=== PATIENT | male | born 1945 | race Caucasian/White ===

== ENCOUNTER 2017-01-10 16:06 | Emergency (ER) | payer MEDICARE, BC, OTHER ==
[2017-01-10 16:15] VITALS: BP 115/69
--- NOTE | 2017-01-10 17:33 | UC ---
Lower Extremity/Ankle HPI - HPI Summary HPI Summary: The patient comes in today for: 1. Swelling of the left foot and ankle: Onset: 4 days ago. Palliative/provocative: He does not know if elevation helps. In the past, except for today, the swelling was better in the morning. Quality: No pain. Region: Lower left leg. Severity: 0/10 pain to the leg. Associated symptoms: He is diabetic. Event: He fell 6 days ago. He fell to the left. No obvious injury. He had no pain at that time. He had pain the next day. But the swelling only started 4 days ago. It got better over the next 3 days. He denies any pain in the calf that is new. He states that he was told to come in to be seen to make sure that he does not have a blood clot in his leg. * - History of Current Complaint Chief Complaint: UCLowerExtremity Stated Complaint: SWOLLEN FOOT Time Seen by Provider: 01/10/17 17:26 Hx Obtained From: Patient - Allergies/Home Medications Allergies/Adverse Reactions: Allergies Allergy/AdvReac Type Severity Reaction Status Date / Time No Known Drug Allergy Allergy See Comment Verified 03/28/16 11:02 ENVIRONMENTAL/SEASONAL Allergy ITCHY, Uncoded 03/28/16 11:02 HAYFEVER WATERY EYES, SNEEZING PMH/Surg Hx/FS Hx/Imm Hx Previously Healthy: No - BPH, gingivitis, psoriasis. Endocrine History: Diabetes, Dyslipidemia Respiratory History: Asthma - Surgical History Surgical History: Yes Surgery Procedure, Year, and Place: GAMMA KNIFE 06/10 [facility] T[facility] 03/08/16. BRAIN TUMOR RESECTION 04/10 KIDNEY STONES REMOVED X3. RT ANKLE ORIF 1999. IMPACTED FECES X3. BLADDER STONE REMOVAL X2 [facility]. SIGMOID RESECTION [facility]. CYSTO STENT X3 [facility]-THEN REMOVED - Family History Known Family History: Negative: Hypertension, Diabetes - Social History Occupation: Employed Part-time Alcohol Use: Rare Substance Use Type: None Smoking Status (MU): Never Smoked Tobacco Have You Smoked in the Last Year: No - Immunization History Most Recent Influenza Vaccination: 2012 Most Recent Tetanus Shot: UNKNOWN Most Recent Pneumonia Vaccination: March 2013 Review of Systems Constitutional: Negative Skin: Negative Eyes: Negative ENT: Negative Respiratory: Negative Cardiovascular: Negative Gastrointestinal: Negative Genitourinary: Negative All Other Systems Reviewed And Are Negative: Yes Physical Exam Triage Information Reviewed: Yes Appearance: Well-Appearing, No Pain Distress Vital Signs: Initial Vital Signs Temp 96.5 F 01/10/17 16:09 Pulse 100 01/10/17 16:09 Resp 18 01/10/17 16:09 BP 115/69 01/10/17 16:09 Pulse Ox 99 01/10/17 16:09 Vital Signs Reviewed: Yes Eyes: Positive: Conjunctiva Clear. Negative: Discharge ENT: Positive: Hearing grossly normal. Negative: Pharyngeal erythema, Nasal congestion, Nasal drainage, TM bulging, TM dull, TM red, Tonsillar swelling, Tonsillar exudate Dental: Negative: Percussion Tenderness @, Gross Decay/Caries @ Neck: Positive: Supple, Nontender, No Lymphadenopathy. Negative: Nuchal Rigidity Respiratory: Positive: Lungs clear, No respiratory distress, No accessory muscle use. Negative: Crackles, Rhonchi Cardiovascular: Positive: RRR, No Murmur Abdomen Description: Positive: Nontender, No Organomegaly, Soft. Negative: Distended, Guarding Musculoskeletal: Positive: Strength Intact, ROM Intact, Other: - Calf circumference at 25 cm above the medial malleolus: Right calf: 39 Left calf: 40.5 There is no tenderness of the calf, but there are dilated varicose veins. There is no pain behind the left knee, or of the upper inner thigh, but there is tenderness to the lower inner thigh--though the patient states that this is not new. Neurological: Positive: Alert, Muscle Tone Normal Psychological: Positive: Age Appropriate Behavior, Consolable Skin: Positive: rashes - There is slight redness to the lower left leg, but no marked tenderness. Lower Extremity Course/Dx - Course Course Of Treatment: Patient was told that I considered a DVT as part of the differential diagnosis for his unilateral (left) lower leg swelling. Based on this, my recommendation was to go to the ER for an US of the lower left let to rule this out. He agreed to go via private car. - Differential Dx/Diagnosis Differential Diagnosis/HQI/PQRI: DVT, Sprain Provider Diagnoses: Left lower leg swelling. Discharge - Discharge Plan Condition: Stable Disposition: AGAINST MEDICAL ADVICE Additional Instructions: Patient states that he is going to the ER via private car.
== END 2017-01-10 18:00 | disposition left against medical advice (07) ==
LOC: UCEAST 16:06
DX: M79.89 Other specified soft tissue disorders (principal); E13.9 Other specified diabetes mellitus without complications; E78.5 Hyperlipidemia, unspecified; J45.909 Unspecified asthma, uncomplicated
CPT/HCPCS: 99212; G0463

== ENCOUNTER → 2017-01-10 18:28 | Emergency (ER) | payer MEDICARE, BC, OTHER ==
--- NOTE | 2017-01-10 23:32 | RAD ---
INDICATION: LEFT lower extremity ankle calf edema for 4 days. COMPARISON: No relevant prior exams available on the [facility] PACS for comparison. TECHNIQUE: Torres scale, color Doppler, and spectral analysis of the deep veins of the LEFT lower extremity. Vessel compression, phasicity, and augmentation assessed. REPORT: The LEFT common femoral, great saphenous, profunda femoral, femoral, popliteal, peroneal, and posterior tibial veins are patent. Small LEFT popliteal cyst noted. Patency of the RIGHT common femoral vein documented. IMPRESSION: No evidence for LEFT lower extremity deep venous thrombosis.
--- NOTE | 2017-01-10 23:40 | ED ---
Lower Extremity - HPI Summary HPI Summary: Patient suffered a fall 6 days ago and since then has had intermittent swelling and pain in his left lower leg and mid foot. Two days after the fall the leg was quite swollen and painful but three days later it had improved greatly. Today though the swelling and pain returned so he went to [facility] where he was referred to the ED for evaluation concerning a blood clot and or fracture in the foot. He denies SOB, CP or dizziness. He denies previous injury. - History of Current Complaint Chief Complaint: EDExtremityLower Stated Complaint: SWOLLEN LT FOOT Time Seen by Provider: 01/10/17 21:38 Hx Obtained From: Patient Mechanism Of Injury: Fall From A Standing Position Onset of Pain: Days Severity Initially: Mild Severity Currently: Mild Pain Intensity: 0 Timing: Constant Location: Is Discrete @ - LLE Character Of Pain: Dull, Aching Associated Signs And Symptoms: Positive: Swelling, Redness - mild Aggravating Factor(s): Standing, Ambulation Alleviating Factor(s): Rest Able to Bear Weight: Yes - Allergies/Home Medications Allergies/Adverse Reactions: Allergies Allergy/AdvReac Type Severity Reaction Status Date / Time No Known Drug Allergy Allergy See Comment Verified 03/28/16 11:02 ENVIRONMENTAL/SEASONAL Allergy ITCHY, Uncoded 03/28/16 11:02 HAYFEVER WATERY EYES, SNEEZING PMH/Surg Hx/FS Hx/Imm Hx Endocrine/Hematology History: Reports: Hx Diabetes - TYPE 2 Denies: Hx Sickle Cell Disease Cardiovascular History: Reports: Other Cardiovascular Problems/Disorders - HX OF ATRIAL TACHYCARDIA Denies: Hx Congestive Heart Failure, Hx Hypertension, Hx Pacemaker/ICD Respiratory History: Reports: Hx Asthma, Hx Sleep Apnea - NOT DIAGNOSISED GI History: Reports: Hx Gastroesophageal Reflux Disease, Other GI Disorders - VOLVULUS COLON - 4 BLOCKAGES LAST ONE 01/24/2013 / SIGMOID COLECTOMY History: Reports: Hx Kidney Stones, Other Problems/Disorders Denies: Hx Dialysis, Hx Renal Disease Musculoskeletal History: Reports: Hx Arthritis - BILATERAL HIPS Sensory History: Reports: Hx Contacts or Glasses - GLASSES Denies: Hx Hearing Aid Opthamlomology History: Reports: Hx Contacts or Glasses - GLASSES Neurological History: Reports: Hx Migraine - OCC, Other Neuro Impairments/ Disorders - BENIGN BRAIN TUMOR 2012 Psychiatric History: Denies: Hx Panic Disorder - Cancer History Cancer Type, Location and Year: BRAIN begnin - removed 2011 Hx Radiation Therapy: Yes - GAMMA KNIFE 06/18/12 - Surgical History Surgery Procedure, Year, and Place: GAMMA KNIFE 06/10 [facility] 03/08/16. BRAIN TUMOR RESECTION 04/10 KIDNEY STONES REMOVED X3. RT ANKLE ORIF 1999. IMPACTED FECES X3. BLADDER STONE REMOVAL X2 [facility]. SIGMOID RESECTION [facility]. CYSTO STENT X3 [facility] REMOVED Hx Anesthesia Reactions: No Infectious Disease History: Denies: Hx Clostridium Difficile, Hx Hepatitis, Hx Human Immunodeficiency Virus (HIV), Hx of Known/Suspected MRSA, Hx Shingles, Hx Tuberculosis, Hx Known/ Suspected VRE, Hx Known/Suspected VRSA, History Other Infectious Disease, Traveled Outside the [place] in Last 30 Days - Family History Known Family History: Positive: None Negative: Hypertension, Diabetes - Social History Occupation: Retired Lives: With Family Alcohol Use: Rare Substance Use Type: Reports: None Smoking Status (MU): Never Smoked Tobacco Have You Smoked in the Last Year: No Review of Systems Negative: Fever, Chills Positive: Myalgia, Edema Negative: Paresthesia, Numbness All Other Systems Reviewed And Are Negative: Yes Physical Exam Triage Information Reviewed: Yes Vital Signs On Initial Exam: Initial Vitals Temp Pulse Resp BP Pulse Ox 97.7 F 84 18 116/79 95 01/10/17 19:10 01/10/17 19:10 01/10/17 19:10 01/10/17 19:10 01/10/17 19:10 Vital Signs Reviewed: Yes Appearance: Positive: Well-Appearing, No Pain Distress, Well-Nourished Skin: Positive: Warm, Skin Color Reflects Adequate Perfusion, Dry, Soft Head/Face: Positive: Normal Head/Face Inspection Eyes: Positive: EOMI, BECK, Conjunctiva Clear ENT: Positive: Hearing grossly normal Respiratory/Lung Sounds: Positive: Breath Sounds Present Cardiovascular: Positive: RRR Musculoskeletal: Positive: Strength/ROM Intact, Edema Left - edema from mid- garcia distal to digits of the foot. Neurological: Positive: Sensory/Motor Intact, Alert, Oriented to Person Place, Time, NV Bundle Intact Distally, Abnormal Gait Psychiatric: Positive: Affect/Mood Appropriate AVPU Assessment: Alert Diagnostics - Vital Signs Vital Signs Temp Pulse Resp BP Pulse Ox 01/10/17 20:00 97.6 F 79 20 113/73 99 01/10/17 19:10 97.7 F 84 18 116/79 95 - Laboratory Lab Statement: Any lab studies that have been ordered have been reviewed, and results considered in the medical decision making process. - Radiology No standard instances Xray Interpretation: No Acute Changes Radiology Interpretation Completed By: Radiologist - Ultrasound No standard instances Ultrasound Interpretation: No Acute Changes Ultrasound Interpretation Completed By: Radiologist Lower Extremity Course/Dx - Diagnoses Differential Diagnosis/HQI/PQRI: Positive: Arthritis, Bursitis, Cellulitis, Contusion, Fracture (Closed), Gout, Sprain, Strain Provider Diagnoses: Pain and swelling of left lower leg Discharge - Discharge Plan Condition: Stable Disposition: HOME Patient Education Materials: Leg Edema (ED) Referrals: Brianne Anderson MD [Primary Care Provider] - Additional Instructions: Please follow-up with your primary care provider if your symptoms persist for another 3-5 days. Return to the emergency if your symptoms worsen.
[2017-01-10 23:41] VITALS: BP 108/69
--- NOTE | 2017-01-11 11:20 | RAD ---
Indication: Swollen LEFT foot after fall last week. Discomfort on examination of the second and third metatarsal phalangeal joints. Comparison: No relevant prior exams available on the [facility] for comparison. Technique: AP, lateral, and oblique views LEFT foot. Report: Normal articular alignment. Bone density appears decreased throughout. No cortical disruption or suspicious trabecular irregularity to suggest fracture. Mild joint space narrowing and osteophytosis at the first metatarsal phalangeal joint. Diffuse vascular calcifications. Soft tissue swelling most prominent over the dorsum of the forefoot. IMPRESSION: Soft tissue swelling. Negative for fracture.
== END | disposition home or self-care (01) ==
LOC: ED 18:28
DX: M79.89 Other specified soft tissue disorders (principal); R60.9 Edema, unspecified
CPT/HCPCS: 99281

== ENCOUNTER 2018-07-16 10:29 | Inpatient (IN) | payer MEDICARE, BC ==
--- NOTE | 2018-07-10 17:06 | HP ---
HISTORY AND PHYSICAL: DATE OF ADMISSION/SURGERY: 07/16/18 DATE OF OFFICE VISIT: 07/10/18 SURGEON: Sandra Tavera MD * (DICTATED BY DANIEL YOUNG) PROCEDURE: Right total hip arthroplasty. CHIEF COMPLAINT: Right hip pain. HISTORY OF PRESENT ILLNESS: Mr. 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 He has failed conservative treatment and elected to proceed with a right total hip arthroplasty. PAST MEDICAL HISTORY: Diabetes, high cholesterol, lymphedema, history of a brain tumor, cerebral ataxia, and asthma. PAST SURGICAL HISTORY: Oral surgery, removal of a brain tumor, sigmoidectomy, TURP, tonsillectomy, adenoidectomy, vein surgery, lithotripsy, laminectomy, and ORIF of the right ankle. CURRENT MEDICATIONS: 1. Gabapentin 300 mg 3 times a day. 2. Dovonex 0.005% as needed. 3. Doxycycline 20 mg twice a day. 4. Advair Diskus. 5. Glipizide 2.5 mg daily. 6. Janumet 50/500 mg twice a day. 7. Lisinopril 2.5 mg daily. 8. Hydrocodone. 9. Clotrimazole cream. 10. Fish oil. 11. Vitamin D. 12. Glucosamine/chondroitin. 13. Fiber Complete. 14. Atorvastatin calcium 20 mg q.h.s. 15. Potassium citrate 10 mEq two 3 times a day. 16. Clobetasol cream. ALLERGIES: No known drug allergies. FAMILY HISTORY: Stroke and cancer. SOCIAL HISTORY: He is a 72-year-old gentleman, lives with his . He does not smoke or use drugs. REVIEW OF SYSTEMS: A complete 14-point review of systems was reviewed with the patient. It was positive for diabetes and asthma. He denies history of DVT, PE , hepatitis, HIV, or anesthesia problems. PHYSICAL EXAMINATION GENERAL: He is well developed, well nourished, in no acute distress. VITAL SIGNS: He stands 5 feet 10 inches tall, weighs 260 pounds. His blood pressure is 112/72 and heart rate is 96. HEENT: Normocephalic, atraumatic. NECK: Supple. No palpable lymph nodes. PULMONARY: The lungs are clear to auscultation bilaterally. CARDIO: Regular rate and rhythm. Strong S1, S2. ABDOMEN: Soft, nontender, nondistended. NEUROLOGICAL: He is alert and oriented x3. MUSCULOSKELETAL: Right lower extremity: The skin is intact. There are no open wounds or abrasions. He walks with an antalgic-type gait favoring the right hip. He has decreased internal and external rotation of the right hip. He has a 2+ dorsalis pedis pulse, intact sensation and his lower extremity muscle group strengths are intact at 5/5. ASSESSMENT AND PLAN: Mr. Arvizu is a 72-year-old gentleman with end-stage osteoarthritis of the right hip. He has failed conservative treatment and elected to proceed with a right total hip arthroplasty. The surgery is scheduled for 07/16/[address] Tavera discussed the risks and benefits of the surgery at today's visit and all of his questions were answered. He will follow up with Dr. Tavera 2 weeks after the surgery. DANIEL YOUNG [id number]/[facility] #: [id number] MONA
[~2018-07-16 10:29] MED LIST: Buffered Lidocaine 0.9% SYRIN* 5 ML/SYR SYRINGE INTRADERM ONE; Lactated Ringers 1000 ML Bag* 1,000 ML IV SCH
--- OUTSIDE RECORDS SUMMARY | 2018-07-16 10:36 | XMS REPORT ---
:1945 External Reference #:[id number] Author Organization [facility] Address [address] [place] [address] Phone [phone] Care Team Providers Name Role Phone Brianne Anderson Care Team Information Meter Record Clerk Unavailable Brianne Anderson Primary Care Physician Unavailable Payers Type Date Identification Numbers Payment Provider Subscriber Medicare Primary Policy Number: [id number] Medicare [place] Michelle Arvizu PayID: [id number] [address] [place] [address] Medigap Part B Effective: 2007 Policy Number: [employer] Plan Vanessa Hayward [id number] PayID: [id number] [address] [place] [address] Problems Date Description Provider Status Onset: 07/13/2008 Type 2 diabetes mellitus Dg Carrasco M.D. Active Onset: 07/13/2008 Asthma without status asthmaticus Dg Carrasco M.D. Active Onset: 07/13/2008 Benign prostatic hypertrophy without Dg Carrasco M.D. Active outflow obstruction Onset: 05/16/2011 Psoriasis Brianne Anderson M.D. Active Onset: 05/26/2011 Constipation Kristi Card M.D. Active Onset: 06/25/2018 Obesity Brianne Anderson M.D. Active Onset: 06/25/2018 Paroxysmal supraventricular Brianne Anderson M.D. Active tachycardia Onset: 06/25/2018 Right bundle branch block Brianne Anderson M.D. Active Onset: 03/06/2018 Peripheral vascular disease Brianne Anderson M.D. Active Onset: 12/28/2017 Lumbosacral stenosis Brianne Anderson M.D. Active Onset: 07/09/2015 Indigestion Brianne Anderson M.D. Active Onset: 08/18/2014 Symptom of skin and integumentary Brianne Anderson M.D. Active tissue Onset: 08/18/2014 Spinal stenosis of lumbar region Brianne Anderson M.D. Active Family History Date Family Member(s) Problem(s) Comments Father 92. TIA's. Colon CA removed. Mother 82 dt Parkinson's. [place]. Social History Type Date Description Comments Marital Status Patient is Occupation sales [employer] Advance Directive The patient has an advance directive Cigarette Use Never Smoked Cigarettes ETOH Use Rare Smoking Patient has never smoked Exercise Type/Frequency Current Contradances twice weekly. Seat Belt/Car Seat Always uses a seat belt Allergies, Adverse Reactions, Alerts Date Description Reaction Status Severity Comments 03/02/2011 NKDA active 12/03/2009 Seasonal active Medications Medication Date Status Form Strength Qnty SIG Indications Ordering Provider Hydrocodone 06/26/ Active Tablets 5-325mg 60tabs 1 by Brianne Mojica Bitartrate/Yan 2017 mouth Monica, taminophen three M.D. times a day Ascensia 01/01/ Active Disk Breeze 3units test Brianne Mojica Breeznelia Test 2017 blood Keerthi Anderson sugar M.D. once daily. dx: e11.9 last office visit 02/16/16 Ascensia 10/18/ Active Disk 100unit Ascencia I73.9 Brianne Mojica Autodisc Test 2016 s 2 test britany Anderson M.DHeidi sugar twice daily. Advair Diskus 05/14/ Active Aerosol 250-50mcg 180unit inhale 1 I73.9 Brianne Mojica 2013 /Dose s dose by mahesh Anderson M.DHeidi twice a day Glipizide XL 10/13/ Active Tablets ER 2.5mg 90tabs take 1 I73.9 Brianne Mojica 2013 24HR tablet by mahesh Anderson M.DHeidi every morning Fish Oil 05/01/ Active Capsules 1000mg 2 po qd Brianne Mojica Burp-Micki 2012 Akshat Anderson Lisinopril 05/01/ Active Tablets 2.5mg 90tabs take one I73.9 Brianne Mojica 2012 tablet by Monica, mouth at M.D. at bedtime Ascensia 01/14/ Active Disk 1Box lancets Brianne Up 2011 for Monica, testing M.D. twice a day dx: 250.00 Dovonex 05/16/ Active Cream 0.005% 120gm apply L40.0 Brianne Mojica 2010 thin Monica, layer M.D. every day to affected area Janumet 05/24/ Active Tablets 50-500mg 180tabs 1 by I73.9 Brianne Mojica 2008 mouth Monica, twice a M.D. day Dex Lancets 07/08/ Active 1Box Use as 2002 Directed Guy, RAFTSMAN Glucosamine/Ch / Active Capsules as Unknown ondroitin 0000 directed Vitamin D-3 / Active Tablets 2000Unit 1 po qd Unknown 0000 Fibercon / Active Tablets 625mg 60tabs 1 po Unknown 0000 with meals Potassium / Active Tablets ER 6 po qd Unknown Citrate ER 0000 Doxycycline / Active Tablets 20mg 1 po bid Unknown Hyclate 0000 Atorvastatin / Active Tablets 20mg 1 by Unknown Calcium 0000 mouth every day Gabapentin / Active Tablets 300mg 1 by Unknown 0000 mouth three times a day Clobetasol / Active Cream 0.05% Unknown Propionate E 0000 Aspirin Ec / Active Tablets DR 325mg 6 by Unknown 0000 mouth every day Clotrimazole / Active Cream 1% apply to Unknown 0000 affected area on trunk and legs twice daily Lasix 02/27/ Hx Tablets 20mg 100tabs 1-2 by I83.11 Margie Holbrook 2017 - mouth Max, 06/25/ daily for [employer]UD[employer] 2018 swelling as needed. Cephalexin 02/08/ Hx Tablets 500mg 30tabs 1 by L03.115 2017 - mouth Guy, 02/27/ three RAFTSMAN 2018 times a day for 10d Physical 02/15/ Hx evaluate R53.1 Brianne Mojica Therapy 2015 - and treat Monica, 12/28/ leg M.DHeidi 2018 weakness fax to the [place] Pt. Aspirin Ec 02/15/ Hx Tablets DR 81mg 100tabs 1 by Brianne Mojica 2016 - mouth Monica, 12/28/ every day M.D. 2018 [facility]ensia 10/18/ Hx 90units test once Brianne Dailyeze Testing 2016 - a day as Monica, Discs 01/01/ directed M.D. 2017 Zofran Odt 07/09/ Hx Tablets 4mg 30tabs 1 by K30 Brianne Mojica 2014 - Dispers mouth Monica, 12/28/ every 4-6 M.D. 2018 hours as needed nausea/st omach pain Physical 07/09/ Hx evaluate R53.1 Brianne Mojica Therapy 2014 - and treat Monica, 10/18/ deniz leg M.D. 2016 weakness Terbinafine 08/18/ Hx Cream 1% 24gm apply 110.9 Brianne Mojica HCL 2014 - twice Monica, 07/09/ daily M.D. 2014 Bactrim DS 05/14/ Hx Tablets 800-160mg 20tabs 1 by 041.10 Brianne Mojica 2013 - mouth Monica, 08/18/ twice a M.D. 2014 day x 10 Ketoconazole 05/14/ Hx Cream 2% 15gm apply 696.1 Brianne Mojica 2013 - thin Monica, 07/09/ layer M.D. 2014 twice a day to affected area. Advair Diskus 10/07/ Hx Aerosol 100-50mcg 1units inhale 493.90 Brianne Mojica 2013 - /Dose one puff Monica, 05/14/ by mouth M.D. 2013 twice a day Azithromycin 05/01/ Hx Tablets 250mg 6tabs 2 po 560.2 Brianne Mojica 2012 - today. 1 Monica, 10/07/ po daily M.D. 2014 x 4 Glucotrol XL 10/18/ Hx Tablets ER 2.5mg 90tabs 1 tab PO 250.00 2012 - 24HR MarshallM. Guy, 10/13/ RAFTSMAN 2013 Return To Work Hx fax to Brianne Mojica 04/24/20122011 - [phone] Monica, 10/18/ 069 M.D. 2012 [wvbr] Attention : to whom it may concern Cephalexin 04/19/ Hx Capsules 250mg 30caps 1 po tid Brianne Mojica 2012 - x 10 d. Monica, 10/18/ with Akshat 2012 yogurt or kefir. Cephalexin 04/19/ Hx Tablets 250mg 30tabs 1 po tid 682.9 Brianne Mojica 2011 - until Monica, 10/18/ finished Akshat 2013 Singulair 02/20/ Hx Tablets 10mg 30tabs 1 po qd 386.31 2011 - Guy, 04/19/ RAFTSMAN 2011 Nasonex 09/04/ Hx Suspension 50mcg/Act sample 2 477.9 2011 - sprays/no Guy, 03/11/ stril/day RAFTSMAN 2011 386.31 Zyrtec Allergy 09/04/2011 - Hx Capsules 10mg OTC 1 po qd - 477.9 Guy, 10/07/2013 bid RAFTSMAN 386.31 Clindamycin HCL 05/16/2011 Hx Capsules 300mg 30caps one tab po 707.15 Brianne Mojica - tid for 10 Monica, 09/05/2011 days with Akshat yogurt or kefir Keflex 04/08/2010 Hx Capsules 500mg 30caps 1 po tid x 250.00 - 10d Guy, 10/21/2010 RAFTSMAN Asprin 08/20/2009 Hx 325mg 100units 1 po qOD Family - Medicine 10/07/2013 [facility] Finasteride 08/20/2009 Hx Tablets 5mg 90tabs 1 po qd 600.00 Family - Medicine 12/28/2017 [facility] Doxycycline 08/20/2009 Hx Capsules 50mg Family Hyclate - Medicine 04/19/2012 [facility] Breeze 2 03/29/2009 Hx 100Tests test blood Testing Disc - sugar Tid Guy, 09/04/2011 RAFTSMAN Actoplus Met 03/16/2009 Hx Tablets 15/500mg samples 1 po bid 250.00 - with meals Guy, 05/24/2009 RAFTSMAN Avodart 07/13/2008 Hx Capsules 0.5mg Family - Medicine 08/20/2009 [facility] Saw Mcintosh 07/13/2008 Hx Capsules 1 po bid 600.00 Family Complex - Medicine 06/25/2018 [facility] Gentamicin 07/13/2008 Hx Solution 0.3% 1Bottle 1-2 gtts qid Dg THeidi Sulfate - affected eye Midura, 12/03/2009 until clear M.D. [facility]ia Breeze 06/26/2007 Hx 1Box as directed 2 Autodiscs - Guy, 09/04/2011 RAFTSMAN Dovonex 05/16/2007 Hx Cream 0.005% 60Grams apply qd - Guy, 04/19/2012 RAFTSMAN Asa 12/11/2006 Hx 81mg PO qd Family - Medicine 08/20/2009 [facility] Fish Oil - 10/10/2005 Hx 1000mg 1-2 GMS A Carroll Jaeger [place] 3 Fa. - [facility] [place] Marcy, 12/11/2006 3'S MBruce (Dha/Epa) Saw 10/10/2005 Hx Prostate Carroll Jaeger Mcintosh/Nettle - Formula Marcy, /Selenium/Zinc 10/29/2007 M.D. [facility]ia Breeze 02/06/2005 Hx 90units test tid as Testing Discs - directed Guy, 06/26/2007 RAFTSMAN Cipro 12/20/2004 Hx Tablets 500mg 20tabs 1 PO bid For Dee R - 10 Days Cooper, 02/06/2005 RAFTSMAN-C Fortamet 07/21/2004 Hx 1000mg 30units 1 qpm 250.00 - Guy, 03/30/2009 RAFTSMAN Glucotrol XL 04/21/2004 Hx Tablets 2.5mg 90tabs 1 tab po am - ER 24HR Guy, 10/07/2013 RAFTSMAN Flomax 04/21/2004 Hx 0.4mg 30units Two every N40.0 Family day Medicine 12/28/2017 [facility] Advair Discus 02/11/2004 Hx 100/50 1units one 493.90 Brianne L. - inhalation Monica, 10/07/2013 twice daily M.D. Glucotrol XL 01/21/2004 Hx 5mg 90units 1 po qd Carroll JHeidi - Marcy, 04/21/2004 M.D. Advair 250/50 11/24/2003 Hx 50/100 1units one Carroll JHeidi - inhalations Marcy, 02/11/2004 bid M.D. Cialis 10/14/2003 Hx 20mg 1/2 to 1 qd Carroll Jaeger - prior to Finver, 11/24/2003 sexual M.D. activity as directed-- never use nitrates along with this medication. Spacer Device 09/30/2003 Hx 1units as directed Carroll Jaeger For Mdi - Finver, 11/24/2003 M.DHeiid Aerobid M 09/30/2003 Hx 1units 2 puffs bid. Carroll Jaeger - rinse mouth Finver, 11/24/2003 after use. M.DHeidi Dex Sensor 07/08/2003 Hx Ascencia 270units 3x a day Carroll Jaeger Cartridges - Marcy, 02/06/2005 MBruce Dovonex 07/07/2003 Hx .005% 60Grams apply to Carroll Jaeger - Oint rash qd Finver, 05/16/2007 Akshat Glucophage XR 07/07/2003 Hx 500mg 90units 1 qpm Carroll Vidal, 07/21/2004 M.DHeidi 1 qam Levaquin 09/25/2000 Hx 500mg 10units 1 qd Dg Kunal Carrasco, 09/30/2000 MHeidiDHeidi Keflex 09/13/2000 Hx 5Oomg 20units 1 PO bid Dg Kunal Carrasco, 07/07/2003 Akshat Tobrex 09/13/2000 Hx Ophth 5cc 2 GGT OU qid Dg Burgos Until Clear Midura, 07/07/2003 MBruce Dovonex 11/22/1998 Hx .005% 0units Apply To Nate M. - Rash qd Blumkin, 07/07/2003 Akshat Medrol Dosepack 11/22/1998 Hx 4mg 1units as Directed Nate Craig, 11/28/1998 Akshat Tessalon Pearls 10/15/1998 Hx 100mg 30units 1 PO tid prn Nate Craig, 11/04/1998 Akshat Ceclor CD 04/21/1997 Hx 250mg Cap 30units One tid Nate Craig, 10/15/1998 Akshat Periostat Hx Tablets 20mg 1 po bid Unknown - 04/19/2012 Doxycycline Hx Capsules 20mg take one Unknown Hyclate - capsule by 08/18/2014 mouth twice a day Dexamethasone Hx Tablets 1mg 1tabs 2 po qd Unknown - 10/07/2013 Tylenol Hx Tablets 325mg 120tabs 2 po q6h prn Unknown - elevated 10/07/2013 temp >101 Doxycycline Hx Tablets 20mg 1 by mouth Unknown Hyclate - twice a day 10/19/2015 for gums Immunizations CPT Code Status Date Vaccine Lot # [id number] Given 04/02/2018 High-Dose, Influenza Virus Vacccine-fluzone 65 and older 04602 Given 04/30/2017 High-Dose, Influenza Virus Vacccine-fluzone 65 and older 82327 Given 05/10/2016 High-Dose, Influenza Virus Vacccine-fluzone 65 and older 93166 Given 02/16/2016 Tetanus And Diptheria Adult Preservative Free [id number] >7Yrs 95523 Given 07/09/2015 Pneumococcal Conjugate Vacc-13 [id number] 69107 Given 04/16/2015 High-Dose, Influenza Virus Vacccine-fluzone 65 and older 21331 Given 04/22/2014 High-Dose, Influenza Virus Vacccine-fluzone 65 and older 20107 Given 05/01/2013 Pneumococcal Immunization [id number] 48868 Given 04/25/2013 High-Dose, Influenza Virus Vacccine-fluzone 65 and older 08727 Given 04/29/2012 DO Not Use Split Influenza Virus Vaccine 22980 Given 03/31/2011 DO Not Use Split Influenza Virus Vaccine 60398 Given 12/19/2007 Zostivax [id number] 83451 Given 06/08/2004 DO Not Use Split Influenza Virus Vaccine 81231 Given 08/25/2003 Td Immunization, For Use In Individuals 7 Years Or Older 55979 Given 08/25/2003 Td Immunization, For Use In Individuals 7 Years Or Older Vital Signs Date Vital Result Comment 06/25/2018 BP Systolic 124 mmHg BP Diastolic 64 mmHg Heart Rate 80 /min Body Temperature 98.6 F Respiratory Rate 16 /min Weight 262.00 lb 03/21/2018 BP Systolic 106 mmHg BP Diastolic 54 mmHg Heart Rate 96 /min Body Temperature 97.5 F Respiratory Rate 16 /min Weight 247.00 lb 03/06/2018 BP Systolic 114 mmHg BP Diastolic 60 mmHg Heart Rate 96 /min Body Temperature 97.9 F Respiratory Rate 18 /min Weight 248.38 lb 02/27/2018 BP Systolic 122 mmHg BP Diastolic 84 mmHg Heart Rate 84 /min Body Temperature 97.9 F Respiratory Rate 18 /min Weight 252.00 lb 02/08/2018 BP Systolic 104 mmHg BP Diastolic 62 mmHg Heart Rate 80 /min Body Temperature 98.6 F Respiratory Rate 16 /min Weight 250.00 lb 12/28/2017 BP Systolic 110 mmHg BP Diastolic 62 mmHg Heart Rate 104 /min Body Temperature 97.3 F Weight 246.00 lb 02/16/2016 BP Systolic 114 mmHg BP Diastolic 70 mmHg Heart Rate 80 /min Body Temperature 98.2 F Respiratory Rate 18 /min Weight 243.00 lb 10/19/2015 BP Systolic 118 mmHg BP Diastolic 70 mmHg Heart Rate 88 /min Body Temperature 98.0 F Respiratory Rate 18 /min Weight 235.00 lb 07/09/2015 BP Systolic 124 mmHg BP Diastolic 66 mmHg Heart Rate 96 /min Body Temperature 97.8 F Respiratory Rate 16 /min Weight 234.12 lb 10/06/2014 BP Systolic 120 mmHg BP Diastolic 76 mmHg Heart Rate 80 /min Body Temperature 98.0 F Respiratory Rate 18 /min Height 71.25 inches 5'11.25" Weight 238.00 lb BMI (Body Mass Index) 33.0 kg/m2 08/18/2014 BP Systolic 120 mmHg BP Diastolic 78 mmHg Heart Rate 88 /min Body Temperature 98.2 F Respiratory Rate 18 /min Height 71.25 inches 5'11.25" Weight 238.00 lb BMI (Body Mass Index) 33.0 kg/m2 05/14/2014 BP Systolic 120 mmHg BP Diastolic 60 mmHg Heart Rate 76 /min Body Temperature 97.6 F Respiratory Rate 18 /min Height 71.25 inches 5'11.25" Weight 239.00 lb BMI (Body Mass Index) 33.1 kg/m2 10/07/2013 BP Systolic 108 mmHg BP Diastolic 68 mmHg Heart Rate 78 /min Body Temperature 98.6 F Respiratory Rate 16 /min Height 71.25 inches 5'11.25" Weight 236.50 lb BMI (Body Mass Index) 32.8 kg/m2 05/01/2013 BP Systolic 126 mmHg BP Diastolic 70 mmHg Heart Rate 70 /min Body Temperature 97.8 F Respiratory Rate 18 /min Height 71.25 inches 5'11.25" Weight 230.00 lb BMI (Body Mass Index) 31.9 kg/m2 10/18/2012 BP Systolic 110 mmHg BP Diastolic 72 mmHg Heart Rate 80 /min Height 71.25 inches 5'11.25" Weight 226.00 lb BMI (Body Mass Index) 31.3 kg/m2 04/19/2012 BP Systolic 108 mmHg BP Diastolic 68 mmHg Heart Rate 90 /min Body Temperature 96.9 F Height 71.25 inches 5'11.25" Weight 222.00 lb BMI (Body Mass Index) 30.7 kg/m2 03/11/2012 BP Systolic 120 mmHg BP Diastolic 80 mmHg Heart Rate 102 /min Body Temperature 98.6 F Height 71.25 inches 5'11.25" Weight 237.00 lb BMI (Body Mass Index) 32.8 kg/m2 02/21/2012 BP Systolic 118 mmHg BP Diastolic 78 mmHg Heart Rate 104 /min Height 71.25 inches 5'11.25" Weight 237.00 lb BMI (Body Mass Index) 32.8 kg/m2 09/04/2011 BP Systolic 110 mmHg BP Diastolic 80 mmHg Heart Rate 60 /min Body Temperature 98.5 F Height 71.25 inches 5'11.25" Weight 234.00 lb BMI (Body Mass Index) 32.4 kg/m2 05/26/2011 BP Systolic 124 mmHg BP Diastolic 80 mmHg Heart Rate 94 /min Body Temperature 98.6 F Height 71.25 inches 5'11.25" Weight 237.00 lb BMI (Body Mass Index) 32.8 kg/m2 05/16/2011 BP Systolic 112 mmHg BP Diastolic 60 mmHg Heart Rate 80 /min Body Temperature 98.1 F Respiratory Rate 20 /min O2 % BldC Oximetry 20 % Height 71.25 inches 5'11.25" Weight 234.00 lb BMI (Body Mass Index) 32.4 kg/m2 03/02/2011 BP Systolic 120 mmHg BP Diastolic 72 mmHg Body Temperature 88.0 F Height 71.25 inches 5'11.25" Weight 244.00 lb BMI (Body Mass Index) 33.8 kg/m2 10/21/2010 BP Systolic 118 mmHg BP Diastolic 76 mmHg Heart Rate 84 /min Body Temperature 98.4 F Height 71.25 inches 5'11.25" Weight 250.00 lb BMI (Body Mass Index) 34.6 kg/m2 04/08/2010 BP Systolic 104 mmHg BP Diastolic 64 mmHg Heart Rate 84 /min Body Temperature 98.5 F Height 71.25 inches 5'11.25" Weight 245.00 lb BMI (Body Mass Index) 33.9 kg/m2 12/03/2009 BP Systolic 102 mmHg BP Diastolic 64 mmHg Heart Rate 74 /min Body Temperature 97.9 F Respiratory Rate 16 /min O2 % BldC Oximetry 96 % Weight 244.00 lb 08/20/2009 BP Systolic 112 mmHg BP Diastolic 74 mmHg Heart Rate 76 /min Height 71.25 inches 5'11.25" Weight 243.00 lb BMI (Body Mass Index) 33.7 kg/m2 03/29/2009 BP Systolic 100 mmHg BP Diastolic 70 mmHg Heart Rate 80 /min Body Temperature 98.3 F Weight 239.00 lb 08/18/2008 BP Systolic 106 mmHg BP Diastolic 72 mmHg Heart Rate 72 /min Body Temperature 98.3 F Weight 241.00 lb 07/13/2008 BP Systolic 124 mmHg BP Diastolic 64 mmHg Heart Rate 72 /min Body Temperature 98.3 F Height 71.25 inches 5'11.25" Weight 241.00 lb BMI (Body Mass Index) 33.4 kg/m2 12/19/2007 BP Systolic 110 mmHg BP Diastolic 60 mmHg Heart Rate 74 /min Height 71.25 inches 5'11.25" Weight 240.00 lb BMI (Body Mass Index) 33.2 kg/m2 10/29/2007 BP Systolic 132 mmHg BP Diastolic 82 mmHg Body Temperature 99.0 F Height 71.25 inches 5'11.25" Weight 239.00 lb BMI (Body Mass Index) 33.1 kg/m2 06/26/2007 BP Systolic 110 mmHg BP Diastolic 80 mmHg Heart Rate 84 /min Height 71.25 inches 5'11.25" Weight 244.00 lb BMI (Body Mass Index) 33.8 kg/m2 12/11/2006 BP Systolic 126 mmHg BP Diastolic 80 mmHg Heart Rate 92 /min Height 71.25 inches 5'11.25" Weight 250.00 lb BMI (Body Mass Index) 34.6 kg/m2 05/18/2006 BP Systolic 108 mmHg BP Diastolic 70 mmHg Heart Rate 80 /min Height 71.25 inches 5'11.25" Weight 242.00 lb BMI (Body Mass Index) 33.5 kg/m2 10/10/2005 BP Systolic 114 mmHg BP Diastolic 72 mmHg Heart Rate 78 /min Body Temperature 98.2 F Height 71.25 inches 5'11.25" Weight 236.00 lb BMI (Body Mass Index) 32.7 kg/m2 02/06/2005 BP Systolic 120 mmHg BP Diastolic 60 mmHg Heart Rate 72 /min Height 71.5 inches 5'11.50" Weight 232.00 lb BMI (Body Mass Index) 31.9 kg/m2 12/23/2004 BP Systolic 132 mmHg BP Diastolic 80 mmHg Heart Rate 84 /min Body Temperature 98.3 F Height 71.5 inches 5'11.50" Weight 239.00 lb BMI (Body Mass Index) 32.9 kg/m2 12/20/2004 BP Systolic 114 mmHg BP Diastolic 72 mmHg Heart Rate 100 /min Body Temperature 98.2 F Height 71.5 inches 5'11.50" Weight 237.00 lb BMI (Body Mass Index) 32.6 kg/m2 07/21/2004 BP Systolic 120 mmHg BP Diastolic 80 mmHg Heart Rate 80 /min Height 71.5 inches 5'11.50" Weight 238.00 lb BMI (Body Mass Index) 32.7 kg/m2 04/21/2004 BP Systolic 112 mmHg BP Diastolic 70 mmHg Heart Rate 80 /min Height 71.5 inches 5'11.50" Weight 240.00 lb BMI (Body Mass Index) 33.0 kg/m2 01/21/2004 BP Systolic 110 mmHg BP Diastolic 70 mmHg Heart Rate 80 /min Height 71.5 inches 5'11.50" Weight 237.00 lb BMI (Body Mass Index) 32.6 kg/m2 11/24/2003 BP Systolic 112 mmHg BP Diastolic 80 mmHg Heart Rate 68 /min Height 71.5 inches 5'11.50" Weight 248.00 lb BMI (Body Mass Index) 34.1 kg/m2 08/25/2003 BP Systolic 112 mmHg BP Diastolic 72 mmHg Heart Rate 96 /min Height 71.5 inches 5'11.50" Weight 261.00 lb BMI (Body Mass Index) 35.9 kg/m2 07/27/2003 BP Systolic 126 mmHg BP Diastolic 80 mmHg Heart Rate 72 /min Height 71.5 inches 5'11.50" Weight 264.00 lb BMI (Body Mass Index) 36.3 kg/m2 07/08/2003 BP Systolic 120 mmHg BP Diastolic 82 mmHg Heart Rate 80 /min Body Temperature 96.8 F Height 71.5 inches 5'11.50" 07/07/2003 BP Systolic 140 mmHg BP Diastolic 80 mmHg Heart Rate 100 /min Height 71.5 inches 5'11.50" Weight 272.00 lb BMI (Body Mass Index) 37.4 kg/m2 09/13/2000 BP Systolic 130 mmHg BP Diastolic 82 mmHg Heart Rate 80 /min Body Temperature 96.0 F Height 71.5 inches 5'11.50" Weight 274.00 lb BMI (Body Mass Index) 38.2 kg/m2 11/22/1998 BP Systolic 130 mmHg LA LG Cuff BP Diastolic 84 mmHg LA LG Cuff Heart Rate 80 /min Reg Body Temperature 97.9 F Height 71.5 inches 5'11.50" Weight 266.00 lb Right Visual Acuity Distance 20/20 With Bifoccals Left Visual Acuity Distance 20/20 10/15/1998 BP Systolic 120 mmHg BP Diastolic 86 mmHg Body Temperature 98.6 F Weight 271.00 lb 04/21/1997 Body Temperature 98.9 F Results Test Date Test Result H/L Range Note CBC Auto Diff 07/10/2018 White Blood Count 6.6 10^3/uL 3.5-10.8 Red Blood Count 4.67 10^6/uL 4.00-5.40 Hemoglobin 13.7 g/dL Low 14.0-18.0 Hematocrit 42 % 42-52 Mean Corpuscular Volume 89 fL 80-94 Mean Corpuscular Hemoglobin 29 pg 27-31 Mean Corpuscular HGB Conc 33 g/dL 31-36 Red Cell Distribution Width 15 % 10.5-15 Platelet Count 203 10^3/uL 150-450 Mean Platelet Volume 7.6 fL 7.4-10.4 Abs Neutrophils 3.5 10^3/uL 1.5-7.7 Abs Lymphocytes 1.9 10^3/uL 1.0-4.8 Abs Monocytes 0.7 10^3/uL 0-0.8 Abs Eosinophils 0.4 10^3/uL 0-0.6 Abs Basophils 0 10^3/uL 0-0.2 Abs Nucleated RBC 0 10^3/uL Granulocyte % 52.3 % Lymphocyte % 29.0 % Monocyte % 11.3 % Eosinophil % 6.7 % Basophil % 0.7 % Nucleated Red Blood Cells % 0.1 Urinalysis Profile 07/10/2018 Urine Color Yellow Urine Appearance Clear Urine Specific [place] 1.019 1.010-1.030 Urine pH 7.0 5-9 Urine Urobilinogen Negative Negative Urine Ketones Negative Negative Urine Protein Negative Negative Urine Leukocytes Negative Negative Urine Blood Negative Negative Urine Nitrite Negative Negative Urine Bilirubin Negative Negative Urine Glucose Negative Negative Inr/Protime 07/10/2018 Inr 1.01 0.77-1.02 Laboratory test finding 07/10/2018 Partial Thrombo Time 31.5 seconds 26.0 -36.3 PTT Comp Metabolic Panel 07/10/2018 Sodium 141 mmol/L 135-145 Potassium 4.3 mmol/L 3.5-5.0 Chloride 105 mmol/L 101-111 Co2 Carbon Dioxide 31 mmol/L 22-32 Anion Gap 5 mmol/L 2-11 Glucose 100 mg/dL 70-100 Blood Urea Nitrogen 22 mg/dL 6-24 Creatinine 1.03 mg/dL 0.67-1.17 BUN/Creatinine Ratio 21.4 High 8-20 Calcium 9.6 mg/dL 8.6-10.3 Total Protein 7.3 g/dL 6.4-8.9 Albumin 4.2 g/dL 3.2-5.2 Globulin 3.1 g/dL 2-4 Albumin/Globulin Ratio 1.4 1-3 Total Bilirubin 0.40 mg/dL 0.2-1.0 Alkaline Phosphatase 79 U/L 34-104 Alt 15 U/L 7-52 Ast 13 U/L 13-39 Egfr Non- 71.0 >60 Egfr 85.9 >60 1 Type & Screen 07/10/2018 Patient Blood Type O Positive Antibody Screen POSITIVE Urine Culture And 07/10/2018 Urine Culture SEE RESULT BELOW 2 Sensitivities Creatinine 07/10/2018 Creatinine 0.98 mg/dL 0.67-1.17 Egfr Non- 75.2 >60 Egfr 91.0 >60 3 Laboratory test finding 07/10/2018 TSH (Thyroid Stim Horm) 5.48 mcIU/mL 0.34-5.60 Basic Metabolic Profile 03/18/2018 Sodium 141 mEq/L 134-149 Potassium 4.3 mEq/L 3.6-5.5 Chloride 104 mEq/L 94-112 Carbon Dioxide 30 mEq/L 21-32 Glucose 149 mg/dL High 70-105 BUN 27 mg/dL High 6-26 Creatinine 1.0 mg/dL 0.6-1.4 BUN/Creat Ratio 27.0 CALC 8.0-36.0 Calcium 9.5 mg/dL 8.6-10.2 GFR Non- >60 ml/min/1.73m^ >=60 GFR >60 ml/min/1.73m^ >=60 Istat BUN/Crea/Egfr/V Mainct 06/28/2017 Poc Bun Mainct 36 mg/dL High 9-18 Poc Crea Mainct 0.9 mg/dL 0.6-0.9 GFR Non- MCT 83.2 >60 GFR Mainct 107.0 >60 4 Comprehensive Metabolic Prof 09/19/2016 Sodium 141 mEq/L 134-149 Potassium 4.7 mEq/L 3.6-5.5 Chloride 104 mEq/L 94-112 Carbon Dioxide 29 mEq/L 21-32 Glucose 150 mg/dL High 70-105 5 BUN 24 mg/dL 6-26 Creatinine 0.9 mg/dL 0.6-1.4 BUN/Creat Ratio 26.7 CALC 8.0-36.0 Calcium 9.2 mg/dL 8.6-10.2 Total Protein 7.1 g/dL 6.4-8.3 Albumin 4.4 g/dL 3.8-5.5 Globulin 2.7 g/dL 2.0-4.8 A/G Ratio 1.6 CALC 0.6-2.3 Alk. Phosphatase 64 U/L 22-95 Alt (SGPT) 16 U/L 7-35 Ast (Sgot) 13 U/L 5-34 Total Bilirubin 0.5 mg/dL 0.2-1.3 GFR Non- >60 ml/min/1.73m^ >=60 GFR >60 ml/min/1.73m^ >=60 Lipid Profile 09/19/2016 Cholesterol 154 mg/dL 120-200 Triglycerides 52 mg/dL 30-200 HDL Cholesterol 57 mg/dL 30-70 LDL (Calculated) 87 CALC 0-129 VLDL Cholesterol 10 mg/dL 0-50 HDL Risk Factor 2.7 CALC 0.0-4.4 Laboratory test finding 09/19/2016 PSA 0.3 ng/mL 0.0-4.0 Uric Acid 5.1 mg/dL 2.5-9.2 Iron And Tibc 08/02/2016 Iron Bind.Cap.(Tibc) 338 g/dL 250-450 6 Uibc 236 g/dL 111-343 6 Iron, Serum 102 g/dL 38-169 6 Iron Saturation 30 % 15-55 6 Laboratory test finding 08/02/2016 TSH 2.64 mIU/L 0.50-6.00 Comprehensive Metabolic Prof 08/02/2016 Sodium 138 mEq/L 134-149 Potassium 5.0 mEq/L 3.6-5.5 Chloride 99 mEq/L 94-112 Carbon Dioxide 25 mEq/L 21-32 Glucose 174 mg/dL High 70-105 7 BUN 24 mg/dL 6-26 Creatinine 1.0 mg/dL 0.6-1.4 BUN/Creat Ratio 24.0 CALC 8.0-36.0 Calcium 9.8 mg/dL 8.6-10.2 Total Protein 7.1 g/dL 6.4-8.3 Albumin 3.9 g/dL 3.8-5.5 Globulin 3.2 g/dL 2.0-4.8 A/G Ratio 1.2 CALC 0.6-2.3 Alk. Phosphatase 66 U/L 22-95 Alt (SGPT) 21 U/L 7-35 Ast (Sgot) 23 U/L 5-34 Total Bilirubin 0.7 mg/dL 0.2-1.3 GFR Non- >60 ml/min/1.73m^ >=60 GFR >60 ml/min/1.73m^ >=60 CBC Electronic ([facility]) 08/02/2016 WBC 7.1 3.6-9.6 RBC 5.01 3.90-5.70 Hemoglobin ([facility]/CTX) 14.8 g/dL 12.1 - 17.2 Hematocrit ([facility]/CTX) 44.7 % 36.1 - 50.3 Platelets 214 10^3/ul 150-400 Lymph% 23.0 % 17.0-48.0 Mixed% 5.6 Neutrophils % 71.4 Mean Corpuscular Vol 89 82.2-97.4 Mean Corpuscular Hemoglobin 29.6 27.6-33.3 Mean Corpuscular Hemo Concen 33.1 32.0-36.0 RDW 14.4 High 11.6-13.7 Mean Platelet Volume 6.3 5.5-11.0 Laboratory test finding 08/02/2016 Hemoglobin A1c ([facility]) 6.6 % % High 4.1- 5.7 Creatinine 04/11/2016 Creatinine 0.95 mg/dL 0.67-1.17 Egfr Non- 78.4 >60 Egfr 100.8 >60 8 Laboratory test finding 03/08/2016 Point of Care Glucose 159 mg/dL High 74 -106 9 Laboratory test finding 03/08/2016 Point of Care Glucose 148 mg/dL High 74 -106 10 Basic Metabolic Panel 02/29/2016 Sodium 137 mmol/L 133-145 Potassium 4.5 mmol/L 3.5-5.0 Chloride 105 mmol/L 101-111 Co2 Carbon Dioxide 26 mmol/L 22-32 Anion Gap 6 mmol/L 2-11 Glucose 97 mg/dL 70-100 Blood Urea Nitrogen 19 mg/dL 6-24 Creatinine 0.87 mg/dL 0.67-1.17 BUN/Creatinine Ratio 21.8 High 8-20 Calcium 9.1 mg/dL 8.6-10.3 Egfr Non- 86.8 >60 Egfr 111.6 >60 11 CBC Auto Diff 02/29/2016 White Blood Count 6.5 10^3/uL 3.5-10.8 Red Blood Count 4.44 10^6/uL 4.0-5.4 Hemoglobin 12.9 g/dL Low 14.0-18.0 Hematocrit 40 % Low 42-52 Mean Corpuscular Volume 89 fL 80-94 Mean Corpuscular Hemoglobin 29 pg 27-31 Mean Corpuscular HGB Conc 33 g/dL 31-36 Red Cell Distribution Width 14 % 10.5-15 Platelet Count 175 10^3/uL 150-450 Mean Platelet Volume 8 um3 7.4-10.4 Abs Neutrophils 3.8 10^3/uL 1.5-7.7 Abs Lymphocytes 1.7 10^3/uL 1.0-4.8 Abs Monocytes 0.8 10^3/uL 0-0.8 Abs Eosinophils 0.2 10^3/uL 0-0.6 Abs Basophils 0 10^3/uL 0-0.2 Abs Nucleated RBC 0 10^3/uL Granulocyte % 58.9 % 38-83 Lymphocyte % 26.2 % 25-47 Monocyte % 11.6 % High 1-9 Eosinophil % 2.8 % 0-6 Basophil % 0.5 % 0-2 Nucleated Red Blood Cells % 0.1 Inr/Protime 02/29/2016 Inr 1.03 0.89-1.11 Laboratory test finding 02/29/2016 Partial Thrombo Time 30.4 seconds 26.0 -36.3 PTT Urine Culture And Sensitivities SEE RESULT BELOW 12 Total Protein 24HR Urine 10/27/2015 Urine Collection Time 24 Urine Total Volume 1900 mL Urine Random Total Protein 10 mg/dL Urine Total Protein/24HR 190 mg/24Hr High 0-165 Calcium,24 Hour,Urine 10/27/2015 Urine Calcium 190 mg/24h <250 Urine Collection Duration 24 h Urine Volume 1900 mL Urine Calcium Conc 10 mg/dL 13 Uric Acid 24HR Urine 10/27/2015 Uric Acid, U 950 mg/24h High 14 Collection Duration 24 h Urine Volume 1900 mL Uric Acid Concentration 50 mg/dL 15 Laboratory test finding 10/27/2015 Reference Lab Test See Comment 16 Laboratory test finding 10/12/2015 Microalb, Random 8.5 mg/L 0.5-37 ([facility]/CTX) Hemoglobin A1c ([facility]) 6.5 % High 4.1-5.7 Comprehensive Metabolic Prof 10/12/2015 Sodium 136 mEq/L 134-149 Potassium 4.6 mEq/L 3.6-5.5 Chloride 98 mEq/L 94-112 Carbon Dioxide 30 mEq/L 21-32 Glucose 130 mg/dL High 70-105 17 BUN 19 mg/dL 6-26 Creatinine 0.9 mg/dL 0.6-1.4 BUN/Creat Ratio 21.1 CALC 8.0-36.0 Calcium 9.4 mg/dL 8.6-10.2 Total Protein 7.3 g/dL 6.4-8.3 Albumin 4.2 g/dL 3.8-5.5 Globulin 3.1 g/dL 2.0-4.8 A/G Ratio 1.4 CALC 0.6-2.3 Alk. Phosphatase 55 U/L 22-95 Alt (SGPT) 16 U/L 7-35 Ast (Sgot) 13 U/L 5-34 Total Bilirubin 0.5 mg/dL 0.2-1.3 GFR Non- >60 ml/min/1.73m^ >=60 GFR >60 ml/min/1.73m^ >=60 Lipid Profile 10/12/2015 Cholesterol 212 mg/dL High 120-200 Triglycerides 66 mg/dL 30-200 HDL Cholesterol 68 mg/dL 30-70 LDL (Calculated) 131 CALC High 0-129 VLDL Cholesterol 13 mg/dL 0-50 HDL Risk Factor 3.1 CALC 0.0-4.4 Complete Blood Count 10/12/2015 WBC 5.5 x10^3/UL 3.6-9.6 RBC 4.61 x10^6/UL 3.90-5.70 HGB 13.8 g/dL 12.1-17.2 HCT 42 % 36-50 MCV 90.0 fL 82.2-97.4 MCH 29.8 pg 27.6-33.3 MCHC 33.0 g/dL 33.0-35.5 RDW 14.5 % High 11.6-13.7 PLT 184 x10^3/UL 150-400 MPV 7.0 fL Low 7.4-10.4 Gran # 3.9 x10^3/UL 1.5-7.2 Lymph# 1.3 x10^3/UL 0.7-4.9 [place]# 0.3 x10^3/UL 0.1-0.9 Gran % 69.5 % 42.2-75.2 Lymph % 25.0 % 20.5-51.1 [place]% 5.5 % 1.7-9.3 Laboratory test finding 10/12/2015 TSH 3.60 mIU/L 0.50-6.00 18 Free T4 0.92 ng/dL 0.75-1.54 Vitamin D25 42 30-100 Stone Analysis 09/17/2015 Kidney Stone Source Right Ureter Kidney Stone 1st Constituent 100% Uric acid 19 Laboratory test finding 09/17/2015 Point of Care Glucose 133 mg/dL High 74 -106 20 Laboratory test finding 09/17/2015 Point of Care Glucose 137 mg/dL High 74 -106 21 Laboratory test finding 08/09/2015 Point of Care Glucose 123 mg/dL High 74 -106 22 Laboratory test finding 07/09/2015 Hemoglobin A1c 6.4 % High 4.1-5.7 ([facility],CX) Laboratory test finding 06/19/2015 Point of Care Glucose 152 mg/dL High 74 -106 23 Stone Analysis 06/19/2015 Kidney Stone Source Bladder Kidney Stone 1st Constituent 100% Uric acid 24 CBC Auto Diff 06/18/2015 White Blood Count 11.8 10^3/uL High 4.8-10.8 Red Blood Count 4.87 10^6/uL 4.0-5.4 Hemoglobin 14.1 g/dL 14.0-18.0 Hematocrit 44 % 42-52 Mean Corpuscular Volume 91 fL 80-94 Mean Corpuscular Hemoglobin 29 pg 27-31 Mean Corpuscular HGB Conc 32 g/dL 31-36 Red Cell Distribution Width 14 % 10.5-15 Platelet Count 194 10^3/uL 150-450 Mean Platelet Volume 8 um3 7.4-10.4 Abs Neutrophils 9.0 10^3/uL High 1.5-7.7 Abs Lymphocytes 1.4 10^3/uL 1.0-4.8 Abs Monocytes 1.4 10^3/uL High 0-0.8 Abs Eosinophils 0 10^3/uL 0-0.6 Abs Basophils 0 10^3/uL 0-0.2 Abs Nucleated RBC 0 10^3/uL Granulocyte % 76.2 % 38-83 Lymphocyte % 11.7 % Low 25-47 Monocyte % 11.6 % High 1-9 Eosinophil % 0.2 % 0-6 Basophil % 0.3 % 0-2 Nucleated Red Blood Cells % 0 Comp Metabolic Panel 06/18/2015 Sodium 132 mmol/L Low 133-145 Potassium 4.2 mmol/L 3.5-5.0 Chloride 100 mmol/L Low 101-111 Co2 Carbon Dioxide 25 mmol/L 22-32 Anion Gap 7 mmol/L 2-11 Glucose 128 mg/dL High 70-100 Blood Urea Nitrogen 30 mg/dL High 6-24 Creatinine 1.55 mg/dL High 0.67-1.17 BUN/Creatinine Ratio 19.4 8-20 Calcium 9.7 mg/dL 8.6-10.3 Total Protein 7.7 g/dL 6.4-8.9 Albumin 4.0 g/dL 3.2-5.2 Globulin 3.7 g/dL 2-4 Albumin/Globulin Ratio 1.1 1-3 Total Bilirubin 0.90 mg/dL 0.2-1.0 Alkaline Phosphatase 52 U/L 34-104 Alt 12 U/L 7-52 Ast 12 U/L Low 13-39 Egfr Non- 44.7 >60 Egfr 57.5 >60 25 Laboratory test finding 06/18/2015 Lipase 7 U/L Low 11.0-82.0 C Reactive Protein 49.67 mg/L High < 5.00 26 Lactic Acid 0.9 mmol/L 0.5-2.2 Urinalysis Profile 06/18/2015 Urine Color Yellow Urine Appearance Cloudy Urine Specific [place] 1.017 1.010-1.030 Urine pH 5.0 5-9 Urine Urobilinogen Negative Negative Urine Ketones 1+ Negative Urine Protein Negative Negative Urine Leukocytes Negative Negative Urine Blood Negative Negative Urine Nitrite Negative Negative Urine Bilirubin Negative Negative Urine Glucose Negative Negative Laboratory test finding 08/18/2014 Hemoglobin A1c 6.5 % High 4.1-5.7 ([facility],CX) Laboratory test finding 05/14/2014 Hemoglobin A1c 6.3 % High 4.1-5.7 ([facility],CX) Basic Metabolic Panel 01/21/2014 Sodium 138 mmol/L 133-145 Potassium 4.3 mmol/L 3.7-5.6 Chloride 107 mmol/L 101-111 Co2 Carbon Dioxide 26 mmol/L 22-32 Anion Gap 5 mmol/L 2-11 Glucose 113 mg/dL High 70-100 Blood Urea Nitrogen 20 mg/dL 6-24 Creatinine 0.91 mg/dL 0.67-1.17 BUN/Creatinine Ratio 22.0 High 8-20 Calcium 9.3 mg/dL 8.6-10.3 Egfr Non- 82.9 >60 Egfr 106.6 >60 27 Laboratory test 10/07/2013 Vitamin D25 30 30-100 finding Laboratory test 10/07/2013 Hemoglobin A1c 6.4 % High 4.1-5.7 finding ([facility],CX) Laboratory test 09/24/2013 [facility] Lab Test cbc;bmp see image finding report Laboratory test 05/01/2013 Hemoglobin A1c 6.1% % High 4.1-5.7 finding ([facility],CX) CBC Auto Diff 04/24/2013 White Blood Count 5.7 10^3/uL 4.8-10.8 Red Blood Count 4.88 10^6/uL 4.0-5.4 Hemoglobin 15.0 g/dL 14.0-18.0 Hematocrit 45 % 42-52 Mean Corpuscular Volume 92 fL 80-94 Mean Corpuscular Hemoglobin 31 pg 27-31 Mean Corpuscular HGB Conc 33 g/dL 31-36 Red Cell Distribution Width 14 % 10.5-15 Platelet Count 175 10^3/uL 150-450 Mean Platelet Volume 8 um3 7.4-10.4 Abs Neutrophils 3.5 10^3/uL 1.5-7.7 Abs Lymphocytes 1.4 10^3/uL 1.0-4.8 Abs Monocytes 0.6 10^3/uL 0-0.8 Abs Eosinophils 0.2 10^3/uL 0-0.6 Abs Basophils 0 10^3/uL 0-0.2 Abs Nucleated RBC 0 10^3/uL Granulocyte % 61.4 % 38-83 Lymphocyte % 24.1 % Low 25-47 Monocyte % 10.6 % High 1-9 Eosinophil % 3.3 % 0-6 Basophil % 0.6 % 0-2 Nucleated Red Blood Cells % 0.1 Basic Metabolic Panel 04/24/2013 Sodium 142 mmol/L 133-145 Potassium 4.4 mmol/L 3.5-5.0 Chloride 109 mmol/L 101-111 Co2 Carbon Dioxide 27.0 mmol/L 22-32 Anion Gap 6.0 mmol/L 2-11 Glucose 103 mg/dL High 70-100 Blood Urea Nitrogen 25 mg/dL High 6-24 Creatinine 0.90 mg/dL 0.50-1.40 BUN/Creatinine Ratio 27.8 High 8-20 Calcium 9.7 mg/dL 8.1-9.9 Egfr Non- 84.2 >60 Egfr 108.2 >60 28 Stool For Blood 03/29/2013 Stool Occult Blood (SEE NOTE) 29 Urinalysis 03/29/2013 Urine Color Yellow Urine Appearance Turbid Urine Specific [place] 1.026 1.010-1.030 Urine Esterase Trace Negative Urine Nitrate Negative Negative Urine Urobilinogen Negative E.U./dL Negative Urine Protein Trace mg/dL Negative Urine pH 5.5 5-9 Urine Blood Negative Negative Urine Ketones 1+ mg/dL Negative Urine Bilirubin Negative Negative Urine Glucose Negative mg/dL Negative Urine Microscopic 03/29/2013 Urine WBC 1+ (<3 /hpf) None Seen Urine RBC None Seen None Seen Bacteria Urine None Seen None Seen Crystals Urine Triple Phosphate /lpf None Seen 30 Comp Metabolic Panel 03/29/2013 Sodium 138 mmol/L 133-145 Potassium 3.3 mmol/L Low 3.5-5.0 Chloride 107 mmol/L 101-111 Co2 Carbon Dioxide 24.0 mmol/L 22-32 Anion Gap 7.0 mmol/L 2-11 Glucose 119 mg/dL High 70-100 Blood Urea Nitrogen 14 mg/dL 6-24 Creatinine 0.80 mg/dL 0.50-1.40 BUN/Creatinine Ratio 17.5 8-20 Calcium 9.1 mg/dL 8.1-9.9 Total Protein 5.7 g/dL Low 6.2-8.1 Albumin 3.6 g/dL 3.2-5.2 Globulin 2.1 g/dL 2-4 Albumin/Globulin Ratio 1.7 1-3 Total Bilirubin 1.2 mg/dL 0.4-1.5 Alkaline Phosphatase 58 U/L 30-110 Alt 17 U/L 14-54 Ast 17 U/L 12-42 Egfr Non- 96.4 >60 Egfr 124.0 >60 31 Laboratory test finding 03/29/2013 Lipase 15 U/L Low 22-51 C Reactive Protein 0.8 mg/dL High Less than 0.5 CBC Auto Diff 03/29/2013 White Blood Count 9.6 10^3/uL 4.8-10.8 Red Blood Count 4.79 10^6/uL 4.0-5.4 Hemoglobin 14.9 g/dL 14.0-18.0 Hematocrit 44 % 42-52 Mean Corpuscular Volume 93 fL 80-94 Mean Corpuscular Hemoglobin 31 pg 27-31 Mean Corpuscular HGB Conc 34 g/dL 31-36 Red Cell Distribution Width 14 % 10.5-15 Platelet Count 174 10^3/uL 150-450 Mean Platelet Volume 9 um3 7.4-10.4 Abs Neutrophils 7.2 10^3/uL 1.5-7.7 Abs Lymphocytes 1.4 10^3/uL 1.0-4.8 Abs Monocytes 0.9 10^3/uL High 0-0.8 Abs Eosinophils 0 10^3/uL 0-0.6 Abs Basophils 0 10^3/uL 0-0.2 Abs Nucleated RBC 0 10^3/uL Granulocyte % 75.3 % 38-83 Lymphocyte % 14.2 % Low 25-47 Monocyte % 9.8 % High 1-9 Eosinophil % 0.3 % 0-6 Basophil % 0.4 % 0-2 Nucleated Red Blood Cells % 0 Basic Metabolic Panel 03/03/2013 Sodium 137 mmol/L 133-145 Potassium 4.8 mmol/L 3.5-5.0 Chloride 104 mmol/L 101-111 Co2 Carbon Dioxide 27.0 mmol/L 22-32 Anion Gap 6.0 mmol/L 2-11 Glucose 91 mg/dL 70-100 Blood Urea Nitrogen 19 mg/dL 6-24 Creatinine 0.80 mg/dL 0.50-1.40 BUN/Creatinine Ratio 23.8 High 8-20 Calcium 10.0 mg/dL High 8.1-9.9 Egfr Non- 96.4 >60 Egfr 124.0 >60 32 Laboratory test finding 03/03/2013 PSA Diagnostic 0.32 ng/mL 0-4.0 33 Basic Metabolic Panel 02/10/2013 Sodium 144 mmol/L 133-145 Potassium 4.3 mmol/L 3.5-5.0 Chloride 115 mmol/L High 101-111 Co2 Carbon Dioxide 23.0 mmol/L 22-32 Anion Gap 6.0 mmol/L 2-11 Glucose 109 mg/dL High 70-100 Blood Urea Nitrogen 20 mg/dL 6-24 Creatinine 0.80 mg/dL 0.50-1.40 BUN/Creatinine Ratio 25.0 High 8-20 Calcium 9.6 mg/dL 8.1-9.9 Egfr Non- 96.4 >60 Egfr 124.0 >60 34 Laboratory test finding 02/03/2013 Stone Analysis . 35 Urine Culture And 01/27/2013 Urine Culture (SEE NOTE) 36 Sensitivities CBC Auto Diff 01/24/2013 White Blood Count 5.7 10^3/uL 4.8-10.8 Red Blood Count 4.54 10^6/uL 4.0-5.4 Hemoglobin 13.3 g/dL Low 14.0-18.0 Hematocrit 42 % 42-52 Mean Corpuscular Volume 91 fL 80-94 Mean Corpuscular Hemoglobin 29 pg 27-31 Mean Corpuscular HGB Conc 32 g/dL 31-36 Red Cell Distribution Width 14 % 10.5-15 Platelet Count 159 10^3/uL 150-450 Mean Platelet Volume 8 um3 7.4-10.4 Abs Neutrophils 3.7 10^3/uL 1.5-7.7 Abs Lymphocytes 1.3 10^3/uL 1.0-4.8 Abs Monocytes 0.6 10^3/uL 0-0.8 Abs Eosinophils 0.1 10^3/uL 0-0.6 Abs Basophils 0 10^3/uL 0-0.2 Abs Nucleated RBC 0 10^3/uL Granulocyte % 65.2 % 38-83 Lymphocyte % 22.7 % Low 25-47 Monocyte % 10.0 % High 1-9 Eosinophil % 1.7 % 0-6 Basophil % 0.4 % 0-2 Nucleated Red Blood Cells % 0 Comp Metabolic Panel 01/24/2013 Sodium 144 mmol/L 133-145 Potassium 2.7 mmol/L Low 3.5-5.0 Chloride 109 mmol/L 101-111 Co2 Carbon Dioxide 28.0 mmol/L 22-32 Anion Gap 7.0 mmol/L 2-11 Glucose 107 mg/dL High 70-100 Blood Urea Nitrogen 13 mg/dL 6-24 Creatinine 0.80 mg/dL 0.50-1.40 BUN/Creatinine Ratio 16.3 8-20 Calcium 8.9 mg/dL 8.1-9.9 Total Protein 6.3 g/dL 6.2-8.1 Albumin 3.6 g/dL 3.2-5.2 Globulin 2.7 g/dL 2-4 Albumin/Globulin Ratio 1.3 1-3 Total Bilirubin 0.9 mg/dL 0.4-1.5 Alkaline Phosphatase 48 U/L 30-110 Alt 21 U/L 14-54 Ast 19 U/L 12-42 Egfr Non- 96.4 >60 Egfr 124.0 >60 37 Laboratory test finding 01/24/2013 Magnesium 1.9 mg/dL 1.7-2.6 Amylase 42 U/L 20-120 Lipase 15 U/L Low 22-51 C Reactive Protein < 0.5 mg/dL Less than 0.5 CBC Auto Diff 01/22/2013 White Blood Count 7.1 10^3/uL 4.8-10.8 Red Blood Count 4.61 10^6/uL 4.0-5.4 Hemoglobin 13.7 g/dL Low 14.0-18.0 Hematocrit 42 % 42-52 Mean Corpuscular Volume 91 fL 80-94 Mean Corpuscular Hemoglobin 30 pg 27-31 Mean Corpuscular HGB Conc 33 g/dL 31-36 Red Cell Distribution Width 14 % 10.5-15 Platelet Count 176 10^3/uL 150-450 Mean Platelet Volume 8 um3 7.4-10.4 Abs Neutrophils 4.8 10^3/uL 1.5-7.7 Abs Lymphocytes 1.4 10^3/uL 1.0-4.8 Abs Monocytes 0.7 10^3/uL 0-0.8 Abs Eosinophils 0.2 10^3/uL 0-0.6 Abs Basophils 0 10^3/uL 0-0.2 Abs Nucleated RBC 0 10^3/uL Granulocyte % 68.0 % 38-83 Lymphocyte % 19.7 % Low 25-47 Monocyte % 9.7 % High 1-9 Eosinophil % 2.2 % 0-6 Basophil % 0.4 % 0-2 Nucleated Red Blood Cells % 0 Basic Metabolic Panel 01/22/2013 Sodium 144 mmol/L 133-145 Potassium 3.3 mmol/L Low 3.5-5.0 Chloride 114 mmol/L High 101-111 Co2 Carbon Dioxide 24.0 mmol/L 22-32 Anion Gap 6.0 mmol/L 2-11 Glucose 117 mg/dL High 70-100 Blood Urea Nitrogen 21 mg/dL 6-24 Creatinine 0.80 mg/dL 0.50-1.40 BUN/Creatinine Ratio 26.3 High 8-20 Calcium 9.4 mg/dL 8.1-9.9 Egfr Non- 96.4 >60 Egfr 124.0 >60 38 Urine Culture And 01/22/2013 Urine Culture (SEE NOTE) 39 Sensitivities Laboratory test finding 10/18/2012 Hemoglobin A1c 6.6 % High 4.1-5.7 ([facility] [place],CX) Laboratory test finding 04/15/2012 Culture 40 Sensitivity/Gram St -- <SEE NOTE> Laboratory test finding 09/04/2011 PSA 0.50 ng/mL 0.00-4.00 Laboratory test finding 09/04/2011 Hemoglobin A1c 6.0 % High 4.1-5.7 ([facility],CX) Laboratory test finding 03/02/2011 Hemoglobin A1c 6.2 % High 4.1-5.7 ([facility],CX) Ua - Non Micro ([facility]) 03/02/2011 Appearance CLEAR Color YELLOW Glucose NEG Bilirubin NEG Ketones TRACE SP Grav 1.025 Blood NEG PH 5.0 Protein NEG Urobil 0.2 Nitrite NEG Leukocytes ([facility] [place]/[facility]) NEG Lipid Profile 11/21/2010 Cholesterol 172 mg/dL 120-200 HDL 53 mg/dL 30-70 Triglycerides 90 mg/dL 30-200 HDL Risk Factor 3.2 CALC 0.0-4.0 LDL (Calculated) 101 CALC 0-129 VLDL (Calculated) 18 mg/dL 0-50 Laboratory test finding 10/21/2010 Hemoglobin A1c ([facility] [place],CX) 6.2 % High 4.1-5.7 CBC Electronic ([facility]) 10/21/2010 WBC 7.1 3.6-9.6 RBC 4.78 3.90-5.70 Hemoglobin ([facility] [place]/CTX) 14.2 g/dL 12.1 - 17.2 Hematocrit ([facility] [place]/CTX) 43.5 % 36.1 - 50.3 Platelets 186 10^3/ul 150-400 Lymph% 26.4 20.5-51.1 Mixed% 10.7 Neutrophils % 62.9 Mean Corpuscular Vol 91.0 82.2-97.4 Mean Corpuscular Hemoglobin 29.7 27.6-33.3 Mean Corpuscular Hemo Concen 32.6 32.0-36.0 RDW 13.6 11.6-13.7 Mean Platelet Volume 10.4 6.5-11.0 Comprehensive Metabolic Prof 10/21/2010 Albumin 4.3 g/dL 3.8-5.5 Alk. Phos. 74 U/L 22-95 Alt (SGPT) 22 U/L 10-40 Ast (Sgot) 20 U/L 5-34 BUN 26 mg/dL 6-26 Calcium 9.3 mg/dL 8.6-10.2 Chloride 102 mEq/L 94-112 Creatinine 1.0 mg/dL 0.6-1.4 Carbon Dioxide 26 mEq/L 21-32 Glucose 134 mg/dL High 70-105 Sodium 138 mEq/L 134-149 Total Bilirubin 0.2 mg/dL 0.2-1.3 Total Protein 7.3 g/dL 6.3-8.1 Potassium 4.1 mEq/L 3.6-5.5 Globulin 3.0 g/dL 2.0-4.8 A/G Ratio 1.5 Calc 0.6-2.2 BUN/Creat Ratio 27.1 Calc 8.0-36.0 Laboratory test 10/21/2010 Vitamin D, 25 Oh 37.5 ng/mL 32.0-100.0 41 finding Laboratory test 09/20/2010 PSA, Total 0.60 ng/ml 0.00-4.00 42, 43 finding Laboratory test 04/08/2010 Hemoglobin A1c 6.4 % High 4.1-5.7 finding ([facility] [place],CX) Laboratory test 12/03/2009 Vitamin D, 25 Oh 12.7 ng/mL Low 32.0-100.0 44 finding Laboratory test 12/03/2009 Hemoglobin A1c 6.0 % High 4.1-5.7 finding ([facility] [place],CX) Laboratory test 08/20/2009 PSA, Total 0.50 ng/ml 0.00-4.00 42, 45 finding Laboratory test 08/20/2009 Hemoglobin A1c 6.4 % High 4.1-5.7 finding ([facility] [place],CX) Laboratory test 03/29/2009 Hemoglobin A1c 6.5 % High 4.1-5.7 finding ([facility] [place],CX) Laboratory test 08/18/2008 Hemoglobin A1c 6.4% % High 4.1-5.7 finding ([facility] [place],CX) Laboratory test 08/18/2008 PSA 0.5 ng/ml 0.0-4.0 46, 47 finding Laboratory test 12/19/2007 Glucose, Serum 107 mg/dL High 70-105 finding ([facility] [place]/CTX) Laboratory test 12/19/2007 Hemoglobin A1c 6.0 % 48, 49 finding Urinalysis Stat 10/29/2007 Ua Color YELLOW Appearance-Urine CLEAR Bilirubin-Ur NEGATIVE Negative Blood-Urine 3+ Negative Esterase-Urine TRACE Negative Glucose-Urine NEGATIVE Negative Ketones-Urine 2+ Negative Nitrite NEGATIVE Negative PH-Urine 5.0 5-9 Protein-Urine NEGATIVE Negative [id number] NEGATIVE Negative Specific [place]-Ur 1.026 1.010-1.030 Amylase Stat 10/29/2007 Amylase 50 U/L 30-125 Urinalysis W/Microscopic Stat 10/29/2007 Ua Color YELLOW Appearance-Urine CLEAR Bilirubin-Ur NEGATIVE Negative Blood-Urine 3+ Negative Epith Cells-Ur RARE Esterase-Urine TRACE Negative Glucose-Urine NEGATIVE Negative Ketones-Urine 2+ Negative Nitrite NEGATIVE Negative PH-Urine 5.0 5-9 Protein-Urine NEGATIVE Negative RBC-Urine TNTC 0-2 [id number] NEGATIVE Negative Specific [place]-Ur 1.026 1.010-1.030 WBC-Urine 1-3 0-5 Stool For Blood 10/29/2007 Stool For Blood NEGATIVE Negative Laboratory test finding 10/29/2007 Lipase 18 U/L Low 22-51 Comp Stat 10/29/2007 One Over Creatinine 0.71 Anion Gap 8.0 mmol/L 2-11 50 Albumin/Globulin Ratio 1.1 1-3 Albumin 4.1 GM/DL 3.2-5.2 Alkaline Phosphatase 68 U/L 39-117 Alt (SGPT) 25 U/L 17-63 Ast (Sgot) 23 U/L 12-42 BUN 20 mg/dL 6-24 Calcium 8.6 mg/dL Low 8.7-10.2 Chloride 103 mmol/L 101-111 Co2 (Carbon Dioxide) 25.0 mmol/L 22-32 Globulin 3.8 GM/DL 2-4 Glucose 149 mg/dL High 70-105 Potassium 3.7 mmol/L 3.5-5.0 Sodium 136 mmol/L 135-145 Bilirubin Total 0.9 mg/dL 0.4-1.5 Total Protein 7.9 GM/DL 6.2-8.1 BUN/Creatinine Ratio 14.3 8-20 Creatinine 1.4 mg/dL 0.5-1.4 CBC With Electronic Diff Stat 10/29/2007 White Blood Count 10.5 CUMM 4.8- 10.8 Abs Basophils 0 0-0.2 Abs Eosinophils 0 0-0.6 Absolute Neutrophil Count 9.0 High 1.5-7.7 Abs Lymphs 0.6 Low 1.0-4.8 Abs Mononuclear 0.8 0-0.8 Basophil % 0.4 % 0-2 Hematocrit 43 % 42-52 51 Hemoglobin 14.8 g/dL 14.0-18.0 Eosinophil % 0.1 % 0-6 Gran % 86.1 % High 38-83 Lymph % 6.2 % Low 20-45 Mean Corpuscular HGB [place] 35 g/dL 32-36 Mean Corpuscular Hemoglob 30 pg 27-31 Mean Corpuscular Volume 86 um3 80-94 Mean Platelet Volume 7.4 um3 7.4-10.4 Mononuclear % 7.2 % 1-9 Platelet Count 203 CUMM 150-450 Red Cell Count 4.96 CUMM 4.6-6.2 Redcell Distribution WDTH 13 % 10.5-15 Laboratory test finding 06/26/2007 Hemoglobin A1c 6.2 % High 4.1-5.7 ([facility]/CTX) Comprehensive Metabolic 06/26/2007 Albumin 4.1 g/dL 3.8-5.5 52 Prof Alk. Phos. 62 U/L 22-95 52 Alt (SGPT) 21 U/L 10-40 52 Ast (Sgot) 17 U/L 5-34 52 BUN 18 mg/dL 6-26 52 Calcium 9.2 mg/dL 8.6-10.2 52 Chloride 102 mEq/L 94-112 52 Creatinine 0.9 mg/dL 0.6-1.4 52 Carbon Dioxide 30 mEq/L 21-32 52 Glucose 116 mg/dL High 70-105 52 Sodium 138 mEq/L 134-149 52 Total Bilirubin 0.4 mg/dL 0.2-1.3 52 Total Protein 6.9 g/dL 6.3-8.1 52 Potassium 4.1 mEq/L 3.6-5.5 52 Globulin 2.8 g/dL 2.0-4.8 52 A/G Ratio 1.5 Calc 0.6-2.2 52 BUN/Creat Ratio 21.4 Calc 8.0-36.0 52 Lipid Profile 06/26/2007 Cholesterol 192 mg/dL 120-200 52 HDL 54 mg/dL 30-70 52 Triglycerides 70 mg/dL 30-200 52 HDL Risk Factor 3.5 CALC Low 4.2-7.0 52 LDL (Calculated) 124 CALC 0-129 52 VLDL (Calculated) 14 mg/dL 0-50 52 Laboratory test finding 06/26/2007 PSA 1.10 ng/mL 0.00-4.00 52 Laboratory test finding 12/11/2006 Hemoglobin A1c 6.1 % High 4.1-5.7 ([facility]/CTX) Laboratory test finding 05/18/2006 Hemoglobin A1c 5.9 % High 4.1-5.7 ([facility]/CTX) Comp Metabolic ([facility]) 10/11/2005 Glucose, Serum 110 mg/dL High 70-105 Male (a/[facility]/CTX) BUN (a/[facility] [place] 20 mg/dL 6-26 Creatinine (a/[facility] [place]) 1.0 mg/dL 0.6-1.4 BUN/Creatinin Ratio 20.0 8.0-36 Sodium 138 134-149 Potassium 4.2 3.6-5.5 Chloride 96 mEq/L 94-112 Co2 23 21-32 Calcium (a/[facility] [place] 9.3 mg/dL 8.6-10.2 Total Protein 6.7 g/dL 6.3-8.1 Albumin ([facility]) 4.2 3.8-5.5 Globulin 2.5 2.0-4.8 A/G Ratio (a/[facility] [place] 1.6 0.6-2.2 Alk Phos (a) Male 73 U/L 22-95 Alt-M SGPT Male ([facility]) 28 10-40 Ast Sgot 19 U/L 5-34 Bilirubin, Total 0.4 mg/dL 0.2-1.3 Lipid Profile([facility]) Male 10/11/2005 Cholesterol 188 mg/dL 120-200 ([facility] [place]) Triglyceride 71 mg/dL 30-200 HDL Cholesterol (a) Male 61 mg/dL 30-70 LDL, Calculated ([facility]) 113 CALC 0-129 LDL Direct (/[facility] [place]) - mg/dL 0-130 VLDL 14 0-50 HDL Risk Factor ([facility]) 3.1 CALC Low 4.2-7.0 Free T4/TSH 10/11/2005 TSH ([facility] [place]) 2.77 uIU/ml 0.5-6.0 ([facility] [place]) Free T4 ([facility] [place]) 0.99 ng/dL 0.75-1.54 Laboratory test finding 10/11/2005 Free T3 ([facility],CX) 2.93 pg/mL 2.0-4.9 CBC Electronic ([facility]) 10/11/2005 WBC 6.0 3.6-9.6 Lymphocytes 25.5 % 20.5 - 51.1 Monocytes 9.2 % 1.7-9.3 Granulocytes 65.3 % 42.2 - 75.2 Lymphocytes 1.5 10^3/uL 0.7 - 4.9 Monocytes 0.6 10^3/uL 0.1 - 0.9 Granulocytes 3.9 10^3/uL 1.5 - 7.2 RBC 4.79 3.90-5.70 Hemoglobin ([facility]) 14.2 g/dL 12.1 - 17.2 Hematocrit ([facility]/CTX) 42.2 % 36.1 - 50.3 Mean Corpuscular Vol 88.1 82.2-97.4 Mean Corpuscular Hemaglobin 29.7 27.6-33.3 Mean Corpuscular Hemo Concen 33.7 33.0-36.0 RDW 12.7 11.6-13.7 Platelets 224. 10^3/ul 150-400 Mean Platelet Volume 6.9 Low 7.4-10.4 Laboratory test 10/11/2005 PSA ([facility]) 1.85 0.0-4.0 finding Laboratory test 10/10/2005 Hemoglobin A1c ([facility]/CTX) 5.9 % High 4.1- 5.7 finding Ua - Micro ([facility]) 10/10/2005 Appearance CLOUDY Color YELLOW Glucose NEG Bilirubin NEG Ketones TRACE SP Grav 1.020 Blood LARGE PH 7.5 Protein, Random Urine SSA 2+ Urobil 0.2 Nitrite NEG Leukocytes MOD Hyaline - /Lpf Granular - /Lpf WBC, Fluid >75 RBC, Fluid >100 Mucus SM AMNT /Lpf Epith OCC /Lpf Bacteria 3+ /Hpf Amorphous - /Lpf Crystals - /Lpf Z#Comments - Laboratory test finding 02/06/2005 Hemoglobin A1c (F/C/CTX) 5.8 % High 4.1 -5.7 Laboratory test finding 07/21/2004 Hemoglobin A1c (F/C/CTX) 6.0 % High 4.1 -5.7 Laboratory test finding 02/22/2004 Hemoglobin A1c (F/C/CTX) 6.3 % High 4.1 -5.7 Glucose/Hgaic Profile 11/24/2003 Glucose, Serum 127 mg/dL High 70-118 ([facility] ([facility]/CTX) Hemoglobin A1c (F/C/CTX) 6.8 % High 4.1-5.7 Glucose/Hgaic Profile 08/25/2003 Glucose, Serum 119 mg/dL High 70-118 ([facility] (Fma/CMC/CTX) Hemoglobin A1c (F/C/CTX) 7.3 % High 4.1-5.7 Lipid Profile ([facility]) 07/27/2003 Cholesterol 197 mg/dL 120-200 Triglyceride 127 mg/dL 30-200 HDL-Chol 53 30-85 LDL-Calculated (a/CMC) 119 CALC 0-129 VLDL 25 0-50 HDL Risk Factor (a) 3.7 CALC Low 4.2-7.0 Free T4/TSH 07/27/2003 TSH (a/CMC/Centrex) 3.26 uIU/ml 0.5-6.0 (Fma/CMC/Centrex) Free T4 0.94 ng/dL 0.75-1.54 Laboratory test finding 07/27/2003 PSA 1.01 0.0-4.0 CBC Electronic ([facility]) 07/27/2003 WBC 5.9 3.6-9.6 Lymphocytes 35.0 % 20.5 - 51.1 Monocytes 3.7 % 1.7-9.3 Granulocytes 61.3 % 42.2 - 75.2 Lymphocytes 2.1 10^3/uL 0.7 - 4.9 Monocytes 0.2 10^3/uL 0.1 - 0.9 Granulocytes 3.6 10^3/uL 1.5 - 7.2 RBC 5.27 3.90-5.70 Hemoglobin (Fma/CMC/CTX) 15.6 g/dL 12.1 - 17.2 Hematocrit (Fma/CMC/CTX) 47.2 % 36.1 - 50.3 Mean Corpuscular Vol 89.6 82.2-97.4 Mean Corpuscular Hemaglobin 29.6 27.6-33.3 Mean Corpuscular Hemo Concen 33.0 33.0-35.5 RDW 12.6 11.6-13.7 Platelets 217 10^3/ul 150-400 Mean Platelet Volume 7.1 Low 7.4-10.4 Ua - Non Micro (a New) 07/27/2003 Appearance CLEAR Color LT. YELLOW Glucose NEGATIVE Bilirubin NEGATIVE Ketones NEGATIVE SP Grav 1.015 Blood NEGATIVE PH 5.5 Protein NEGATIVE Urobil 0.2 E.U./dL Nitrite NEGATIVE Leukocytes NEGATIVE Comp Metabolic ([facility]) 07/27/2003 Glucose, Serum (a/CMC/CTX) 143 mg/dL High 70-118 BUN (a/CMC/Centrex) 15 mg/dL 6-26 Creatinine (a/CMC/CTX) 0.8 mg/dL 0.6-1.4 BUN/Creatinin Ratio 19.3 8.0-36 Sodium 139 134-149 Potassium 4.3 3.6-5.5 Chloride 104 mEq/L 94-112 Co2 26 21-32 Calcium (a/CMC/Centrex) 9.4 mg/dL 8.6-10.0 Total Protein 8.6 g/dL High 6.3-8.1 53 Albumin (a/CMCC/Centrex) 4.5 3.8-5.5 Globulin 4.1 2.0-4.8 A/G Ratio (a/CMC/Centrex) 1.1 0.6-2.2 Alkaline Phosphatase (F/C/CTX) 73 U/L 22-95 Alt (SGPT) 24 10-40 Ast (Sgot) (a/CMC/Centrex) 16 U/mL 5-34 Bilirubin, Total 0.7 mg/dL 0.2-1.3 Glucose/Hgaic Profile 07/07/2003 Glucose, Serum 385 mg/dL High 70-118 (a/CMC (Fma/CMC/CTX) Hemoglobin A1c (F/C/CTX) 9.9 % High 4.1-5.7 Ua - Micro ([facility]) 07/07/2003 Appearance CLEAR Color LT. YELLOW Glucose 3+ Bilirubin NEGATIVE Ketones TRACE SP Grav 1.010 Blood NEGATIVE PH 6.0 Protein NEGATIVE Urobil 0.2 E.U./dL Nitrite NEGATIVE Leukocytes NEGATIVE Hyaline -- /Lpf Granular -- /Lpf WBC'S 1-2 RBC'S -- Mucus SM AMT /Lpf Epith FEW Bacteria -- Amorphous -- /Lpf Crystals -- /Lpf Comments -- CBC With Diff ([facility]) 12/24/1998 WBC 6.5 /Hpf 3.6 - 9.6 Lymphocytes 30.7 % 20.5 - 51.1 Monocytes 5.8 % 1.7 - 9.3 Granulocytes 63.5 % 42.2 - 75.2 Lymphocytes 2.0 10^3/uL 0.7 - 4.9 Monocytes 0.4 10^3/uL 0.1 - 0.9 Granulocytes 4.1 10^3/uL 1.5 - 7.2 RBC 4.82 /Hpf 3.90 - 5.70 Hemoglobin 14.6 g/dL 12.1 - 17.2 Hematocrit 43.4 % 36.1 - 50.3 Mean Corpuscular Vol 90.0 fl 82.2 - 97.4 Mean Corpuscular Hemaglobin 30.3 pg 27.6 - 33.3 Mean Corpuscular Hemo Concen 33.7 g/dL 33.0 - 34.8 RDW 13.2 % 11.6 - 13.7 Platelets 196.0 10^3/ul Low 202 - 386 Mean Platelet Volume 6.3 fl Low 7.4 - 10.4 1 Because ethnic data is not always readily available, this report includes an eGFR for both -Americans and non- Americans. The National Kidney Disease Education Program (NKDEP) does not endorse the use of the MDRD equation for patients that are not between the ages of 18 and 70, are , have extremes of body size, muscle mass, or nutritional status, or are non- or non-. According to the National Kidney Foundation, irrespective of diagnosis, the stage of the disease is based on the level of kidney function: Stage Description GFR(mL/min/1.73 m(2)) 1 Kidney damage with normal or decreased GFR 90 2 Kidney damage with mild decrease in GFR 60-89 3 Moderate decrease in GFR 30-59 4 Severe decrease in GFR 15-29 5 Kidney failure <15 (or dialysis) 2 SEE RESULT BELOW Name: MICHELLE ARVIZU : [address]: Sandra Tavera MD Acct: [id number] Unit: [id number] AGE: 72 Location: PAT Re07/10/18 SEX: M Status: REG REF SPEC: [id number] NITA: 07/10/18-1305 [facility] DR: Sandra Tavera MD REQ: [id number] RECD: 07/10/18 STATUS: EDA JONES DR: Driss Anderson MD _ SOURCE: URINE SPDESC: ORDERED: Urine Culture Urine Source: Clean Catch Procedure Result Reported Site Urine Culture Final 07/11/18- 1211 ML No growth of clinically significant organisms * ML - Main Lab . END OF REPORT DEPARTMENT OF PATHOLOGY, [address] [place] [address] Nate Ochoa M.D. Director [facility] # [id number] 3 Because ethnic data is not always readily available, this report includes an eGFR for both -Americans and non- Americans. The National Kidney Disease Education Program (NKDEP) does not endorse the use of the MDRD equation for patients that are not between the ages of 18 and 70, are , have extremes of body size, muscle mass, or nutritional status, or are non- or non-. According to the National Kidney Foundation, irrespective of diagnosis, the stage of the disease is based on the level of kidney function: Stage Description GFR(mL/min/1.73 m(2)) 1 Kidney damage with normal or decreased GFR 90 2 Kidney damage with mild decrease in GFR 60-89 3 Moderate decrease in GFR 30-59 4 Severe decrease in GFR 15-29 5 Kidney failure <15 (or dialysis) 4 Because ethnic data is not always readily available, this report includes an eGFR for both -Americans and non- Americans. The National Kidney Disease Education Program (NKDEP) does not endorse the use of the MDRD equation for patients that are not between the ages of 18 and 70, are , have extremes of body size, muscle mass, or nutritional status, or are non- or non-. According to the National Kidney Foundation, irrespective of diagnosis, the stage of the disease is based on the level of kidney function: Stage Description GFR(mL/min/1.73 m(2)) 1 Kidney damage with normal or decreased GFR 90 2 Kidney damage with mild decrease in GFR 60-89 3 Moderate decrease in GFR 30-59 4 Severe decrease in GFR 15-29 5 Kidney failure <15 (or dialysis) 5 consistent w/ previous results 6 1SST 7 NON-FASTING 8 Because ethnic data is not always readily available, this report includes an eGFR for both -Americans and non- Americans. The National Kidney Disease Education Program (NKDEP) does not endorse the use of the MDRD equation for patients that are not between the ages of 18 and 70, are , have extremes of body size, muscle mass, or nutritional status, or are non- or non-. According to the National Kidney Foundation, irrespective of diagnosis, the stage of the disease is based on the level of kidney function: Stage Description GFR(mL/min/1.73 m(2)) 1 Kidney damage with normal or decreased GFR 90 2 Kidney damage with mild decrease in GFR 60-89 3 Moderate decrease in GFR 30-59 4 Severe decrease in GFR 15-29 5 Kidney failure <15 (or dialysis) 9 Technology Analyst: [id number] Moore 10 Technology Analyst: DA Moore 11 Because ethnic data is not always readily available, this report includes an eGFR for both -Americans and non- Americans. The National Kidney Disease Education Program (NKDEP) does not endorse the use of the MDRD equation for patients that are not between the ages of 18 and 70, are , have extremes of body size, muscle mass, or nutritional status, or are non- or non-. According to the National Kidney Foundation, irrespective of diagnosis, the stage of the disease is based on the level of kidney function: Stage Description GFR(mL/min/1.73 m(2)) 1 Kidney damage with normal or decreased GFR 90 2 Kidney damage with mild decrease in GFR 60-89 3 Moderate decrease in GFR 30-59 4 Severe decrease in GFR 15-29 5 Kidney failure <15 (or dialysis) 12 SEE RESULT BELOW Name: MICHELLE ARVIZU : [address]: Bj Dillard MD Acct: [id number] Unit: [id number] AGE: 70 Location: PAT Re02/29/16 SEX: M Status: REG REF SPEC: [id number] NITA: 02/29/16-1551 [facility] DR: Bj Dillard MD REQ: [id number] RECD: 02/29/16 STATUS: EDA JONES DR: Brianne Anderson MD _ SOURCE: URINE SPDESC: ORDERED: Urine Culture QUERIES: Urine Source: Random Procedure Result Reported Site Urine Culture Final 03/01/16- 1624 ML No Growth (<1,000 CFU/mL) * ML - MAIN LAB ([facility]) . END OF REPORT * ML=Testing performed at [facility] DEPARTMENT OF PATHOLOGY, [address] [place] [address] Nate Ochoa M.D. Director [facility] # [id number] 13 Test Performed by: [place] [address] Data Review Specialist: Brandan Waldrop II, M.D., Ph.D. 14 REFERENCE VALUE <750 (Diet-Dependent) The reference value is for a 24-hour collection. Specimens collected for other than a 24-hour time period are reported in unit of mg/dL for which reference values are not established. 15 Test Performed by: [place] [address] Data Review Specialist: Brandan Waldrop II, M.D., Ph.D. 16 Test Result Flag Unit RefValue Supersaturation, U Calcium Oxalate 1.95 H DG Crystal REFERENCE VALUE Reference Mean=1.77 PDF Report available at: [email or web address] Brushite Crystal 0.12 DG REFERENCE VALUE Reference Mean=0.21 Hydroxyapatite 4.06 H DG Crystal REFERENCE VALUE Reference Mean=3.96 Uric Acid Crystal 0.66 DG REFERENCE VALUE Reference Mean=1.04 Sodium Urate Crystal 1.98 H DG REFERENCE VALUE Reference Mean=1.76 Collection Duration 24 h Volume 1900 mL Interpretation See Comment The DG is related to supersaturation. DG is negative for undersaturated solutions, zero for solutions at the solubility product, and positive for saturated solutions. Any value greater than the Reference Mean is considered a risk for the respective crystal type formation. Sodium, U 192 mmol/24 h 41 - 227 Potassium, U 141 H mmol/24 h 17 - 77 Calcium, 24 Hr, U 190 mg/24 h <250 Magnesium, 24 Hr, U 152 mg/24 h 51 - 269 Chloride, U 165 mmol/24 h 40 - 224 Phosphorus, U 1539 H mg/24 h <1100 Sulfate Urine 42 mmol/24 h 7 - 47 Citrate Excretion, U 1400 mg/24 h REFERENCE VALUE Reference values have not been established for patients who are >60 years of age. Oxalate, U (mmol/24 0.74 H mmol/24 h h) REFERENCE VALUE 0.11 - 0.46 Oxalate, mg/24 h 65.1 H mg/24 h 9.7 - 40.5 pH, U 6.2 4.5 - 8.0 Uric Acid, U 950 H mg/24 h REFERENCE VALUE <750 (Diet-dependent) Creatinine, U 2033 mg/24 h REFERENCE VALUE The expected creatinine excretion per 24 hrs for males: 955-2936 mg/24 hrs or 13-29 mg/kg/24 hrs. Note: To convert to mg/kg of body weight/24 hrs, divide the mg/24 h result by the weight in kg. Osmolality 709 mOsm/kg 150 - 1150 Ammonium, 24 Hr, U 13 L mmol/24 h 15 - 56 Urea Nitrogen, U 18.9 H g/24 h 5.0 - 16.0 Protein Catabolic 143 H g/kg/24 h 56 - 98 Rate, U Test Performed by: [place] [address] Data Review Specialist: Brandan Waldrop II, M.D., Ph.D. 17 consistent w/ previous results 18 FASTING 19 Test Performed by: [place] [address] Data Review Specialist: Brandan Waldrop II, M.D., Ph.D. 20 Technology Analyst: [id number] CLARICE BENSON 21 Technology Analyst: [id number] GERARD RADER 22 Technology Analyst: [id number] BHASKAR RAMIREZ 23 Technology Analyst: [id number] Yaw Arciniega 24 Test Performed by: [place] [address] Data Review Specialist: Brandan Waldrop II, M.D., Ph.D. 25 Because ethnic data is not always readily available, this report includes an eGFR for both -Americans and non- Americans. The National Kidney Disease Education Program (NKDEP) does not endorse the use of the MDRD equation for patients that are not between the ages of 18 and 70, are , have extremes of body size, muscle mass, or nutritional status, or are non- or non-. According to the National Kidney Foundation, irrespective of diagnosis, the stage of the disease is based on the level of kidney function: Stage Description GFR(mL/min/1.73 m(2)) 1 Kidney damage with normal or decreased GFR 90 2 Kidney damage with mild decrease in GFR 60-89 3 Moderate decrease in GFR 30-59 4 Severe decrease in GFR 15-29 5 Kidney failure <15 (or dialysis) 26 Acute inflammation: >10.00 27 Because ethnic data is not always readily available, this report includes an eGFR for both -Americans and non- Americans. The National Kidney Disease Education Program (NKDEP) does not endorse the use of the MDRD equation for patients that are not between the ages of 18 and 70, are , have extremes of body size, muscle mass, or nutritional status, or are non- or non-. According to the National Kidney Foundation, irrespective of diagnosis, the stage of the disease is based on the level of kidney function: Stage Description GFR(mL/min/1.73 m(2)) 1 Kidney damage with normal or decreased GFR 90 2 Kidney damage with mild decrease in GFR 60-89 3 Moderate decrease in GFR 30-59 4 Severe decrease in GFR 15-29 5 Kidney failure <15 (or dialysis) 28 Because ethnic data is not always readily available, this report includes an eGFR for both -Americans and non- Americans. The National Kidney Disease Education Program (NKDEP) does not endorse the use of the MDRD equation for patients that are not between the ages of 18 and 70, are , have extremes of body size, muscle mass, or nutritional status, or are non- or non-. According to the National Kidney Foundation, irrespective of diagnosis, the stage of the disease is based on the level of kidney function: Stage Description GFR(mL/min/1.73 m(2)) 1 Kidney damage with normal or decreased GFR 90 2 Kidney damage with mild decrease in GFR 60-89 3 Moderate decrease in GFR 30-59 4 Severe decrease in GFR 15-29 5 Kidney failure <15 (or dialysis) 29 RUN DATE: 03/29/13 [facility] LAB LIVE PAGE 1 RUN TIME: [address] [place] [address] Specimen Inquiry Name: MICHELLE ARVIZU Tri : [address]: Chance Mayen DO Acct: [id number] Unit: [id number] AGE: 67 Location: ED Re03/29/13 SEX: M Status: REG ER SPEC: [id number] NITA: 03/29/[address]: Chance Mayen DO REQ: [id number] RECD: 03/29/13 STATUS: EDA JONES DR: Judy Tovar , CHIEF INTERNAL AUDITOR _ SOURCE: STOOL SPDESC: ORDERED: Hemoccult Procedure Result Verified Site Stool Occult Blood Final 03/29/13- 2003 ML Stool Occult Blood Negative END OF REPORT * ML=Testing performed at Main Lab DEPARTMENT OF PATHOLOGY, [address] [place] [address] Nate Ochoa M.D. Director [facility] Permit #[id number] 30 Triple Phosphate 31 Because ethnic data is not always readily available, this report includes an eGFR for both -Americans and non- Americans. The National Kidney Disease Education Program (NKDEP) does not endorse the use of the MDRD equation for patients that are not between the ages of 18 and 70, are , have extremes of body size, muscle mass, or nutritional status, or are non- or non-. According to the National Kidney Foundation, irrespective of diagnosis, the stage of the disease is based on the level of kidney function: Stage Description GFR(mL/min/1.73 m(2)) 1 Kidney damage with normal or decreased GFR 90 2 Kidney damage with mild decrease in GFR 60-89 3 Moderate decrease in GFR 30-59 4 Severe decrease in GFR 15-29 5 Kidney failure <15 (or dialysis) 32 Because ethnic data is not always readily available, this report includes an eGFR for both -Americans and non- Americans. The National Kidney Disease Education Program (NKDEP) does not endorse the use of the MDRD equation for patients that are not between the ages of 18 and 70, are , have extremes of body size, muscle mass, or nutritional status, or are non- or non-. According to the National Kidney Foundation, irrespective of diagnosis, the stage of the disease is based on the level of kidney function: Stage Description GFR(mL/min/1.73 m(2)) 1 Kidney damage with normal or decreased GFR 90 2 Kidney damage with mild decrease in GFR 60-89 3 Moderate decrease in GFR 30-59 4 Severe decrease in GFR 15-29 5 Kidney failure <15 (or dialysis) 33 Serum levels of PSA measured using the [employer] [place] DXI Hybritech immunoassay should not be interpreted as absolute evidence of the presence or absence of disease. The PSA value should be used in conjunction with other pertinent clinical diagnostic procedures. A PSA value in the range of 0.1 to 0.6 ng/ml is indeterminate if being used as an indicator of recurrent or residual disease. The values obtained with different assay methods or kits cannot be used interchangeably. 34 Because ethnic data is not always readily available, this report includes an eGFR for both -Americans and non- Americans. The National Kidney Disease Education Program (NKDEP) does not endorse the use of the MDRD equation for patients that are not between the ages of 18 and 70, are , have extremes of body size, muscle mass, or nutritional status, or are non- or non-. According to the National Kidney Foundation, irrespective of diagnosis, the stage of the disease is based on the level of kidney function: Stage Description GFR(mL/min/1.73 m(2)) 1 Kidney damage with normal or decreased GFR 90 2 Kidney damage with mild decrease in GFR 60-89 3 Moderate decrease in GFR 30-59 4 Severe decrease in GFR 15-29 5 Kidney failure <15 (or dialysis) 35 Calculi, Urinary, with Photo Color Green Size mm Specimen received as fragments. Weight 6964.0 mg Composition Percentage (Represents the % composition) Ca oxalate monohydr. 05 % Calcium phosphate 03 % Uric acid 92 % Nidus No Nidus visualized Photo Photograph will follow under separate cover. Comment: Physician questions regarding Calculi Analysis contact [employer] at: [phone]. Please note: Calculi report with photograph will follow via computer, mail or machinery cleaner delivery. Test Performed: [address] [id number] Dir: Cristal Hernandez MD Test result returned from reference laboratory and the interpretation and photograph have been sent via the laboratory equipment installer. 36 RUN DATE: 01/29/13 [facility] LAB LIVE PAGE 1 RUN TIME: [address] [place], [place] [address] Specimen Inquiry Name: ARVIZUMICHELLE : [address]: Bj Dillard MD Acct: [id number] Unit: [id number] AGE: 67 Location: [facility] Re01/27/13 SEX: M Status: REG REF SPEC: [id number] NITA: 01/27/13-1528 [facility] DR: Bj Dillard MD REQ: [id number] RECD: 01/27/13 STATUS: EDA JONES DR: Shashank Bryant MD _ SOURCE: URINE SPDESC: ORDERED: Urine Culture COMMENTS: MARIO 02/03/13 QUERIES: Urine Source: Clean Catch Procedure Result Verified Site Urine Culture Final 01/29/13- 1004 ML No Growth Day 2 (<1,000 CFU/mL) END OF REPORT * ML=Testing performed at Main Lab DEPARTMENT OF PATHOLOGY, [address] [place] [address] Nate cOhoa M.D. Director [facility] Permit #[id number] 37 Because ethnic data is not always readily available, this report includes an eGFR for both -Americans and non- Americans. The National Kidney Disease Education Program (NKDEP) does not endorse the use of the MDRD equation for patients that are not between the ages of 18 and 70, are , have extremes of body size, muscle mass, or nutritional status, or are non- or non-. According to the National Kidney Foundation, irrespective of diagnosis, the stage of the disease is based on the level of kidney function: Stage Description GFR(mL/min/1.73 m(2)) 1 Kidney damage with normal or decreased GFR 90 2 Kidney damage with mild decrease in GFR 60-89 3 Moderate decrease in GFR 30-59 4 Severe decrease in GFR 15-29 5 Kidney failure <15 (or dialysis) 38 Because ethnic data is not always readily available, this report includes an eGFR for both -Americans and non- Americans. The National Kidney Disease Education Program (NKDEP) does not endorse the use of the MDRD equation for patients that are not between the ages of 18 and 70, are , have extremes of body size, muscle mass, or nutritional status, or are non- or non-. According to the National Kidney Foundation, irrespective of diagnosis, the stage of the disease is based on the level of kidney function: Stage Description GFR(mL/min/1.73 m(2)) 1 Kidney damage with normal or decreased GFR 90 2 Kidney damage with mild decrease in GFR 60-89 3 Moderate decrease in GFR 30-59 4 Severe decrease in GFR 15-29 5 Kidney failure <15 (or dialysis) 39 RUN DATE: 01/24/13 [facility] LAB LIVE PAGE 1 RUN TIME: [address] [place], [place] [address] Specimen Inquiry Name: MICHELLE ARVIZU : [address]: Alton Devries MD Acct: [id number] Unit: [id number] AGE: 67 Location: LAB Re01/22/13 SEX: M Status: REG REF SPEC: [id number] NITA: 01/22/13-2350 [facility] DR: Bj Dillard MD REQ: [id number] RECD: 01/22/13607 STATUS: EDA JONES DR: Judy Tovar NP _ SOURCE: URINE SPDESC: ORDERED: Urine Culture Procedure Result Verified Site Urine Culture Final 01/24/13- 1045 ML No Growth Day 2 (<1,000 CFU/mL) END OF REPORT * ML=Testing performed at Main Lab DEPARTMENT OF PATHOLOGY, [address] [place] [address] Nate Ochoa M.D. [facility] Permit #[id number] 40 RUN DATE: 04/17/12 [facility] NMI LIVE PAGE 1 RUN TIME: 1058 Specimen Inquiry RUN USER: INTERFACE Name: MICHELLE ARVIZU Status: MAIRA DAVIS Re04/15/12 Age/Sex: 66/M Unit#: [id number] Location: [facility]. : [birth year] SPEC #: [id number] NITA: 04/15/12 STATUS: EDA REQ #: [id number] RECD: 04/15/[address]: Jaycob MAYES,Alton Jaeger SOURCE: WOUND ENTR: 04/15/[address]: Guy ORELLANA, SPDESC: NECK ORDERED: CULT SENS/GS COMMENTS: COMMENTS: RT POSTERIOR FOSSA SURGICAL INCISION ACT WKST: B 04/17/12 #1 Procedure Result Verified Site > CULTURE SENSITIVITY Final 04/17/12- 1058 ML FINAL: NO GROWTH DAY 2 > GRAM STAIN SMEAR Final 04/15/12- 1546 ML POLYS NONE SMEAR: FEW NUCLEATED CELLS NO ORGANISMS SEEN - [facility] Permit #[id number] [facility] (PRN) [place] [address] DEPARTMENT OF PATHOLOGY, [address] [place] [address] [facility] Permit #[id number] Nate Ochoa M.D. Director Carisa Alcazar M.D. Platform Builder 41 Recent studies consider the lower limit of 32.0 ng/mL to be a threshold for optimal health. Charles BW. J Nutr. 2005 Aug;135(2):317-22. 42 1 SST 43 . Serum PSA results should be used only in conjunction with information available from the clinical evaluation of the patient and other diagnostic procedures. Values obtained with different assay methods or kits cannot be used interchangeably. Results obtained using [employer] ICMA methodology. 44 Recent studies consider the lower limit of 32.0 ng/mL to be a threshold for optimal health. Charles MEZA. J Nutr. 2004;135(2):317-22. 45 . Serum PSA results should be used only in conjunction with information available from the clinical evaluation of the patient and other diagnostic procedures. Values obtained with different assay methods or kits cannot be used interchangeably. Results obtained using [employer] ICMA methodology. 46 1SST 47 . Serum PSA results should be used only in conjunction with information available from the clinical evaluation of the patient and other diagnostic procedures. Values obtained with different assay methods or kits cannot be used interchangeably. Results obtained using [employer] ICMA methodology. 48 FASTING; 1 PURPLE TOP TUBE 49 HGBA1C (%) GLUCOSE CONTROL >8 Action Suggested <7 Goal 50 Anion gap measurement may be of limited value in the presence of any alkalosis, especially in a combined acid base disorder. . 51 Neutrophilia % Lymphopenia % 52 FASTING 53 RESULT VERIFIED BY REPEAT ANALYSIS Procedures Date CPT Code Description Status 07/09/2015 86273 Finger Or Heel Stick Completed 08/18/2014 59729 Finger Or Heel Stick Completed 05/14/2014 63835 Finger Or Heel Stick Completed 05/01/2013 43605 Electrocardiogram Complete Completed 05/01/2013 06457 Finger Or Heel Stick Completed 04/29/2013 Colonoscopy Completed 04/10/2013 Colonoscopy Completed 03/05/2013 Colonoscopy Completed 10/18/2012 06157 Finger Or Heel Stick Completed 03/02/2011 19863 Electrocardiogram Complete Completed 02/11/2004 01777 Excise Benign Lesion .6-1CM Completed Scalp/Neck/Hands/Feet/Genitalia Encounters Type Date Location Provider CPT E/M Dx Office Visit 03/21/2018 1:00p [place] [address] M48.062 R60.0 E11.9 Office Visit 03/06/2018 5:40p Main Office Brianne Anderson M.D. 92197 I73.9 M48.062 Office Visit 02/27/2018 3:15p [place] [address] I83.11 I83.12 L30.9 Office Visit 02/08/2018 3:00p Main Office ROSY Mcgee 43609 R60.0 L03.115 Office Visit 12/28/2017 1:40p [facility] Brianne Anderson M.D. 79618 M48.07 E11.9 Office Visit 02/16/2016 2:40p Main Office Brianne Anderson M.D. 54411 D18.02 R53.1 E11.9 Z23 Office Visit 10/19/2015 3:00p [facility] Brianne Anderson M.D. 22273 E11.9 E78.2 R05 Office Visit 07/09/2015 2:40p Main Office Brianne Anderson M.D. 01165 E11.9 K30 R53.1 E55.9 Office Visit 10/06/2014 3:20p [facility] Brianne Anderson M.D. 06623 250.00 110.9 724.02 Office Visit 08/18/2014 3:40p [facility] Brianne Anderson M.D. 82476 250.00 110.9 724.02 782.9 Office Visit 05/14/2014 1:40p [facility] Brianne Anderson M.D. 74551 250.00 493.90 600.00 041.10 696.1 110.9 278.02 Office Visit 10/07/2013 3:00p Main Office Brianne Anderson M.D. 99827 250.00 493.90 268.9 759.6 560.2 388.30 Office Visit 05/01/2013 9:20a [facility] Brianne Anderson M.D. 62975 560.2 250.00 493.90 600.00 553.1 728.84 v03.82 V72.83 Office Visit 10/18/2012 2:00p Main Office ROSY Mcgee 89282 250.00 Office Visit 10/18/2012 1:45p Main Office ROSY Mcgee 52502 250.00 Office Visit 04/19/2012 4:30p [facility] Brianne Anderson M.D. 60564 228.02 682.9 250.00 788.63 Office Visit 03/11/2012 7:00p Main Office ROSY Mcgee 49081 386.31 Office Visit 02/21/2012 4:15p [facility] jennifer McleanGuy, [facility] 33378 386.31 493.90 Office Visit 09/04/2011 2:00p Main Office Guy, [facility] 21857 477.9 Office Visit 09/04/2011 2:15p Main Office jennifer McleanGuy, [facility] 26544 250.00 600.00 477.9 Office Visit 05/26/2011 11:10a Main Office Kristi Card M.D. 74671 564.00 250.00 Office Visit 05/16/2011 3:20p Main Office Brianne Anderson M.D. 62040 707.15 696.1 250.00 Office Visit 03/02/2011 3:00p [facility] Teresa Chery, 12278 V70.0 Akshat 250.00 696.1 600.00 Office Visit 10/21/2010 2:30p Main Office jennifer McleanGuy, [facility] 33417 250.00 Office Visit 04/08/2010 2:00p Main Office Guy, [facility] 91721 250.00 Office Visit 12/03/2009 1:45p Main Office Guy, [facility] 21505 250.00 719.45 Office Visit 08/20/2009 1:45p [facility] Guy, [facility] 66322 250.00 Office Visit 03/29/2009 3:00p Main Office Guy, [facility] 92845 250.00 493.90 Office Visit 08/18/2008 2:00p Main Office Guy, [facility] 53884 250.00 493.90 Office Visit 08/18/2008 2:00p Main Office Guy, [facility] 40500 250.00 493.90 Office Visit 07/13/2008 4:40p Main Office Dg Carrasco M.D. 54505 372.00 465.9 250.00 493.90 600.00 Office Visit 12/19/2007 1:00p [facility] jennifer McleanGuy, [facility] 14805 250.00 V05.8 Office Visit 10/29/2007 10:00a [facility] Rick Grace M.D. 79134 789.07 Office Visit 06/26/2007 2:15p Main Office Judy Tovar, [facility] 09909 250.00 600.00 V76.44 Office Visit 06/26/2007 2:30p Main Office Judy Tovar [facility] 88129 250.00 600.00 V76.44 Office Visit 12/11/2006 2:30p Main Office Judy Tovar [facility] 34813 250.00 723.1 Office Visit 05/18/2006 1:45p Main Office Carroll Vidal M.D. 73316 250.00 493.90 Office Visit 05/18/2006 2:10p Main Office Carroll Vidal M.D. 97080 250.00 493.90 Office Visit 10/10/2005 3:20p [facility] Carroll Vidal M.D. 81461 V70.0 600.00 493.90 696.1 250.00 599.7 Office Visit 02/06/2005 1:40p Main Office Carroll Vidal M.D. 53231 250.00 493.90 Office Visit 12/23/2004 1:00p Main Office Carroll Vidal M.D. 36789 682.7 250.00 Office Visit 12/20/2004 8:15p Main Office Dee Gamboa [facility] 38720 682.7 Office Visit 07/21/2004 11:45a Main Office Carroll Vidal M.D. 44026 250.00 346.90 493.90 239.2 Office Visit 07/21/2004 12:20p Main Office Carroll Vidal M.D. 09251 250.00 346.90 493.90 239.2 Office Visit 04/21/2004 1:10p Main Office Carroll Vidal M.D. 99658 250.00 493.90 Office Visit 01/21/2004 3:00p [facility] Carroll Vidal M.D. 55811 250.00 278.00 493.90 Office Visit 11/24/2003 12:00p Main Office Carroll Vidal M.D. 81996 250.00 278.00 493.90 Office Visit 08/25/2003 1:00p Main Office Carroll Vidal M.D. 47349 786.2 250.00 V06.5 Office Visit 07/27/2003 10:20a [facility] Carroll Vidal M.D. 89775 250.00 278.00 V70.0 V76.44 V77.91 Office Visit 07/08/2003 3:30p Main Office Judy Tovar [facility] 34879 250.00 Office Visit 07/07/2003 1:30p Main Office Judy Tovar [facility] 06120 250.00 Office Visit 09/13/2000 2:40p [facility] Dg Carrasco M.D. 42482 Plan of Care 06/25/2018 - Brianne Anderson M.D.Z01.818 Encounter for other preprocedural examinationNew Labs:CBC Electronic ([facility] New)TSH ([facility])Creatine Kin, Total (F/C/CTX)Protime W/ InrUa - Micro ([facility])Urine C&S If IndicatedComments:Patient with mulitple medical issues has been cleared by Dr. Dante Quinones, Cardiology, and Dr Benedict- vascular surgeon for the hip replacement surgery. All of his medical issues are at this point zurdo.Cleared for surgery - Right total hip replacement on 07/16/18. Stop aspirin, fish oil, vitamin d 10 days prior to surgery. Ok to use hydrocodone for pain instead of the aspirin as needed. Make sure you don't get constipated when taking the hydrocodone with milk of magnesia, colace and miralax.and they should give you this in the hospital with your first pain pill. If your cough continues past today, start your asthma meds daily. Please start a stool regimen with the first pain pill in the hospital to prevent constipation.M25.551 Pain in right hipM16.11 Unilateral primary osteoarthritis, right hipI45.19 Other right bundle-branch fagsgW50.1 Supraventricular wijzzemipdkA73.8 Other pelpgxfA43.89 Other abnormalities of gait and ptmlukcfA51.0 Psoriasis yrwkkgkxA38.33 Body mass index (BMI) 33.0-33.9, adultAllComments:~B_~U_Medication Management~b_~u_ Patient Understands medications he's taking? Yes No Are there Barriers to Adherence? Yes No Has the patient been asked about herbal supplements and therapies, and OTC meds? Yes No
--- OUTSIDE RECORDS SUMMARY | 2018-07-16 10:36 | XMS REPORT | Continuity of Care Document ---
:1945 External Reference #:[id number] Author Name Melissa Oliver Care Team Providers Name Role Phone Brianne Anderson MD Primary Care Physician Unavailable Payers Type Date Identification Numbers Payment Provider Subscriber Effective: Policy Number: [id number] Medicare Michelle Arvizu 2010 PayID: [id number] [address] [place] [address] Effective: 2010 Policy Number: [id number] [facility] Vanessa Hayward Group Number: [id number] [address] PayID: [id number] [place] [address] Advance Directives Description No Information Available Problems Date Description Provider Status Onset: 02/06/2014 Osteoarthritis of hip Alton Devries M.D. 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 Active Onset: 04/06/2015 Spinal stenosis of lumbar region Alton Devries M.D. Active Onset: 08/21/2017 Type 2 diabetes mellitus David Do M.D. Active Onset: 08/21/2017 Abnormal gait David Do M.D. Active Onset: 08/21/2017 Muscle weakness David Do M.D. Active Onset: 08/27/2017 Thoracic and lumbosacral neuritis David Do M.D. Active Onset: 01/07/2018 Polyneuropathy David Do M.D. Active Family History Date Family Member(s) Problem(s) Comments General Arthritis, Osteo General Arthritis Father due to Colon Cancer () Father Stroke several TIA's Mother due to Parkinsons Disease () Mother Parkinson's Disease Mother GM had psoriasis and another GM had Diabetes Social History Type Date Description Comments Sex Unknown Marital Status Lives With Occupation Retired Hand Dominance Right-handed ETOH Use Rarely consumes alcohol Tobacco Use Start: Unknown Patient has never smoked Recreational Drug Use Denies Drug Use Smoking Status Reviewed: 07/10/18 Patient has never smoked Exercise Type/Frequency Exercises rarely Allergies, Adverse Reactions, Alerts Description No Known Drug Allergies Medications Medication Date Status Form Strength Qnty SIG Indications Ordering Provider Compression 03/22/ Active Misc 1unit - R60.0 Sandra Stockings 2018 s yoel Tavera M.D. swelling/ edema- need thigh high Gabapentin 02/04/ Active Capsules 300mg 90cap 2 by G62.9 David 2017 s mahesh Do M.D. three times a day Dovonex 09/13/ Active Cream 0.005% enrique Beck 2018 DO Joni FACC Doxycycline / Active Tablets 20mg 1 by Jaskaran Wetzel Hyclmilagros 0000 mouth MD Yusef twice a day Advair Diskus / Active Aerosol 250-50mcg/ 1 puff by Monica, 0000 Dose mouth Brianne Mojica, twice a MD day Glipizide XL / Active Tablets ER 2.5mg take 1 Unknown 0000 24HR tablet by mouth every morning Janumet / Active Tablets 50-500mg 1 by Unknown 0000 mouth twice a day Lisinopril / Active Tablets 2.5mg 1 by Monica, 0000 mouth Brianne Mojica, every day Glucosamine / Active Capsules 1500Com twice Unknown Chondroitin 0000 daily 1500 Complex Fiber Complete / Active Tablets 1 tabs Unknown 0000 daily. Atorvastatin / Active Tablets 20mg take 1 Unknown Calcium 0000 tablet at bedtime Potassium / Active Tablets ER 10Meq 2 by Unknown Citrate ER 0000 (1080 mg) mouth three times a day Clobetasol / Active Cream 0.05% apply to Unknown Propionate E 0000 affected areas twice a day for up to 2 weeks, off 2 weeks and repeat as needed. Clotrimazole / Active Unknown 0000 Hydrocodone / Active Unknown 0000 Keflex 11/19/ Hx Capsules 500mg 30cap 1 tablet M25.551 Sandra 2018 - s by mouth Akshat Tavera 07/08/ q6 hours 2017 Gabapentin 01/07/ Hx Capsules 100mg 90cap 1 capsule G62.9 Clovisopher 2018 - s bozena Do M.D. 02/04/ times 2018 daily. Potassium 08/21/ Hx Granules Christopher Citrate 2018 - Akshat Do 2017 Ativan 06/14/ Hx Tablets 2mg 2tabs take one Surinder 2016 - tablet by Keri 08/30/ mouth 30 M.DHeidi 2018 minutes before mri, may repeat at the time of mri. Diazepam 03/26/ Hx Tablets 5mg 6tabs 1 or 2 by Alton Jaeger 2014 - mouth two Jaycob, 04/06/ hours M.DHeidi 2014 prior to mri, repeat up to once per hour if needed. Finasteride / Hx Tablets 5mg 1 by Nishant, 0000 - mouth MD Bj every day 2017 Tamsulosin HCL / Hx Capsules 0.4mg take 1 Unknown 0000 - capsule 08/20/ by mouth 2017 once daily Fish Oil / Hx Capsules 1000mg 2 by Unknown 0000 - mouth every day 2017 Vitamin D3 / Hx Capsules 2000Unit 1 by Unknown 0000 - mouth every day 2017 Saw [place] / Hx Capsules 450mg 1 by Unknown 0000 - mouth 07/04/ twice a 2016 day Diazepam / Hx Tablets 5mg Take 1 Unknown 0000 - Tablet By Mouth 2018 Every Hour For Anxiety Prior To Mri's Benadryl / Hx Capsules 25mg twice Unknown Allergy 0000 - daily as 07/08/ needed 2018 Furosemide / Hx Tablets 20mg 1 tablet Unknown 0000 - by mouth 07/09/ once 2018 daily as Needed for Swelling Aspirin Ec / Hx Tablets DR 325mg 2 pills 3 Unknown 0000 - times a day 2018 Medications Administered in Office Medication Date Status Form Strength Qnty SIG Indications Ordering Provider Depomedrol Administered Injection Sandra 40MG 018 Akshat Tavera Inj, Administered Injection Dante Garciaoson, 018 DO Joni 0.1 MG FACC Technetium TC Administered Injection Dante SHeidi 99M 018 DO Joni Tetrofosmin, FACC Per Unit Dose Up To 40 Millicuries Immunizations Description No Information Available Vital Signs Date Vital Result Comment 07/10/2018 9:10am Height 70 inches 5'10" Weight 261.00 lb Heart Rate 63 /min BP Diastolic 72 mmHg BP Systolic Sitting 112 mmHg BP Diastolic Sitting 72 mmHg BP Systolic Standing 112 mmHg BP Diastolic Standing 74 mmHg BMI (Body Mass Index) 37.4 kg/m2 06/17/2018 2:50pm Height 70 inches 5'10" Heart Rate 90 /min BP Systolic Sitting 102 mmHg BP Diastolic Sitting 60 mmHg Body Temperature 98.1 F Pain Level 6 O2 % BldC Oximetry 93 % 06/06/2018 2:51pm Height 70 inches 5'10" Weight 255.00 lb BP Systolic Sitting 132 mmHg BP Diastolic Sitting 90 mmHg BMI (Body Mass Index) 36.6 kg/m2 05/28/2018 12:46pm Height 70 inches 5'10" Weight 255.00 lb Heart Rate 94 /min BP Systolic Sitting 118 mmHg BP Diastolic Sitting 65 mmHg Respiratory Rate 16 /min Pain Level 6 BMI (Body Mass Index) 36.6 kg/m2 05/06/2018 1:41pm Height 70 inches 5'10" Weight 245.00 lb BP Systolic 104 mmHg BP Diastolic 64 mmHg Body Temperature 98.2 F BMI (Body Mass Index) 35.1 kg/m2 03/22/2018 1:38pm Height 71 inches 5'11" Heart Rate 93 /min BP Systolic 102 mmHg BP Diastolic 58 mmHg Respiratory Rate 20 /min Body Temperature 98.4 F Pain Level 5 03/04/2018 2:43pm Height 71 inches 5'11" Weight 240.00 lb Heart Rate 84 /min BP Systolic 106 mmHg BP Diastolic 60 mmHg Respiratory Rate 20 /min Body Temperature 99.1 F BMI (Body Mass Index) 33.5 kg/m2 01/07/2018 2:44pm Height 71 inches 5'11" Weight 238.00 lb Heart Rate 88 /min BP Systolic Sitting 102 mmHg BP Diastolic Sitting 60 mmHg Respiratory Rate 16 /min BMI (Body Mass Index) 33.2 kg/m2 11/15/2017 1:50pm Height 71 inches 5'11" Weight 236.00 lb Heart Rate 96 /min BP Systolic Sitting 112 mmHg BP Diastolic Sitting 62 mmHg Respiratory Rate 16 /min BMI (Body Mass Index) 32.9 kg/m2 09/07/2017 1:41pm Height 71 inches 5'11" Weight 244.00 lb Heart Rate 88 /min BP Systolic 102 mmHg Rue reg cuff BP Diastolic 76 mmHg Rue reg cuff BP Systolic Sitting 102 mmHg Lue reg cuff BP Diastolic Sitting 76 mmHg Lue reg cuff BP Systolic Standing 108 mmHg Lue BP Diastolic Standing 84 mmHg Lue Respiratory Rate 16 /min BMI (Body Mass Index) 34.0 kg/m2 08/27/2017 1:34pm Height 71 inches 5'11" Weight 236.00 lb Heart Rate 104 /min BP Systolic 118 mmHg BP Diastolic 66 mmHg Respiratory Rate 16 /min BMI (Body Mass Index) 32.9 kg/m2 08/21/2017 11:23am Height 71 inches 5'11" Weight 236.00 lb Heart Rate 100 /min BP Systolic 100 mmHg BP Diastolic 60 mmHg Respiratory Rate 16 /min BMI (Body Mass Index) 32.9 kg/m2 07/04/2017 11:29am Height 71 inches 5'11" Weight 236.00 lb Heart Rate 104 /min BP Systolic Sitting 128 mmHg BP Diastolic Sitting 74 mmHg Pain Level 0 BMI (Body Mass Index) 32.9 kg/m2 04/06/2015 10:07am Height 71 inches 5'11" Weight 240.00 lb Heart Rate 72 /min BP Systolic Sitting 130 mmHg BP Diastolic Sitting 70 mmHg Pain Level 5 back/ r leg BMI (Body Mass Index) 33.5 kg/m2 02/06/2014 2:16pm Height 71 inches 5'11" Weight 240.00 lb Heart Rate 78 /min BP Systolic Sitting 104 mmHg BP Diastolic Sitting 70 mmHg Pain Level 0 BMI (Body Mass Index) 33.5 kg/m2 Results Test Date Facility Test Result H/L Range Note CBC Auto Diff 07/10/2018 [facility] White Blood 6.6 10^3/uL N 3.5-10.[address] [place] [address] [phone] Red Blood Count 4.67 10^6/uL N 4.00-5.40 Hemoglobin 13.7 g/dL Low 14.0-18.0 Hematocrit 42 % N 42-52 Mean Corpuscular Volume 89 fL N 80-94 Mean Corpuscular Hemoglobin 29 pg N 27-31 Mean Corpuscular HGB Conc 33 g/dL N 31-36 Red Cell Distribution Width 15 % N 10.5-15 Platelet Count 203 10^3/uL N 150-450 Mean Platelet Volume 7.6 fL N 7.4-10.4 Abs Neutrophils 3.5 10^3/uL N 1.5-7.7 Abs Lymphocytes 1.9 10^3/uL N 1.0-4.8 Abs Monocytes 0.7 10^3/uL N 0-0.8 Abs Eosinophils 0.4 10^3/uL N 0-0.6 Abs Basophils 0 10^3/uL N 0-0.2 Abs Nucleated RBC 0 10^3/uL Granulocyte % 52.3 % Lymphocyte % 29.0 % Monocyte % 11.3 % Eosinophil % 6.7 % Basophil % 0.7 % Nucleated Red Blood Cells % 0.1 Urinalysis Profile 07/10/2018 [facility] Urine Color Yellow [address] [place] [address] [phone] Urine Appearance Clear Urine Specific [place] 1.019 N 1.010-1.030 Urine pH 7.0 N 5-9 Urine Urobilinogen Negative Negative Urine Ketones Negative Negative Urine Protein Negative Negative Urine Leukocytes Negative Negative Urine Blood Negative Negative Urine Nitrite Negative Negative Urine Bilirubin Negative Negative Urine Glucose Negative Negative Inr/Protime 07/10/2018 [facility] Inr 1.01 N 0.77-1.[address] [place] [address] [phone] Laboratory test 07/10/2018 [facility] Partial 31.5 seconds N 26.0-36.[address] [place] [address] [place] [address] PTT [phone] Comp Metabolic 07/10/2018 [facility] Sodium 141 mmol/L N 135- 145 Panel [address] [place] [address] [phone] Potassium 4.3 mmol/L N 3.5-5.0 Chloride 105 mmol/L N 101-111 Co2 Carbon Dioxide 31 mmol/L N 22-32 Anion Gap 5 mmol/L N 2-11 Glucose 100 mg/dL N 70-100 Blood Urea Nitrogen 22 mg/dL N 6-24 Creatinine 1.03 mg/dL N 0.67-1.17 BUN/Creatinine Ratio 21.4 High 8-20 Calcium 9.6 mg/dL N 8.6-10.3 Total Protein 7.3 g/dL N 6.4-8.9 Albumin 4.2 g/dL N 3.2-5.2 Globulin 3.1 g/dL N 2-4 Albumin/Globulin Ratio 1.4 N 1-3 Total Bilirubin 0.40 mg/dL N 0.2-1.0 Alkaline Phosphatase 79 U/L N 34-104 Alt 15 U/L N 7-52 Ast 13 U/L N 13-39 Egfr Non- 71.0 >60 Egfr 85.9 >60 1 Type & Screen 07/10/2018 [facility] Patient Blood [place] [address] [phone] Antibody Screen POSITIVE Creatinine 07/10/2018 [facility] Creatinine 0.98 mg/dL N 0.67- [address] [place] [address] [phone] Egfr Non- 75.2 >60 Egfr 91.0 >60 2 Laboratory test 07/10/2018 [facility] TSH (Thyroid 5.48 mcIU/mL N 0.34-5.[address] Stim Horm) [place] [address] [phone] Laboratory test 11/15/2017 [facility] TSH (Thyroid 1.42 mcIU/mL N 0.34-5.60 [address] [facility] DRIVE Stim Horm) [place] [address] [phone] Erythrocyte Sed Rate 15 mm/Hr N 0-40 C Reactive Protein < 1.00 mg/L N < 5.00 3 Protein 11/15/2017 [facility] Total 7.1 g/dL 6.3 - Electrophoresis DRIVE Protein(Pep) 7.9 [place] [address] [phone] Albumin 3.5 g/dL 3.4-4.7 Alpha-1 Globulin 0.2 g/dL 0.1-0.3 Alpha-2 Globulin 1.0 g/dL 0.6-1.0 Beta Globulin 1.1 g/dL 0.7-1.2 Gamma Globulin 1.3 g/dL 0.6-1.6 Albumin/Globulin Ratio 0.97 Impression See Comment 4 Vitamin B12 And 11/15/2017 [facility] Vitamin B12 354 pg/mL N 180-914 5 Folate Serum [address] [place] [address] [phone] Folic Acid (Folate) 14.80 ng/mL >3.99 Laboratory test 11/15/2017 [facility] Creatine 112 U/L N 10- 223 finding [address] [facility] Kinase(CK) [place] [address] [phone] Myoglobin 50.0 ng/mL N 17.4-105.7 Aldolase 5.2 U/L <7.7 6 Istat BUN/Crea/Egfr/V 06/28/2017 [facility] Poc Bun 36 mg/dL High 9-[address] [place] [address] [phone] Poc Crea Mainct 0.9 mg/dL N 0.6-0.9 GFR Non- MCT 83.2 >60 GFR Mainct 107.0 >60 7 Creatinine 03/24/2015 [facility] Creatinine 0.90 mg/dL N 0.67- 1.17 [address] [place] [address] [phone] Egfr Non- 83.7 N >60 Egfr 107.6 N >60 8 Basic Metabolic Panel 01/21/2014 [facility] Sodium 138 mmol/L N 133-145 [address] [place] [address] [phone] Potassium 4.3 mmol/L N 3.7-5.6 Chloride 107 mmol/L N 101-111 Co2 Carbon Dioxide 26 mmol/L N 22-32 Anion Gap 5 mmol/L N 2-11 Glucose 113 mg/dL High 70-100 Blood Urea Nitrogen 20 mg/dL N 6-24 Creatinine 0.91 mg/dL N 0.67-1.17 BUN/Creatinine Ratio 22.0 High 8-20 Calcium 9.3 mg/dL N 8.6-10.3 Egfr Non- 82.9 N >60 Egfr 106.6 N >60 9 Basic Metabolic Panel 01/22/2013 [facility] Sodium 144 mmol/L 133-145 [address] [place] [address] [phone] Potassium 3.3 mmol/L Low 3.5-5.0 Chloride 114 mmol/L High 101-111 Co2 Carbon Dioxide 24.0 mmol/L 22-32 Anion Gap 6.0 mmol/L 2-11 Glucose 117 mg/dL High 70-100 Blood Urea Nitrogen 21 mg/dL 6-24 Creatinine 0.80 mg/dL 0.50-1.40 BUN/Creatinine Ratio 26.3 High 8-20 Calcium 9.4 mg/dL 8.1-9.9 Egfr Non- 96.4 >60 Egfr 124.0 >60 10 CBC Auto Diff 01/22/2013 [facility] White Blood 7.1 10^3/uL 4.8-10.[address] [place] [address] [phone] Red Blood Count 4.61 10^6/uL 4.0-5.4 Hemoglobin [...] 0-2 Nucleated Red Blood Cells % 0 Urine Culture And 01/22/2013 [facility] Urine Culture (SEE NOTE ) [address] [place] [address] [phone] Culture And 04/15/2012 [facility] M [address] ----- <[place] [address] NOTE> [phone] Surgical Pathology 04/04/2012 [facility] Surgical [address] Pathology ----- <SEE [place] [address] NOTE> [phone] 1 Because ethnic data is not always [...] 5 Kidney failure <15 (or dialysis) 2 Because ethnic data is not always readily [...] 15-29 5 Kidney failure <15 (or dialysis) 3 Acute inflammation: >10.00 4 RESULT: No apparent monoclonal protein on serum electrophoresis. Test Performed by: [facility] [address] [place] [address] 5 Normal Range 180 to 914 Indeterminate Range 145 to 180 Deficient Range <145 6 Test Performed by: [facility] [address] [place] [address] 7 Because ethnic data is not always readily [...] 15-29 5 Kidney failure <15 (or dialysis) 8 Because ethnic data is not always [...] 5 Kidney failure <15 (or dialysis) 9 Because ethnic data is not always readily [...] 15-29 5 Kidney failure <15 (or dialysis) 10 Because ethnic data is not always readily [...] 15-29 5 Kidney failure <15 (or dialysis) 11 RUN DATE: 01/24/13 [facility] LAB LIVE PAGE 1 RUN TIME: 1045 [address] [place], [place] [address] Specimen Inquiry Name: MICHELLE ARVIZU : [address]: Alton Devries MD Acct: [id number] Unit: [id number] AGE: 67 Location: LAB Re01/22/13 SEX: M Status: REG REF SPEC: [id number] NITA: 01/22/13-2240 [facility] DR: Bj Dillard MD REQ: [id number] RECD: 01/22/13 STATUS: EDA JONES DR: Judy Tovar , [employer]BER _ SOURCE: URINE SPDESC: ORDERED: Urine Culture Procedure Result Verified Site Urine Culture Final 01/24/13- 1045 ML No Growth Day 2 (<1,000 CFU/mL) END OF REPORT * ML=Testing performed at Main Lab DEPARTMENT OF PATHOLOGY, [address] [place] [address] Nate Ochoa M.D. [facility] Permit #[id number] RUN DATE: 04/17/12 [facility] NMI LIVE PAGE 1 RUN TIME: 1058 Specimen Inquiry RUN USER: INTERFACE Name: MICHELLE ARVIZU Status: DEP ER Re04/15/12 Age/Sex: 66/M Unit#: [id number] Location: [place] : [birth year] SPEC #: [id number] NITA: 04/15/121404 STATUS: COMP REQ #: [id number] RECD: 04/15/12-[address]: Jaycob MAYES,Alton Jaeger SOURCE: WOUND ENTR: 04/15/12-[address]: Guy OERLLANA,Judy ORTIZES: NECK ORDERED: CULT SENS/GS COMMENTS: COMMENTS: RT POSTERIOR FOSSA SURGICAL INCISION ACT WKST: B 04/17/12 #1 Procedure Result Verified Site > CULTURE SENSITIVITY Final 04/17/12- 1058 ML FINAL: NO GROWTH DAY 2 > GRAM STAIN SMEAR Final 04/15/12- 1546 ML POLYS NONE SMEAR: FEW NUCLEATED CELLS NO ORGANISMS SEEN - [facility] Permit #[id number] [address] [place] [address] DEPARTMENT OF PATHOLOGY, [address] [place] [address] [facility] Permit #[id number] Akshat Betancur M.D. Service Tech 13 ---- RUN DATE: 04/17/12 [facility] NMI LIVE PAGE 1 RUN TIME: 1149 Specimen Inquiry RUN USER: INTERFACE -- Name: MICHELLE ARVIZU Status: DIS IN Re04/01/12 Age/Sex: 66/M Unit#: [id number] Location: [facility]. : 45 -- Specimen: [id number] Spec Date:04/04/12- Subm Dr: Alton valerio MD Spec Type: SURGICAL P Received:04/05/12-85 Copies to: Jayson Sutton MD SPECIMEN CEREBELLAR MASS HISTORY PRE-OP DIAGNOSIS: Cerebellar mass, gait abnormality. GROSS DESCRIPTION The specimen is received in formalin labelled Michelle Arvizu, Cerebellar Mass, and consists of several hemorrhagic looking fragments of dark brown tissue measuring in aggregate 2.4 x 2.0 x 0.8 cm. Submitted entirely, one cassette. DIAGNOSIS Cerebellum mass, resection: A. 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 B. Margins of resection cannot be evaluated due to the fragmented nature of the specimen. COMMENT The excision specimen fragments demonstrate a cystic mass with areas of proliferation of innumerable small vascular channels and intervening larger vessels. Between vascular channels are small bland appearing stromal elements. Some nuclear variability is noted though no mitotic activity is appreciated. The following immunohistochemical stains were performed with appropriate controls: CD31 Strongly and diffusely positive in vascular channels. CD34 Strongly and diffusely positive in vascular channels (+/- in some stromal elements). Synaptophysin Negative vascular areas. S100 Variable weak staining of stromal cells with high background and edge artifact. -- DEPARTMENT OF PATHOLOGY, [address] [place] [address] [facility] Permit #[id number] Akshat Betancur M.D. Car Electronics Installer Dir jacobs -- -- RUN DATE: 04/17/12 [facility] NMI LIVE PAGE 2 RUN TIME: 1149 Specimen Inquiry RUN USER: INTERFACE -- Name: MICHELLE ARVIZU Tri Status: DIS IN Re04/01/12 Age/Sex: 66/M Unit#: [id number] Location: [facility]. : 45 -- -- CONTINUED -- COMMENT (Continued) The following immunohistochemical stains were performed at [facility] ([place], [place]) with appropriate controls and interpreted by [facility]: GFAP Negative in vascular tumor elements, positive in background cerebellar elements. Overall I favor this lesion to represent a primarily vascular tumor. The morphologic features and staining pattern are compatible with benign capillary hemangioblastoma (due to presence of intervening stromal elements) or possibly a hemangioma. Hemangioendothelium cannot be excluded though the vascular markers are not strongly positive in stromal elements. An oligodendroglioma is felt to be unlikely given the morphologic features, staining pattern, and overall clinical presentation. This case was extensively discussed with Dr. Devries on 04/10/12. The slides and block will be sent to [facility] in [facility] for review. Their interpretation will be submitted as an addendum. ADDENDUM Addendum #1 Entered: 04/17/12-[address] José Griffin at [facility], [place], [place], outside accession number [id number], our surgical [id number] reported on 04/16/12 and received on 04/17/12. Original consultation report to follow. 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 See comment. Comment: The tumor is composed of stromal cells with vacuolated cytoplasm and demonstrates numerous capillaries within it (as highlighted by CD34 and CD31 immunohistochemical stain). The tumor also demonstrates a solid pattern of growth and is positive for inhibin, variably positive for -- DEPARTMENT OF PATHOLOGY, [address] [place] [address] [facility] Permit #[id number] Nate Ochoa M.D. Director Carisa Alcazar M.D. Car Electronics Installer arlene -- -- RUN DATE: 04/17/12 [facility] NMI LIVE PAGE 3 RUN TIME: 1149 Specimen Inquiry RUN USER: INTERFACE -- Name: MICHELLE ARVIZU Status: DIS IN Re04/01/12 Age/Sex: 66/M Unit#: [id number] Location: [facility]. : 45 -- -- CONTINUED -- ADDENDUM (Continued) S100, and negative for GFAP and synaptophysin. The overall morphology of the tumor in conjunction with the immunohistochemical staining profile and location of the lesion (being in the posterior fossa) supports the above diagnosis of hemangioblastoma (WHO Grade I). The provided MRI report which indicates the right cerebellar lesion as cystic with an enhancing mural nodule is in keeping with the above diagnosis. Addendum Review (signature on file) NATE OCHOA MD 04/17/12 -- Signed Electronically by: NATE OCHOA MD 04/10/12 1528 -- -- DEPARTMENT OF PATHOLOGY, [address] [place] [address] [facility] Permit #[id number] Nate Ochoa M.D. Director Carisa Alcazar M.D. Car Electronics Installer Dir arlene -- Procedures Date Code Description Status 07/10/2018 76567 EKG Tracing & Interpretation Completed 05/06/2018 Inj/Aspir Major JT Or Bursa W/ US Completed 09/13/2017 69383 Stress Test Completed 09/13/2017 96423 Myocardial Perfusion Imaging Tomographic (Spect) Multiple Completed Studies 09/07/2017 09046 EKG Tracing & Interpretation Completed 08/24/2017 31952 Nerve Conduction 05-06 Studies Completed 08/24/2017 58044 Needle Electromyography Complete, Five Or More Muscles Completed Studied 08/24/2017 89897 Needle Electromyography Each Extremity W/Related Completed Paraspinal Areas 04/24/2013 25319 EKG, Interpretation Only Completed 04/04/2012 23287 Stereotactic CAD Proc Cranial,Intradural Add On Code Completed 04/04/2012 13071 Cranial Decompression Post Fossa Completed 03/22/2004 13642 EKG, Interpretation Only Completed Encounters Type Date Location Provider Dx Diagnosis Office Visit 06/18/2018 1:50p [facility] Dermatology Radha Goldman MD B35.6 Tinea cruris L40.0 Psoriasis vulgaris L60.9 Nail disorder, unspecified Office Visit 06/17/2018 2:15p Orthopedic Services Sandra Tavera M25.551 Pain in right Of C.M.A. M.D. hip M16.11 Unilateral primary osteoarthritis, right hip Office Visit 06/06/2018 2:45p [place] Abi Do M25.551 Pain in Services Of [facility] Akshat right hip M54.17 Radiculopathy, lumbosacral region Office Visit 05/28/2018 1:00p Rheumatology Rick Nath L40.0 Psoriasis [facility] Akshat vulgaris M25.551 Pain in right hip B35.6 Tinea cruris G62.9 Polyneuropathy, unspecified Office Visit 05/16/2018 1:50p [facility] Dermatology Radha Goldman, L40.0 Psoriasis MD lamas L24.9 Irritant contact dermatitis, unspecified cause L23.9 Allergic contact dermatitis, unspecified cause Office Visit 05/06/2018 1:15p Orthopedic Services Sandra Tavera M25.551 Pain in right Of C.M.A. M.D. hip M16.11 Unilateral primary osteoarthritis, right hip Office Visit 04/17/2018 3:00p [facility] Dermatology Radha Goldman, L40.0 Psoriasis MD lamas B35.6 Tinea cruris Office Visit 03/22/2018 1:30p Orthopedic Services Sandra Tavera M25.551 Pain in right Of C.M.A. M.D. hip M16.11 Unilateral primary osteoarthritis, right hip R60.0 Localized edema Office Visit 03/04/2018 Sreekanth Hernandez M48.062 Spinal stenosis, 2:30p Abi Do M.D. lumbar region [facility] with neurogenic claudication G62.9 Polyneuropathy, unspecified M62.81 Muscle weakness (generalized) Office Visit 01/07/2018 Sreekanth Hernandez M48.062 Spinal stenosis, 2:45p Abi Do M.D. lumbar region [facility] with neurogenic claudication M54.17 Radiculopathy, lumbosacral region G62.9 Polyneuropathy, unspecified Office Visit 11/15/2017 Sreekanth Hernandez M48.062 Spinal stenosis, 1:45p Abi Do M.D. lumbar region [facility] with neurogenic claudication M54.17 Radiculopathy, lumbosacral region M62.81 Muscle weakness (generalized) Office Visit 09/07/2017 Derek HobbsHeidi Z01.810 Encounter for 2:00p Cardiology Of DO Joni preprocedural [facility] cardiovascular examination M48.062 Spinal stenosis, lumbar region with neurogenic claudication R94.31 Abnormal electrocardiogram [ECG] [EKG] I45.19 Other right bundle-branch block E11.69 Type 2 diabetes mellitus with other specified complication E78.5 Hyperlipidemia, unspecified I47.1 Supraventricular tachycardia 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 lumbar region [facility] with neurogenic claudication M54.17 Radiculopathy, lumbosacral region Office Visit 08/21/2017 Sreekanth Hernandez M48.062 Spinal stenosis, 11:15a Abi Do M.D. 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 560.2 [facility] 493.00 Asthma Extrinsic Unspecified 250.00 Diabetes Mellitus W/O Compl Type II Or Unspec Controlled Office Visit 05/09/2013 11:23a [facility] Leobardo Cope 560.2 [facility] Hospitalists N.P. 493.00 Asthma Extrinsic Unspecified 250.00 Diabetes Mellitus W/O Compl Type II Or Unspec Controlled Office Visit 05/08/2013 11:22a [facility] Assoc, Carmen De La Paz N.P. 560.2 [facility] 493.00 Asthma Extrinsic Unspecified 250.00 Diabetes Mellitus W/O Compl Type II Or Unspec Controlled Office Visit 03/04/2013 11:00a Neurosurgery Alton Jaeger 334.3 Cerebellar Services Of Julian Devries M.D. Ataxia Other Office Visit 08/07/2012 11:20a Neurosurgery Alton Jaeger 334.3 Cerebellar [facility] Julian Devries M.D. Ataxia Other Office Visit 04/14/2012 2:46p [facility] Jayson Sutton 334.3 Cerebellar Assoc,blaine Oden Ataxia Other Hospitalists 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 250.00 Diabetes Mellitus W/O Compl Type II Or Unspec Controlled 401.9 Hypertension Unspec Office Visit 04/13/2012 2:45p [facility] Anna 334.3 Cere[facility]ellar Assoc,blaine Frausto D.O. Ataxia Other Hospitalists 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 250.00 Diabetes Mellitus W/O Compl Type II Or Unspec Controlled 401.9 Hypertension Unspec Office Visit 04/11/2012 2:45p [facility] Jayson Sutton 334.3 C[facility] Assoc,blaine Oden Ataxia Other Hospitalists 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 250.00 Diabetes Mellitus W/O Compl Type II Or Unspec Controlled 401.9 Hypertension Unspec Office Visit 04/10/2012 2:44p [facility] Jayson Sutton 334.3 Cerebellar Assoc,blaine Oden Ataxia Other Hospitalists 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 250.00 Diabetes Mellitus W/O Compl Type II Or Unspec Controlled 401.9 Hypertension Unspec Office Visit 04/09/2012 2:44p [facility] Jayson Herman, 334.3 C[facility] Assoc,blaine Oden Ataxia Other Hospitalists 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 250.00 Diabetes Mellitus W/O Compl Type II Or Unspec Controlled 401.9 Hypertension Unspec Office Visit 04/08/2012 2:43p [facility] Jaysonmichael Sutton, 334.3 C[facility]oc,blaine Oden Ataxia Other Hospitalists 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 250.00 Diabetes Mellitus W/O Compl Type II Or Unspec Controlled 401.9 Hypertension Unspec Office Visit 04/07/2012 2:43p [facility] Jaysonmichael Sutton, 334.3 Cerebellar Assoc,blaine Oden Ataxia Other Hospitalists 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 250.00 Diabetes Mellitus W/O Compl Type II Or Unspec Controlled 401.9 Hypertension Unspec Office Visit 04/06/2012 2:42p [facility] Jaysonmichael Sutton, 334.3 Cere[facility]ellar Assoc,blaine Oden Ataxia Other Hospitalists 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 250.00 Diabetes Mellitus W/O Compl Type II Or Unspec Controlled 401.9 Hypertension Unspec Office Visit 04/05/2012 2:42p [facility] Jaysonmichael Sutton, 334.3 [facility],blaine Oden Ataxia Other Hospitalists 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 250.00 Diabetes Mellitus W/O Compl Type II Or Unspec Controlled 401.9 Hypertension Unspec Office Visit 04/04/2012 2:41p [facility] Delfina 334.3 Cere[facility]ellar Assoc,blaine Bauman M.D. Ataxia Other Hospitalists 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 250.00 Diabetes Mellitus W/O Compl Type II Or Unspec Controlled 401.9 Hypertension Unspec Office Visit 04/03/2012 2:41p [facility] Anna 334.3 Cere[facility]ellar Assoc,blaine Frausto D.O. Ataxia Other Hospitalists 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 250.00 Diabetes Mellitus W/O Compl Type II Or Unspec Controlled 401.9 Hypertension Unspec Office Visit 04/02/2012 2:39p [facility] Anna 334.3 Cerebellar Assoc,Pedrito LarryO. Ataxia Other Hospitalists 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 250.00 Diabetes Mellitus W/O Compl Type II Or Unspec Controlled 401.9 Hypertension Unspec Office Visit 04/01/2012 1:34p [facility] Patricia Cisse, 334.3 [facility],blaine Oden Ataxia Other Hospitalists 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 250.00 Diabetes Mellitus W/O Compl Type II Or Unspec Controlled 401.9 Hypertension Unspec Plan of Treatment Future Appointment(s):07/16/2018 1:30 pm - EVELINE Ozuna at [facility]07/16/2018 1:30 pm - DANIEL Lee at [facility]07/16/2018 1:30 pm - Sandra Tavera M.D. at [facility]09/06/2018 3:15 pm - David Do M.D. at [facility]07/10/2018 - Sandra Tavera M.D.M25.551 Pain in right hipFollow up:Follow up: 2 weeks after [id number] Unilateral primary osteoarthritis, right hip
--- OUTSIDE RECORDS SUMMARY | 2018-07-16 10:37 | XMS REPORT | Continuity of Care Document ---
:1945 External Reference #:[id number] Author Name Alok Carr Care Team Providers Name Role Phone Brianne Anderson MD Primary Care Physician Unavailable Payers Type Date Identification Numbers Payment Provider Subscriber Effective: Policy Number: [id number] Medicare Michelle Arvizu 2010 PayID: [id number] [address] [place] [address] Effective: 2010 Policy Number: [id number] [facility] Vanessa Hayward Group Number: [id number] [address] PayID: [id number] [place] [address] Advance Directives Description No Information Available Problems [...] Use Denies Drug Use Smoking Status Reviewed: 06/17/18 Patient has never smoked Exercise Type/Frequency Exercises rarely Allergies, Adverse Reactions, Alerts Description No Known Drug Allergies Medications Medication Date Status Form Strength Qnty SIG Indications Ordering Provider Keflex 06/17/ Active Capsules 500mg 30cap 1 tablet M25.551 Sandra 2018 s by mahesh Tavera M.D. q6 hours Compression 03/22/ Active Misc 1unit - R60.0 Sandra Stockings 2017 s ble Akshat Tavera swelling/ edema- need thigh high Gabapentin 02/04/ Active Capsules 300mg 90cap 1 by G62.9 Clovisophlaurence 2017 s mahesh Do M.D. three times a day Dovonex 09/13/ Active Cream 0.005% prn Dante Beck 2018 Quinones, DO FACC Doxycycline / Active Tablets 20mg 1 by Jaskaran Wetzel Hyclate 0000 mouth MD Yusef twice a day [...] Monica, 0000 mouth Brianne Mojica, every day Fish Oil / Active Capsules 1000mg 2 by Unknown 0000 mouth every day Vitamin D3 / Active Capsules 2000Unit 1 by Unknown 0000 mouth every day Glucosamine 00/ Active Capsules 1500Com twice Unknown Chondroitin 0000 daily 1500 Complex Fiber Complete / Active Tablets 1 tabs Unknown 0000 daily. Atorvastatin / Active Tablets 20mg take 1 Unknown Calcium 0000 tablet at bedtime Potassium / Active Tablets ER 10Meq 2 by Unknown Citrate ER 0000 (1080 mg) mouth three times a day Diazepam 00/00/ Active Tablets 5mg Take 1 Unknown 0000 Tablet By Mouth Every Hour For Anxiety Prior To Mri's Benadryl / Active Capsules 25mg twice Unknown Allergy 0000 daily as needed Furosemide / Active Tablets 20mg 1 tablet Unknown 0000 by mouth once daily as Needed for Swelling Clobetasol / Active Cream 0.05% apply to Unknown Propionate E 0000 affected areas twice a day for up to 2 weeks, off 2 weeks and repeat as needed. Aspirin Ec / Active Tablets DR 325mg 2 pills 3 Unknown 0000 times a day Gabapentin 01/07/ Hx Capsules 100mg 90cap 1 capsule G62.9 Christopher 2018 - florinda Do M.D. 02/04/ times 2017 daily. Potassium 08/21/ Hx Granules Christopher Citrate 2017 - Akshat Do 2017 Ativan 06/14/ Hx Tablets 2mg 2tabs take one Surinder 2016 - tablet by Keri 08/30/ mouth 30 M.D. 2018 minutes before mri, may repeat at the time of mri. Diazepam 03/26/ Hx Tablets 5mg 6tabs 1 or 2 by Alton Jaeger 2014 - mouth two Pollack, 04/06/ hours M.D. 2014 prior to mri, repeat up to once per hour if needed. Finasteride / Hx Tablets 5mg 1 by Nishant, 0000 - mouth MD Bj 08/20/ every day 2017 Tamsulosin HCL / Hx Capsules 0.4mg take 1 Unknown 0000 - capsule 08/20/ by mouth 2017 once daily Saw Sodus / Hx Capsules 450mg 1 by Unknown 0000 - mouth 07/04/ twice a 2016 day Medications Administered in Office Medication Date Status Form Strength Qnty SIG Indications Ordering Provider Depomedrol Administered Injection Sandra 40MG Coral Tavera M.D. Inj, Administered Injection Dante Beck Regadenoson, 018 DO Joni 0.1 MG FACC Technetium TC Administered Injection Dante S. 99M 018 DO Joni Tetrofosmin, FACC Per Unit Dose Up To 40 Millicuries Immunizations Description No Information Available Vital Signs Date Vital Result Comment 06/17/2018 2:50pm Height 70 inches 5'10" Heart [...] Date Facility Test Result H/L Range Note Laboratory test 11/15/2017 [facility] Creatine 112 U/L N 10- 223 finding Kinase(CK) [place] [address] [phone] Myoglobin 50.0 ng/mL N 17.4-105.7 Aldolase 5.2 U/L <7.7 1 Vitamin B12 And 11/15/2017 [facility] Vitamin B12 354 pg/mL N 180-914 2 [place] [address] [phone] Folic Acid (Folate) 14.80 ng/mL >3.99 Laboratory test 11/15/2017 [facility] TSH (Thyroid 1.42 mcIU/mL N 0.34-5.60 finding Stim Horm) [place] [address] [phone] Erythrocyte Sed Rate 15 mm/Hr N 0-40 C Reactive Protein < 1.00 mg/L N < 5.00 3 Protein 11/15/2017 [facility] Total 7.1 g/dL 6.3 - Electrophoresis Protein(Pep) 7.9 [place] [address] [phone] Albumin 3.5 g/dL 3.4-4.7 Alpha-1 Globulin 0.2 g/dL 0.1-0.3 Alpha-2 Globulin 1.0 g/dL 0.6-1.0 Beta Globulin 1.1 g/dL 0.7-1.2 Gamma Globulin 1.3 g/dL 0.6-1.6 Albumin/Globulin Ratio 0.97 Impression See Comment 4 Istat BUN/Crea/Egfr/V 06/28/2017 [facility] Poc Bun 36 mg/dL High 9-[address] [place] [address] [phone] Poc Crea Mainct 0.9 mg/dL N 0.6-0.9 GFR Non- MCT 83.2 >60 GFR Mainct 107.0 >60 5 Creatinine 03/24/2015 [facility] Creatinine 0.90 mg/dL N 0.67- 1.[address] [place] [address] [phone] Egfr Non- 83.7 N >60 Egfr 107.6 N >60 6 Basic Metabolic Panel 01/21/2014 [facility] Sodium 138 mmol/L N 133-145 [address] [place] [address] [phone] Potassium 4.3 mmol/L N 3.7-5.6 Chloride 107 mmol/L N 101-111 Co2 Carbon Dioxide 26 mmol/L N 22-32 Anion Gap 5 mmol/L N 2-11 Glucose 113 mg/dL High 70-100 Blood Urea Nitrogen 20 mg/dL N 6-24 Creatinine 0.91 mg/dL N 0.67-1.17 BUN/Creatinine Ratio 22.0 High 8-20 Calcium 9.3 mg/dL N 8.6-10.3 Egfr Non- 82.9 N >60 Egfr 106.6 N >60 7 Basic Metabolic Panel 01/22/2013 [facility] Sodium 144 mmol/L 133-145 [address] [place] [address] [phone] Potassium 3.3 mmol/L Low 3.5-5.0 Chloride 114 mmol/L High 101-111 Co2 Carbon Dioxide 24.0 mmol/L 22-32 Anion Gap 6.0 mmol/L 2-11 Glucose 117 mg/dL High 70-100 Blood Urea Nitrogen 21 mg/dL 6-24 Creatinine 0.80 mg/dL 0.50-1.40 BUN/Creatinine Ratio 26.3 High 8-20 Calcium 9.4 mg/dL 8.1-9.9 Egfr Non- 96.4 >60 Egfr 124.0 >60 8 Urine Culture And 01/22/2013 [facility] Urine Culture (SEE NOTE ) [address] [place] [address] [phone] CBC Auto Diff 01/22/2013 [facility] White Blood 7.1 10^3/uL 4.8-[address] Count .8 [place] [address] [phone] Red Blood Count 4.61 10^6/uL 4.0-5.4 Hemoglobin [...] 0-2 Nucleated Red Blood Cells % 0 Culture And 04/15/2012 [facility] M [address] <SEE NOTE> [place] [address] [phone] Surgical 04/04/2012 [facility] Surgical [address] Pathology <SEE NOTE> [place] [address] [phone] 1 Test Performed by: [facility] [address] [place] [address] 2 Normal Range 180 to 914 Indeterminate Range 145 to 180 Deficient Range <145 3 Acute inflammation: >10.00 4 RESULT: No apparent monoclonal protein on serum electrophoresis. Test Performed by: [address] [address] 5 Because ethnic data is not always readily [...] 15-29 5 Kidney failure <15 (or dialysis) 6 Because ethnic data is not always readily [...] 15-29 5 Kidney failure <15 (or dialysis) 7 Because ethnic data is not always [...] 5 Kidney failure <15 (or dialysis) 9 RUN DATE: 01/24/13 [facility] LAB LIVE PAGE 1 RUN TIME: 1796 [address] [place], [place] [address] Specimen Inquiry Name: MICHELLE ARVIZU : [address]: Alton Devries MD Acct: [id number] Unit: [id number] AGE: 67 Location: LAB Re01/22/13 SEX: M Status: REG REF SPEC: [id number] NITA: 01/22/13-[address]: Bj Dillard MD REQ: [id number] RECD: 01/22/13 STATUS: EDA JONES DR: Judy Tovar , CHIEF MATE _ SOURCE: URINE SPDESC: ORDERED: Urine Culture Procedure Result Verified Site Urine Culture Final 01/24/13- 1045 ML No Growth Day 2 (<1,000 CFU/mL) END OF REPORT * ML=Testing performed at Main Lab DEPARTMENT OF PATHOLOGY, [address] [place] [address] Nate Ochoa M.D. Director [facility] Permit #[id number] RUN DATE: 04/17/12 [facility] NMI LIVE PAGE 1 RUN TIME: 1058 Specimen Inquiry RUN USER: INTERFACE Name: MICHELLE ARVIZU Status: DEP ER Re04/15/12 Age/Sex: 66/M Unit#: [id number] Location: [facility] Major : [birth year] SPEC #: [id number] NITA: 04/15/12-5529 STATUS: COMP REQ #: [id number] RECD: 04/15/12-[address]: Jaycob MAYES,Alton Jaeger SOURCE: WOUND ENTR: 04/15/12-[address]: Judy Tovar NP SPDES: NECK ORDERED: CULT LUPIS/GS COMMENTS: COMMENTS: RT POSTERIOR FOSSA SURGICAL INCISION ACT WKST: B 04/17/12 #1 Procedure Result Verified Site > CULTURE SENSITIVITY Final 04/17/12- 1058 ML FINAL: NO GROWTH DAY 2 > GRAM STAIN SMEAR Final 04/15/12- 1546 ML POLYS NONE SMEAR: FEW NUCLEATED CELLS NO ORGANISMS SEEN ML - [facility] Permit #[id number] [address] [place] [address] DEPARTMENT OF PATHOLOGY, [address] [place] [address] [facility] Permit #[id number] Nate Ochoa M.D. Director Carisa Alcazra M.D. Skimmer 11 ---- RUN DATE: 04/17/12 [facility] NMI LIVE PAGE 1 RUN TIME: 1149 Specimen Inquiry RUN USER: INTERFACE -- Name: MICHELLE ARVIZU Status: DIS IN Re04/01/12 Age/Sex: 66/M Unit#: [id number] Location: [facility]O.B. : 45 -- Specimen: [id number] Spec Date:04/04/12 Dr: Alton valerio MD Spec Type: SURGICAL P Received:04/05/12 Copies to: Jayson Sutton MD SPECIMEN CEREBELLAR [...] and edge artifact. -- DEPARTMENT OF PATHOLOGY, [address] [place] [address] [facility] Permit #[id number] Nate Ochoa M.D. Director Carisa Alcazar M.D. Nip Wrapper Dir arlene -- -- RUN DATE: 04/17/12 [facility] NMI LIVE PAGE 2 RUN TIME: 1149 Specimen Inquiry RUN USER: INTERFACE -- Name: MICHELLE ARVIZU Status: DIS IN Re04/01/12 Age/Sex: 66/M Unit#: [id number] Location: [facility]. : 45 -- -- CONTINUED -- COMMENT (Continued) The following immunohistochemical stains were performed at [facility] ([place], [place]) with appropriate controls and interpreted by [facility] [place]: GFAP Negative in vascular tumor elements, positive [...] slides and block will be sent to [facility] in [facility] for review. Their interpretation will be submitted as an addendum. ADDENDUM Addendum #1 Entered: 04/17/12-[address] José Griffin at [facility], [place], [place], outside accession number [id number], our surgical [id number] reported on 04/16/12 and received on 04/17/12. [...] variably positive for -- DEPARTMENT OF PATHOLOGY, [address] [place] [address] [facility] Permit #[id number] Nate Ochoa M.D. Director Carisa Alcazar M.D. Nip Wrapper Dir arlene -- -- RUN DATE: 04/17/12 [facility] NMI LIVE PAGE 3 RUN TIME: 1149 Specimen Inquiry RUN USER: INTERFACE -- Name: MICHELLE ARVIZU Status: DIS IN Re04/01/12 Age/Sex: 66/M Unit#: [id number] Location: [facility]. : 45 -- -- CONTINUED -- ADDENDUM [...] 04/10/12 1528 -- -- DEPARTMENT OF PATHOLOGY, [address] [place] [address] [facility] Permit #[id number] Akshat Betancur M.D. Nip Wrapper Dir jacobor -- Procedures Date Code Description Status 05/06/2018 60954 Lonnie/Barbara RASMUSSEN Or Do Alcazar/ Completed 09/13/2017 49355 Stress Test Completed 09/13/2017 49601 Myocardial Perfusion Imaging Tomographic (Spect) Multiple Completed Studies 09/07/2017 17600 EKG Tracing & Interpretation Completed 08/24/2017 51941 Nerve Conduction 05-06 Studies Completed 08/24/2017 40735 Needle Electromyography Complete, Five Or More Muscles Completed Studied 08/24/2017 74315 Needle Electromyography Each Extremity W/Related Completed Paraspinal Areas 04/24/2013 24008 EKG, Interpretation Only Completed 04/04/2012 13704 Stereotactic CAD Proc Cranial,Intradural Add On Code Completed 04/04/2012 15685 Cranial Decompression Post Fossa Completed 03/22/2004 81132 EKG, Interpretation Only Completed Encounters Type Date Location Provider Dx Diagnosis Office Visit 06/06/2018 [place] Abi Do M25.551 Pain in right 2:45p [facility] M.D. hip M54.17 Radiculopathy, lumbosacral region Office Visit 05/16/2018 1:50p [facility] Radha Goldman, L40.0 Psoriasis vulgaris L24.9 Irritant contact dermatitis, unspecified cause L23.9 Allergic contact dermatitis, unspecified cause Office Visit 05/06/2018 1:15p [facility] Sandra Tavera M25.551 Pain in right [facility] M.D. hip M16.11 Unilateral primary osteoarthritis, right hip Office Visit 04/17/2018 3:00p [facility] Radha Goldman, L40.0 Psoriasis vulgaris B35.6 Tinea cruris Office Visit 03/22/2018 1:30p [facility] Sandra Tavera M25.551 Pain in right [facility] M.D. hip M16.11 Unilateral primary osteoarthritis, right hip R60.0 Localized edema Office Visit 03/04/2018 Sreekanth Hernandez M48.062 Spinal stenosis, 2:30p Abi Do M.D. lumbar region [facility] [employer] with neurogenic claudication G62.9 Polyneuropathy, unspecified M62.81 Muscle weakness (generalized) Office Visit 01/07/2018 Sreekanth Hernandez M48.062 Spinal stenosis, 2:45p Abi Do M.D. lumbar region [facility] [employer] with neurogenic claudication M54.17 Radiculopathy, lumbosacral region G62.9 Polyneuropathy, unspecified Office Visit 11/15/2017 Sreekanth De Los Santoslaurence M48.062 Spinal stenosis, 1:45p Abi Do M.D. 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 lumbar region [facility] with neurogenic claudication M54.17 Radiculopathy, lumbosacral region Office Visit 08/21/2017 [place] M48.062 Spinal stenosis, 11:15a Abi Do M.D. lumbar region [facility] with neurogenic claudication E11.9 Type 2 diabetes mellitus without complications R26.89 Other abnormalities of gait and mobility M62.81 Muscle weakness (generalized) Office Visit 07/04/2017 Neurosurgery Surinder Saavedra, M48.062 Spinal stenosis, 11:40a [facility] Oden lumbar region with neurogenic claudication D43.1 Neoplasm [...] Pelvic & Thigh Office Visit 05/10/2013 11:24a [facility] Carmen De La Paz, N.P. 560.2 [facility] 493.00 Asthma Extrinsic Unspecified 250.00 Diabetes Mellitus W/O Compl Type II Or Unspec Controlled Office Visit 05/09/2013 11:23a [facility] Leobardo Cope 560.2 [facility] Hospitalists N.P. 493.00 Asthma Extrinsic Unspecified 250.00 Diabetes Mellitus W/O Compl Type II Or Unspec Controlled Office Visit 05/08/2013 11:22a [facility] Carmen De La Paz N.Tamara. 560.2 [facility] 493.00 Asthma Extrinsic Unspecified 250.00 Diabetes Mellitus W/O Compl Type II Or Unspec Controlled Office Visit 03/04/2013 11:00a Neurosurgery Alton Savage.3 [facility] Devries M.D. Ataxia Other Office Visit 08/07/2012 11:20a Neurosurgery Alton Savage.3 [facility]ries M.D. 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 250.00 Diabetes Mellitus W/O Compl Type II Or Unspec Controlled 401.9 Hypertension Unspec Office Visit 04/11/2012 2:45p [facility] Jayson Sutton 334.3 [facility] Akshat Ataxia Other Hospitalists 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 250.00 Diabetes Mellitus W/O Compl Type II Or Unspec Controlled 401.9 Hypertension Unspec Office Visit 04/10/2012 2:44p [facility] Jayson Sutton 334.3 [facility],pc MHeidiDHeidi Ataxia Other Hospitalists 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 250.00 Diabetes Mellitus W/O Compl Type II Or Unspec Controlled 401.9 Hypertension Unspec Office Visit 04/09/2012 2:44p [facility] Jayson Chanko, 334.3 [facility],blaine Oden Ataxia Other Hospitalists 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 250.00 Diabetes Mellitus W/O Compl Type II Or Unspec Controlled 401.9 Hypertension Unspec Office Visit 04/08/2012 2:43p [facility] Jayson Sutton, 334.3 [facility],blaine Oden Ataxia Other Hospitalists 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 250.00 Diabetes Mellitus W/O Compl Type II Or Unspec Controlled 401.9 Hypertension Unspec Office Visit 04/07/2012 2:43p [facility] Jayson Sutton, 334.3 [facility],blaine Oden Ataxia Other Hospitalists 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 250.00 Diabetes Mellitus W/O Compl Type II Or Unspec Controlled 401.9 Hypertension Unspec Office Visit 04/06/2012 2:42p [facility] Jayson Sutton, 334.3 [facility],blaine Oden Ataxia Other Hospitalists 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 Ataxia Other Hospitalists 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 250.00 Diabetes Mellitus W/O Compl Type II Or Unspec Controlled 401.9 Hypertension Unspec Office Visit 04/03/2012 2:41p [facility] Anna 334.3 [facility],pc Pedrito FraustoOHeidi Ataxia Other Hospitalists 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 250.00 Diabetes Mellitus W/O Compl Type II Or Unspec Controlled 401.9 Hypertension Unspec Office Visit 04/02/2012 2:39p [facility] Anna 334.3 [facility] Jett D.O. Ataxia Other Hospitalists 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 250.00 Diabetes Mellitus W/O Compl Type II Or Unspec Controlled 401.9 Hypertension Unspec Office Visit 04/01/2012 1:34p [facility] Patricia Cisse, 334.3 [facility],blaine Oden Ataxia Other Hospitalists 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 250.00 Diabetes Mellitus W/O Compl Type II Or Unspec Controlled 401.9 Hypertension Unspec Plan of Treatment Future Appointment(s):07/10/2018 9:00 am - Sandra Tavera M.D. at [facility]/06/2018 3:15 pm - David Do M.D. at [facility]06/18/2018 1:50 pm - Radha Goldman MD at [facility] [id number]/19/2018 - Sandra Tavera M.D.M25.551 Pain in right hipNew Medication:Keflex 500 mg - 1 tablet by mouth q6 hoursFollow up:Follow up: 7- 10 days before bwslfpiS58.11 Unilateral primary osteoarthritis, right hip
--- OUTSIDE RECORDS SUMMARY | 2018-07-16 10:37 | XMS REPORT | Continuity of Care Document ---
:1945 External Reference #:[id number] Author Name Alok Carr Care Team Providers Name Role Phone Brianne Anderson MD Primary Care Physician Unavailable Payers Type Date Identification Numbers Payment Provider Subscriber Effective: Policy Number: [id number] Medicare Michelle Arvizu 2010 PayID: [id number] [address] [place] [address] Effective: 2010 Policy Number: [id number] [facility] Vanessa Hayward Group Number: [id number] [address] PayID: [id number] [place] [address] Advance Directives Description No Information Available Problems [...] 08/20/ by mouth 2017 once daily Saw Manson / Hx Capsules 450mg 1 by Unknown [...] Result H/L Range Note Laboratory test 11/15/2017 [facility] Creatine 112 U/L N 10- 223 finding Kinase(CK) [place] [address] [phone] Myoglobin 50.0 ng/mL N 17.4-105.7 Aldolase 5.2 U/L <7.7 1 Vitamin B12 And 11/15/2017 [facility] Vitamin B12 354 pg/mL N 180-914 2 [place] [address] [phone] Folic Acid (Folate) 14.80 ng/mL >3.99 Laboratory test 11/15/2017 [facility] TSH (Thyroid 1.42 mcIU/mL N 0.34-5.60 finding Stim Horm) [place] [address] [phone] Erythrocyte Sed Rate 15 mm/Hr N 0-40 C Reactive Protein < 1.00 mg/L N < 5.00 3 Protein 11/15/2017 [facility] Total 7.1 g/dL 6.3 - Electrophoresis Protein(Pep) 7.9 [place] [address] [phone] Albumin 3.5 g/dL 3.4-4.7 Alpha-1 Globulin 0.2 g/dL 0.1-0.3 Alpha-2 Globulin 1.0 g/dL 0.6-1.0 Beta Globulin 1.1 g/dL 0.7-1.2 Gamma Globulin 1.3 g/dL 0.6-1.6 Albumin/Globulin Ratio 0.97 Impression See Comment 4 Istat BUN/Crea/Egfr/V 06/28/2017 [facility] Poc Bun 36 mg/dL High 9-[address] [place] [address] [phone] Poc Crea Mainct 0.9 mg/dL N 0.6-0.9 GFR Non- MCT 83.2 >60 GFR Mainct 107.0 >60 5 Creatinine 03/24/2015 [facility] Creatinine 0.90 mg/dL N 0.67- 1.[address] [place] [address] [phone] Egfr Non- 83.7 N >60 Egfr 107.6 N >60 6 Basic Metabolic Panel 01/21/2014 [facility] Sodium 138 mmol/L N 133-145 [address] [place] [address] [phone] Potassium 4.3 mmol/L N 3.7-5.6 Chloride 107 [...] N >60 7 Basic Metabolic Panel 01/22/2013 [facility] Sodium 144 mmol/L 133-145 [address] [place] [address] [phone] Potassium 3.3 mmol/L Low 3.5-5.0 Chloride 114 mmol/L High 101-111 Co2 Carbon Dioxide 24.0 mmol/L 22-32 Anion Gap 6.0 mmol/L 2-11 Glucose 117 mg/dL High 70-100 Blood Urea Nitrogen 21 mg/dL 6-24 Creatinine 0.80 mg/dL 0.50-1.40 BUN/Creatinine Ratio 26.3 High 8-20 Calcium 9.4 mg/dL 8.1-9.9 Egfr Non- 96.4 >60 Egfr 124.0 >60 8 Urine Culture And 01/22/2013 [facility] Urine Culture (SEE NOTE ) [address] [place] [address] [phone] CBC Auto Diff 01/22/2013 [facility] White Blood 7.1 10^3/uL 4.8-[address] Count .8 [place] [address] [phone] Red Blood Count 4.61 10^6/uL 4.0-5.4 Hemoglobin [...] Blood Cells % 0 Culture And 04/15/2012 [facility] M [address] <SEE NOTE> [place] [address] [phone] Surgical 04/04/2012 [facility] Surgical [address] Pathology <SEE NOTE> [place] [address] [phone] 1 Test Performed by: [facility] [address] [place] [address] 2 Normal Range 180 to 914 Indeterminate Range 145 to 180 Deficient Range <145 3 Acute inflammation: >10.00 4 RESULT: No apparent monoclonal protein on serum electrophoresis. Test Performed by: [address] [address] 5 Because ethnic data is not always [...] <15 (or dialysis) 9 RUN DATE: 01/24/13 [facility] LAB LIVE PAGE 1 RUN TIME: 3192 [address] [place], [place] [address] Specimen Inquiry Name: MICHELLE ARVIZU : [address]: Alton Devries MD Acct: [id number] Unit: [id number] AGE: 67 Location: LAB Re01/22/13 SEX: M Status: REG REF SPEC: [id number] NITA: 01/22/13-[address]: Bj Dillard MD REQ: [id number] RECD: 01/22/13 STATUS: EDA JONES DR: Judy Tovar , INTELLIGENCE SPECIALIST _ SOURCE: URINE SPDESC: ORDERED: Urine Culture Procedure Result Verified Site Urine Culture Final 01/24/13- 1045 ML No Growth Day 2 (<1,000 CFU/mL) END OF REPORT * ML=Testing performed at Main Lab DEPARTMENT OF PATHOLOGY, [address] [place] [address] Nate Ochoa M.D. Director [facility] Permit #[id number] RUN DATE: 04/17/12 [facility] NMI LIVE PAGE 1 RUN TIME: 1058 Specimen Inquiry RUN USER: INTERFACE Name: MICHELLE ARVIZU Status: DEP ER Re04/15/12 Age/Sex: 66/M Unit#: [id number] Location: [place] Major : 45 SPEC #: [id number] NITA: 04/15/12-5178 STATUS: COMP REQ #: [id number] RECD: 04/15/12-[address]: Jaycob MAYES,Alton Jaeger SOURCE: WOUND [...] NUCLEATED CELLS NO ORGANISMS SEEN ML - [facility] Permit #[id number] [address] [place] [address] DEPARTMENT OF PATHOLOGY, [address] [place] [address] [facility] Permit #[id number] Nate Ochoa M.D. Director Carisa Alcazar M.D. Windlace Machine Operator 11 ---- RUN DATE: 04/17/12 [facility] NMI LIVE PAGE 1 RUN TIME: 1149 Specimen Inquiry RUN USER: INTERFACE -- Name: MICHELLE ARVIZU Status: DIS IN Re04/01/12 Age/Sex: 66/M Unit#: [id number] Location: [facility] MajorO.B. : 45 -- Specimen: [id number] Spec Date:04/04/12 Dr: Alton valerio MD [...] and edge artifact. -- DEPARTMENT OF PATHOLOGY, [address] [place] [address] [facility] Permit #[id number] Nate Ochoa M.D. Director Carisa Alcazar M.D. Eviscerator Dir arlene -- -- RUN DATE: 04/17/12 [facility] NMI LIVE PAGE 2 RUN TIME: 1149 Specimen Inquiry RUN USER: INTERFACE -- Name: MICHELLE ARVIZU Status: DIS IN Re04/01/12 Age/Sex: 66/M Unit#: [id number] Location: [facility]. : 45 -- -- CONTINUED -- COMMENT (Continued) The following immunohistochemical stains were performed at [facility] ([place], [place]) with appropriate controls and interpreted by [facility] [place]: GFAP Negative in vascular tumor elements, positive [...] slides and block will be sent to [facility] in [facility] for review. Their interpretation will be submitted as an addendum. ADDENDUM Addendum #1 Entered: 04/17/12-[address] José Griffin at [facility], [place], [place], outside accession number [id number], our surgical [id number] reported on 04/16/12 and received on 04/17/12. [...] variably positive for -- DEPARTMENT OF PATHOLOGY, [address] [place] [address] [facility] Permit #[id number] Nate Ochoa M.D. Director Carisa Alcazar M.D. Eviscerator Dir arlene -- -- RUN DATE: 04/17/12 [facility] NMI LIVE PAGE 3 RUN TIME: 1149 Specimen Inquiry RUN USER: INTERFACE -- Name: MICHELLE ARVIZU Status: DIS IN Re04/01/12 Age/Sex: 66/M Unit#: [id number] Location: [facility]. : 45 -- -- CONTINUED -- ADDENDUM [...] 04/10/12 1528 -- -- DEPARTMENT OF PATHOLOGY, [address] [place] [address] [facility] Permit #[id number] Akshat Betancur M.D. Eviscerator Dir jacobor -- Procedures Date Code Description Status 05/06/2018 57079 Lonnie/Barbara RASMUSSEN Or Do Alcazar/ Completed 09/13/2017 29252 Stress Test Completed 09/13/2017 47823 Myocardial Perfusion Imaging Tomographic (Spect) Multiple Completed Studies 09/07/2017 61758 EKG Tracing & Interpretation Completed 08/24/2017 81227 Nerve Conduction 05-06 Studies Completed 08/24/2017 08128 Needle Electromyography Complete, Five Or More Muscles Completed Studied 08/24/2017 93756 Needle Electromyography Each Extremity W/Related Completed Paraspinal Areas 04/24/2013 71696 EKG, Interpretation Only Completed 04/04/2012 14899 Stereotactic CAD Proc Cranial,Intradural Add On Code Completed 04/04/2012 15731 Cranial Decompression Post Fossa Completed 03/22/2004 89621 EKG, Interpretation Only Completed Encounters Type Date Location Provider Dx Diagnosis Office Visit 06/06/2018 [facility] Do M25.551 Pain in right 2:45p [facility] M.D. hip M54.17 Radiculopathy, lumbosacral region Office Visit 05/16/2018 1:50p [facility] Dermatology Radha Goldman, L40.0 Psoriasis vulgaris L24.9 Irritant contact dermatitis, unspecified cause L23.9 Allergic contact dermatitis, unspecified cause Office Visit 05/06/2018 1:15p [facility] Sandra Tavera M25.551 Pain in right Of [facility] M.D. hip M16.11 Unilateral primary osteoarthritis, right hip Office Visit 04/17/2018 3:00p [facility] Dermatology Radha Goldman, L40.0 Psoriasis vulgaris B35.6 Tinea cruris Office Visit 03/22/2018 1:30p [facility] Sandra Tavera M25.551 Pain in right Of [facility] M.D. hip M16.11 Unilateral primary osteoarthritis, right hip R60.0 Localized edema Office Visit 03/04/2018 Sreekanth Hernandez M48.062 Spinal stenosis, 2:30p Abi Do M.D. lumbar region Services Of [employer] with neurogenic claudication G62.9 Polyneuropathy, unspecified M62.81 Muscle weakness (generalized) Office Visit 01/07/2018 Sreekanth Hernandez M48.062 Spinal stenosis, 2:45p Abi Do M.D. lumbar region Services Of [employer] with neurogenic claudication M54.17 Radiculopathy, lumbosacral region G62.9 Polyneuropathy, unspecified Office Visit 11/15/2017 Sreekanth De Los Santoslaurence M48.062 Spinal stenosis, 1:45p Abi Do M.D. lumbar region [facility] with neurogenic claudication M54.17 Radiculopathy, lumbosacral region M62.81 Muscle weakness (generalized) Office Visit 09/07/2017 Derek Beck Z01.810 Encounter for 2:00p Cardiology Of DO Joni preprocedural [facility] FAC cardiovascular examination M48.062 Spinal stenosis, lumbar region with neurogenic claudication R94.31 Abnormal electrocardiogram [ECG] [EKG] I45.19 Other right bundle-branch block E11.69 Type 2 diabetes mellitus with other specified complication E78.5 Hyperlipidemia, unspecified I47.1 Supraventricular tachycardia 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 lumbar region [facility] with neurogenic claudication M54.17 Radiculopathy, lumbosacral region Office Visit 08/21/2017 [facility] Hernandez M48.062 Spinal stenosis, 11:15a Abi Do M.D. lumbar region [facility] with neurogenic claudication E11.9 Type 2 diabetes [...] Pelvic & Thigh Office Visit 05/10/2013 11:24a [facility] Carmen De La Paz, N.P. 560.2 [facility] 493.00 Asthma Extrinsic Unspecified 250.00 Diabetes Mellitus W/O Compl Type II Or Unspec Controlled Office Visit 05/09/2013 11:23a [facility] Leobardo Cope 560.2 [facility] Hospitalists N.P. 493.00 Asthma Extrinsic Unspecified 250.00 Diabetes Mellitus W/O Compl Type II Or Unspec Controlled Office Visit 05/08/2013 11:22a [facility] Carmen De La Paz N.Tamara. 560.2 [facility] 493.00 Asthma Extrinsic Unspecified 250.00 Diabetes Mellitus W/O Compl Type II Or Unspec Controlled Office Visit 03/04/2013 11:00a Neurosurgery Alton Savage.3 [facility] Julian Devries M.D. Ataxia Other Office Visit 08/07/2012 11:20a Neurosurgery Alton Savage.3 [facility] Julian Devries M.D. 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 250.00 Diabetes Mellitus W/O Compl Type II Or Unspec Controlled 401.9 Hypertension Unspec Office Visit 04/11/2012 2:45p [facility] Jayson Sutton 334.3 [facility] Akshat Ataxia Other Hospitalists 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 250.00 Diabetes Mellitus W/O Compl Type II Or Unspec Controlled 401.9 Hypertension Unspec Office Visit 04/10/2012 2:44p [facility] Jayson Sutton 334.3 [facility] MHeidiDHeidi Ataxia Other Hospitalists 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 250.00 Diabetes Mellitus W/O Compl Type II Or Unspec Controlled 401.9 Hypertension Unspec Office Visit 04/09/2012 2:44p [facility] Jayson Chanko, 334.3 [facility],blaine Oden Ataxia Other Hospitalists 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 250.00 Diabetes Mellitus W/O Compl Type II Or Unspec Controlled 401.9 Hypertension Unspec Office Visit 04/08/2012 2:43p [facility] Jayson Sutton, 334.3 [facility],blaine Oden Ataxia Other Hospitalists 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 250.00 Diabetes Mellitus W/O Compl Type II Or Unspec Controlled 401.9 Hypertension Unspec Office Visit 04/07/2012 2:43p [facility] Jayson Sutton, 334.3 [facility],blaine Oden Ataxia Other Hospitalists 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 250.00 Diabetes Mellitus W/O Compl Type II Or Unspec Controlled 401.9 Hypertension Unspec Office Visit 04/06/2012 2:42p [facility] Jayson Sutton, 334.3 [facility],blaine Oden Ataxia Other Hospitalists 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 at [facility]/06/2018 3:15 pm - David Do M.D. at [facility]06/18/2018 1:50 pm - Radha Goldman MD at [facility] Dkwssqebhwt25/19/2018 - Sandra Tavera M.D.M25.551 Pain in right hipNew Medication:Keflex 500 mg - 1 tablet by mouth q6 hoursFollow up:Follow up: 7- 10 days before brveyfhL98.11 Unilateral primary osteoarthritis, right hip
--- OUTSIDE RECORDS SUMMARY | 2018-07-16 10:37 | XMS REPORT | Continuity of Care Document ---
:1945 External Reference #:[id number] Author Name Alok Carr Care Team Providers Name Role Phone Brianne Anderson MD Primary Care Physician Unavailable Payers Type Date Identification Numbers Payment Provider Subscriber Effective: Policy Number: [id number] Medicare Michelle Arvizu 2010 PayID: [id number] [address] [place] [address] Effective: 2010 Policy Number: [id number] [facility] Vanessa Hayward Group Number: [id number] [address] PayID: [id number] [place] [address] Advance Directives Description No Information Available Problems [...] Finasteride / Hx Tablets 5mg 1 by Nisahnt, 0000 - mouth MD Bj 08/20/ every day 2017 Tamsulosin HCL / Hx Capsules 0.4mg take 1 Unknown 0000 - capsule 08/20/ by mouth 2017 once daily Saw [place] / Hx Capsules 450mg 1 by Unknown 0000 - mouth 07/04/ twice a 2016 day Medications Administered in Office Medication Date Status Form Strength Qnty SIG Indications Ordering Provider Depomedrol Administered Injection Sandra 40MG Coral Tavera M.D. Inj, Administered Injection Dante Beck Regadenoson, 018 DO Joni 0.1 MG FACC Technetium TC Administered Injection Dnate S. 99M 018 DO Joni Tetrofosmin, FACC [...] Result H/L Range Note Laboratory test 11/15/2017 [facility] Creatine 112 U/L N 10- 223 finding Kinase(CK) [place] [address] [phone] Myoglobin 50.0 ng/mL N 17.4-105.7 Aldolase 5.2 U/L <7.7 1 Vitamin B12 And 11/15/2017 [facility] Vitamin B12 354 pg/mL N 180-914 2 [place] [address] [phone] Folic Acid (Folate) 14.80 ng/mL >3.99 Laboratory test 11/15/2017 [facility] TSH (Thyroid 1.42 mcIU/mL N 0.34-5.60 finding Stim Horm) [place] [address] [phone] Erythrocyte Sed Rate 15 mm/Hr N 0-40 C Reactive Protein < 1.00 mg/L N < 5.00 3 Protein 11/15/2017 [facility] Total 7.1 g/dL 6.3 - Electrophoresis Protein(Pep) 7.9 [place] [address] [phone] Albumin 3.5 g/dL 3.4-4.7 Alpha-1 Globulin 0.2 g/dL 0.1-0.3 Alpha-2 Globulin 1.0 g/dL 0.6-1.0 Beta Globulin 1.1 g/dL 0.7-1.2 Gamma Globulin 1.3 g/dL 0.6-1.6 Albumin/Globulin Ratio 0.97 Impression See Comment 4 Istat BUN/Crea/Egfr/V 06/28/2017 [facility] Poc Bun 36 mg/dL High 9-[address] [place] [address] [phone] Poc Crea Mainct 0.9 mg/dL N 0.6-0.9 GFR Non- MCT 83.2 >60 GFR Mainct 107.0 >60 5 Creatinine 03/24/2015 [facility] Creatinine 0.90 mg/dL N 0.67- 1.[address] [place] [address] [phone] Egfr Non- 83.7 N >60 Egfr 107.6 N >60 6 Basic Metabolic Panel 01/21/2014 [facility] Sodium 138 mmol/L N 133-145 [address] [place] [address] [phone] Potassium 4.3 mmol/L N 3.7-5.6 Chloride 107 [...] N >60 7 Basic Metabolic Panel 01/22/2013 [facility] Sodium 144 mmol/L 133-145 [address] [place] [address] [phone] Potassium 3.3 mmol/L Low 3.5-5.0 Chloride 114 mmol/L High 101-111 Co2 Carbon Dioxide 24.0 mmol/L 22-32 Anion Gap 6.0 mmol/L 2-11 Glucose 117 mg/dL High 70-100 Blood Urea Nitrogen 21 mg/dL 6-24 Creatinine 0.80 mg/dL 0.50-1.40 BUN/Creatinine Ratio 26.3 High 8-20 Calcium 9.4 mg/dL 8.1-9.9 Egfr Non- 96.4 >60 Egfr 124.0 >60 8 Urine Culture And 01/22/2013 [facility] Urine Culture (SEE NOTE ) [address] [place] [address] [phone] CBC Auto Diff 01/22/2013 [facility] White Blood 7.1 10^3/uL 4.8-[address] Count .8 [place] [address] [phone] Red Blood Count 4.61 10^6/uL 4.0-5.4 Hemoglobin [...] Blood Cells % 0 Culture And 04/15/2012 [facility] M [address] <SEE NOTE> [place] [address] [phone] Surgical 04/04/2012 [facility] Surgical [address] Pathology <SEE NOTE> [place] [address] [phone] 1 Test Performed by: [facility] [address] [place] [address] 2 Normal Range 180 to 914 Indeterminate Range 145 to 180 Deficient Range <145 3 Acute inflammation: >10.00 4 RESULT: No apparent monoclonal protein on serum electrophoresis. Test Performed by: [address] [address] 5 Because ethnic data is not always [...] <15 (or dialysis) 9 RUN DATE: 01/24/13 [facility] LAB LIVE PAGE 1 RUN TIME: [id number] [place], [place] [address] Specimen Inquiry Name: MICHELLE ARVIZU : [address]: Alton Devries MD Acct: [id number] Unit: [id number] AGE: 67 Location: LAB Re01/22/13 SEX: M Status: REG REF SPEC: [id number] NITA: 01/22/13-[address]: Bj Dillard MD REQ: [id number] RECD: 01/22/13 STATUS: EDA JONES DR: Judy Tovar , GOVERNMENT MINISTER _ SOURCE: URINE SPDESC: ORDERED: Urine Culture Procedure Result Verified Site Urine Culture Final 01/24/13- 1045 ML No Growth Day 2 (<1,000 CFU/mL) END OF REPORT * ML=Testing performed at Main Lab DEPARTMENT OF PATHOLOGY, [address] [place] [address] Nate Ochoa M.D. Director [facility] Permit #[id number] RUN DATE: 04/17/12 [facility] NMI LIVE PAGE 1 RUN TIME: 1058 Specimen Inquiry RUN USER: INTERFACE Name: MICHELLE ARVIZU Status: DEP ER Re04/15/12 Age/Sex: 66/M Unit#: [id number] Location: [facility] Major : 45 SPEC #: [id number] NITA: 04/15/12-1466 STATUS: COMP REQ #: [id number] RECD: 04/15/12-[address]: Jaycob MAYES,Alton Jaeger SOURCE: WOUND [...] NUCLEATED CELLS NO ORGANISMS SEEN ML - [facility] Permit #[id number] [address] [place] [address] DEPARTMENT OF PATHOLOGY, [address] [place] [address] [facility] Permit #[id number] Nate Ochoa M.D. Director Carisa Alcazar M.D. Radar Systems Engineer 11 ---- RUN DATE: 04/17/12 [facility] NMI LIVE PAGE 1 RUN TIME: 1149 Specimen Inquiry RUN USER: INTERFACE -- Name: MICHELLE ARVIZU Status: DIS IN Re04/01/12 Age/Sex: 66/M Unit#: [id number] Location: [facility] MajorO.B. : 45 -- Specimen: [id number] Spec Date:04/04/12 Dr: Alton valerio MD [...] and edge artifact. -- DEPARTMENT OF PATHOLOGY, [address] [place] [address] [facility] Permit #[id number] Nate Ochoa M.D. Director Carisa Alcazar M.D. Senior Materials Scientist Dir arlene -- -- RUN DATE: 04/17/12 [facility] NMI LIVE PAGE 2 RUN TIME: 1149 Specimen Inquiry RUN USER: INTERFACE -- Name: MICHELLE ARVIZU Status: DIS IN Re04/01/12 Age/Sex: 66/M Unit#: [id number] Location: [facility]. : 45 -- -- CONTINUED -- COMMENT (Continued) The following immunohistochemical stains were performed at [facility] ([place], [place]) with appropriate controls and interpreted by [facility]: GFAP Negative in vascular tumor elements, positive [...] slides and block will be sent to [facility] in [facility] for review. Their interpretation will be submitted as an addendum. ADDENDUM Addendum #1 Entered: 04/17/12-[address] José Griffin at [facility], [place], [place], outside accession number [id number], our surgical [id number] reported on 04/16/12 and received on 04/17/12. [...] variably positive for -- DEPARTMENT OF PATHOLOGY, [address] [place] [address] [facility] Permit #[id number] Nate Ochoa M.D. Director Carisa Alcazar M.D. Senior Materials Scientist Dir arlene -- -- RUN DATE: 04/17/12 [facility] NMI LIVE PAGE 3 RUN TIME: 1149 Specimen Inquiry RUN USER: INTERFACE -- Name: MICHELLE ARVIZU Status: DIS IN Re04/01/12 Age/Sex: 66/M Unit#: [id number] Location: [facility]. : 45 -- -- CONTINUED -- [...] 04/10/12 1528 -- -- DEPARTMENT OF PATHOLOGY, [address] [place] [address] [facility] Permit #[id number] Akshat Betancur M.D. Senior Materials Scientist Dir jacobor -- Procedures Date Code Description Status 05/06/2018 16499 Lonnie/Barbara RASMUSSEN Or Do Alcazar/ Completed 09/13/2017 53035 Stress Test Completed 09/13/2017 15473 Myocardial Perfusion Imaging Tomographic (Spect) Multiple Completed Studies 09/07/2017 62681 EKG Tracing & Interpretation Completed 08/24/2017 90307 Nerve Conduction 05-06 Studies Completed 08/24/2017 68694 Needle Electromyography Complete, Five Or More Muscles Completed Studied 08/24/2017 99989 Needle Electromyography Each Extremity W/Related Completed Paraspinal Areas 04/24/2013 92717 EKG, Interpretation Only Completed 04/04/2012 16631 Stereotactic CAD Proc Cranial,Intradural Add On Code Completed 04/04/2012 55732 Cranial Decompression Post Fossa Completed 03/22/2004 51967 EKG, Interpretation Only Completed Encounters Type Date Location Provider Dx Diagnosis Office Visit 06/06/2018 [facility] Abi Do M25.551 Pain in right 2:45p [facility] M.D. hip M54.17 Radiculopathy, lumbosacral region Office Visit 05/16/2018 1:50p [facility] Dermatology Radha Goldman, L40.0 Psoriasis vulgaris L24.9 Irritant contact dermatitis, unspecified cause L23.9 Allergic contact dermatitis, unspecified cause Office Visit 05/06/2018 1:15p [facility] Sandra Tavera M25.551 Pain in right [facility] M.D[facility] hip M16.11 Unilateral primary osteoarthritis, right hip Office Visit 04/17/2018 3:00p [facility] Dermatology Radha Goldman, L40.0 Psoriasis vulgaris B35.6 Tinea cruris Office Visit 03/22/2018 1:30p [facility] Sandra Tavera M25.551 Pain in right [facility] M.D. hip M16.11 Unilateral primary osteoarthritis, right hip R60.0 Localized edema Office Visit 03/04/2018 Sreekanth Hernandez M48.062 Spinal stenosis, 2:30p bAi Do M.D. lumbar region [facility] [employer] with neurogenic claudication G62.9 Polyneuropathy, unspecified M62.81 Muscle weakness (generalized) Office Visit 01/07/2018 Sreekanth Hernandez M48.062 Spinal stenosis, 2:45p Abi Do M.D. lumbar region [facility] [employer] with neurogenic claudication M54.17 Radiculopathy, lumbosacral region G62.9 Polyneuropathy, unspecified Office Visit 11/15/2017 Sreekanth De Los Santoslaurence M48.062 Spinal stenosis, 1:45p Abi Do M.D. 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 lumbar region [facility] with neurogenic claudication M54.17 Radiculopathy, lumbosacral region Office Visit 08/21/2017 [facility] Hernandez M48.062 Spinal stenosis, 11:15a Abi Do M.D. lumbar region [facility] with neurogenic claudication E11.9 Type 2 diabetes [...] Pelvic & Thigh Office Visit 05/10/2013 11:24a [facility] Carmen De La Paz, N.P. 560.2 [facility] 493.00 Asthma Extrinsic Unspecified 250.00 Diabetes Mellitus W/O Compl Type II Or Unspec Controlled Office Visit 05/09/2013 11:23a [facility] Leobardo Cope 560.2 [facility] Hospitalists N.P. 493.00 Asthma Extrinsic Unspecified 250.00 Diabetes Mellitus W/O Compl Type II Or Unspec Controlled Office Visit 05/08/2013 11:22a [facility] Carmen De La Paz N.Tamara. 560.2 [facility] 493.00 Asthma Extrinsic Unspecified 250.00 Diabetes Mellitus W/O Compl Type II Or Unspec Controlled Office Visit 03/04/2013 11:00a Neurosurgery Alton Savage.3 [facility] Julian Devries M.D. Ataxia Other Office Visit 08/07/2012 11:20a Neurosurgery Alton Savage.3 [facility] Devries M.D. Ataxia Other Office Visit 04/14/2012 2:46p [facility] Jayson Sutton 334.3 [facility],blaine Oden Ataxia Other Hospitalists 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 250.00 Diabetes Mellitus W/O Compl Type II Or Unspec Controlled 401.9 Hypertension Unspec Office Visit 04/13/2012 2:45p [facility] Anna 334.3 [facility] James Frausto Ataxia Other Hospitalists 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 250.00 Diabetes Mellitus W/O Compl Type II Or Unspec Controlled 401.9 Hypertension Unspec Office Visit 04/11/2012 2:45p [facility] Jayson Sutton 334.3 [facility] Akshat Ataxia Other Hospitalists 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 250.00 Diabetes Mellitus W/O Compl Type II Or Unspec Controlled 401.9 Hypertension Unspec Office Visit 04/10/2012 2:44p [facility] Jayson Sutton 334.3 [facility] MHeidiDHeidi Ataxia Other Hospitalists 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 250.00 Diabetes Mellitus W/O Compl Type II Or Unspec Controlled 401.9 Hypertension Unspec Office Visit 04/09/2012 2:44p [facility] Jayson Chanko, 334.3 [facility],blaine Oden Ataxia Other Hospitalists 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 250.00 Diabetes Mellitus W/O Compl Type II Or Unspec Controlled 401.9 Hypertension Unspec Office Visit 04/08/2012 2:43p [facility] Jayson Sutton, 334.3 [facility],blaine Oden Ataxia Other Hospitalists 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 250.00 Diabetes Mellitus W/O Compl Type II Or Unspec Controlled 401.9 Hypertension Unspec Office Visit 04/07/2012 2:43p [facility] Jayson Sutton, 334.3 [facility],blaine Oden Ataxia Other Hospitalists 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 250.00 Diabetes Mellitus W/O Compl Type II Or Unspec Controlled 401.9 Hypertension Unspec Office Visit 04/06/2012 2:42p [facility] Jayson Sutton, 334.3 [facility],blaine Oden Ataxia Other Hospitalists 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 250.00 Diabetes Mellitus W/O Compl Type II Or Unspec Controlled 401.9 Hypertension Unspec Office Visit 04/05/2012 2:42p [facility] Jayson Sutton, 334.3 [facility],blaine Oden Ataxia Other Hospitalists 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 250.00 Diabetes Mellitus W/O Compl Type II Or Unspec Controlled 401.9 Hypertension Unspec Office Visit 04/04/2012 2:41p [facility] Delfina 334.3 [facility],blaine Bauman M.D. Ataxia Other Hospitalists 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 250.00 Diabetes Mellitus W/O Compl Type II Or Unspec Controlled 401.9 Hypertension Unspec Office Visit 04/03/2012 2:41p [facility] Anna 334.3 [facility] Pedrito FraustoOHeidi Ataxia Other Hospitalists 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 250.00 Diabetes Mellitus W/O Compl Type II Or Unspec Controlled 401.9 Hypertension Unspec Office Visit 04/02/2012 2:39p [facility] Anna 334.3 [facility] Jett D.O. Ataxia Other Hospitalists 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 250.00 Diabetes Mellitus W/O Compl Type II Or Unspec Controlled 401.9 Hypertension Unspec Office Visit 04/01/2012 1:34p [facility] Patricia Cisse, 334.3 [facility],blaine Oden Ataxia Other Hospitalists 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 250.00 Diabetes Mellitus W/O Compl Type II Or Unspec Controlled 401.9 Hypertension Unspec Plan of Treatment Future Appointment(s):07/10/2018 9:00 am - Sandra Tavera M.D. at [facility]/06/2018 3:15 pm - David Do M.D. at [facility]06/18/2018 1:50 pm - Radha Goldman MD at [facility] Oynmyplbysj72/19/2018 - Sandra Tavera M.D.M25.551 Pain in right hipNew Medication:Keflex 500 mg - 1 tablet by mouth q6 hoursFollow up:Follow up: 7- 10 days before vrxtamgT50.11 Unilateral primary osteoarthritis, right hip
[2018-07-16] MEDS ORDERED: ceFAZolin 2 GM PREMIX in ORs 2 GM/50 ML BAG IVPB ONE (10:54)
[2018-07-16] MEDS ORDERED: Lidocaine 2% PF * 5 ML VIAL ONE (10:59)
[2018-07-16] MEDS ORDERED: Propofol* 10 MG/ML 20 ML BTL ONE (10:59)
[2018-07-16] MEDS ORDERED: Midazolam* 1 MG/ML 2 ML VIAL (2 MG) ONE (11:02)
[2018-07-16] MEDS ORDERED: fentaNYL* 50 MCG/ML 2 ML VIAL (100 MCG VIAL) ONE (11:02)
[2018-07-16] MEDS ORDERED: EPINEPHRINE 1 MG/ML 1 ML VIAL ONE (11:19)
[2018-07-16] MEDS ORDERED: ROPIVACAINE 5 MG/ML 30 ML BTL (0.5%) ONE (11:19)
[2018-07-16] MEDS ORDERED: Rocuronium* 10 MG/ML VIAL ONE (12:37)
[2018-07-16] MEDS ORDERED: Bupivacaine 0.5% SDV PF* 30ML VIAL ONE (12:55)
[2018-07-16] MEDS ORDERED: Phenylephrine INJ* 10 MG/ML 1 ML VIAL (10 MG) ONE (13:46)
[2018-07-16] MEDS ORDERED: KETAMINE HCL* 50 MG/ML 10 ML VIAL ONE (13:54)
[2018-07-16] MEDS ORDERED: Dexamethasone IV* 4 MG/ML 1 ML (4 MG) ONE ×2 (13:54→15:18)
[2018-07-16] MEDS ORDERED: Ketorolac INJ* 30 MG/ML 1 ML VIAL ONE (15:18)
[2018-07-16] MEDS ORDERED: Metoclopramide IV* 5 MG/ML 2 ML VIAL ONE (15:18)
[2018-07-16] MEDS ORDERED: Ondansetron INJ* 2 MG/ML VIAL ONE (15:18)
[2018-07-16] MEDS ORDERED: HYDROmorphone INJ1* 1 MG/ML SYRINGE ONE ×2 (15:19→16:43)
[2018-07-16] MEDS ORDERED: Acetaminophen IV 1GM/100ML * 100 ML ONE (15:22)
[2018-07-16] MEDS ORDERED: DiMENhydriNATE IV* 50 MG/ML VIAL IV PUSH PRN (15:25)
[2018-07-16] MEDS ORDERED: Naloxone* 0.4 MG/ML 1 ML VIAL IV PRN (15:25)
[2018-07-16] MEDS ORDERED: oxyCODONE TAB* 5 MG TAB PO PRN (15:25)
[2018-07-16] MEDS ORDERED: diPHENhydraMINE PO* 25 MG PO PRN (16:15)
[2018-07-16] MEDS ORDERED: Bisacodyl SUPP* 10 MG SUPP PR PRN (16:15)
[2018-07-16] MEDS ORDERED: Morphine VIAL* 4 MG/ML VIAL (1 ml vial) IV PRN (16:15)
[2018-07-16] MEDS ORDERED: Ondansetron INJ* 2 MG/ML VIAL IV PRN (16:15)
[2018-07-16] MEDS ORDERED: Magnesium Hydroxide LIQ* 30 ML UDC PO PRN (16:15)
[2018-07-16] MEDS ORDERED: Cyclobenzaprine TAB* 10 MG PO PRN (16:15)
[2018-07-16] MEDS ORDERED: diPHENhydraMINE IV* 50 MG/ML 1 ml VIAL (BENADRYL) IV PRN (16:15)
[2018-07-16] MEDS ORDERED: Polyethylene Glycol 3350* 17 GM PACKET PO PRN (16:15)
[2018-07-16] MEDS: HYDROmorphone INJ1* 1 MG/ML SYRINGE IV PRN ×2 (16:47→17:46)
[2018-07-16] MEDS ORDERED: Albuterol 2.5 MG/3 ML NEB.SOL* (0.083%) INH PRN (17:36)
--- NOTE | 2018-07-16 17:57 | CONSULT ---
Subjective Date of Service: 07/16/18 Interval History: Mr. Arvizu is a 73 year old with a PMH significant for DM, asthma, paroxysmal atrial tachycardia, hx of brain tumor s/p partial resection in 2011 and chronic lower extremity edema admitted for elective right total hip arthroplasty after failing conservative treatment for his end-stage osteoarthritis. The patient was cleared for surgery by his PCP, Dr Montejo, his internal security manager Dr Quinones, and Dr Benedict who preformed his peripheral vascular procedure. The patient was evaluated post-operatively in the PACU. He was still lethargic from the anesthesia at the time of my evaluation, but denied chest pain, shortness of breath, nausea/vomiting, headache. He did endorse right hip pain, for which he just received Dilaudid. He also endorsed dry eyes, for which I ordered artificial tears. Past Medical History Diabetes HLD Asthma Paroxysmal atrial tachycardia Lymphedema History of brain tumor, partially resected, serial MRIs have been stable Cerebral ataxia Spinal stenosis Past Surgical History R leg vein surgery Partial resection of brain tumor Oral surgery Sigmoidectomy TURP Tonsilectomy Adenoidectomy Lithotripsy Laminectomy ORIF of the ankle Social History Patient does not smoke and drinks alcohol rarely. Review of Systems - Measurements Intake and Output: Intake and Output Last 24 Hours 07/14/18 07/15/18 07/16/18 07/17/18 06:59 06:59 06:59 06:59 Intake Total 2000 Output Total 500 Balance 1500 Weight 120.202 kg Intake: IV Fluids 2000 LR 2000 Output: Residual 500 Varma 16 Fr 500 - Review of Systems General Comments: I performed a 14 point review of symptoms. All pertinent positives and negatives are listed above. Objective Active Medications: Acetaminophen (Tylenol Tab*) 975 mg PO Q8H JADA Albuterol (Ventolin 2.5 Mg/3 Ml Neb.Vesna*) 2.5 mg INH Q6H PRN PRN Reason: SOB/WHEEZING Apixaban (Eliquis*) 2.5 mg PO BID JADA Atorvastatin Calcium (Lipitor*) 20 mg PO QPM JADA Bisacodyl (Dulcolax Supp*) 10 mg MA DAILY PRN PRN Reason: constipation Calcium Polycarbophil (Fibercon Tab*) 625 mg PO QAM JADA Cephalexin HCl (Keflex Susp*) 500 mg PO QID [facility] Stop: 07/22/18 14:59 Cyclobenzaprine HCl (Flexeril Tab*) 10 mg PO TID PRN PRN Reason: SPASMS Dimenhydrinate (Dramamine Iv*) 25 mg IV PUSH ONCE PRN PRN Reason: NAUSEA/VOMITING Diphenhydramine HCl (Benadryl Iv*) 25 mg IV Q6H PRN PRN Reason: itching Diphenhydramine HCl (Benadryl Po*) 25 mg PO Q6H PRN PRN Reason: INSOMNIA Docusate Sodium (Colace Cap*) 100 mg PO BID [facility] Doxycycline Hyclate (Doxycycline (Nf)) 20 mg PO BID [facility]; Protocol Gabapentin (Neurontin Cap(*)) 600 mg PO TID [facility] Glipizide (Glucotrol Xl*) 2.5 mg PO QAM [facility] Hydromorphone HCl (Dilaudid Inj1s*) 0.5 mg IV Q10M PRN PRN Reason: PAIN - SEVERE Last Admin: 07/16/18 16:47 Dose: 0.5 mg Lactated Ringer's (Lactated Ringers 1000 Ml Bag*) 1,000 mls @ 125 mls/hr IV PER RATE [facility] Last Admin: 07/16/18 11:35 Dose: 125 mls/hr Cefazolin Sodium 1 gm/ Sodium (Chloride) 50 mls @ 200 mls/hr IVPB Q8H [facility] Stop: 07/17/18 09:14 Lactated Ringer's (Lactated Ringers 1000 Ml Bag*) 1,000 mls @ 100 mls/hr IV PER RATE [facility] Lactulose (Lactulose*) 30 ml PO Q6H PRN PRN Reason: constipation Lidocaine/Sodium Bicarbonate (Buffered Lidocaine 0.9% Syrin*) 0.2 ml INTRADERM ONCE ONE Stop: 07/15/18 14:37 Last Admin: 07/16/18 11:36 Dose: Not Given Magnesium Hydroxide (Milk Of Magnesia Liq*) 30 ml PO BID [facility] Magnesium Hydroxide (Milk Of Magnesia Liq*) 30 ml PO Q6H PRN PRN Reason: constipation Morphine Sulfate (Morphine Vial*) 2 mg IV Q2H PRN PRN Reason: PAIN Multivitamins (Theragran Tab*) 1 tab PO DAILY [facility] Naloxone HCl (Narcan*) 0.08 mg IV Q2M PRN PRN Reason: severe induced resp depression Non-Formulary Medication (Cholecalciferol (Vitamin D3) [Vitamin D3]) 2,000 unit PO QPM JADA Non-Formulary Medication (Dovonex) 1 applic TOPICAL QAM JADA Non-Formulary Medication (Lisinopril [Lisinopril 2.5 Mg-]) 2.5 mg PO QPM JADA Nystatin (Nystatin Cream*) 1 applic TOPICAL BID JADA Ondansetron HCl (Zofran Inj*) 4 mg IV Q6H PRN PRN Reason: nausea Oxycodone HCl (Roxycodone Tab*) 5 mg PO ONCE PRN PRN Reason: PAIN - MODERATE Oxycodone HCl (Roxycodone Tab*) 10 mg PO Q4H PRN PRN Reason: moderate to severe pain Oxycodone/Acetaminophen (Percocet 5/325 Tab*) 1 tab PO Q3H PRN PRN Reason: PAIN - MODERATE Oxycodone/Acetaminophen (Percocet 5/325 Tab*) 2 tab PO Q3H PRN PRN Reason: PAIN - MODERATE Polyethylene Glycol/Electrolytes (Miralax*) 17 gm PO DAILY PRN PRN Reason: Constipation Polyvinyl Alcohol (Polyvinyl Alcohol 1.4% Opth*) 1 drop BOTH EYES Q2H PRN PRN Reason: DRY EYE Potassium Citrate (Urocit-K 10 (Nf)) 20 meq PO TID JADA Fluticasone/Salmeterol (Advair Diskus 250-50*) 1 puff INH BID JADA Sitagliptin Phosphate/Metformin HCl (Janumet 50/500 (Nf)) 1 tab PO BID JADA Tramadol HCl (Ultram*) 50 mg PO Q6H PRN PRN Reason: PAIN Trimethoprim/Sulfamethoxazole (Bactrim Ds 800/160 Tab*) 1 tab PO DAILY [facility] Vital Signs - 8 hr 07/16/18 07/16/18 07/16/18 11:18 16:18 16:21 Temperature 97.0 F 97.2 F Pulse Rate 76 88 Respiratory 18 16 23 Rate Blood Pressure 119/69 137/81 (mmHg) O2 Sat by Pulse 97 91 Oximetry 07/16/18 07/16/18 07/16/18 16:26 16:30 16:36 Temperature Pulse Rate 87 86 86 Respiratory 16 24 16 Rate Blood Pressure 122/76 127/80 134/75 (mmHg) O2 Sat by Pulse 94 95 95 Oximetry 07/16/18 07/16/18 07/16/18 16:41 16:45 16:47 Temperature Pulse Rate 84 78 Respiratory 19 16 19 Rate Blood Pressure 125/76 124/77 (mmHg) O2 Sat by Pulse 95 96 Oximetry 07/16/18 17:00 Temperature Pulse Rate 84 Respiratory 17 Rate Blood Pressure 119/73 (mmHg) O2 Sat by Pulse 95 Oximetry Oxygen Devices in Use Now: Nasal Cannula Eyes: No Scleral Icterus Ears/Nose/Mouth/Throat: NL Teeth, Lips, Gums Neck: NL Appearance and Movements; NL JVP Respiratory: Symmetrical Chest Expansion and Respiratory Effort, Clear to Auscultation Cardiovascular: NL Sounds; No Murmurs; No JVD, - - Trace pedal edema Abdominal: NL Sounds; No Tenderness; No Distention Extremities: No Edema Skin: No Rash or Ulcers Neurological: Alert and Oriented x 3, NL Sensation, NL Muscle Strength and Tone , - - Able to dorsiflex and plantarfelx bilaterally. 2+ DP and PT pulses Nutrition: Taking PO's Assessment/Plan - Billing Plan By Medical Problem: 1. S/p right total hip arthroplasty - plan per primary team, ortho. Continue pain regimen and bowel regimen. Trend H/H. PT consult 2. DM - I will hold the patient's oral glucose control agents, glipizide and janumet. I will start the patient on fingersticks and lispro sliding scale AC. Continue renal protective lisinopril 2.5mg daily 3. Asthma - no evidence of acute exacerbation on exam. Continue home advair. I have also added PRN albuterol nebs in case pt needs this post-operatively 4. Paroxysmal Atrial Tachycardia - Since childhood. Pt was cleared for OR by Dr Quinones, his internal security manager. Pt is not on any rate control agents and his HR was in the 80s at the time of my exam. Pt states he has a few episodes per year. I will monitor him on telemetry. 5. Hx Lower extremity edema - Pt recently underwent R vein procedure to decrease LE edema. Pt with trace pedal edema on exam today. At times in the past patient has required PRN lasix for this lower extremity edema, so should monitor closely in the setting of fluid administration post operatively 6. Neuropathic pain - continue gabapentin TID VTE PPX: Eliquis Diet: Carb controll diet Code Status: Full Admission Status and Rationale: Inpatient. Plan per primary team
[2018-07-16] MEDS ORDERED: Dextrose 50% Syringe 50 ML* 25 GM/50 ML SYRINGE IV PUSH PRN (18:09)
[2018-07-16] MEDS: Acetaminophen TAB* 325 MG PO SCH (18:22)
[2018-07-16] MEDS: Apixaban* 2.5 MG TAB PO SCH (20:51)
[2018-07-16] MEDS: Atorvastatin* 20 MG TAB PO SCH (20:51)
[2018-07-16] MEDS: Cholecalciferol TAB* 1000 UNITS PO SCH (20:52)
[2018-07-16] MEDS: Gabapentin CAP(*) 300 MG PO SCH (20:52)
[2018-07-16] MEDS: Docusate CAP* 100 MG PO SCH (20:52)
[2018-07-16] MEDS ORDERED: Sitagliptin/Metform 50/500(NF) 1 TAB TAB PO SCH (21:00)
[2018-07-16] MEDS ORDERED: Fluticasone-Salmeterol 250-50* DISKUS INH SCH (21:00)
[2018-07-16] MEDS ORDERED: Lisinopril TAB* 5 MG PO SCH (21:00)
[2018-07-16] MEDS: Insulin LISPRO* 1 UNITS UNIT SUBCUT SCH (21:50)
[2018-07-16] MEDS: DOXYCYCLINE 20 MG PO SCH (21:51)
[2018-07-16] MEDS: PTO: Potassium Citrate (NF) 10 MEQ TAB PO SCH (21:51)
[2018-07-16] MEDS: ceFAZolin 1 GM ADVAN(*) 1 GM in NS 0.9% 50 ML* 50 ML IVPB SCH (21:51)
[2018-07-16] MEDS: Mometasone/Formoter 200/5 MDI INH SCH (21:53)
[2018-07-16] MEDS: Nystatin CREAM* 15 GM TUBE TOPICAL SCH (21:54)
[2018-07-16] MEDS: Artificial Tears* 15 ML BTL BOTH EYES PRN (21:55)
[2018-07-17] MEDS: Magnesium Hydroxide LIQ* 30 ML UDC PO SCH ×3 (00:26→21:18)
[2018-07-17] MEDS: oxyCODONE/Acetamin 5/325 MG* TAB PO PRN ×4 (00:27→21:19)
[2018-07-17] MEDS: Acetaminophen TAB* 325 MG PO SCH ×4 (00:40→16:41)
[2018-07-17] MEDS: oxyCODONE TAB* 5 MG TAB PO PRN (03:26)
[2018-07-17] MEDS: Lactated Ringers 1000 ML Bag* 1,000 ML IV SCH ×2 (04:42→16:35)
[2018-07-17 05:32] LABS: Hematocrit 33 % (42-52); Hemoglobin 11.2 g/dl (14.0-18.0); Mean Platelet Volume 7.4 fL (7.4-10.4); Platelet Count 168 10^3/ul (150-450)
[2018-07-17 05:47] LABS: BUN/Creatinine Ratio 26.9 (8-20); Calcium 8.5 mg/dL (8.6-10.3); EGFR Non-African American 79.9 (>60); Potassium 4.3 mmol/L (3.5-5.0)
[2018-07-17] MEDS: ceFAZolin 1 GM ADVAN(*) 1 GM in NS 0.9% 50 ML* 50 ML IVPB SCH ×2 (05:51→14:01)
[2018-07-17] MEDS: Insulin LISPRO* 1 UNITS UNIT SUBCUT SCH ×3 (08:09→17:35)
[2018-07-17] MEDS: Artificial Tears* 15 ML BTL BOTH EYES PRN (08:11)
[2018-07-17] MEDS: Nystatin CREAM* 15 GM TUBE TOPICAL SCH ×2 (08:12→21:21)
[2018-07-17] MEDS: Docusate CAP* 100 MG PO SCH ×2 (08:15→21:19)
[2018-07-17] MEDS: Mometasone/Formoter 200/5 MDI INH SCH ×2 (08:15→19:44)
[2018-07-17] MEDS: Vitamin THERAPEUTIC TAB PO SCH (08:16)
[2018-07-17] MEDS: Calcium Polycarbophil TAB* 625 MG PO SCH (08:16)
[2018-07-17] MEDS: Gabapentin CAP(*) 300 MG PO SCH ×3 (08:16→21:18)
[2018-07-17] MEDS: Apixaban* 2.5 MG TAB PO SCH ×2 (08:16→21:19)
[2018-07-17] MEDS: glipiZIDE TAB.XL* 2.5 MG PO SCH (08:22)
[2018-07-17] MEDS: CALCIPOTRIENE TOPICAL SCH (08:23)
[2018-07-17] MEDS: PTO: Potassium Citrate (NF) 10 MEQ TAB PO SCH ×3 (08:23→21:22)
[2018-07-17] MEDS: DOXYCYCLINE 20 MG PO SCH ×2 (08:23→21:21)
[2018-07-17] MEDS ORDERED: Sulfamethox/Trimethoprim DS 800/160* TAB PO SCH (09:00)
--- NOTE | 2018-07-17 11:03 | OP ---
DATE OF OPERATION: 07/16/18 - ROOM #348 DATE OF : 45 ATTENDING SURGEON: Sandra Tavera MD TESTER ROCKET ENGINE: DANIEL Sevilla. Ms. Vaca did help throughout the procedure with preparation of the leg, wound retraction, manipulation of the hip, and wound closure. ANESTHESIOLOGIST: Dr. Holbrook. ANESTHESIA: General. PRE-OP DIAGNOSIS: Severe end-stage degenerative osteoarthritis of the right hip joint. POST-OP DIAGNOSIS: Severe end-stage degenerative osteoarthritis of the right hip joint. OPERATIVE PROCEDURE: Right total hip arthroplasty with acetabular cyst bone grafting with femoral head autograft. COMPLICATIONS: None. ESTIMATED BLOOD LOSS: 200 cc. SPECIMEN: Femoral head and acetabular reaming sent to pathology. HARDWARE USED: This is uncemented Hiveoo total hip arthroplasty hardware. For the cup, a Trident Tritanium hemispherical shell 60F, 2 screws were used of length 15 and 20 mm, these were sikh gap plate screws. For the insert, a Trident X3 0-degree polyethylene insert 40F. For the stem, an Accolade II, size 6 with a 127-degree neck. For the head, a Biolox delta ceramic femoral head 40 with a +0 universal adapter sleeve. BRIEF HISTORY/INDICATION: Mr. Arvizu is a 72-year-old gentleman with years of increasingly severe right hip pain. The patient failed conservative treatment with anti-inflammatories, pain medication, intraarticular injection and physical therapy. Due to continued pain and decreased quality of life, he elected to undergo a right total hip arthroplasty. Informed consent was obtained from the patient. He understood the risks of surgery included, but were not limited to bleeding, infection, damage to nearby structures, continued pain, need for further surgery, intraoperative fracture, nerve palsy, hardware failure or loosening, dislocation, leg length discrepancy, stroke, heart attack , blood clot, and . He wished to proceed. INTRAOPERATIVE FINDINGS: Intraoperatively, the patient was noted to have severe end-stage arthritis. He had complete loss of cartilage along the femoral head and acetabulum. He had extensive osteophyte formation around the acetabulum. He had extensive subchondral cyst formation in the acetabulum which was bone grafted with femoral head autograft. DESCRIPTION OF PROCEDURE: Mr. Arvizu was identified in the preanesthesia unit. His right lower extremity was marked as the correct operative side. Informed consent was signed and placed in the chart. The patient was taken to the operating room and placed under general anesthesia. A Varma catheter was placed. The patient was placed in the left lateral decubitus position on the peg board. All bony prominences were well padded. Right lower extremity was prepped and draped in the usual sterile fashion. Preop time-out was made to correctly identify the patient, side, and site. Appropriate perioperative antibiotics were given within 1 hour of incision. A standard posterior hip incision was made with the 10-blade and carried down to the lateral fascia layer. The lateral fascia layer was incised in line with the skin incision. Charnley retractor was placed. The piriformis and conjoint tendons were identified on the posterolateral femur and elevated using electrocautery. These were tagged with #5 Ethibond. Next, electrocautery was used to make a standard posterolateral capsular flap and this was also tagged with #5 Ethibond. The hip was carefully dislocated. Lesser trochanter to center of the femoral head measured 65 mm. Oscillating saw was used to make the appropriate femoral neck cut. The femoral head was removed. Femoral head autograft was carefully obtained using a curette. The femur was retracted anteriorly. After appropriate placement of retractors, the acetabulum was well visualized. There was extensive osteophyte formation around the acetabulum. The acetabulum was sequentially reamed up to a size 59. The 59 reamer established a good bleeding bone bed. There was extensive subchondral cyst formation, all less than 1.5 cm in diameter. Curette was used to remove cystic material. Bone graft from the femoral head was used to pack the cystic regions. The trial had excellent fit. The final implant chosen was a Trident Tritanium revision style shell with multiple holes. This was size 60F. This was impacted into the acetabulum without difficulty. There was appropriate anteversion and abduction angle with good stability. Two screws were placed in the superoposterior quadrant for extra stability. These were length 15 mm and 20 mm. The osteophytes along the acetabular rim were carefully removed using an osteotome and rongeur. The insert chosen was a Trident X3 40F 0-degree polyethylene liner. This was impacted into the acetabulum. Stability of the liner was checked and rechecked and noted to be stable. Next, attention was turned to preparation of the femoral canal. A canal finder was used to enter the proximal femur. The femoral canal was sequentially broached up to a size 6. The size 6 broach had excellent fit and stability with appropriate anteversion. A 127 neck trial with a 40 +0 head trial was chosen. Lesser trochanter to center of the femoral head measured 65 mm. The hip was reduced and taken through a range of motion. The hip was stable in all positions. There was good soft tissue tension and appropriate leg lengths. The hip was carefully dislocated. All trials were removed. Final implant chosen was an Accolade II size 6 with a 127-degree neck angle. This was impacted into the femoral canal without difficulty. There was no complication and there was appropriate anteversion and excellent fit. A 40 Biolox delta ceramic head with the universal +0 adapter sleeve was chosen as the final implantable neck. Lesser trochanter to center of the femoral head measured 65 mm. The hip was reduced and taken through a range of motion. The hip was stable in all positions. There was good soft tissue tension and appropriate leg lengths. The wound was copiously irrigated with sterile saline. The previously tagged capsule and tendons were reapproximated to the posterolateral femur through two trochanteric drill holes. The lateral fascia layer was closed using interrupted #1 Vicryl. The rest of the incision was closed in a layered fashion using 0 and 2-0 Vicryl. Skin was closed using running 3-0 Monocryl suture and Dermabond. Sterile Adaptic, 4x4's, and paper tape were used to cover the incision. The patient's anesthesia was reversed without difficulty. He was taken to the PACU in stable condition. Intended weightbearing will be weightbearing as tolerated. Intended DVT prophylaxis will be Eliquis. [id number]/[facility] #: [id number] [facility]
--- NOTE | 2018-07-17 11:52 | PN ---
Progress Note - Progress Note Date of Service: 07/17/18 SOAP: Subjective: []Patient was seen and examined at bedside. His right hip paini s controlled. Denies CP, SOB, dizziness, nausea. Objective: []General: NAD. Conversation is appropriate but slow, has difficulty finding words RLE: Right hip dressing CDI without surrounding erythema and no erythema of the upper leg. Thigh is soft. DF/PF intact, DP2+, sensation intact to light touch distally. BL LE with chronic venous stasis hyperpigmenation, right greater than left with mild erythema of the lower leg without streaking and does not extend past midcalf. Assessment: []POD1 sp right total hip arthroplasty Plan: []WBATY PT/OT PMRU referral Eliquis 2.5 mg po BID Slow mentation- per this is worse than baseline but improved from yesterday , he has experienced this in the past s/p anesthesia Bolus LR for hypotension Bactrim once post op abx done Vital Signs Temp 98.7 F 07/17/18 07:26 Pulse 91 07/17/18 07:26 Resp 18 07/17/18 10:49 BP 86/52 07/17/18 11:51 Pulse Ox 96 07/17/18 08:00 Intake & Output 07/16/18 07/17/18 07/17/18 18:59 06:59 18:59 Intake Total 1999 755 540 Output Total 500 975 Balance 1500 -220 540 Weight 265 lb Intake: IV Fluids 1999 55 ABX - CEFAZOLIN 55 LR 2000 Oral 700 540 Output: Varma 975 Residual 500 Varma 16 Fr 500 Laboratory Last Values Hgb 11.2 g/dl (14.0-18.0) L 07/17/18 05:11 Hct 33 % (42-52) L 07/17/18 05:11 Plt Count 168 10^3/ul (150-450) 07/17/18 05:11 MPV 7.4 fL (7.4-10.4) 07/17/18 05:11 Sodium 135 mmol/L (135-145) 07/17/18 05:11 Potassium 4.3 mmol/L (3.5-5.0) 07/17/18 05:11 Chloride 105 mmol/L (101-111) 07/17/18 05:11 Carbon Dioxide 26 mmol/L (22-32) 07/17/18 05:11 Anion Gap 4 mmol/L (2-11) 07/17/18 05:11 BUN 25 mg/dL (6-24) H 07/17/18 05:11 Creatinine 0.93 mg/dL (0.67-1.17) 07/17/18 05:11 Est GFR ( Amer) 96.6 (>60) 07/17/18 05:11 Est GFR (Non-Af Amer) 79.9 (>60) 07/17/18 05:11 BUN/Creatinine Ratio 26.9 (8-20) H 07/17/18 05:11 Glucose 168 mg/dL (70-100) H 07/17/18 05:11 POC Glucose (mg/dL) 159 mg/dL (70-100) H 07/17/18 07:32 Calcium 8.5 mg/dL (8.6-10.3) L 07/17/18 05:11
[2018-07-17] MEDS: traMADol TAB* 50 MG PO PRN ×2 (12:25→23:57)
[2018-07-17] MEDS ORDERED: NS 0.9% 500 ML* 500 ML IV ONE ×2 (12:31→13:56)
--- NOTE | 2018-07-17 12:40 | PN ---
Subjective Date of Service: 07/17/18 Interval History: Pt resting comfortably in his chair, ready to eat lunch, NAD. Pain well controlled. Nurse alerted me to SBP 80s. Pt is asymptomatic. Denies chest pain, shortness of breath, palpitations, heart racing, cough, dizziness/ lightheadedness, headache. No events on tele. Pt has been eating and drinking, tolerated without nausea/vomiting. Also denies abdominal pain, dysuria. Pt does have some word finding difficulty, but is alert and oriented to situation, able to answer questions appropriately, and is able to discuss recent events. Primary team note reports that patient's says he has experienced similar effect previously after anesthesia. Objective Active Medications: Acetaminophen (Tylenol Tab*) 975 mg PO Q8H [facility] Last Admin: 07/17/18 12:26 Dose: 975 mg Albuterol (Ventolin 2.5 Mg/3 Ml Neb.Vesna*) 2.5 mg INH Q6H PRN PRN Reason: SOB/WHEEZING Apixaban (Eliquis*) 2.5 mg PO BID [facility] Last Admin: 07/17/18 08:16 Dose: 2.5 mg Atorvastatin Calcium (Lipitor*) 20 mg PO QPM [facility] Last Admin: 07/16/18 20:51 Dose: 20 mg Bisacodyl (Dulcolax Supp*) 10 mg MS DAILY PRN PRN Reason: constipation Calcium Polycarbophil (Fibercon Tab*) 625 mg PO QAM [facility] Last Admin: 07/17/18 08:16 Dose: 625 mg Cholecalciferol (Vitamin D Tab*) 2,000 units PO QPM [facility] Last Admin: 07/16/18 20:52 Dose: 2,000 units Cyclobenzaprine HCl (Flexeril Tab*) 10 mg PO TID PRN PRN Reason: SPASMS Dextrose (D50w Syringe 50 Ml*) 12.5 gm IV PUSH .FOR FS < 60 - SS PRN PRN Reason: FS < 60 Diphenhydramine HCl (Benadryl Iv*) 25 mg IV Q6H PRN PRN Reason: itching Diphenhydramine HCl (Benadryl Po*) 25 mg PO Q6H PRN PRN Reason: INSOMNIA Docusate Sodium (Colace Cap*) 100 mg PO BID [facility] Last Admin: 07/17/18 08:15 Dose: 100 mg Doxycycline Hyclate (Doxycycline (Nf)) 20 mg PO BID [facility]; Protocol Last Admin: 07/17/18 08:23 Dose: Not Given Gabapentin (Neurontin Cap(*)) 600 mg PO TID [facility] Last Admin: 07/17/18 08:16 Dose: 600 mg Glipizide (Glucotrol Xl*) 2.5 mg PO QAM [facility] Last Admin: 07/17/18 08:22 Dose: 2.5 mg Cefazolin Sodium 1 gm/ Sodium (Chloride) 50 mls @ 200 mls/hr IVPB Q8H [facility] Stop: 07/17/18 14:14 Last Admin: 07/17/18 05:51 Dose: 200 mls/hr Lactated Ringer's (Lactated Ringers 1000 Ml Bag*) 1,000 mls @ 100 mls/hr IV PER RATE [facility] Last Admin: 07/17/18 04:42 Dose: 100 mls/hr Sodium Chloride (Ns 0.9% 500 Ml*) 500 mls @ 1,000 mls/hr IV ONCE ONE Stop: 07/17/18 13:00 Insulin Human Lispro (Humalog*) 0 units SUBCUT AC [facility]; Protocol Last Admin: 07/17/18 12:12 Dose: 4 units Lactulose (Lactulose*) 30 ml PO Q6H PRN PRN Reason: constipation Magnesium Hydroxide (Milk Of Magnesia Liq*) 30 ml PO BID [facility] Last Admin: 07/17/18 08:15 Dose: 30 ml Magnesium Hydroxide (Milk Of Magnesia Liq*) 30 ml PO Q6H PRN PRN Reason: constipation Mometasone Furoate/Formoterol Fumar (Dulera 200/5 Mdi*) 2 puff INH BID [facility] Last Admin: 07/17/18 08:15 Dose: Not Given Morphine Sulfate (Morphine Vial*) 2 mg IV Q2H PRN PRN Reason: PAIN Multivitamins (Theragran Tab*) 1 tab PO DAILY [facility] Last Admin: 07/17/18 08:16 Dose: 1 tab Nft: Dovonex ( Calcipotriene) Topical 1 applic TOPICAL QAM [facility] Last Admin: 07/17/18 08:23 Dose: Not Given Nystatin (Nystatin Cream*) 1 applic TOPICAL BID [facility] Last Admin: 07/17/18 08:12 Dose: 1 applic Ondansetron HCl (Zofran Inj*) 4 mg IV Q6H PRN PRN Reason: nausea Oxycodone HCl (Roxycodone Tab*) 10 mg PO Q4H PRN PRN Reason: moderate to severe pain Last Admin: 07/17/18 03:26 Dose: 10 mg Oxycodone/Acetaminophen (Percocet 5/325 Tab*) 1 tab PO Q3H PRN PRN Reason: PAIN - MODERATE Oxycodone/Acetaminophen (Percocet 5/325 Tab*) 2 tab PO Q3H PRN PRN Reason: PAIN - MODERATE Last Admin: 07/17/18 08:17 Dose: 2 tab Polyethylene Glycol/Electrolytes (Miralax*) 17 gm PO DAILY PRN PRN Reason: Constipation Polyvinyl Alcohol (Polyvinyl Alcohol 1.4% Opth*) 1 drop BOTH EYES Q2H PRN PRN Reason: DRY EYE Last Admin: 07/17/18 08:11 Dose: 1 drop Potassium Citrate (Urocit-K 10 (Nf)) 20 meq PO TID [facility] Last Admin: 07/17/18 08:23 Dose: Not Given Tramadol HCl (Ultram*) 50 mg PO Q6H PRN PRN Reason: PAIN Last Admin: 07/17/18 12:25 Dose: 50 mg Trimethoprim/Sulfamethoxazole (Bactrim Ds 800/160 Tab*) 1 tab PO DAILY [facility] Last Admin: 07/17/18 08:17 Dose: Not Given Vital Signs - 8 hr 07/17/18 07/17/18 07/17/18 05:50 07:26 08:00 Temperature 98.7 F Pulse Rate 91 Respiratory 16 20 20 Rate Blood Pressure 102/60 (mmHg) O2 Sat by Pulse 96 96 Oximetry 07/17/18 07/17/18 07/17/18 08:16 08:17 10:49 Temperature Pulse Rate Respiratory 18 18 18 Rate Blood Pressure (mmHg) O2 Sat by Pulse Oximetry 07/17/18 07/17/18 07/17/18 11:51 11:58 12:25 Temperature Pulse Rate Respiratory 18 Rate Blood Pressure 86/52 82/46 (mmHg) O2 Sat by Pulse Oximetry Oxygen Devices in Use Now: Nasal Cannula Eyes: No Scleral Icterus Ears/Nose/Mouth/Throat: NL Teeth, Lips, Gums Neck: NL Appearance and Movements; NL JVP, Trachea Midline Respiratory: Symmetrical Chest Expansion and Respiratory Effort, Clear to Auscultation Cardiovascular: NL Sounds; No Murmurs; No JVD, RRR Abdominal: NL Sounds; No Tenderness; No Distention Extremities: No Clubbing, Cyanosis, - - Chronic bilateral lower extremity edema , R > L after recent vein procedure. Anterior aspect of right garcia with some erythema from above ankle to mid garcia. No streaking present. Skin: No Rash or Ulcers Neurological: Alert and Oriented x 3, NL Sensation, NL Muscle Strength and Tone , - - Able to dorsiflex and plantarflex Nutrition: Taking PO's Result Diagrams: 07/17/18 05:11 07/17/18 05:11 Assess/Plan/Problems-Billing Plan By Medical Problem: 72 year old male with PMH DM, asthma, paroxysmal atrial tachycardia, LE edema admitted for elective right total hip arthroplasty with Dr Tavera. POD 1. - Patient Problems (1) History of total right hip arthroplasty Current Visit: Yes Status: Acute Code(s): Z96.641 - PRESENCE OF RIGHT ARTIFICIAL HIP JOINT SNOMED Code(s): 642956230968 Comment: - Plan per primary team, ortho. Continue pain management and bowel regimen per ortho. - Continue to trend H/H - PT - Anticoagulation with eliquis (2) Hypotension Current Visit: Yes Status: Acute Comment: - Pt hypotensive today to 86/52 with rest of vitals stable. I suspect this is secondary to surgical volume depletion and narcotics. SBP did come back to 100s after 500 mL bolus x 2. Looking back at older records, it appears his BP runs on the low side at baseline, with BP from 07/10, a week pre-op of 108/69 - No evidence of sepsis. The patient is afebrile. WBC 9.3. Pt without any focal complaints besides surgical pain as detailed in ROS above. He does have some erythema on right lower extremity, on bactrim due to concern for cellulitis, but as other markers of infection are not present, I do not think this is the source of his hypotension. - H/H 11.. No evidence of active bleeding, but will continue to trend - I will hold the patient's 2.5 mg of lisinopril in the setting of this episode (which he takes for it's renal protective effects) (3) Asthma Current Visit: Yes Status: Acute Code(s): J45.909 - UNSPECIFIED ASTHMA, UNCOMPLICATED SNOMED Code(s): 015893116 Comment: - No evidence of acute exacerbation. Lungs clear to auscultation, Continue advair and PRN duonebs (4) Paroxysmal atrial tachycardia Current Visit: Yes Status: Acute Comment: - No tachycardic events on tele - Pt denies any palpitations or feeling of heart racing (5) Bilateral lower extremity edema Current Visit: Yes Status: Acute Code(s): R60.0 - LOCALIZED EDEMA SNOMED Code(s): 311427305 Comment: - Chronic, R>L s/p recent venous procedure, secondary to PVD - Some erythema on RLE from above ankle to mid garcia. On bactrim due to concern for cellulitis. - Per pt, edema seems to be at baseline (6) Diabetes Current Visit: Yes Status: Acute Code(s): E11.9 - TYPE 2 DIABETES MELLITUS WITHOUT COMPLICATIONS SNOMED Code(s): 62744152 Comment: - Continue fingersticks and lispro SS (7) History of urinary retention Current Visit: Yes Status: Acute Code(s): Z87.898 - PERSONAL HISTORY OF OTHER SPECIFIED CONDITIONS SNOMED Code(s): 639617205 Comment: - Slow urinary output after removing rich this morning. Cr WNL this AM - Follows with Dr Dillard - Bladder scan Q6H and straight cath if > 200 cc (8) DVT prophylaxis Current Visit: Yes Status: Acute Code(s): IVJ6342 - SNOMED Code(s): 211705877 Comment: - Wilfredo (9) Full code status Current Visit: Yes Status: Acute Code(s): Z78.9 - OTHER SPECIFIED HEALTH STATUS SNOMED Code(s): 822546406 Status and Disposition: Inpatient, dispo per primary team Attending: Eve Gill
[2018-07-17 13:21] LABS: Mean Corpuscular HGB Conc 33 g/dl (31-36); Mean Corpuscular Hemoglobin 30 pg (27-31); Mean Corpuscular Volume 89 fL (80-94); Red Cell Distribution Width 14 % (10.5-15); White Blood Count 9.3 10^3/ul (3.5-10.8)
[2018-07-17] MEDS: Atorvastatin* 20 MG TAB PO SCH (17:27)
[2018-07-17] MEDS: Cholecalciferol TAB* 1000 UNITS PO SCH (17:27)
[2018-07-17] MEDS: Sulfamethox/Trimethoprim DS 800/160* TAB PO SCH (17:28)
[2018-07-17] MEDS ORDERED: Cephalexin CAP* 500 MG PO SCH (21:00)
[2018-07-18] MEDS: Acetaminophen TAB* 325 MG PO SCH ×2 (00:37→08:16)
[2018-07-18] MEDS: Lactated Ringers 1000 ML Bag* 1,000 ML IV SCH (02:37)
[2018-07-18] MEDS: oxyCODONE TAB* 5 MG TAB PO PRN (03:20)
[2018-07-18] MEDS: Sulfamethox/Trimethoprim DS 800/160* TAB PO SCH (05:20)
[2018-07-18 06:35] LABS: ABS Basophils 0 10^3/ul (0-0.2); ABS Eosinophils 0.1 10^3/ul (0-0.6); ABS Lymphocytes 1.2 10^3/ul (1.0-4.8); ABS Monocytes 1.2 10^3/ul (0-0.8); ABS Neutrophils 5.7 10^3/ul (1.5-7.7); ABS Nucleated RBC 0 10^3/ul; Eosinophil % 1.1 %; Hematocrit 29 % (42-52); Lymphocyte % 14.1 %; Mean Corpuscular HGB Conc 34 g/dl (31-36); Mean Corpuscular Hemoglobin 30 pg (27-31); Mean Corpuscular Volume 88 fL (80-94); Mean Platelet Volume 7.5 fL (7.4-10.4); Nucleated Red Blood Cells % 0; Platelet Count 131 10^3/ul (150-450); Red Blood Count 3.33 10^6/ul (4.00-5.40); Red Cell Distribution Width 14 % (10.5-15); White Blood Count 8.2 10^3/ul (3.5-10.8)
[2018-07-18 06:57] LABS: BUN/Creatinine Ratio 20.9 (8-20); Calcium 8.2 mg/dL (8.6-10.3); EGFR Non-African American 81.9 (>60)
[2018-07-18 07:55] VITALS: BP 111/59
[2018-07-18] MEDS: Insulin LISPRO* 1 UNITS UNIT SUBCUT SCH (08:11)
[2018-07-18] MEDS: Nystatin CREAM* 15 GM TUBE TOPICAL SCH (08:12)
[2018-07-18] MEDS: Artificial Tears* 15 ML BTL BOTH EYES PRN (08:13)
[2018-07-18] MEDS: Vitamin THERAPEUTIC TAB PO SCH (08:16)
[2018-07-18] MEDS: glipiZIDE TAB.XL* 2.5 MG PO SCH (08:16)
[2018-07-18] MEDS: Apixaban* 2.5 MG TAB PO SCH (08:18)
[2018-07-18] MEDS: Calcium Polycarbophil TAB* 625 MG PO SCH (08:18)
[2018-07-18] MEDS: Gabapentin CAP(*) 300 MG PO SCH (08:18)
[2018-07-18] MEDS: Docusate CAP* 100 MG PO SCH (08:18)
[2018-07-18] MEDS: PTO: Potassium Citrate (NF) 10 MEQ TAB PO SCH (08:19)
[2018-07-18] MEDS: DOXYCYCLINE 20 MG PO SCH (08:19)
[2018-07-18] MEDS: Mometasone/Formoter 200/5 MDI INH SCH (08:20)
[2018-07-18] MEDS: CALCIPOTRIENE TOPICAL SCH (08:24)
[2018-07-18] MEDS: Magnesium Hydroxide LIQ* 30 ML UDC PO SCH (08:24)
--- NOTE | 2018-07-18 10:46 | PN ---
Progress Note - Progress Note Date of Service: 07/18/18 SOAP: Subjective: []Patient was seen and examined OOB in chair. He has accepted a bed at [facility]. Denies CP, SOB, dizziness, nausea. His hypotension has improved, his lisinopril is held currently. He is on bactrim for RLE erythema possible cellulitis though he has chronic venous stasis changes. Has neuropasthy of BL LE, no new symptoms of numbness or tingling since surgery. Objective: []General: NAD. Conversation is appropriate but slow, better ability to find his words today RLE: Right hip dressing changed, incision CDI without surrounding erythema and no erythema of the upper leg. Thigh is soft. DF/PF intact, DP2+, sensation intact to light touch distally. BL LE with chronic venous stasis hyperpigmenation, right greater than left with mild erythema of the lower leg without streaking and does not extend past midcalf. Assessment: []POD2 sp right total hip arthroplasty Plan: []WBAT PT/OT PMRU DC Eliquis 2.5 mg po BID Slow mentation Bactrim for 5 days for possible LE cellulitis. Hold lisinopril until BP can support Vital Signs Temp 98.6 F 07/18/18 07:37 Pulse 98 07/18/18 10:28 Resp 18 07/18/18 08:18 BP 111/59 07/18/18 07:37 Pulse Ox 93 07/18/18 10:28 Intake & Output 07/17/18 07/18/18 07/18/18 18:59 06:59 18:59 Intake Total 2750 2150 300 Output Total 1017 1047 Balance 1733 1103 300 Intake: IV Fluids 2090 980 ABX - CEFAZOLIN 110 LR 980 980 NS (0.9%) 1000 Oral 660 1170 300 Output: Urine 325 930 Straight Cath 325 Post Void Residual 367 117 Other: Estimated Void Large # Bowel Movements 1 Estimated Stool Amount Large # Voids 1 Laboratory Last Values WBC 8.2 10^3/ul (3.5-10.8) 07/18/18 06:20 RBC 3.33 10^6/ul (4.00-5.40) L 07/18/18 06:20 Hgb 10.0 g/dl (14.0-18.0) L 07/18/18 06:20 Hct 29 % (42-52) L 07/18/18 06:20 MCV 88 fL (80-94) 07/18/18 06:20 MCH 30 pg (27-31) 07/18/18 06:20 MCHC 34 g/dl (31-36) 07/18/18 06:20 RDW 14 % (10.5-15) 07/18/18 06:20 Plt Count 131 10^3/ul (150-450) L 07/18/18 06:20 MPV 7.5 fL (7.4-10.4) 07/18/18 06:20 Neut % (Auto) 69.4 % 07/18/18 06:20 Lymph % (Auto) 14.1 % 07/18/18 06:20 Hughes % (Auto) 15.0 % 07/18/18 06:20 Eos % (Auto) 1.1 % 07/18/18 06:20 Baso % (Auto) 0.4 % 07/18/18 06:20 Absolute Neuts (auto) 5.7 10^3/ul (1.5-7.7) 07/18/18 06:20 Absolute Lymphs (auto) 1.2 10^3/ul (1.0-4.8) 07/18/18 06:20 Absolute Monos (auto) 1.2 10^3/ul (0-0.8) H 07/18/18 06:20 Absolute Eos (auto) 0.1 10^3/ul (0-0.6) 07/18/18 06:20 Absolute Basos (auto) 0 10^3/ul (0-0.2) 07/18/18 06:20 Absolute Nucleated RBC 0 10^3/ul 07/18/18 06:20 Nucleated RBC % 0 07/18/18 06:20 Sodium 135 mmol/L (135-145) 07/18/18 06:20 Potassium 4.0 mmol/L (3.5-5.0) 07/18/18 06:20 Chloride 105 mmol/L (101-111) 07/18/18 06:20 Carbon Dioxide 26 mmol/L (22-32) 07/18/18 06:20 Anion Gap 4 mmol/L (2-11) 07/18/18 06:20 BUN 19 mg/dL (6-24) 07/18/18 06:20 Creatinine 0.91 mg/dL (0.67-1.17) 07/18/18 06:20 Est GFR ( Amer) 99.1 (>60) 07/18/18 06:20 Est GFR (Non-Af Amer) 81.9 (>60) 07/18/18 06:20 BUN/Creatinine Ratio 20.9 (8-20) H 07/18/18 06:20 Glucose 211 mg/dL (70-100) H 07/18/18 06:20 POC Glucose (mg/dL) 218 mg/dL (70-100) H 07/18/18 07:29 Calcium 8.2 mg/dL (8.6-10.3) L 07/18/18 06:20
--- NOTE | 2018-07-18 22:17 | DS ---
DISCHARGE SUMMARY: DATE OF ADMISSION: 07/16/18 DATE OF DISCHARGE: 07/18/18 PROVIDER: Dr. Sandra Tavera.* (DICTATED BY DANIEL TERRELL) SURGEON: Dr. Sandra Tavera. PULLER OVER: DANIEL Ozuna PREOP DIAGNOSIS: Severe end-stage degenerative osteoarthritis of the right hip joint. OPERATIVE PROCEDURE: Right total hip arthroplasty with acetabular cyst bone grafting with femoral head autograft. HISTORY: Mr. Arvziu is a 72-year-old gentleman with years of increasingly severe right hip pain. He failed conservative management and elected to undergo a right total hip arthroplasty with acetabular cyst bone grafting with femoral head autograft. HOSPITAL COURSE: The patient was admitted to [facility] on . He underwent a right total hip arthroplasty with acetabular cyst bone grafting with femoral head autograft without complication. He was seen on postop day 0 by our hospitalist service. He has a history of diabetes; asthma; paroxysmal atrial tachycardia; history of brain tumor, status post resection in 2011; and chronic lower extremity edema. On postop day 1, he was well appearing , in no acute distress. His conversation is appropriate, but slow. He has difficulty finding his words. Per his , he does have this problem at baseline, but she feels that it is worse than normal, though he has improved since the morning. Right hip dressing clean, dry, intact without any surrounding erythema. No erythema of the upper leg. Thigh was soft. Dorsiflexion and plantar flexion intact. DP pulse 2+. Sensation intact to light touch distally. Bilateral lower extremity chronic venous stasis and hyperpigmentation, right greater than left, with mild erythema of the lower leg without streaking and does not extend past the mid calf. The patient was started on Bactrim once postop antibiotics were finished. His blood pressure was low at time of evaluation, 86/52. He was asymptomatic. He was given fluid bolus and his lisinopril was held. He did receive 500 mL of fluid bolus x2 and blood pressure was brought back to systolic in the 100s. Of note, his blood pressure on preop testing was 108/68 and the patient did remain asymptomatic. On postop day 2, he was seen at bedside. Conversation was appropriate, but slow , better ability to find his words today. Right hip dressing changed. Incision clean, dry, intact without surrounding erythema and no erythema of the upper leg. Again seen was mild erythema of the right lower leg. This may be due to chronic venous stasis changes in light of recent surgery. He will continue on Bactrim in the event that this is cellulitis. Vital signs: Temperature 98.6, pulse 98, respiratory rate 18, blood pressure 111/59, pulse ox 93. White blood cell count 8.2, hemoglobin 10, hematocrit 29. He was deemed medically and orthopedically stable for discharge to [facility]. DISCHARGE MEDICATIONS: 1. Glucosamine/chondroitin 1 cap p.o. b.i.d. 2. Glipizide 2.5 mg p.o. q.a.m. 3. Doxycycline 20 mg p.o. b.i.d. 4. Lisinopril 2.5 mg p.o. q.p.m. This can be resumed once his blood pressure is able to support it, to be determined by staff in [facility]. 5. Dovonex cream 1 application topical q.a.m. 6. Advair Diskus 250/50 one puff inhaled b.i.d. 7. Janumet 50/500 one tablet p.o. b.i.d. 8. Atorvastatin 20 mg p.o. q.p.m. 9. Potassium citrate 10 mEq tab 2 tabs p.o. t.i.d. 10. Gabapentin 600 mg p.o. t.i.d. 11. [place] 5/325 one tab p.o. t.i.d. p.r.n. 12. Clotrimazole (Lotrimin) 1% topically, 1 topical application p.r.n. 13. Clobetasol 0.05% ointment 1 topical application daily p.r.n. 14. [place]-3 1000 mg softgel p.o. q.a.m. 15. Vitamin D3 2000 units p.o. q.a.m. 16. Aspirin 650 mg p.o. t.i.d. This was discontinued. 17. At home, the patient is on Eliquis currently for DVT prophylaxis. 18. Acetaminophen 975 mg p.o. q.8 hours. 19. Eliquis 2.5 mg p.o. b.i.d. 20. Docusate 100 mg p.o. b.i.d. 21. Percocet 5/325 one to two tabes every 4 to 6 hours as needed for pain, max daily dose of 10. 22. Bactrim Double Strength 1 tab p.o. every 12 hours for 5 days. DISCHARGE PLAN: The patient will be weightbearing as tolerated. He will be discharged to [facility]. He will follow up with Dr. Tavera in 10 to 14 days. DVT prophylaxis with Eliquis 2.5 mg by mouth twice a day for 30 days. Pain control - Percocet 5/325 one to two tabs by mouth every 4 to 6 hours as needed for pain , max 10 tabs per day. DANIEL TERRELL [id number]/[facility] #: [id number] MTDD
== END 2018-07-18 11:09 | DRG 470 ==
LOC: AA 10:29 → SSU 18:26
PROVIDERS: ADMIT Orthopaedic Surgery Adult Reconstructive Orthopaedic Surgery; ATTEND Orthopaedic Surgery Adult Reconstructive Orthopaedic Surgery
PROC: 0QU407Z Supplement Right Acetabulum with Autologous Tissue Substitute, Open Approach (ICD-10-PCS; 2018-07-16)
PROC: 0SR904A Replacement of Right Hip Joint with Ceramic on Polyethylene Synthetic Substitute, Uncemented, Open Approach (ICD-10-PCS; principal; 2018-07-16 13:00)
DX: M16.11 Unilateral primary osteoarthritis, right hip (principal); I47.1 Supraventricular tachycardia; E11.9 Type 2 diabetes mellitus without complications; J45.909 Unspecified asthma, uncomplicated; R60.0 Localized edema; I87.8 Other specified disorders of veins; E78.00 Pure hypercholesterolemia, unspecified; M85.661 Other cyst of bone, right lower leg; M25.751 Osteophyte, right hip; F32.9 Major depressive disorder, single episode, unspecified; M48.05 Spinal stenosis, thoracolumbar region; M48.07 Spinal stenosis, lumbosacral region; E66.9 Obesity, unspecified; I45.10 Unspecified right bundle-branch block; E11.51 Type 2 diabetes mellitus with diabetic peripheral angiopathy without gangrene; N40.0 Benign prostatic hyperplasia without lower urinary tract symptoms; L40.9 Psoriasis, unspecified; M54.32 Sciatica, left side; M54.31 Sciatica, right side; I10 Essential (primary) hypertension; H04.129 Dry eye syndrome of unspecified lacrimal gland; E11.42 Type 2 diabetes mellitus with diabetic polyneuropathy; I95.9 Hypotension, unspecified; Z82.61 Family history of arthritis; Z87.442 Personal history of urinary calculi; Z79.01 Long term (current) use of anticoagulants; Z79.84 Long term (current) use of oral hypoglycemic drugs; Z82.3 Family history of stroke; Z80.0 Family history of malignant neoplasm of digestive organs; Z85.841 Personal history of malignant neoplasm of brain; Z68.37 Body mass index [BMI] 37.0-37.9, adult
CPT/HCPCS: 36415; 72170; 80048; 85025; 85027; 94640; A9270-GY; G8978-GP-CK; G8979-GP-CI; G8987-GO-CL; G8988-GO-CI; J0690; J1100; J1170; J1885; J2250; J2405; J2704; J2765; J2795; J3010

== ENCOUNTER 2018-07-18 09:57 | Inpatient (IN) | payer MEDICARE, BC ==
[2018-07-18] MEDS ORDERED: Acetaminophen TAB* 325 MG PO PRN (12:04)
[2018-07-18] MEDS ORDERED: Magnesium Hydroxide LIQ* 30 ML UDC PO PRN (12:04)
[2018-07-18] MEDS ORDERED: Dextrose 50% Syringe 50 ML* 25 GM/50 ML SYRINGE IV PUSH PRN (12:11)
[2018-07-18] MEDS ORDERED: oxyCODONE/Acetamin 5/325 MG* TAB PO PRN (12:11)
[2018-07-18] MEDS ORDERED: Insulin LISPRO* 1 UNITS UNIT SUBCUT ONE (13:26)
[2018-07-18] MEDS: Gabapentin CAP(*) 300 MG PO SCH ×2 (13:42→21:39)
[2018-07-18] MEDS ORDERED: Methocarbamol TAB* 500 MG PO PRN (19:34)
[2018-07-18] MEDS: Insulin LISPRO* 1 UNITS UNIT SUBCUT SCH (19:41)
[2018-07-18] MEDS: Atorvastatin* 20 MG TAB PO SCH (19:41)
[2018-07-18] MEDS ORDERED: DOXYCYCLINE 20 MG PO SCH (21:00)
[2018-07-18] MEDS: Senna TAB PO SCH (21:30)
[2018-07-18] MEDS: Docusate CAP* 100 MG PO SCH (21:30)
[2018-07-18] MEDS: Mometasone/Formoter 200/5 MDI INH SCH (21:35)
[2018-07-18] MEDS: Sulfamethox/Trimethoprim DS 800/160* TAB PO SCH (21:42)
[2018-07-18] MEDS: PTO:Potassium Citrate (NF) 10 MEQ TAB PO SCH (21:44)
[2018-07-18] MEDS: oxyCODONE/Acetamin 5/325 MG* TAB PO PRN (21:45)
[2018-07-18] MEDS: Apixaban* 2.5 MG TAB PO SCH (21:47)
--- NOTE | 2018-07-19 01:26 | HP ---
HISTORY AND PHYSICAL: DATE OF ADMISSION: 07/18/18 REASON FOR ADMISSION: Right total hip replacement. HISTORY OF PRESENT ILLNESS: Lawrence Arvizu is a 72-year-old male. He has a medical history significant for diabetes. 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 It was partially resected and treated with gamma knife radiation. The patient in 2017 developed some difficulty walking. He was developing pain in his legs and had difficulty walking distances. He had an MRI of his lumbar spine done which showed diffuse disk degeneration with severe central stenosis at L3-4 and L4-5. He had surgery done by Dr. Alton Devries for the spinal stenosis. He still had difficulty walking. He had an x- ray taken of his right hip in 2018 which showed severe advanced osteoarthritis of the hip. He was referred on to Dr. Sandra Tavera. It was decided that he would benefit from a total hip replacement. He was admitted to [facility] on 07/16/18 and underwent a total hip replacement that day. Postoperatively, he appeared to be doing fairly well. His right hip wound looked clean, although there were some concerns of erythema of his upper leg and he was started on Bactrim. The patient otherwise was medically stable. He was felt to have physical therapy and occupational therapy needs. He was put on Eliquis for DVT prophylaxis. He is now being admitted for inpatient rehab so that he might return to independent living. PAST MEDICAL HISTORY: Includes the aforementioned brain surgery for the resection of the right cerebellar hemangioblastoma, spine stenosis, back surgery. He had an L3 through 5 decompression. The patient has a history of diabetes as mentioned previously, psoriasis. He has a history of high cholesterol and asthma as well. CURRENT MEDICATIONS: Include: 1. Gabapentin. 2. He also takes low-dose doxycycline for gum disease. 3. He is on Dulera instead of his usual Advair Diskus. 4. He takes gabapentin for diabetic neuropathy. 5. He is on Eliquis for DVT prophylaxis. 6. He is on Lipitor. 7. Glucotrol XL. 8. Percocet for pain control. 9. Potassium citrate. 10. Bactrim. ALLERGIES: No known drug allergies. SOCIAL HISTORY: He is a nonsmoker, rare drinker. He lives with his in a house. There are 13 steps up into the house. They are wooden stairs with 2 rales, but there is a landing. Inside he has 5 stairs between his levels. REVIEW OF SYSTEMS: The patient reports no current shortness of breath or chest pain. PHYSICAL EXAMINATION VITAL SIGNS: The patient's temperature is 98.4, blood pressure is 100/52, pulse 83, respirations 18. HEENT: His extraocular movements are intact. Tongue is midline. NECK: Supple. LUNGS: Sounds clear to auscultation bilaterally. HEART: Sounds are regular. S1 and S2 audible. ABDOMEN: Soft and nontender. EXTREMITIES: Showed right hip was clean and dry. There was mild erythema over the right leg. Calves have a flattened appearance bilaterally. NEUROLOGIC: His neurologic sensation may have been slightly altered on the soles of his feet. Muscle strength appeared to be close to 5/5 except in the right leg where it was 3 to 4/5 secondary to pain. His functional exam, he transfers with min to mod assist. ASSESSMENT: Right total hip replacement in a patient with diabetes and diabetic peripheral neuropathy, previous back surgery for spinal stenosis. Our plan is to integrate him into a comprehensive and therapeutic rehab program with the following goals. 1. Physical Therapy will see the patient. They are going to work on functional transfer training, ambulation training with a walker. 2. Occupational Therapy will see the patient. Work on his activities of daily living including toileting and toilet transfers. 3. Eliquis for DVT prophylaxis. 4. Adequate analgesia. 5. His bowels will be regulated. 6. financial services agent will be closely involved to make sure that any services and equipment the patient requires are in place prior to discharge. 7. For his diabetes, we will continue with glipizide as well as sliding scale insulin coverage. 8. Monitor his blood pressure as it seems to be on the low side. 9. Family training as appropriate. 10. Home with appropriate services. ESTIMATED LENGTH OF STAY: Ten days. [id number]/[facility] #: [id number] MONA
[2018-07-19] MEDS: oxyCODONE/Acetamin 5/325 MG* TAB PO PRN ×4 (03:16→22:20)
[2018-07-19 07:15] LABS: ABS Basophils 0 10^3/ul (0-0.2); ABS Eosinophils 0.2 10^3/ul (0-0.6); ABS Lymphocytes 0.9 10^3/ul (1.0-4.8); ABS Monocytes 1.1 10^3/ul (0-0.8); ABS Neutrophils 5.7 10^3/ul (1.5-7.7); ABS Nucleated RBC 0 10^3/ul; Eosinophil % 2.7 %; Hematocrit 29 % (42-52); Hemoglobin 9.4 g/dl (14.0-18.0); Lymphocyte % 11.8 %; Mean Corpuscular HGB Conc 33 g/dl (31-36); Mean Corpuscular Hemoglobin 29 pg (27-31); Mean Corpuscular Volume 89 fL (80-94); Mean Platelet Volume 7.8 fL (7.4-10.4); Nucleated Red Blood Cells % 0.1; Platelet Count 130 10^3/ul (150-450); Red Blood Count 3.26 10^6/ul (4.00-5.40); Red Cell Distribution Width 14 % (10.5-15)
[2018-07-19 07:31] LABS: Albumin 2.9 g/dL (3.2-5.2); Albumin/Globulin Ratio 1.1 (1-3); BUN/Creatinine Ratio 14.6 (8-20); Calcium 8.3 mg/dL (8.6-10.3); EGFR Non-African American 92.4 (>60); Globulin 2.6 g/dL (2-4); Potassium 4.5 mmol/L (3.5-5.0); Total Bilirubin 0.5 mg/dL (0.2-1.0); Total Protein 5.5 g/dL (6.4-8.9)
[2018-07-19] MEDS: Gabapentin CAP(*) 300 MG PO SCH ×3 (08:46→22:17)
[2018-07-19] MEDS: Insulin LISPRO* 1 UNITS UNIT SUBCUT SCH ×3 (08:47→17:09)
[2018-07-19] MEDS: Docusate CAP* 100 MG PO SCH ×2 (08:48→22:15)
[2018-07-19] MEDS: glipiZIDE TAB.XL* 2.5 MG PO SCH (08:48)
[2018-07-19] MEDS: Sulfamethox/Trimethoprim DS 800/160* TAB PO SCH ×2 (08:49→22:14)
[2018-07-19] MEDS: Apixaban* 2.5 MG TAB PO SCH ×2 (08:49→22:13)
[2018-07-19] MEDS: Calcium Polycarbophil TAB* 625 MG PO SCH (08:49)
[2018-07-19] MEDS: Mometasone/Formoter 200/5 MDI INH SCH ×2 (08:50→20:18)
[2018-07-19] MEDS: CLOBETASOL 0.05% TOPICAL SCH ×2 (08:52→22:24)
[2018-07-19] MEDS: CALCIPOTRIENE 0.005% TOPICAL SCH ×2 (08:52→22:23)
[2018-07-19] MEDS: DOXYCYCLINE 20 MG PO SCH ×2 (08:55→22:21)
[2018-07-19] MEDS: PTO:Potassium Citrate (NF) 10 MEQ TAB PO SCH ×3 (08:55→22:20)
--- NOTE | 2018-07-19 12:32 | PMRUTEAM ---
PMRU: Team Meeting Current Status: Nursing: Current Status Skin Deviations [groin and ABD Rash fold] Skin Deviations [Midline Rash Buttocks] Skin Deviations [Left Rash Posterior Lateral Back] Skin Deviations [Left Lower Other Leg] Skin Deviations [Right Hip] Incision Skin Deviation Description [ redness groin and ABD fold] Skin Deviation Description [ slit Midline Buttocks] Skin Deviation Description [ psoriasis Left Posterior Lateral Back] Skin Deviation Description [ healing scabed area, PVD wound Left Lower Leg] Physical Therapy: Current Status Bed Mobility Assistance Mod Assist x 2 Transfer Mobility Assistance Mod Assist,2 or More Person Assist Transfer/Bed Mobility Rolling Walker Recommended Devices Ambulation Assistance Mod Assist,2 or More Person Assist Ambulation Assistive Devices Rolling Walker Number of Feet Patient 8 Ambulated Stairs Assistance Not Tested Stairs Recommended Devices Two Rails Number of Stairs 4 Curb Unable Occupational Therapy: Current Status: Set up for grooming, Max Assist for bathing, Set up UB Dressing, Max Assist x 2 LB Dressing, Toileting Max Assist x2 , Toilet Transfers Mod Assist x 2 Rec Therapy: Current Status Summary of Assessment and Patient was open to meeting with this race and sports book writer to Clinical Impression discuss his leisure lifestyle prior to admission. Patient had an irritable edge at times and stated he would like the staff to "be patient" with him. Patient was being visited by his and their friend at the time of the assessment. Patient requested to have his guitar brought in in a couple of days when he is more up to playing. Treatment Goals Patient will engage in recreation and leisure activities while on the unit. Treatment Plan Provide and encourage involvement in RT services. Goals: Physical Therapy: Initial Goals Bed Mobility Assistance Independent Transfer Mobility Assistance Independent Transfer/Bed Mobility Rolling Walker Recommended Devices Ambulation Independent Ambulation Recommended Devices Rolling Walker Ambulation Distance 150 Stairs Assistance Supervision Stair Recommended Devices Two Rails Number of Stairs flight (13) Home Exercise Program Independent Assistance Physical Therapy: Updated Goals Transfer/Bed Mobility EZ Stand Recommended Devices Care Plan: Care Plan Coping/Psych-Improve/Maintain Start: 07/18/18 12:59 Freq: QSHIFT Status: Active Target: Protocol: Activity Type Activity Date Activity User E-Sign Co-Sign Detail Recorded Client Recorded Date Recorded By Document 07/19/18 08:00 [id number] 07/19/18 11:21 [id number] 07/19/18 08:00 PMRU Outcome: Coping/Psychosocial Coping Outcome/Goals Verbalization of Acceptance of Rehab Admit Verbalization of Sense of Control Over Health Status Utilization of Appropriate Problem Solving Techniques Willingness to Participate in Treatment Plan and Basic Needs Utilization of Available Support Systems Psychosocial Outcome/Goals Maintain/ Improve Emotional Health Demonstrates Knowledge of Healthy Coping Mechanisms Available Cooperate/ Participate in Plan Progression Toward Outcome/Goals - Not Progressing Coping Progression Toward Outcome/Goals - Progressing Psychosocial DVT Prophylaxis- Improve/Maintain Start: 07/18/18 12:59 Freq: QSHIFT Status: Active Target: Protocol: Activity Type Activity Date Activity User E-Sign Co-Sign Detail Recorded Client Recorded Date Recorded By Document 07/19/18 08:00 [id number] 07/19/18 11:21 [id number] 07/19/18 08:00 PMRU Outcome: DVT Prophylaxis Outcome/Goals Remains Free of DVT Free of complications from current DVT Demonstrates Knowledge of DVT Prevention/ Treatment Progression Toward Outcome/Goals Progressing Education-Improve/Maintain Start: 07/18/18 12:59 Freq: QSHIFT Status: Active Target: Protocol: Activity Type Activity Date Activity User E-Sign Co-Sign Detail Recorded Client Recorded Date Recorded By Document 07/19/18 08:00 [id number] [email or web address] 07/19/18 11:21 [id number] 07/19/18 08:00 PMRU Outcome: Education Outcome/Goals Encourage Questions Progression Toward Outcome/Goals Progressing Medication Administration Start: 07/18/18 12:59 Freq: QSHIFT Status: Active Target: Protocol: Activity Type Activity Date Activity User E-Sign Co-Sign Detail Recorded Client Recorded Date Recorded By Document 07/19/18 08:00 [id number] 07/19/18 11:21 [id number] 07/19/18 08:00 PMRU Outcome: Medication Administration Assess Patient Knowledge/Teach Med Yes Education for all Meds Outcome/Goals Patient Independent with Medication Administration at Home Demonstrates Understanding Progression Towards Outcome/Goals Progressing Is Patient Going Home on Lovenox? No Metabolic Status- Improve/Maintain Start: 07/18/18 12:59 Freq: QSHIFT Status: Active Target: Protocol: Activity Type Activity Date Activity User E-Sign Co-Sign Detail Recorded Client Recorded Date Recorded By Document 07/19/18 08:00 [id number] 07/19/18 11:21 [id number] 07/19/18 08:00 PMRU Outcome: Metabolic Status Have Fingersticks Been Ordered Yes Fingerstick Order Frequency AC & HS Outcome/Goals Maintain/ Improve Metabolic Status Demonstrate Knowledge of Prevention/ Treatment of Metabolic Imbalances Progression Toward Outcome/Goals Progressing Pain/Comfort- Improve/Maintain Start: 07/18/18 12:59 Freq: QSHIFT Status: Active Target: Protocol: Activity Type Activity Date Activity User E-Sign Co-Sign Detail Recorded Client Recorded Date Recorded By Document 07/19/18 08:00 [id number] 07/19/18 11:21 [id number] 07/19/18 08:00 PMRU Outcome: Pain/Comfort Outcome/Goals Demonstrates Knowledge and Use of Available Comfort Measures Achieves Acceptable Comfort/Pain Level as Determined by Patient/Condit Maintain Comfort Level Allowing Patient to Fully Participate in Rehab Progression Toward Outcome/Goals Progressing Skin- Improve/Maintain Start: 07/18/18 12:59 Freq: QSHIFT Status: Active Target: Protocol: Activity Type Activity Date Activity User E-Sign Co-Sign Detail Recorded Client Recorded Date Recorded By Document 07/19/18 08:00 [id number] 07/19/18 11:21 [id number] 07/19/18 08:00 PMRU Outcome: Skin Skin Risk Level Medium Skin Orders Dressing Change Turn/Position q2hr While in Bed Outcome/Goals Free from Decubitus Surgical Incisions Healing Progression Toward Outcome/Goals Progressing Medicine Note: Length of Stay: 3 weeks Anticipated Discharge Destination: Tentative Discharge Date: August 09, 2017 Discharged to: Home
[2018-07-19] MEDS: Atorvastatin* 20 MG TAB PO SCH (16:54)
--- NOTE | 2018-07-19 17:16 | PN ---
Progress Note Date of Service: 07/19/18 Note: MICHELLE WILSON was visited. Therapy notes read and reviewed. He was discussed in interdisciplinary plan of care rounds. Overall doing fairly well. His BS are a little high. Will try to get his home meds re-started. Pain a little better today. Current Medications: Active Medications Generic Name Dose Route Start Last Admin Trade Name Freq PRN Reason Stop Dose Admin Acetaminophen 650 mg 07/18/18 12:04 Tylenol Tab* PO Q6H PRN FEVER/PAIN Apixaban 2.5 mg 07/18/18 21:00 07/19/18 08:49 Eliquis* PO 2.5 mg BID JADA Administration Atorvastatin Calcium 20 mg 07/18/18 17:00 07/19/18 16:54 Lipitor* PO 20 mg 1700 JADA Administration Calcium Polycarbophil 625 mg 07/19/18 09:00 07/19/18 08:49 Fibercon Tab* PO 625 mg DAILY JADA Administration Clobetasol Propionate 1 applic 07/19/18 09:00 07/19/18 08:52 Clobetasol 0.05% Oint* TOPICAL Not Given BID JADA Dextrose 12.5 gm 07/18/18 12:11 D50w Syringe 50 Ml* IV PUSH .FOR FS < 60 - SS PRN FS < 60 Docusate Sodium 100 mg 07/18/18 21:00 07/19/18 08:48 Colace Cap* PO 100 mg BID JADA Administration Doxycycline Hyclate 20 mg 07/19/18 09:00 07/19/18 08:55 Doxycycline (Nf) PO 20 mg BID JADA Administration Gabapentin 600 mg 07/18/18 14:00 07/19/18 14:24 Neurontin Cap(*) PO 600 mg TID JADA Administration Glipizide 2.5 mg 07/19/18 09:00 07/19/18 08:48 Glucotrol Xl* PO 2.5 mg DAILY JADA Administration Insulin Human Lispro 0 - 10 units 07/18/18 16:30 07/19/18 12:19 Humalog* SUBCUT 4 units AC JADA Administration Protocol Magnesium Hydroxide 30 ml 07/18/18 12:04 Milk Of Magnesia Liq* PO Q6H PRN CONSTIPATION Methocarbamol 750 mg 07/18/18 19:34 Robaxin Tab* PO TID PRN SPASMS Mometasone Furoate/Formoterol Fumar 2 puff 07/18/18 21:00 07/19/18 08:50 Dulera 200/5 Mdi* INH 2 puff BID JADA Administration Pto: Calcipotriene 1 applic 07/19/18 09:00 07/19/18 08:52 Cream, 0.005% 1 TOPICAL Not Given Applic BID JADA Oxycodone/Acetaminophen 1 tab 07/18/18 12:10 07/19/18 16:54 Percocet 5/325 Tab* PO 1 tab Q4H PRN Administration PAIN - MODERATE TO SEVERE Oxycodone/Acetaminophen 2 tab 07/18/18 12:11 07/18/18 13:58 Percocet 5/325 Tab* PO 2 tab Q4H PRN Administration PAIN - SEVERE Potassium Citrate 20 meq 07/18/18 21:00 07/19/18 14:25 Urocit-K 10 (Nf) PO 20 meq TID JADA Administration Senna 2 tab 07/18/18 21:00 07/18/18 21:30 Senokot Tab* PO Not Given BEDTIME JADA Trimethoprim/Sulfamethoxazole 1 tab 07/18/18 21:00 07/19/18 08:49 Bactrim Ds 800/160 Tab* PO 1 tab BID JADA Administration Vital Signs: Vital Signs Temp Pulse Resp BP Pulse Ox 99.0 F 93 16 99/59 93 07/19/18 06:10 07/19/18 06:10 07/19/18 16:54 07/19/18 06:10 07/19/18 06:10 Lab Results: Laboratory Results - last 24 hr 07/18/18 07/18/18 07/18/18 12:26 17:01 20:46 WBC RBC Hgb Hct MCV MCH MCHC RDW Plt Count MPV Neut % (Auto) Lymph % (Auto) [place] % (Auto) Eos % (Auto) Baso % (Auto) Absolute Neuts (auto) Absolute Lymphs (auto) Absolute Monos (auto) Absolute Eos (auto) Absolute Basos (auto) Absolute Nucleated RBC Nucleated RBC % Sodium Potassium Chloride Carbon Dioxide Anion Gap BUN Creatinine Est GFR ( Amer) Est GFR (Non-Af Amer) BUN/Creatinine Ratio Glucose POC Glucose (mg/dL) 185 H 220 H 208 H Calcium Total Bilirubin AST ALT Alkaline Phosphatase Total Protein Albumin Globulin Albumin/Globulin Ratio 07/19/18 07/19/18 07/19/18 06:59 06:59 07:30 WBC 8.0 RBC 3.26 L Hgb 9.4 L Hct 29 L MCV 89 MCH 29 MCHC 33 RDW 14 Plt Count 130 L MPV 7.8 Neut % (Auto) 71.2 Lymph % (Auto) 11.8 [place] % (Auto) 13.9 Eos % (Auto) 2.7 Baso % (Auto) 0.4 Absolute Neuts (auto) 5.7 Absolute Lymphs (auto) 0.9 L Absolute Monos (auto) 1.1 H Absolute Eos (auto) 0.2 Absolute Basos (auto) 0 Absolute Nucleated RBC 0 Nucleated RBC % 0.1 Sodium 135 Potassium 4.5 Chloride 105 Carbon Dioxide 27 Anion Gap 3 BUN 12 Creatinine 0.82 Est GFR ( Amer) 111.7 Est GFR (Non-Af Amer) 92.4 BUN/Creatinine Ratio 14.6 Glucose 173 H POC Glucose (mg/dL) 189 H Calcium 8.3 L Total Bilirubin 0.50 AST 18 ALT 11 Alkaline Phosphatase 54 Total Protein 5.5 L Albumin 2.9 L Globulin 2.6 Albumin/Globulin Ratio 1.1 07/19/18 11:33 WBC RBC Hgb Hct MCV MCH MCHC RDW Plt Count MPV Neut % (Auto) Lymph % (Auto) [place] % (Auto) Eos % (Auto) Baso % (Auto) Absolute Neuts (auto) Absolute Lymphs (auto) Absolute Monos (auto) Absolute Eos (auto) Absolute Basos (auto) Absolute Nucleated RBC Nucleated RBC % Sodium Potassium Chloride Carbon Dioxide Anion Gap BUN Creatinine Est GFR ( Amer) Est GFR (Non-Af Amer) BUN/Creatinine Ratio Glucose POC Glucose (mg/dL) 215 H Calcium Total Bilirubin AST ALT Alkaline Phosphatase Total Protein Albumin Globulin Albumin/Globulin Ratio Exam: HEENT: EOMI LUNGS: Clear bilaterally HEART: reg rhythm ABDOMEN: Distended +BS EXTREMITIES: Wound over right hip clean. Minor erythema in right thigh NEUROLOGIC: alert and oriented. Muscle strength appears to be 5/5 except RLE due to pain Assessment/Plan: 1. Right THIERRY: WBAT. PT/OT. 2. Recent lumbar decompression: PT/OT. Analgesics as needed 3. DM: SSI. Glipizide XL 4. Possible Cellulitis: Bactrim DS BID 5. DPN: Gabapentin 6. DVT Prophylaxis: Eliquis 7. Advanced Directives: Full Code 07/19/18 17:17
[2018-07-19] MEDS: Senna TAB PO SCH (22:15)
[2018-07-20] MEDS: oxyCODONE/Acetamin 5/325 MG* TAB PO PRN ×3 (06:08→20:45)
[2018-07-20] MEDS: CLOBETASOL 0.05% TOPICAL SCH ×2 (08:13→20:40)
[2018-07-20] MEDS: CALCIPOTRIENE 0.005% TOPICAL SCH ×2 (08:13→20:40)
[2018-07-20] MEDS: Calcium Polycarbophil TAB* 625 MG PO SCH (08:25)
[2018-07-20] MEDS: glipiZIDE TAB.XL* 2.5 MG PO SCH (08:26)
[2018-07-20] MEDS: Docusate CAP* 100 MG PO SCH ×2 (08:26→20:04)
[2018-07-20] MEDS: DOXYCYCLINE 20 MG PO SCH ×2 (08:27→20:41)
[2018-07-20] MEDS: Sulfamethox/Trimethoprim DS 800/160* TAB PO SCH ×2 (08:27→20:42)
[2018-07-20] MEDS: Apixaban* 2.5 MG TAB PO SCH ×2 (08:27→20:40)
[2018-07-20] MEDS: PTO:Potassium Citrate (NF) 10 MEQ TAB PO SCH ×3 (08:29→20:44)
[2018-07-20] MEDS: Gabapentin CAP(*) 300 MG PO SCH ×3 (08:29→20:44)
[2018-07-20] MEDS: Insulin LISPRO* 1 UNITS UNIT SUBCUT SCH ×3 (08:30→16:53)
[2018-07-20] MEDS: Mometasone/Formoter 200/5 MDI INH SCH ×2 (08:39→20:46)
--- NOTE | 2018-07-20 15:53 | PN ---
Progress Note Date of Service: 07/20/18 Note: MICHELLE WILSON was visited. Therapy notes read and reviewed. He feels like he did better today. He was able to stand up and do fairly well, with some assistance Current Medications: Active Medications Generic Name Dose Route Start Last Admin Trade Name Freq PRN Reason Stop Dose Admin Acetaminophen 650 mg 07/18/18 12:04 Tylenol Tab* PO Q6H PRN FEVER/PAIN Apixaban 2.5 mg 07/18/18 21:00 07/20/18 08:27 Eliquis* PO 2.5 mg BID JADA Administration Atorvastatin Calcium 20 mg 07/18/18 17:00 07/19/18 16:54 Lipitor* PO 20 mg 1700 JADA Administration Calcium Polycarbophil 625 mg 07/19/18 09:00 07/20/18 08:25 Fibercon Tab* PO 625 mg DAILY JADA Administration Clobetasol Propionate 1 applic 07/19/18 09:00 07/20/18 08:13 Clobetasol 0.05% Oint* TOPICAL Not Given BID [facility] Dextrose 12.5 gm 07/18/18 12:11 D50w Syringe 50 Ml* IV PUSH .FOR FS < 60 - SS PRN FS < 60 Docusate Sodium 100 mg 07/18/18 21:00 07/20/18 08:26 Colace Cap* PO 100 mg BID JADA Administration Doxycycline Hyclate 20 mg 07/19/18 09:00 07/20/18 08:27 Doxycycline (Nf) PO 20 mg BID JADA Administration Gabapentin 600 mg 07/18/18 14:00 07/20/18 13:44 Neurontin Cap(*) PO 600 mg TID JADA Administration Glipizide 2.5 mg 07/19/18 09:00 07/20/18 08:26 Glucotrol Xl* PO 2.5 mg DAILY JADA Administration Insulin Human Lispro 0 - 10 units 07/18/18 16:30 07/20/18 11:52 Humalog* SUBCUT 2 units AC JADA Administration Protocol Magnesium Hydroxide 30 ml 07/18/18 12:04 Milk Of Magnesia Liq* PO Q6H PRN CONSTIPATION Methocarbamol 750 mg 07/18/18 19:34 Robaxin Tab* PO TID PRN SPASMS Mometasone Furoate/Formoterol Fumar 2 puff 07/18/18 21:00 07/20/18 08:39 Dulera 200/5 Mdi* INH 2 puff BID JADA Administration Pto: Calcipotriene 1 applic 07/19/18 09:00 07/20/18 08:13 Cream, 0.005% 1 TOPICAL Not Given Applic BID JADA Oxycodone/Acetaminophen 1 tab 07/18/18 12:10 07/20/18 12:59 Percocet 5/325 Tab* PO 1 tab Q4H PRN Administration PAIN - MODERATE TO SEVERE Oxycodone/Acetaminophen 2 tab 07/18/18 12:11 07/18/18 13:58 Percocet 5/325 Tab* PO 2 tab Q4H PRN Administration PAIN - SEVERE Potassium Citrate 20 meq 07/18/18 21:00 07/20/18 13:44 Urocit-K 10 (Nf) PO 20 meq TID JADA Administration Senna 2 tab 07/18/18 21:00 07/19/18 22:15 Senokot Tab* PO 2 tab BEDTIME JADA Administration Trimethoprim/Sulfamethoxazole 1 tab 07/18/18 21:00 07/20/18 08:27 Bactrim Ds 800/160 Tab* PO 1 tab BID JADA Administration Vital Signs: Vital Signs Temp Pulse Resp BP Pulse Ox 98.1 F 88 16 105/53 92 07/19/18 23:15 07/20/18 06:23 07/20/18 15:25 07/20/18 06:23 07/20/18 06:23 Lab Results: Laboratory Results - last 24 hr 07/19/18 07/19/18 07/20/18 16:58 22:32 07:12 POC Glucose (mg/dL) 175 H 252 H 210 H 07/20/18 11:37 POC Glucose (mg/dL) 195 H Exam: HEENT: EOMI LUNGS: Clear bilaterally HEART: reg rhythm ABDOMEN: Distended +BS EXTREMITIES: Wound over right hip clean. Minor erythema in right thigh NEUROLOGIC: alert and oriented. Muscle strength appears to be 5/5 except RLE due to pain Assessment/Plan: 1. Right THIERRY: WBAT. PT/OT. 2. Recent lumbar decompression: PT/OT. Analgesics as needed 3. DM: SSI. Glipizide XL. He will have his Janumet brought in 4. Possible Cellulitis: Bactrim DS BID 5. DPN: Gabapentin 6. DVT Prophylaxis: Eliquis 7. Advanced Directives: Full Code 07/20/18 15:54
[2018-07-20] MEDS: Atorvastatin* 20 MG TAB PO SCH (16:52)
[2018-07-20] MEDS: Senna TAB PO SCH (20:46)
[2018-07-21] MEDS: oxyCODONE/Acetamin 5/325 MG* TAB PO PRN ×3 (05:24→22:30)
[2018-07-21] MEDS: Mometasone/Formoter 200/5 MDI INH SCH ×2 (08:00→19:41)
[2018-07-21] MEDS: Insulin LISPRO* 1 UNITS UNIT SUBCUT SCH ×3 (08:24→17:03)
[2018-07-21] MEDS: Gabapentin CAP(*) 300 MG PO SCH ×3 (08:27→22:21)
[2018-07-21] MEDS: glipiZIDE TAB.XL* 2.5 MG PO SCH (08:27)
[2018-07-21] MEDS: Sulfamethox/Trimethoprim DS 800/160* TAB PO SCH ×2 (08:28→22:19)
[2018-07-21] MEDS: Calcium Polycarbophil TAB* 625 MG PO SCH (08:29)
[2018-07-21] MEDS: Docusate CAP* 100 MG PO SCH ×2 (08:30→22:20)
[2018-07-21] MEDS: Apixaban* 2.5 MG TAB PO SCH ×2 (08:30→22:19)
[2018-07-21] MEDS: DOXYCYCLINE 20 MG PO SCH ×2 (08:31→22:22)
[2018-07-21] MEDS: CLOBETASOL 0.05% TOPICAL SCH ×2 (08:32→22:26)
[2018-07-21] MEDS: CALCIPOTRIENE 0.005% TOPICAL SCH ×2 (08:32→22:26)
[2018-07-21] MEDS: JANUMET PO SCH ×2 (08:33→22:30)
[2018-07-21] MEDS: PTO:Potassium Citrate (NF) 10 MEQ TAB PO SCH ×3 (09:12→22:29)
[2018-07-21] MEDS: Atorvastatin* 20 MG TAB PO SCH (17:03)
--- NOTE | 2018-07-21 17:05 | PN ---
Progress Note Date of Service: 07/21/18 Note: MICHELLE WILSON was visited. Nursing notes read and reviewed. He is downbeat about his progress but is definitely stronger than he was. Current Medications: Active Medications Generic Name Dose Route Start Last Admin Trade Name Freq PRN Reason Stop Dose Admin Acetaminophen 650 mg 07/18/18 12:04 Tylenol Tab* PO Q6H PRN FEVER/PAIN Apixaban 2.5 mg 07/18/18 21:00 07/21/18 08:30 Eliquis* PO 2.5 mg BID JADA Administration Atorvastatin Calcium 20 mg 07/18/18 17:00 07/20/18 16:52 Lipitor* PO 20 mg 1700 JADA Administration Calcium Polycarbophil 625 mg 07/19/18 09:00 07/21/18 08:29 Fibercon Tab* PO 625 mg DAILY JADA Administration Clobetasol Propionate 1 applic 07/19/18 09:00 07/21/18 08:32 Clobetasol 0.05% Oint* TOPICAL Not Given BID [facility] Dextrose 12.5 gm 07/18/18 12:11 D50w Syringe 50 Ml* IV PUSH .FOR FS < 60 - SS PRN FS < 60 Docusate Sodium 100 mg 07/18/18 21:00 07/21/18 08:30 Colace Cap* PO 100 mg BID JADA Administration Doxycycline Hyclate 20 mg 07/19/18 09:00 07/21/18 08:31 Doxycycline (Nf) PO 20 mg BID JADA Administration Gabapentin 600 mg 07/18/18 14:00 07/21/18 14:05 Neurontin Cap(*) PO 600 mg TID JADA Administration Glipizide 2.5 mg 07/19/18 09:00 07/21/18 08:27 Glucotrol Xl* PO 2.5 mg DAILY JADA Administration Insulin Human Lispro 0 - 10 units 07/18/18 16:30 07/21/18 12:04 Humalog* SUBCUT 2 units AC JADA Administration Protocol Magnesium Hydroxide 30 ml 07/18/18 12:04 Milk Of Magnesia Liq* PO Q6H PRN CONSTIPATION Methocarbamol 750 mg 07/18/18 19:34 Robaxin Tab* PO TID PRN SPASMS Mometasone Furoate/Formoterol Fumar 2 puff 07/18/18 21:00 07/21/18 08:00 Dulera 200/5 Mdi* INH 2 puff BID JADA Administration Pto: Calcipotriene 1 applic 07/19/18 09:00 07/21/18 08:32 Cream, 0.005% 1 TOPICAL Not Given Applic BID JADA Pto: Janumet 50- 1 dose 07/21/18 09:00 07/21/18 08:33 500mg Tablet PO 1 dose BID JADA Administration Nystatin 1 applic 07/21/18 21:00 Nystatin Top Powder* TOPICAL BID JADA Oxycodone/Acetaminophen 1 tab 07/18/18 12:10 07/21/18 11:05 Percocet 5/325 Tab* PO 1 tab Q4H PRN Administration PAIN - MODERATE TO SEVERE Oxycodone/Acetaminophen 2 tab 07/18/18 12:11 07/18/18 13:58 Percocet 5/325 Tab* PO 2 tab Q4H PRN Administration PAIN - SEVERE Potassium Citrate 20 meq 07/18/18 21:00 07/21/18 14:05 Urocit-K 10 (Nf) PO 20 meq TID JADA Administration Senna 2 tab 07/18/18 21:00 07/20/18 20:46 Senokot Tab* PO 2 tab BEDTIME JADA Administration Trimethoprim/Sulfamethoxazole 1 tab 07/18/18 21:00 07/21/18 08:28 Bactrim Ds 800/160 Tab* PO 1 tab BID JADA Administration Vital Signs: Vital Signs Temp Pulse Resp BP Pulse Ox 98.2 F 95 18 122/61 97 07/21/18 15:36 07/21/18 15:36 07/21/18 16:54 07/21/18 15:36 07/21/18 15:36 Lab Results: Laboratory Results - last 24 hr 07/20/18 07/21/18 07/21/18 20:38 07:44 11:08 POC Glucose (mg/dL) 224 H 213 H 188 H 07/21/18 16:36 POC Glucose (mg/dL) 167 H Exam: HEENT: EOMI LUNGS: Clear bilaterally HEART: reg rhythm ABDOMEN: Distended +BS EXTREMITIES: Wound over right hip clean. Minor erythema in right thigh NEUROLOGIC: alert and oriented. Muscle strength appears to be 5/5 except RLE due to pain Assessment/Plan: 1. Right THIERRY: WBAT. PT/OT. 2. Recent lumbar decompression: PT/OT. Analgesics as needed 3. DM: SSI. Glipizide XL. Janumet 4. Possible Cellulitis: Bactrim DS BID 5. DPN: Gabapentin 6. DVT Prophylaxis: Eliquis 7. Advanced Directives: Full Code 07/21/18 17:05
[2018-07-21] MEDS: Senna TAB PO SCH (22:20)
[2018-07-21] MEDS: Nystatin TOP POWDER* 15 GM BTL TOPICAL SCH (22:26)
[2018-07-22] MEDS: oxyCODONE/Acetamin 5/325 MG* TAB PO PRN ×4 (02:34→23:22)
[2018-07-22] MEDS: Mometasone/Formoter 200/5 MDI INH SCH ×2 (08:16→19:38)
[2018-07-22] MEDS: Insulin LISPRO* 1 UNITS UNIT SUBCUT SCH ×3 (09:11→16:58)
[2018-07-22] MEDS: Apixaban* 2.5 MG TAB PO SCH ×2 (10:24→20:59)
[2018-07-22] MEDS: Calcium Polycarbophil TAB* 625 MG PO SCH (10:24)
[2018-07-22] MEDS: CALCIPOTRIENE 0.005% TOPICAL SCH ×2 (10:27→21:00)
[2018-07-22] MEDS: CLOBETASOL 0.05% TOPICAL SCH ×2 (10:27→21:00)
[2018-07-22] MEDS: Docusate CAP* 100 MG PO SCH ×2 (10:28→21:01)
[2018-07-22] MEDS: DOXYCYCLINE 20 MG PO SCH ×2 (10:28→21:03)
[2018-07-22] MEDS: Gabapentin CAP(*) 300 MG PO SCH ×3 (10:29→21:01)
[2018-07-22] MEDS: glipiZIDE TAB.XL* 2.5 MG PO SCH (10:30)
[2018-07-22] MEDS: JANUMET PO SCH ×2 (10:30→21:03)
[2018-07-22] MEDS: PTO:Potassium Citrate (NF) 10 MEQ TAB PO SCH ×3 (10:31→21:02)
[2018-07-22] MEDS: Sulfamethox/Trimethoprim DS 800/160* TAB PO SCH ×2 (10:32→21:02)
[2018-07-22] MEDS: Nystatin TOP POWDER* 15 GM BTL TOPICAL SCH ×2 (10:32→22:00)
--- NOTE | 2018-07-22 12:45 | PMRUTEAM ---
PMRU: Team Meeting Current Status: Nursing: Current Status Skin Deviations [groin and ABD Rash fold] Skin Deviations [Midline Rash Buttocks] Skin Deviations [Left Rash Posterior Lateral Back] Skin Deviations [Left Lower Other Leg] Skin Deviations [Right Hip] Incision Skin Deviation Description [ nystatin applied groin and ABD fold] Skin Deviation Description [ slit Midline Buttocks] Skin Deviation Description [ psoriasis Left Posterior Lateral Back] Skin Deviation Description [ scabbed, healing wound Left Lower Leg] Skin Deviation Description [ SUNIL Right Hip] Physical Therapy: Current Status Bed Mobility Assistance Independent Transfer Mobility Assistance Contact Guard Assist,Min Assist Transfer/Bed Mobility Rolling Walker Recommended Devices Ambulation Assistance Min Assist Ambulation Assistive Devices Rolling Walker Number of Feet Patient 70 Ambulated Stairs Assistance Not Tested Stairs Recommended Devices Two Rails Number of Stairs 4 Curb Unable Occupational Therapy: Current Status Upper Body Dressing Supervision Lower Body Dressing Max Asst,Total Assist,2 Person Assist Bathing Max Asst Toileting Total Assist,2 Person Assist Toilet Transfer Min Assist,Mod Assist,2 Person Assist Shower Transfer Min Assist,2 Person Assist Eating Independent Rec Therapy: Current Status Summary of Assessment and Patient was open to meeting with this communications writer to Clinical Impression discuss his leisure lifestyle prior to admission. Patient had an irritable edge at times and stated he would like the staff to "be patient" with him. Patient was being visited by his and their friend at the time of the assessment. Patient requested to have his guitar brought in in a couple of days when he is more up to playing. Treatment Goals Patient will engage in recreation and leisure activities while on the unit. Treatment Plan Provide and encourage involvement in RT services. Social Work: Current Status Discharge Plan return home with home care svs and family support Potential for Family Training pt's is involved and supportive Anticipated Discharge Home Destination Discharge With home care svs and family support Goals: Physical Therapy: Initial Goals Bed Mobility Assistance Independent Transfer Mobility Assistance Independent Transfer/Bed Mobility Rolling Walker Recommended Devices Ambulation Independent Ambulation Recommended Devices Rolling Walker Ambulation Distance 150 Stairs Assistance Supervision Stair Recommended Devices Two Rails Number of Stairs flight (13) Home Exercise Program Independent Assistance Physical Therapy: Updated Goals Transfer/Bed Mobility EZ Stand Recommended Devices Occupational Therapy: Initial Goals Goals to be Completed in (Days 21 ) Upper Body Bathing Routine Independent Lower Body Bathing Routine Minimal Contact Assist Upper Body Dressing Routine Independent Lower Body Dressing Routine Minimal Contact Assist Toilet Hygeine and Clothing Modified Independent with Management Routine Toilet Transfer Routine Modified Independent with Step-In Shower Transfer Supervision/Set Up Routine Functional Transfers for ADL Modified Independent with Grooming Routine Independent Feeding Routine Independent Social Work: Goals Discharge Plan return home with home care svs and family support Potential for Family Training pt's is involved and supportive Anticipated Discharge Home Destination Discharge With home care svs and family support Care Plan: Care Plan ADL's - Improve/Maintain Start: 07/19/18 13:58 Freq: DAILY Status: Active Target: Protocol: Activity Type Activity Date Activity User E-Sign Co-Sign Detail Recorded Client Recorded Date Recorded By Document 07/19/18 13:58 [id number] [id number] 07/19/18 13:59 [id number] 07/19/18 13:58 PMRU Outcome: ADL's/ADL Transfers Orders/Interventions Occupational Therapy Evaluation & Treatment Communication Tool in Patient Room Patient to receive OT 5x/wk for 60-120 Therex min/day Self Care Management Group Therapy UE/LE ADL's with Assist Yes: min A ADL Transfers with Assist Yes: mod I Toileting: Transfers,Clothing Management Yes: mod I ,Hygeine w/Assist Progression Toward Outcome/Goals Progressing Outcome/Goals Met Pt presents with R hip pain , limited R hip AROM, R hip precautions, decreased endurance, balance deficits and difficulty following commands/ remaining on task that affect his ability to complete bathing, dressing, toileting, toilet transfers and showering. Pt would benefit from acute OT intervention in a rehabilitation setting to maximize independence with ADLs and ADL transfers. Pt is in agreement with OT POC. Coping/Psych-Improve/Maintain Start: 07/18/18 12:59 Freq: QSHIFT Status: Active Target: Protocol: Activity Type Activity Date Activity User E-Sign Co-Sign Detail Recorded Client Recorded Date Recorded By Document 07/22/18 01:39 [id number] [id number] 07/22/18 01:41 [id number] 07/22/18 01:39 PMRU Outcome: Coping/Psychosocial Coping Outcome/Goals Verbalization of Acceptance of Rehab Admit Verbalization of Sense of Control Over Health Status Utilization of Appropriate Problem Solving Techniques Willingness to Participate in Treatment Plan and Basic Needs Utilization of Available Support Systems Psychosocial Outcome/Goals Maintain/ Improve Emotional Health Demonstrates Knowledge of Healthy Coping Mechanisms Available Cooperate/ Participate in Plan Progression Toward Outcome/Goals - Progressing Coping Progression Toward Outcome/Goals - Progressing Psychosocial Coping Outcome/Goals Met Demonstrates Understanding of Rehab Admit and Goal Setting Process Performs Actions to Reduce Pain and Prevent Complications Psychosocial Outcome/Goals Met Cooperate/ Participated in Plan Outcome/Goals Met Comment pt frustrated for several reasons and very emotional, therapuetic communication done DVT Prophylaxis- Improve/Maintain Start: 07/18/18 12:59 Freq: QSHIFT Status: Active Target: Protocol: Activity Type Activity Date Activity User E-Sign Co-Sign Detail Recorded Client Recorded Date Recorded By Document 07/22/18 01:39 [id number] [email or web address] 07/22/18 01:41 [id number] 07/22/18 01:39 PMRU Outcome: DVT Prophylaxis Outcome/Goals Remains Free of DVT Demonstrates Knowledge of DVT Prevention/ Treatment Progression Toward Outcome/Goals Progressing Outcome/Goals Met Remains Free of DVT Discharge Planning - Improve/Maintain Start: 07/18/18 12:59 Freq: DAILY Status: Active Target: Protocol: Activity Type Activity Date Activity User E-Sign Co-Sign Detail Recorded Client Recorded Date Recorded By Document 07/22/18 01:39 [id number] [email or web address] 07/22/18 01:41 [id number] 07/22/18 01:39 PMRU Outcome: Discharge Planning Update Patient Family No Outcome/Goals Demonstrates Understanding of Discharge Plan Education-Improve/Maintain Start: 07/18/18 12:59 Freq: QSHIFT Status: Active Target: Protocol: Activity Type Activity Date Activity User E-Sign Co-Sign Detail Recorded Client Recorded Date Recorded By Document 07/22/18 01:39 [id number] [email or web address] 07/22/18 01:41 [id number] 07/22/18 01:39 PMRU Outcome: Education Outcome/Goals Encourage Questions Progression Toward Outcome/Goals Progressing Outcome/Goals Met Comment reminded pt that he doesn't want pain to get out of control Medication Administration Start: 07/18/18 12:59 Freq: QSHIFT Status: Active Target: Protocol: Activity Type Activity Date Activity User E-Sign Co-Sign Detail Recorded Client Recorded Date Recorded By Document 07/22/18 01:39 [id number] [email or web address] 07/22/18 01:41 [id number] 07/22/18 01:39 PMRU Outcome: Medication Administration Assess Patient Knowledge/Teach Med Yes Education for all Meds Outcome/Goals Patient Independent with Medication Administration at Home Demonstrates Understanding Progression Towards Outcome/Goals Progressing Is Patient Going Home on Lovenox? No Metabolic Status- Improve/Maintain Start: 07/18/18 12:59 Freq: QSHIFT Status: Active Target: Protocol: Activity Type Activity Date Activity User E-Sign Co-Sign Detail Recorded Client Recorded Date Recorded By Document 07/22/18 01:39 [id number] [email or web address] 07/22/18 01:41 [id number] 07/22/18 01:39 PMRU Outcome: Metabolic Status Have Fingersticks Been Ordered Yes Fingerstick Order Frequency AC & HS Outcome/Goals Maintain/ Improve Metabolic Status Demonstrate Knowledge of Prevention/ Treatment of Metabolic Imbalances Progression Toward Outcome/Goals Progressing Outcome/Goals Met Maintain/ Improve Metabolic Status Mobility- Improve/Maintain Start: 07/20/18 15:22 Freq: DAILY Status: Active Target: Protocol: Activity Type Activity Date Activity User E-Sign Co-Sign Detail Recorded Client Recorded Date Recorded By Document 07/20/18 15:22 [id number] [facility] [place] 07/20/18 15:23 [id number] 07/20/18 15:22 PMRU Outcome: Mobility Physical Therapy Evaluation and Yes Treatment Activity OOB with Assistance Yes WBAT Yes: R LE Device Yes: FWW Assistance Yes: Min-Mod A Patient to be seen 5x/wk for 60-120 min/ Therex day for: Mobility Training Gait Training Balance Outcome/Goals Maintain/ Achieve Baseline Mobility Status Improve Mobility Status Demonstrates Proper Use of Assistive Devices Free from Complications of Immobility Progression Toward Outcome/Goals Progressing Bed Mobility Yes: Ind Transfers Yes: Mod I with walker Gait x ft Yes: Mod I with walker x150ft Up/Down Stairs Yes: Supervision, 1 flight with 1 rail With HEP Yes Pain/Comfort- Improve/Maintain Start: 07/18/18 12:59 Freq: QSHIFT Status: Active Target: Protocol: Activity Type Activity Date Activity User E-Sign Co-Sign Detail Recorded Client Recorded Date Recorded By Document 07/22/18 01:39 [id number] 07/22/18 01:41 [id number] 07/22/18 01:39 PMRU Outcome: Pain/Comfort Outcome/Goals Demonstrates Knowledge and Use of Available Comfort Measures Achieves Acceptable Comfort/Pain Level as Determined by Patient/Condit Maintain Comfort Level Allowing Patient to Fully Participate in Rehab Progression Toward Outcome/Goals Progressing Outcome/Goals Met Demonstrates Knowledge and Use of Available Comfort Measures Achieves Acceptable Comfort/Pain Level as Determined by Patient/Condit Outcome/Goals Met Comment pt denied pain medication Skin- Improve/Maintain Start: 07/18/18 12:59 Freq: QSHIFT Status: Active Target: Protocol: Activity Type Activity Date Activity User E-Sign Co-Sign Detail Recorded Client Recorded Date Recorded By Document 07/22/18 01:39 [id number] [id number] 07/22/18 01:41 [id number] 07/22/18 01:39 PMRU Outcome: Skin Skin Risk Level Medium Skin Orders Dressing Change Turn/Position q2hr While in Bed Outcome/Goals Free from Decubitus Surgical Incisions Healing Progression Toward Outcome/Goals Progressing Outcome/Goals Met Free from Decubitus Medicine Note: Length of Stay: 2 1/2 weeks Anticipated Discharge Destination: Home Tentative Discharge Date: 08/09/18 Discharged to: Home
--- NOTE | 2018-07-22 14:46 | PN ---
Progress Note Date of Service: 07/22/18 Note: MICHELLE WILSON was visited. Therapy notes read and reviewed. He was discussed in interdisciplinary team rounds. He is making gains with therapy. Current Medications: Active Medications Generic Name Dose Route Start Last Admin Trade Name Freq PRN Reason Stop Dose Admin Acetaminophen 650 mg 07/18/18 12:04 Tylenol Tab* PO Q6H PRN FEVER/PAIN Apixaban 2.5 mg 07/18/18 21:00 07/22/18 10:24 Eliquis* PO 2.5 mg BID JADA Administration Atorvastatin Calcium 20 mg 07/18/18 17:00 07/21/18 17:03 Lipitor* PO 20 mg 1700 JADA Administration Calcium Polycarbophil 625 mg 07/19/18 09:00 07/22/18 10:24 Fibercon Tab* PO 625 mg DAILY JADA Administration Clobetasol Propionate 1 applic 07/19/18 09:00 07/22/18 10:27 Clobetasol 0.05% Oint* TOPICAL Not Given BID [facility] Dextrose 12.5 gm 07/18/18 12:11 D50w Syringe 50 Ml* IV PUSH .FOR FS < 60 - SS PRN FS < 60 Docusate Sodium 100 mg 07/18/18 21:00 07/22/18 10:28 Colace Cap* PO 100 mg BID JADA Administration Doxycycline Hyclate 20 mg 07/19/18 09:00 07/22/18 10:28 Doxycycline (Nf) PO 20 mg BID JADA Administration Gabapentin 600 mg 07/18/18 14:00 07/22/18 13:08 Neurontin Cap(*) PO 600 mg TID JADA Administration Glipizide 2.5 mg 07/19/18 09:00 07/22/18 10:30 Glucotrol Xl* PO 2.5 mg DAILY JADA Administration Insulin Human Lispro 0 - 10 units 07/18/18 16:30 07/22/18 13:07 Humalog* SUBCUT 1 units AC JADA Administration Protocol Magnesium Hydroxide 30 ml 07/18/18 12:04 Milk Of Magnesia Liq* PO Q6H PRN CONSTIPATION Methocarbamol 750 mg 07/18/18 19:34 Robaxin Tab* PO TID PRN SPASMS Mometasone Furoate/Formoterol Fumar 2 puff 07/18/18 21:00 07/22/18 08:16 Dulera 200/5 Mdi* INH 2 puff BID JADA Administration Pto: Calcipotriene 1 applic 07/19/18 09:00 07/22/18 10:27 Cream, 0.005% 1 TOPICAL Not Given Applic BID JADA Pto: Janumet 50- 1 dose 07/21/18 09:00 07/22/18 10:30 500mg Tablet PO 1 dose BID JADA Administration Nystatin 1 applic 07/21/18 21:00 07/22/18 10:32 Nystatin Top Powder* TOPICAL Not Given BID JADA Oxycodone/Acetaminophen 1 tab 07/18/18 12:10 07/22/18 09:12 Percocet 5/325 Tab* PO 1 tab Q4H PRN Administration PAIN - MODERATE TO SEVERE Oxycodone/Acetaminophen 2 tab 07/18/18 12:11 07/18/18 13:58 Percocet 5/325 Tab* PO 2 tab Q4H PRN Administration PAIN - SEVERE Potassium Citrate 20 meq 07/18/18 21:00 07/22/18 14:37 Urocit-K 10 (Nf) PO 20 meq TID JADA Administration Senna 2 tab 07/18/18 21:00 07/21/18 22:20 Senokot Tab* PO 2 tab BEDTIME JADA Administration Trimethoprim/Sulfamethoxazole 1 tab 07/18/18 21:00 07/22/18 10:32 Bactrim Ds 800/160 Tab* PO 1 tab BID AJDA Administration Vital Signs: Vital Signs Temp Pulse Resp BP Pulse Ox 98.6 F 70 16 104/65 92 07/22/18 06:15 07/22/18 08:17 07/22/18 13:13 07/22/18 06:15 07/22/18 08:17 Lab Results: Laboratory Results - last 24 hr 07/21/18 07/21/18 07/22/18 16:36 19:59 07:57 POC Glucose (mg/dL) 167 H 202 H 184 H 07/22/18 12:10 POC Glucose (mg/dL) 142 H Exam: HEENT: EOMI LUNGS: Clear bilaterally HEART: reg rhythm ABDOMEN: Distended +BS EXTREMITIES: Wound over right hip clean. Minor erythema in right thigh NEUROLOGIC: alert and oriented. Muscle strength appears to be 5/5 except RLE due to pain Assessment/Plan: 1. Right THIERRY: WBAT. PT/OT. 2. Recent lumbar decompression: PT/OT. Analgesics as needed 3. DM: SSI. Glipizide XL. Janumet 4. Possible Cellulitis: Bactrim DS BID 5. DPN: Gabapentin 6. DVT Prophylaxis: Eliquis 7. Advanced Directives: Full Code 07/22/18 14:46
[2018-07-22] MEDS: Atorvastatin* 20 MG TAB PO SCH (17:39)
[2018-07-22] MEDS: Senna TAB PO SCH (21:01)
[2018-07-23] MEDS: Mometasone/Formoter 200/5 MDI INH SCH ×2 (08:40→19:43)
[2018-07-23] MEDS: oxyCODONE/Acetamin 5/325 MG* TAB PO PRN ×3 (08:55→21:04)
[2018-07-23] MEDS: Docusate CAP* 100 MG PO SCH ×2 (08:56→21:03)
[2018-07-23] MEDS: Gabapentin CAP(*) 300 MG PO SCH ×3 (08:56→21:08)
[2018-07-23] MEDS: Insulin LISPRO* 1 UNITS UNIT SUBCUT SCH ×3 (08:56→17:54)
[2018-07-23] MEDS: CALCIPOTRIENE 0.005% TOPICAL SCH ×2 (08:57→21:20)
[2018-07-23] MEDS: Calcium Polycarbophil TAB* 625 MG PO SCH (08:58)
[2018-07-23] MEDS: Apixaban* 2.5 MG TAB PO SCH ×2 (08:58→21:02)
[2018-07-23] MEDS: glipiZIDE TAB.XL* 2.5 MG PO SCH (08:59)
[2018-07-23] MEDS: Sulfamethox/Trimethoprim DS 800/160* TAB PO SCH ×2 (09:00→21:03)
[2018-07-23] MEDS: CLOBETASOL 0.05% TOPICAL SCH ×2 (09:00→21:21)
[2018-07-23] MEDS: JANUMET PO SCH ×2 (09:02→21:10)
[2018-07-23] MEDS: PTO:Potassium Citrate (NF) 10 MEQ TAB PO SCH ×3 (09:02→21:10)
[2018-07-23] MEDS: DOXYCYCLINE 20 MG PO SCH ×2 (09:03→21:09)
[2018-07-23] MEDS: Nystatin TOP POWDER* 15 GM BTL TOPICAL SCH ×2 (09:18→21:21)
--- NOTE | 2018-07-23 13:04 | PN ---
Progress Note Date of Service: 07/23/18 Note: MICHELLE WILSON was visited. Therapy notes read and reviewed. He now transfers with one assist and feels some progress Current Medications: Active Medications Generic Name Dose Route Start Last Admin Trade Name Freq PRN Reason Stop Dose Admin Acetaminophen 650 mg 07/18/18 12:04 Tylenol Tab* PO Q6H PRN FEVER/PAIN Apixaban 2.5 mg 07/18/18 21:00 07/23/18 08:58 Eliquis* PO 2.5 mg BID JADA Administration Atorvastatin Calcium 20 mg 07/18/18 17:00 07/22/18 17:39 Lipitor* PO 20 mg 1700 JADA Administration Calcium Polycarbophil 625 mg 07/19/18 09:00 07/23/18 08:58 Fibercon Tab* PO 625 mg DAILY JADA Administration Clobetasol Propionate 1 applic 07/19/18 09:00 07/23/18 09:00 Clobetasol 0.05% Oint* TOPICAL Not Given BID [facility] Dextrose 12.5 gm 07/18/18 12:11 D50w Syringe 50 Ml* IV PUSH .FOR FS < 60 - SS PRN FS < 60 Docusate Sodium 100 mg 07/18/18 21:00 07/23/18 08:56 Colace Cap* PO 100 mg BID JADA Administration Doxycycline Hyclate 20 mg 07/19/18 09:00 07/23/18 09:03 Doxycycline (Nf) PO 20 mg BID JADA Administration Gabapentin 600 mg 07/18/18 14:00 07/23/18 08:56 Neurontin Cap(*) PO 600 mg TID JADA Administration Glipizide 2.5 mg 07/19/18 09:00 07/23/18 08:59 Glucotrol Xl* PO 2.5 mg DAILY JADA Administration Insulin Human Lispro 0 - 10 units 07/18/18 16:30 07/23/18 12:25 Humalog* SUBCUT Not Given [facility] Protocol Magnesium Hydroxide 30 ml 07/18/18 12:04 Milk Of Magnesia Liq* PO Q6H PRN CONSTIPATION Methocarbamol 750 mg 07/18/18 19:34 Robaxin Tab* PO TID PRN SPASMS Mometasone Furoate/Formoterol Fumar 2 puff 07/18/18 21:00 07/23/18 08:40 Dulera 200/5 Mdi* INH 2 puff BID JADA Administration Pto: Calcipotriene 1 applic 07/19/18 09:00 07/23/18 08:57 Cream, 0.005% 1 TOPICAL Not Given Applic BID JADA Pto: Janumet 50- 1 dose 07/21/18 09:00 07/23/18 09:02 500mg Tablet PO 1 dose BID JADA Administration Nystatin 1 applic 07/21/18 21:00 07/23/18 09:18 Nystatin Top Powder* TOPICAL Not Given BID JADA Oxycodone/Acetaminophen 1 tab 07/18/18 12:10 07/23/18 08:55 Percocet 5/325 Tab* PO 1 tab Q4H PRN Administration PAIN - MODERATE TO SEVERE Oxycodone/Acetaminophen 2 tab 07/18/18 12:11 07/18/18 13:58 Percocet 5/325 Tab* PO 2 tab Q4H PRN Administration PAIN - SEVERE Potassium Citrate 20 meq 07/18/18 21:00 07/23/18 09:02 Urocit-K 10 (Nf) PO 20 meq TID JADA Administration Senna 2 tab 07/18/18 21:00 07/22/18 21:01 Senokot Tab* PO 2 tab BEDTIME JADA Administration Trimethoprim/Sulfamethoxazole 1 tab 07/18/18 21:00 07/23/18 09:00 Bactrim Ds 800/160 Tab* PO 1 tab BID JADA Administration Vital Signs: Vital Signs Temp Pulse Resp BP Pulse Ox 98.7 F 92 18 109/64 96 07/23/18 06:32 07/23/18 08:41 07/23/18 08:56 07/23/18 06:32 07/23/18 08:41 Lab Results: Laboratory Results - last 24 hr 07/22/18 07/22/18 07/22/18 12:10 16:43 21:10 POC Glucose (mg/dL) 142 H 128 H 208 H 07/23/18 07/23/18 07:31 11:51 POC Glucose (mg/dL) 184 H 100 Exam: HEENT: EOMI LUNGS: Clear bilaterally HEART: reg rhythm ABDOMEN: Distended +BS EXTREMITIES: Wound over right hip clean. Minor erythema in right thigh NEUROLOGIC: alert and oriented. Muscle strength appears to be 5/5 except RLE due to pain Assessment/Plan: 1. Right THIERRY: WBAT. PT/OT. 2. Recent lumbar decompression: PT/OT. Analgesics as needed 3. DM: SSI. Glipizide XL. Janumet 4. Possible Cellulitis: Bactrim DS BID 5. DPN: Gabapentin 6. DVT Prophylaxis: Eliquis 7. Advanced Directives: Full Code 07/23/18 13:04
[2018-07-23] MEDS: Atorvastatin* 20 MG TAB PO SCH (17:04)
[2018-07-23] MEDS: Senna TAB PO SCH (21:02)
[2018-07-24] MEDS: oxyCODONE/Acetamin 5/325 MG* TAB PO PRN ×4 (03:56→21:31)
[2018-07-24] MEDS: Insulin LISPRO* 1 UNITS UNIT SUBCUT SCH ×3 (08:14→16:58)
[2018-07-24] MEDS: CALCIPOTRIENE 0.005% TOPICAL SCH ×2 (08:16→21:41)
[2018-07-24] MEDS: Calcium Polycarbophil TAB* 625 MG PO SCH (08:16)
[2018-07-24] MEDS: DOXYCYCLINE 20 MG PO SCH ×2 (08:16→21:29)
[2018-07-24] MEDS: CLOBETASOL 0.05% TOPICAL SCH ×2 (08:16→21:41)
[2018-07-24] MEDS: Mometasone/Formoter 200/5 MDI INH SCH ×2 (08:20→20:24)
[2018-07-24] MEDS: Gabapentin CAP(*) 300 MG PO SCH ×3 (08:22→21:25)
[2018-07-24] MEDS: JANUMET PO SCH ×2 (08:24→21:29)
[2018-07-24] MEDS: glipiZIDE TAB.XL* 2.5 MG PO SCH (08:24)
[2018-07-24] MEDS: PTO:Potassium Citrate (NF) 10 MEQ TAB PO SCH ×3 (08:25→21:30)
[2018-07-24] MEDS: Nystatin TOP POWDER* 15 GM BTL TOPICAL SCH ×2 (08:25→23:16)
[2018-07-24] MEDS: Sulfamethox/Trimethoprim DS 800/160* TAB PO SCH ×2 (08:26→21:20)
[2018-07-24] MEDS: Docusate CAP* 100 MG PO SCH ×2 (08:30→21:27)
[2018-07-24] MEDS: Apixaban* 2.5 MG TAB PO SCH ×2 (09:27→21:28)
[2018-07-24] MEDS: Atorvastatin* 20 MG TAB PO SCH (17:15)
--- NOTE | 2018-07-24 20:28 | PN ---
Progress Note Date of Service: 07/24/18 Note: MICHELLE WILSON was visited. Therapy notes read and reviewed. Getting antsy about being in the hospital. He has improved but still has work to do Current Medications: Active Medications Generic Name Dose Route Start Last Admin Trade Name Freq PRN Reason Stop Dose Admin Acetaminophen 650 mg 07/18/18 12:04 Tylenol Tab* PO Q6H PRN FEVER/PAIN Apixaban 2.5 mg 07/18/18 21:00 07/24/18 09:27 Eliquis* PO 2.5 mg BID JADA Administration Atorvastatin Calcium 20 mg 07/18/18 17:00 07/24/18 17:15 Lipitor* PO 20 mg 1700 JADA Administration Calcium Polycarbophil 625 mg 07/19/18 09:00 07/24/18 08:16 Fibercon Tab* PO 625 mg DAILY JADA Administration Clobetasol Propionate 1 applic 07/19/18 09:00 07/24/18 08:16 Clobetasol 0.05% Oint* TOPICAL Not Given BID [facility] Dextrose 12.5 gm 07/18/18 12:11 D50w Syringe 50 Ml* IV PUSH .FOR FS < 60 - SS PRN FS < 60 Docusate Sodium 100 mg 07/18/18 21:00 07/24/18 08:30 Colace Cap* PO Not Given BID [facility] Doxycycline Hyclate 20 mg 07/19/18 09:00 07/24/18 08:16 Doxycycline (Nf) PO 20 mg BID JADA Administration Gabapentin 600 mg 07/18/18 14:00 07/24/18 14:48 Neurontin Cap(*) PO 600 mg TID [facility] Administration Glipizide 2.5 mg 07/19/18 09:00 07/24/18 08:24 Glucotrol Xl* PO 2.5 mg DAILY [facility] Administration Insulin Human Lispro 0 - 10 units 07/18/18 16:30 07/24/18 16:58 Humalog* SUBCUT Not Given [facility] Protocol Magnesium Hydroxide 30 ml 07/18/18 12:04 Milk Of Magnesia Liq* PO Q6H PRN CONSTIPATION Methocarbamol 750 mg 07/18/18 19:34 Robaxin Tab* PO TID PRN SPASMS Mometasone Furoate/Formoterol Fumar 2 puff 07/18/18 21:00 07/24/18 20:24 Dulera 200/5 Mdi* INH 2 puff BID JADA Administration Pto: Calcipotriene 1 applic 07/19/18 09:00 07/24/18 08:16 Cream, 0.005% 1 TOPICAL Not Given Applic BID JADA Pto: Janumet 50- 1 dose 07/21/18 09:00 07/24/18 08:24 500mg Tablet PO 1 dose BID JADA Administration Nystatin 1 applic 07/21/18 21:00 07/24/18 08:25 Nystatin Top Powder* TOPICAL Not Given BID JADA Oxycodone/Acetaminophen 1 tab 07/18/18 12:10 07/24/18 14:49 Percocet 5/325 Tab* PO 1 tab Q4H PRN Administration PAIN - MODERATE TO SEVERE Oxycodone/Acetaminophen 2 tab 07/18/18 12:11 07/18/18 13:58 Percocet 5/325 Tab* PO 2 tab Q4H PRN Administration PAIN - SEVERE Potassium Citrate 20 meq 07/18/18 21:00 07/24/18 14:55 Urocit-K 10 (Nf) PO 20 meq TID JADA Administration Senna 2 tab 07/18/18 21:00 07/23/18 21:02 Senokot Tab* PO 2 tab BEDTIME JADA Administration Trimethoprim/Sulfamethoxazole 1 tab 07/18/18 21:00 07/24/18 08:26 Bactrim Ds 800/160 Tab* PO 1 tab BID JADA Administration Vital Signs: Vital Signs Temp Pulse Resp BP Pulse Ox 98.9 F 94 18 117/62 99 07/24/18 15:27 07/24/18 15:27 07/24/18 17:17 07/24/18 15:27 07/24/18 19:11 Lab Results: Laboratory Results - last 24 hr 07/23/18 07/24/18 07/24/18 21:18 07:40 11:57 POC Glucose (mg/dL) 180 H 170 H 105 H 07/24/18 16:38 POC Glucose (mg/dL) 124 H Exam: HEENT: EOMI LUNGS: Clear bilaterally HEART: reg rhythm ABDOMEN: Distended +BS EXTREMITIES: Wound over right hip clean. Minor erythema in right thigh NEUROLOGIC: alert and oriented. Muscle strength appears to be 5/5 except RLE due to pain Assessment/Plan: 1. Right THIERRY: WBAT. PT/OT. 2. Recent lumbar decompression: PT/OT. Analgesics as needed 3. DM: SSI. Glipizide XL. Janumet 4. Possible Cellulitis: Bactrim DS BID finishing up 5. DPN: Gabapentin 6. DVT Prophylaxis: Eliquis 7. Advanced Directives: Full Code 07/24/18 20:29 07/24/18 20:30
[2018-07-24] MEDS: Senna TAB PO SCH (21:27)
[2018-07-25] MEDS: Mometasone/Formoter 200/5 MDI INH SCH ×2 (07:55→20:15)
[2018-07-25] MEDS: Insulin LISPRO* 1 UNITS UNIT SUBCUT SCH ×3 (09:11→17:01)
[2018-07-25] MEDS: oxyCODONE/Acetamin 5/325 MG* TAB PO PRN ×3 (09:11→21:25)
[2018-07-25] MEDS: Apixaban* 2.5 MG TAB PO SCH ×2 (10:43→21:26)
[2018-07-25] MEDS: Calcium Polycarbophil TAB* 625 MG PO SCH (10:43)
[2018-07-25] MEDS: Docusate CAP* 100 MG PO SCH ×2 (10:43→21:32)
[2018-07-25] MEDS: glipiZIDE TAB.XL* 2.5 MG PO SCH (10:44)
[2018-07-25] MEDS: JANUMET PO SCH ×2 (10:44→21:22)
[2018-07-25] MEDS: DOXYCYCLINE 20 MG PO SCH ×2 (10:44→21:23)
[2018-07-25] MEDS: Gabapentin CAP(*) 300 MG PO SCH ×3 (10:44→21:26)
[2018-07-25] MEDS: PTO:Potassium Citrate (NF) 10 MEQ TAB PO SCH ×3 (10:44→21:23)
[2018-07-25] MEDS: Nystatin TOP POWDER* 15 GM BTL TOPICAL SCH ×2 (10:45→21:34)
[2018-07-25] MEDS: Sulfamethox/Trimethoprim DS 800/160* TAB PO SCH ×2 (10:45→21:24)
[2018-07-25] MEDS: CALCIPOTRIENE 0.005% TOPICAL SCH ×2 (10:45→21:34)
[2018-07-25] MEDS: CLOBETASOL 0.05% TOPICAL SCH ×2 (10:45→21:34)
[2018-07-25] MEDS: Atorvastatin* 20 MG TAB PO SCH (17:17)
--- NOTE | 2018-07-25 19:04 | PN ---
Progress Note Date of Service: 07/25/18 Note: MICHELLE WILSON was visited. Therapy notes read and reviewed. He complains of a lot of lateral pain along his right thigh and it is tender to the touch. He also notes that due to his back pain, he is unable to elevate his legs, as that causes a throbbing pain in both legs after about 20 minutes Current Medications: Active Medications Generic Name Dose Route Start Last Admin Trade Name Freq PRN Reason Stop Dose Admin Acetaminophen 650 mg 07/18/18 12:04 Tylenol Tab* PO Q6H PRN FEVER/PAIN Apixaban 2.5 mg 07/18/18 21:00 07/25/18 10:43 Eliquis* PO 2.5 mg BID JADA Administration Atorvastatin Calcium 20 mg 07/18/18 17:00 07/25/18 17:17 Lipitor* PO 20 mg 1700 JADA Administration Calcium Polycarbophil 625 mg 07/19/18 09:00 07/25/18 10:43 Fibercon Tab* PO 625 mg DAILY JADA Administration Clobetasol Propionate 1 applic 07/19/18 09:00 07/25/18 10:45 Clobetasol 0.05% Oint* TOPICAL Not Given BID JADA Dextrose 12.5 gm 07/18/18 12:11 D50w Syringe 50 Ml* IV PUSH .FOR FS < 60 - SS PRN FS < 60 Docusate Sodium 100 mg 07/18/18 21:00 07/25/18 10:43 Colace Cap* PO 100 mg BID JADA Administration Doxycycline Hyclate 20 mg 07/19/18 09:00 07/25/18 10:44 Doxycycline (Nf) PO 20 mg BID JADA Administration Gabapentin 600 mg 07/18/18 14:00 07/25/18 12:53 Neurontin Cap(*) PO 600 mg TID JADA Administration Glipizide 2.5 mg 07/19/18 09:00 07/25/18 10:44 Glucotrol Xl* PO 2.5 mg DAILY JADA Administration Insulin Human Lispro 0 - 10 units 07/18/18 16:30 07/25/18 17:01 Humalog* SUBCUT Not Given [facility] Protocol Magnesium Hydroxide 30 ml 07/18/18 12:04 Milk Of Magnesia Liq* PO Q6H PRN CONSTIPATION Methocarbamol 750 mg 07/18/18 19:34 Robaxin Tab* PO TID PRN SPASMS Mometasone Furoate/Formoterol Fumar 2 puff 07/18/18 21:00 07/25/18 07:55 Dulera 200/5 Mdi* INH 2 puff BID JADA Administration Pto: Calcipotriene 1 applic 07/19/18 09:00 07/25/18 10:45 Cream, 0.005% 1 TOPICAL Not Given Applic BID JADA Pto: Janumet 50- 1 dose 07/21/18 09:00 07/25/18 10:44 500mg Tablet PO 1 dose BID JADA Administration Nystatin 1 applic 07/21/18 21:00 07/25/18 10:45 Nystatin Top Powder* TOPICAL Not Given BID JADA Oxycodone/Acetaminophen 1 tab 07/18/18 12:10 07/25/18 14:11 Percocet 5/325 Tab* PO 1 tab Q4H PRN Administration PAIN - MODERATE TO SEVERE Oxycodone/Acetaminophen 2 tab 07/18/18 12:11 07/18/18 13:58 Percocet 5/325 Tab* PO 2 tab Q4H PRN Administration PAIN - SEVERE Potassium Citrate 20 meq 07/18/18 21:00 07/25/18 14:11 Urocit-K 10 (Nf) PO 20 meq TID JADA Administration Senna 2 tab 07/18/18 21:00 07/24/18 21:27 Senokot Tab* PO 2 tab BEDTIME JADA Administration Trimethoprim/Sulfamethoxazole 1 tab 07/18/18 21:00 07/25/18 10:45 Bactrim Ds 800/160 Tab* PO 07/25/18 23:59 1 tab BID JADA Administration Vital Signs: Vital Signs Temp Pulse Resp BP Pulse Ox 98.3 F 85 18 113/56 98 07/25/18 16:14 07/25/18 16:14 07/25/18 17:01 07/25/18 16:14 07/25/18 17:27 Lab Results: Laboratory Results - last 24 hr 07/24/18 07/25/18 07/25/18 20:28 07:48 12:19 POC Glucose (mg/dL) 159 H 164 H 135 H Exam: HEENT: EOMI LUNGS: Clear bilaterally HEART: reg rhythm ABDOMEN: Distended +BS EXTREMITIES: Wound over right hip clean. Minor erythema in right thigh NEUROLOGIC: alert and oriented. Muscle strength appears to be 5/5 except RLE due to pain Assessment/Plan: 1. Right THIERRY: WBAT. PT/OT. 2. Recent lumbar decompression: PT/OT. Analgesics as needed 3. DM: SSI. Glipizide XL. Janumet 4. Possible Cellulitis: Bactrim DS BID finishing up 5. DPN: Gabapentin 6. DVT Prophylaxis: Eliquis 7. Advanced Directives: Full Code 07/25/18 19:04
[2018-07-25] MEDS: Senna TAB PO SCH (21:32)
[2018-07-26 05:51] LABS: ABS Basophils 0 10^3/ul (0-0.2); ABS Eosinophils 0.2 10^3/ul (0-0.6); ABS Lymphocytes 0.6 10^3/ul (1.0-4.8); ABS Neutrophils 3.2 10^3/ul (1.5-7.7); ABS Nucleated RBC 0 10^3/ul; Eosinophil % 4.6 %; Hematocrit 32 % (42-52); Hemoglobin 10.7 g/dl (14.0-18.0); Lymphocyte % 11.8 %; Mean Corpuscular HGB Conc 33 g/dl (31-36); Mean Corpuscular Hemoglobin 30 pg (27-31); Mean Corpuscular Volume 88 fL (80-94); Mean Platelet Volume 6.9 fL (7.4-10.4); Nucleated Red Blood Cells % 0; Platelet Count 288 10^3/ul (150-450); Red Blood Count 3.62 10^6/ul (4.00-5.40); Red Cell Distribution Width 15 % (10.5-15)
[2018-07-26 06:27] LABS: Albumin 3.5 g/dL (3.2-5.2); Albumin/Globulin Ratio 1.1 (1-3); BUN/Creatinine Ratio 18.3 (8-20); Calcium 8.9 mg/dL (8.6-10.3); EGFR Non-African American 70.2 (>60); Globulin 3.3 g/dL (2-4); Potassium 4.4 mmol/L (3.5-5.0); Total Bilirubin 0.5 mg/dL (0.2-1.0); Total Protein 6.8 g/dL (6.4-8.9)
[2018-07-26] MEDS: Mometasone/Formoter 200/5 MDI INH SCH ×2 (07:10→19:39)
[2018-07-26] MEDS: CLOBETASOL 0.05% TOPICAL SCH ×2 (08:03→20:23)
[2018-07-26] MEDS: Docusate CAP* 100 MG PO SCH ×3 (08:03→20:23)
[2018-07-26] MEDS: CALCIPOTRIENE 0.005% TOPICAL SCH ×2 (08:03→20:23)
[2018-07-26] MEDS: Nystatin TOP POWDER* 15 GM BTL TOPICAL SCH ×2 (08:05→20:23)
[2018-07-26] MEDS: PTO:Potassium Citrate (NF) 10 MEQ TAB PO SCH ×3 (08:06→20:21)
[2018-07-26] MEDS: Apixaban* 2.5 MG TAB PO SCH ×2 (08:07→20:19)
[2018-07-26] MEDS: JANUMET PO SCH ×2 (08:07→20:27)
[2018-07-26] MEDS: DOXYCYCLINE 20 MG PO SCH ×2 (08:07→20:21)
[2018-07-26] MEDS: oxyCODONE/Acetamin 5/325 MG* TAB PO PRN ×2 (08:08→14:16)
[2018-07-26] MEDS: Calcium Polycarbophil TAB* 625 MG PO SCH (08:08)
[2018-07-26] MEDS: Gabapentin CAP(*) 300 MG PO SCH ×3 (08:09→20:19)
[2018-07-26] MEDS: Insulin LISPRO* 1 UNITS UNIT SUBCUT SCH ×3 (08:11→17:28)
[2018-07-26] MEDS: glipiZIDE TAB.XL* 2.5 MG PO SCH (08:14)
[2018-07-26] MEDS: Atorvastatin* 20 MG TAB PO SCH (17:29)
--- NOTE | 2018-07-26 20:11 | PN ---
Progress Note Date of Service: 07/26/18 Note: MICHELLE WILSON was visited. Therapy notes read and reviewed. He has continuing complaints of pain in his right lateral leg. Will try Lidoderm patch to area. Current Medications: Active Medications Generic Name Dose Route Start Last Admin Trade Name Freq PRN Reason Stop Dose Admin Acetaminophen 650 mg 07/18/18 12:04 Tylenol Tab* PO Q6H PRN FEVER/PAIN Apixaban 2.5 mg 07/18/18 21:00 07/26/18 08:07 Eliquis* PO 2.5 mg BID JADA Administration Atorvastatin Calcium 20 mg 07/18/18 17:00 07/26/18 17:29 Lipitor* PO 20 mg 1700 JADA Administration Calcium Polycarbophil 625 mg 07/19/18 09:00 07/26/18 08:08 Fibercon Tab* PO 625 mg DAILY JADA Administration Clobetasol Propionate 1 applic 07/19/18 09:00 07/26/18 08:03 Clobetasol 0.05% Oint* TOPICAL Not Given BID JADA Dextrose 12.5 gm 07/18/18 12:11 D50w Syringe 50 Ml* IV PUSH .FOR FS < 60 - SS PRN FS < 60 Docusate Sodium 100 mg 07/18/18 21:00 07/26/18 08:14 Colace Cap* PO 100 mg BID JADA Administration Doxycycline Hyclate 20 mg 07/19/18 09:00 07/26/18 08:07 Doxycycline (Nf) PO 20 mg BID JADA Administration Gabapentin 600 mg 07/18/18 14:00 07/26/18 14:16 Neurontin Cap(*) PO 600 mg TID JADA Administration Glipizide 2.5 mg 07/19/18 09:00 07/26/18 08:14 Glucotrol Xl* PO 2.5 mg DAILY JADA Administration Insulin Human Lispro 0 - 10 units 07/18/18 16:30 07/26/18 17:28 Humalog* SUBCUT 1 units AC JADA Administration Protocol Lidocaine 1 patch 07/27/18 09:00 Lidoderm 5% Patch* TRANSDERM DAILY JADA Magnesium Hydroxide 30 ml 07/18/18 12:04 Milk Of Magnesia Liq* PO Q6H PRN CONSTIPATION Methocarbamol 750 mg 07/18/18 19:34 Robaxin Tab* PO TID PRN SPASMS Mometasone Furoate/Formoterol Fumar 2 puff 07/18/18 21:00 07/26/18 19:39 Dulera 200/5 Mdi* INH 2 puff BID JADA Administration Pto: Calcipotriene 1 applic 07/19/18 09:00 07/26/18 08:03 Cream, 0.005% 1 TOPICAL Not Given Applic BID JADA Pto: Janumet 50- 1 dose 07/21/18 09:00 07/26/18 08:07 500mg Tablet PO 1 dose BID JADA Administration Nystatin 1 applic 07/21/18 21:00 07/26/18 08:05 Nystatin Top Powder* TOPICAL Not Given BID JADA Oxycodone/Acetaminophen 1 tab 07/18/18 12:10 07/26/18 14:16 Percocet 5/325 Tab* PO 1 tab Q4H PRN Administration PAIN - MODERATE TO SEVERE Oxycodone/Acetaminophen 2 tab 07/18/18 12:11 07/18/18 13:58 Percocet 5/325 Tab* PO 2 tab Q4H PRN Administration PAIN - SEVERE Pharmacy Profile Note 1 note 07/26/18 21:00 Lidocaine Patch Remove* N/A 2100 JADA Potassium Citrate 20 meq 07/18/18 21:00 07/26/18 14:17 Urocit-K 10 (Nf) PO 20 meq TID JADA Administration Senna 2 tab 07/18/18 21:00 07/25/18 21:32 Senokot Tab* PO Not Given BEDTIME [facility] Vital Signs: Vital Signs Temp Pulse Resp BP Pulse Ox 98.8 F 92 20 112/61 92 07/26/18 16:14 07/26/18 19:40 07/26/18 19:40 07/26/18 16:14 07/26/18 19:53 Lab Results: Laboratory Results - last 24 hr 07/25/18 07/25/18 07/26/18 16:40 20:14 05:37 WBC 5.0 RBC 3.62 L Hgb 10.7 L Hct 32 L MCV 88 MCH 30 MCHC 33 RDW 15 Plt Count 288 MPV 6.9 L Neut % (Auto) 63.7 Lymph % (Auto) 11.8 Bryan % (Auto) 19.3 Eos % (Auto) 4.6 Baso % (Auto) 0.6 Absolute Neuts (auto) 3.2 Absolute Lymphs (auto) 0.6 L Absolute Monos (auto) 1.0 H Absolute Eos (auto) 0.2 Absolute Basos (auto) 0 Absolute Nucleated RBC 0 Nucleated RBC % 0 Sodium Potassium Chloride Carbon Dioxide Anion Gap BUN Creatinine Est GFR ( Amer) Est GFR (Non-Af Amer) BUN/Creatinine Ratio Glucose POC Glucose (mg/dL) 120 H 196 H Calcium Total Bilirubin AST ALT Alkaline Phosphatase Total Protein Albumin Globulin Albumin/Globulin Ratio 07/26/18 07/26/18 07/26/18 05:37 07:59 11:47 WBC RBC Hgb Hct MCV MCH MCHC RDW Plt Count MPV Neut % (Auto) Lymph % (Auto) Bryan % (Auto) Eos % (Auto) Baso % (Auto) Absolute Neuts (auto) Absolute Lymphs (auto) Absolute Monos (auto) Absolute Eos (auto) Absolute Basos (auto) Absolute Nucleated RBC Nucleated RBC % Sodium 133 L Potassium 4.4 Chloride 99 L Carbon Dioxide 27 Anion Gap 7 BUN 19 Creatinine 1.04 Est GFR ( Amer) 84.9 Est GFR (Non-Af Amer) 70.2 BUN/Creatinine Ratio 18.3 Glucose 162 H POC Glucose (mg/dL) 186 H 110 H Calcium 8.9 Total Bilirubin 0.50 AST 14 ALT 17 Alkaline Phosphatase 65 Total Protein 6.8 Albumin 3.5 Globulin 3.3 Albumin/Globulin Ratio 1.1 07/26/18 16:47 WBC RBC Hgb Hct MCV MCH MCHC RDW Plt Count MPV Neut % (Auto) Lymph % (Auto) Bryan % (Auto) Eos % (Auto) Baso % (Auto) Absolute Neuts (auto) Absolute Lymphs (auto) Absolute Monos (auto) Absolute Eos (auto) Absolute Basos (auto) Absolute Nucleated RBC Nucleated RBC % Sodium Potassium Chloride Carbon Dioxide Anion Gap BUN Creatinine Est GFR ( Amer) Est GFR (Non-Af Amer) BUN/Creatinine Ratio Glucose POC Glucose (mg/dL) 133 H Calcium Total Bilirubin AST ALT Alkaline Phosphatase Total Protein Albumin Globulin Albumin/Globulin Ratio Assessment/Plan: 1. Right THIERRY: WBAT. PT/OT. 2. Recent lumbar decompression: PT/OT. Analgesics as needed 3. DM: SSI. Glipizide XL. Janumet 4. Possible Cellulitis: Bactrim DS BID finishing up 5. DPN: Gabapentin 6. DVT Prophylaxis: Eliquis 7. Advanced Directives: Full Code 07/25/18 19:04
[2018-07-26] MEDS: Senna TAB PO SCH (20:23)
[2018-07-26] MEDS ORDERED: Lidocaine Patch REMOVE* 1 NOTE MISC SCH (21:00)
[2018-07-27] MEDS: Docusate CAP* 100 MG PO SCH ×2 (07:16→20:56)
[2018-07-27] MEDS: CLOBETASOL 0.05% TOPICAL SCH ×2 (07:16→20:52)
[2018-07-27] MEDS: CALCIPOTRIENE 0.005% TOPICAL SCH ×2 (07:16→20:52)
[2018-07-27] MEDS: oxyCODONE/Acetamin 5/325 MG* TAB PO PRN ×3 (07:39→21:15)
[2018-07-27] MEDS: PTO:Potassium Citrate (NF) 10 MEQ TAB PO SCH ×3 (07:40→20:54)
[2018-07-27] MEDS: glipiZIDE TAB.XL* 2.5 MG PO SCH (07:41)
[2018-07-27] MEDS: Calcium Polycarbophil TAB* 625 MG PO SCH (07:41)
[2018-07-27] MEDS: JANUMET PO SCH ×2 (07:41→20:53)
[2018-07-27] MEDS: DOXYCYCLINE 20 MG PO SCH ×2 (07:41→20:53)
[2018-07-27] MEDS: Apixaban* 2.5 MG TAB PO SCH ×2 (07:41→20:52)
[2018-07-27] MEDS: Gabapentin CAP(*) 300 MG PO SCH ×3 (07:42→20:52)
[2018-07-27] MEDS: Lidocaine PATCH 5%* 1 PATCH TRANSDERM SCH (07:42)
[2018-07-27] MEDS: Insulin LISPRO* 1 UNITS UNIT SUBCUT SCH ×3 (07:47→17:45)
[2018-07-27] MEDS: Mometasone/Formoter 200/5 MDI INH SCH ×2 (08:27→19:46)
[2018-07-27] MEDS: Nystatin TOP POWDER* 15 GM BTL TOPICAL SCH ×2 (09:59→20:54)
--- NOTE | 2018-07-27 16:35 | PN ---
Progress Note Date of Service: 07/27/18 Note: MICHELLE WILSON was visited. Therapy notes read and reviewed. He was able to do therapy today and is improving. Current Medications: Active Medications Generic Name Dose Route Start Last Admin Trade Name Freq PRN Reason Stop Dose Admin Acetaminophen 650 mg 07/18/18 12:04 Tylenol Tab* PO Q6H PRN FEVER/PAIN Apixaban 2.5 mg 07/18/18 21:00 07/27/18 07:41 Eliquis* PO 2.5 mg BID JADA Administration Atorvastatin Calcium 20 mg 07/18/18 17:00 07/26/18 17:29 Lipitor* PO 20 mg 1700 JADA Administration Calcium Polycarbophil 625 mg 07/19/18 09:00 07/27/18 07:41 Fibercon Tab* PO 625 mg DAILY JADA Administration Clobetasol Propionate 1 applic 07/19/18 09:00 07/27/18 07:16 Clobetasol 0.05% Oint* TOPICAL Not Given BID [facility] Dextrose 12.5 gm 07/18/18 12:11 D50w Syringe 50 Ml* IV PUSH .FOR FS < 60 - SS PRN FS < 60 Docusate Sodium 100 mg 07/18/18 21:00 07/27/18 07:16 Colace Cap* PO Not Given BID JADA Doxycycline Hyclate 20 mg 07/19/18 09:00 07/27/18 07:41 Doxycycline (Nf) PO 20 mg BID JADA Administration Gabapentin 600 mg 07/18/18 14:00 07/27/18 14:24 Neurontin Cap(*) PO 600 mg TID JADA Administration Glipizide 2.5 mg 07/19/18 09:00 07/27/18 07:41 Glucotrol Xl* PO 2.5 mg DAILY JADA Administration Insulin Human Lispro 0 - 10 units 07/18/18 16:30 07/27/18 11:58 Humalog* SUBCUT Not Given [facility] Protocol Lidocaine 1 patch 07/27/18 09:00 07/27/18 07:42 Lidoderm 5% Patch* TRANSDERM 1 patch DAILY JADA Administration Magnesium Hydroxide 30 ml 07/18/18 12:04 Milk Of Magnesia Liq* PO Q6H PRN CONSTIPATION Methocarbamol 750 mg 07/18/18 19:34 Robaxin Tab* PO TID PRN SPASMS Mometasone Furoate/Formoterol Fumar 2 puff 07/18/18 21:00 07/27/18 08:27 Dulera 200/5 Mdi* INH 2 puff BID JADA Administration Pto: Calcipotriene 1 applic 07/19/18 09:00 07/27/18 07:16 Cream, 0.005% 1 TOPICAL Not Given Applic BID JADA Pto: Janumet 50- 1 dose 07/21/18 09:00 07/27/18 07:41 500mg Tablet PO 1 dose BID JADA Administration Nystatin 1 applic 07/21/18 21:00 07/27/18 09:59 Nystatin Top Powder* TOPICAL Not Given BID JADA Oxycodone/Acetaminophen 1 tab 07/18/18 12:10 07/27/18 14:24 Percocet 5/325 Tab* PO 1 tab Q4H PRN Administration PAIN - MODERATE TO SEVERE Oxycodone/Acetaminophen 2 tab 07/18/18 12:11 07/18/18 13:58 Percocet 5/325 Tab* PO 2 tab Q4H PRN Administration PAIN - SEVERE Pharmacy Profile Note 1 note 07/27/18 21:00 Lidocaine Patch Remove* PATCH OFF 2100 [facility] Potassium Citrate 20 meq 07/18/18 21:00 07/27/18 14:24 Urocit-K 10 (Nf) PO 20 meq TID JADA Administration Senna 2 tab 07/18/18 21:00 07/26/18 20:23 Senokot Tab* PO Not Given BEDTIME [facility] Vital Signs: Vital Signs Temp Pulse Resp BP Pulse Ox 98.1 F 85 20 105/56 94 07/27/18 15:42 07/27/18 15:42 07/27/18 15:42 07/27/18 15:42 07/27/18 15:42 Lab Results: Laboratory Results - last 24 hr 07/26/18 07/26/18 07/27/18 16:47 20:19 07:27 POC Glucose (mg/dL) 133 H 192 H 170 H 07/27/18 11:43 POC Glucose (mg/dL) 88 Exam: HEENT: EOMI LUNGS: Clear bilaterally HEART: reg rhythm ABDOMEN: Distended +BS EXTREMITIES: Wound over right hip clean. NEUROLOGIC: alert and oriented. Muscle strength appears to be 5/5 except RLE due to pain Assessment/Plan: 1. Right THIERRY: WBAT. PT/OT. 2. Recent lumbar decompression: PT/OT. Analgesics as needed 3. DM: SSI. Glipizide XL. Janumet 4. DPN: Gabapentin 5. DVT Prophylaxis: Eliquis 6. Advanced Directives: Full Code 07/27/18 16:35
[2018-07-27] MEDS: Atorvastatin* 20 MG TAB PO SCH (17:48)
[2018-07-27] MEDS: Lidocaine Patch REMOVE* 1 NOTE MISC PATCH OFF SCH (20:51)
[2018-07-27] MEDS: Senna TAB PO SCH (20:55)
[2018-07-28] MEDS: Docusate CAP* 100 MG PO SCH ×2 (07:50→20:52)
[2018-07-28] MEDS: Calcium Polycarbophil TAB* 625 MG PO SCH (07:50)
[2018-07-28] MEDS: Insulin LISPRO* 1 UNITS UNIT SUBCUT SCH ×3 (08:03→17:39)
[2018-07-28] MEDS: Lidocaine PATCH 5%* 1 PATCH TRANSDERM SCH (08:03)
[2018-07-28] MEDS: DOXYCYCLINE 20 MG PO SCH ×2 (08:04→20:46)
[2018-07-28] MEDS: PTO:Potassium Citrate (NF) 10 MEQ TAB PO SCH ×3 (08:07→20:46)
[2018-07-28] MEDS: JANUMET PO SCH ×2 (08:07→20:46)
[2018-07-28] MEDS: Gabapentin CAP(*) 300 MG PO SCH ×3 (08:07→20:45)
[2018-07-28] MEDS: CALCIPOTRIENE 0.005% TOPICAL SCH ×2 (08:08→20:52)
[2018-07-28] MEDS: Mometasone/Formoter 200/5 MDI INH SCH ×2 (08:09→20:32)
[2018-07-28] MEDS: Apixaban* 2.5 MG TAB PO SCH ×2 (08:09→20:45)
[2018-07-28] MEDS: CLOBETASOL 0.05% TOPICAL SCH ×2 (08:10→20:52)
[2018-07-28] MEDS: Nystatin TOP POWDER* 15 GM BTL TOPICAL SCH ×2 (08:10→20:53)
[2018-07-28] MEDS: glipiZIDE TAB.XL* 2.5 MG PO SCH (08:10)
[2018-07-28] MEDS: Atorvastatin* 20 MG TAB PO SCH (17:39)
--- NOTE | 2018-07-28 18:06 | PN ---
Progress Note Date of Service: 07/28/18 Note: MICHELLE WILSON was visited. Therapy notes read and reviewed. Complains of diarrhea. Will try Probiotic. Also complains of urinary urge then having to urinate right away. Will check U/A Current Medications: Active Medications Generic Name Dose Route Start Last Admin Trade Name Freq PRN Reason Stop Dose Admin Acetaminophen 650 mg 07/18/18 12:04 Tylenol Tab* PO Q6H PRN FEVER/PAIN Apixaban 2.5 mg 07/18/18 21:00 07/28/18 08:09 Eliquis* PO 2.5 mg BID JADA Administration Atorvastatin Calcium 20 mg 07/18/18 17:00 07/28/18 17:39 Lipitor* PO 20 mg 1700 JADA Administration Calcium Polycarbophil 625 mg 07/19/18 09:00 07/28/18 07:50 Fibercon Tab* PO Not Given DAILY JADA Clobetasol Propionate 1 applic 07/19/18 09:00 07/28/18 08:10 Clobetasol 0.05% Oint* TOPICAL 1 applic BID JADA Administration Dextrose 12.5 gm 07/18/18 12:11 D50w Syringe 50 Ml* IV PUSH .FOR FS < 60 - SS PRN FS < 60 Docusate Sodium 100 mg 07/18/18 21:00 07/28/18 07:50 Colace Cap* PO Not Given BID JADA Doxycycline Hyclate 20 mg 07/19/18 09:00 07/28/18 08:04 Doxycycline (Nf) PO 20 mg BID JADA Administration Gabapentin 600 mg 07/18/18 14:00 07/28/18 14:14 Neurontin Cap(*) PO 600 mg TID JADA Administration Glipizide 2.5 mg 07/19/18 09:00 07/28/18 08:10 Glucotrol Xl* PO 2.5 mg DAILY JADA Administration Insulin Human Lispro 0 - 10 units 07/18/18 16:30 07/28/18 17:39 Humalog* SUBCUT 1 units AC JADA Administration Protocol Lactobacillus Rhamnosus 1 tab 07/28/18 21:00 Lactobacillus Acidophilus* PO BID JADA Lidocaine 1 patch 07/27/18 09:00 07/28/18 08:03 Lidoderm 5% Patch* TRANSDERM 1 patch DAILY JADA Administration Magnesium Hydroxide 30 ml 07/18/18 12:04 Milk Of Magnesia Liq* PO Q6H PRN CONSTIPATION Methocarbamol 750 mg 07/18/18 19:34 Robaxin Tab* PO TID PRN SPASMS Mometasone Furoate/Formoterol Fumar 2 puff 07/18/18 21:00 07/28/18 08:09 Dulera 200/5 Mdi* INH 2 puff BID JADA Administration Pto: Calcipotriene 1 applic 07/19/18 09:00 07/28/18 08:08 Cream, 0.005% 1 TOPICAL 1 applic Applic BID JADA Administration Pto: Janumet 50- 1 dose 07/21/18 09:00 07/28/18 08:07 500mg Tablet PO 1 dose BID JADA Administration Nystatin 1 applic 07/21/18 21:00 07/28/18 08:10 Nystatin Top Powder* TOPICAL 1 applic BID JADA Administration Oxycodone/Acetaminophen 1 tab 07/18/18 12:10 07/27/18 21:15 Percocet 5/325 Tab* PO 1 tab Q4H PRN Administration PAIN - MODERATE TO SEVERE Oxycodone/Acetaminophen 2 tab 07/18/18 12:11 07/18/18 13:58 Percocet 5/325 Tab* PO 2 tab Q4H PRN Administration PAIN - SEVERE Pharmacy Profile Note 1 note 07/27/18 21:00 07/27/18 20:51 Lidocaine Patch Remove* PATCH OFF 1 note 2100 JADA Administration Potassium Citrate 20 meq 07/18/18 21:00 07/28/18 14:13 Urocit-K 10 (Nf) PO 20 meq TID JADA Administration Senna 2 tab 07/18/18 21:00 07/27/18 20:55 Senokot Tab* PO Not Given BEDTIME [facility] Vital Signs: Vital Signs Temp Pulse Resp BP Pulse Ox 97.8 F 86 18 108/65 100 07/28/18 16:41 07/28/18 16:41 07/28/18 16:41 07/28/18 16:41 07/28/18 16:41 Lab Results: Laboratory Results - last 24 hr 07/27/18 07/28/18 07/28/18 20:59 07:39 11:43 POC Glucose (mg/dL) 167 H 145 H 82 07/28/18 16:50 POC Glucose (mg/dL) 142 H Exam: HEENT: EOMI LUNGS: Clear bilaterally HEART: reg rhythm ABDOMEN: Distended +BS EXTREMITIES: Wound over right hip clean. NEUROLOGIC: alert and oriented. Muscle strength appears to be 5/5 except RLE due to pain Assessment/Plan: 1. Right THIERRY: WBAT. PT/OT. 2. Recent lumbar decompression: PT/OT. Analgesics as needed 3. DM: SSI. Glipizide XL. Janumet 4. DPN: Gabapentin 5. DVT Prophylaxis: Eliquis 6. Advanced Directives: Full Code 7. Diarrhea: Probiotic 07/28/18 18:07
[2018-07-28 20:10] LABS: Urine Appearance Clear; Urine Bilirubin Negative (Negative); Urine Blood Negative (Negative); Urine Color Yellow; Urine Glucose Negative (Negative); Urine Ketones Negative (Negative); Urine Nitrite Negative (Negative); Urine Protein Negative (Negative); Urine Specific Gravity 1.013 (1.010-1.030); Urine Urobilinogen Negative (Negative)
[2018-07-28] MEDS: Lactobacillus Acidophilus* 1 TAB PO SCH (20:46)
[2018-07-28] MEDS: Senna TAB PO SCH (20:53)
[2018-07-28] MEDS: Lidocaine Patch REMOVE* 1 NOTE MISC PATCH OFF SCH (20:53)
[2018-07-29] MEDS: Docusate CAP* 100 MG PO SCH ×2 (07:49→21:01)
[2018-07-29] MEDS: Insulin LISPRO* 1 UNITS UNIT SUBCUT SCH ×3 (08:15→16:32)
[2018-07-29] MEDS: Gabapentin CAP(*) 300 MG PO SCH ×3 (08:16→20:59)
[2018-07-29] MEDS: Lactobacillus Acidophilus* 1 TAB PO SCH ×2 (08:16→20:58)
[2018-07-29] MEDS: glipiZIDE TAB.XL* 2.5 MG PO SCH (08:17)
[2018-07-29] MEDS: oxyCODONE/Acetamin 5/325 MG* TAB PO PRN (08:17)
[2018-07-29] MEDS: Calcium Polycarbophil TAB* 625 MG PO SCH (08:17)
[2018-07-29] MEDS: Apixaban* 2.5 MG TAB PO SCH ×2 (08:18→21:00)
[2018-07-29] MEDS: PTO:Potassium Citrate (NF) 10 MEQ TAB PO SCH ×3 (08:18→21:02)
[2018-07-29] MEDS: JANUMET PO SCH ×2 (08:19→21:02)
[2018-07-29] MEDS: DOXYCYCLINE 20 MG PO SCH ×2 (08:19→21:01)
[2018-07-29] MEDS: CLOBETASOL 0.05% TOPICAL SCH ×2 (08:20→21:01)
[2018-07-29] MEDS: Mometasone/Formoter 200/5 MDI INH SCH ×2 (08:21→20:07)
[2018-07-29] MEDS: CALCIPOTRIENE 0.005% TOPICAL SCH ×2 (08:21→21:01)
[2018-07-29] MEDS: Lidocaine PATCH 5%* 1 PATCH TRANSDERM SCH (09:00)
[2018-07-29] MEDS: Nystatin TOP POWDER* 15 GM BTL TOPICAL SCH ×2 (09:02→21:02)
--- NOTE | 2018-07-29 12:31 | PMRUTEAM ---
PMRU: Team Meeting Current Status: Nursing: Current Status Skin Deviations [Bilat groin] Other Skin Deviations [groin and ABD Abrasion,Rash fold] Skin Deviations [Midline Other Buttocks] Skin Deviations [Left Abrasion,Rash Posterior Lateral Back] Skin Deviations [Left Lower Abrasion,Rash Leg] Skin Deviations [Right Hip] Incision Skin Deviation Description [ mild redness Bilat groin] Skin Deviation Description [ nystatin applied groin and ABD fold] Skin Deviation Description [ small spot in cleft, cream applied Midline Buttocks] Skin Deviation Description [ psoriasis Left Posterior Lateral Back] Skin Deviation Description [ scabbed, healing wound Left Lower Leg] Skin Deviation Description [ healing Right Hip] Physical Therapy: Current Status Bed Mobility Assistance Not Tested Transfer Mobility Assistance Supervision Transfer/Bed Mobility Rolling Walker,Straight Cane Recommended Devices Transfer Mobility Comment pt. is able to perform transfer using 2 w/w. Ambulation Assistance Supervision Ambulation Assistive Devices Rolling Walker Number of Feet Patient 150' Ambulated Ambulation Comment Pt. presents a step to type antalgic type gait pattern. Stairs Assistance Supervision Stairs Recommended Devices Two Rails Number of Stairs 5 Curb Not Tested Occupational Therapy: Current Status Upper Body Dressing Supervision Lower Body Dressing Min Assist Bathing Contact Guard Assist Toileting Min Assist Toilet Transfer Contact Guard Assist Shower Transfer Contact Guard Assist Eating Independent Rec Therapy: Current Status Summary of Assessment and Patient was open to meeting with this policy writer sales to Clinical Impression discuss his leisure lifestyle prior to admission. Patient had an irritable edge at times and stated he would like the staff to "be patient" with him. Patient was being visited by his and their friend at the time of the assessment. Patient requested to have his guitar brought in in a couple of days when he is more up to playing. Treatment Goals Patient will engage in recreation and leisure activities while on the unit. Treatment Plan Provide and encourage involvement in RT services. Social Work: Current Status Discharge Plan return home with home care svs and family support Potential for Family Training pt's is involved and supportive Anticipated Discharge Home Destination Discharge With home care svs and family support Goals: Physical Therapy: Initial Goals Bed Mobility Assistance Independent Transfer Mobility Assistance Independent Transfer/Bed Mobility Rolling Walker Recommended Devices Ambulation Independent Ambulation Recommended Devices Rolling Walker Ambulation Distance 150 Stairs Assistance Supervision Stair Recommended Devices Two Rails Number of Stairs flight (13) Home Exercise Program Independent Assistance Physical Therapy: Updated Goals Bed Mobility Assistance Independent Transfer Mobility Assistance Independent Transfer/Bed Mobility Rolling Walker,Straight Cane,EZ Stand Recommended Devices Ambulation Assistance Independent Ambulation Assistive Devices Rolling Walker Ambulation Distance (ft) 150 Stairs Assistance Independent Stairs Recommended Devices Two Rails Number of Stairs 12 Home Exercise Program Independent Assistance Occupational Therapy: Initial Goals Goals to be Completed in (Days 21 ) Upper Body Bathing Routine Independent Lower Body Bathing Routine Minimal Contact Assist Upper Body Dressing Routine Independent Lower Body Dressing Routine Minimal Contact Assist Toilet Hygeine and Clothing Modified Independent with Management Routine Toilet Transfer Routine Modified Independent with Step-In Shower Transfer Supervision/Set Up Routine Functional Transfers for ADL Modified Independent with Grooming Routine Independent Feeding Routine Independent Nutrition: Goals Intervention Goals Intake will remain adequate to maintain stable wt and promote post-op healing BG will be adequately controlled per inpt parameters Pt will maintain regular bowel pattern without constipation/diarrhea Social Work: Goals Discharge Plan return home with home care svs and family support Potential for Family Training pt's is involved and supportive Anticipated Discharge Home Destination Discharge With home care svs and family support Care Plan: Care Plan ADL's - Improve/Maintain Start: 07/19/18 13:58 Freq: DAILY Status: Active Target: Protocol: Activity Type Activity Date Activity User E-Sign Co-Sign Detail Recorded Client Recorded Date Recorded By Document 07/26/18 14:56 [id number] [id number] 07/26/18 14:57 [id number] 07/26/18 14:56 PMRU Outcome: ADL's/ADL Transfers Orders/Interventions Occupational Therapy Evaluation & Treatment Communication Tool in Patient Room Patient to receive OT 5x/wk for 60-120 Therex min/day Self Care Management Group Therapy UE/LE ADL's with Assist Yes: min A ADL Transfers with Assist Yes: mod I Toileting: Transfers,Clothing Management Yes: mod I ,Hygeine w/Assist Progression Toward Outcome/Goals Progressing Outcome/Goals Met Pt demonstrating increased independence using AE and requires less encouragement than previous sessions to complete tasks himselfs. Pt's goal will be to form new habits at home so he does not continue to rely on his as he has done in the past. Pt's mobility also showing improvement since this morning given his ability to walk to and from the shower room. Coping/Psych-Improve/Maintain Start: 07/18/18 12:59 Freq: QSHIFT Status: Active Target: Protocol: Activity Type Activity Date Activity User E-Sign Co-Sign Detail Recorded Client Recorded Date Recorded By Document 07/29/18 11:56 [id number] 07/29/18 11:56 [id number] 07/29/18 11:56 PMRU Outcome: Coping/Psychosocial Coping Outcome/Goals Verbalization of Acceptance of Rehab Admit Verbalization of Sense of Control Over Health Status Utilization of Appropriate Problem Solving Techniques Willingness to Participate in Treatment Plan and Basic Needs Utilization of Available Support Systems Absence of Destructive Behavior to Self/Others Psychosocial Outcome/Goals Maintain/ Improve Emotional Health Demonstrates Knowledge of Healthy Coping Mechanisms Available Cooperate/ Participate in Plan Progression Toward Outcome/Goals - Progressing Coping Progression Toward Outcome/Goals - Progressing Psychosocial DVT Prophylaxis- Improve/Maintain Start: 07/18/18 12:59 Freq: QSHIFT Status: Active Target: Protocol: Activity Type Activity Date Activity User E-Sign Co-Sign Detail Recorded Client Recorded Date Recorded By Document 07/29/18 10:54 [id number] 07/29/18 10:56 [id number] 07/29/18 10:54 PMRU Outcome: DVT Prophylaxis Outcome/Goals Remains Free of DVT Complies with DVT Prophylaxis /Treatment Demonstrates Knowledge of DVT Prevention/ Treatment Progression Toward Outcome/Goals Progressing Discharge Planning - Improve/Maintain Start: 07/18/18 12:59 Freq: DAILY Status: Active Target: Protocol: Activity Type Activity Date Activity User E-Sign Co-Sign Detail Recorded Client Recorded Date Recorded By Document 07/29/18 00:05 [id number] 07/29/18 00:09 [id number] 07/29/18 00:05 PMRU Outcome: Discharge Planning Update Patient Family No Education-Improve/Maintain Start: 07/18/18 12:59 Freq: QSHIFT Status: Active Target: Protocol: Activity Type Activity Date Activity User E-Sign Co-Sign Detail Recorded Client Recorded Date Recorded By Document 07/29/18 10:54 [id number] 07/29/18 10:56 [id number] 07/29/18 10:54 PMRU Outcome: Education Outcome/Goals Demonstrates Skills Encourage Questions Progression Toward Outcome/Goals Progressing Medication Administration Start: 07/18/18 12:59 Freq: QSHIFT Status: Active Target: Protocol: Activity Type Activity Date Activity User E-Sign Co-Sign Detail Recorded Client Recorded Date Recorded By Document 07/29/18 10:54 [id number] 07/29/18 10:56 [id number] 07/29/18 10:54 PMRU Outcome: Medication Administration Assess Patient Knowledge/Teach Med Yes Education for all Meds Outcome/Goals Demonstrates Understanding Progression Towards Outcome/Goals Progressing Is Patient Going Home on Lovenox? No Metabolic Status- Improve/Maintain Start: 07/18/18 12:59 Freq: QSHIFT Status: Active Target: Protocol: Activity Type Activity Date Activity User E-Sign Co-Sign Detail Recorded Client Recorded Date Recorded By Document 07/29/18 10:54 [id number] 07/29/18 10:56 [id number] 07/29/18 10:54 PMRU Outcome: Metabolic Status Have Fingersticks Been Ordered Yes Fingerstick Order Frequency AC & HS Outcome/Goals Maintain/ Improve Metabolic Status Demonstrate Knowledge of Prevention/ Treatment of Metabolic Imbalances Progression Toward Outcome/Goals Progressing Mobility- Improve/Maintain Start: 07/20/18 15:22 Freq: DAILY Status: Active Target: Protocol: Activity Type Activity Date Activity User E-Sign Co-Sign Detail Recorded Client Recorded Date Recorded By Document 07/20/18 15:22 [id number] 07/20/18 15:23 [id number] 07/20/18 15:22 PMRU Outcome: Mobility Physical Therapy Evaluation and Yes Treatment Activity OOB with Assistance Yes WBAT Yes: R LE Device Yes: FWW Assistance Yes: Min-Mod A Patient to be seen 5x/wk for 60-120 min/ Therex day for: Mobility Training Gait Training Balance Outcome/Goals Maintain/ Achieve Baseline Mobility Status Improve Mobility Status Demonstrates Proper Use of Assistive Devices Free from Complications of Immobility Progression Toward Outcome/Goals Progressing Bed Mobility Yes: Ind Transfers Yes: Mod I with walker Gait x ft Yes: Mod I with walker x150ft Up/Down Stairs Yes: Supervision, 1 flight with 1 rail With HEP Yes Pain/Comfort- Improve/Maintain Start: 07/18/18 12:59 Freq: QSHIFT Status: Active Target: Protocol: Activity Type Activity Date Activity User E-Sign Co-Sign Detail Recorded Client Recorded Date Recorded By Document 07/29/18 10:54 [id number] 07/29/18 10:56 [id number] 07/29/18 10:54 PMRU Outcome: Pain/Comfort Outcome/Goals Demonstrates Knowledge and Use of Available Comfort Measures Achieves Acceptable Comfort/Pain Level as Determined by Patient/Condit Maintain Comfort Level Allowing Patient to Fully Participate in Rehab Progression Toward Outcome/Goals Progressing Skin- Improve/Maintain Start: 07/18/18 12:59 Freq: QSHIFT Status: Active Target: Protocol: Activity Type Activity Date Activity User E-Sign Co-Sign Detail Recorded Client Recorded Date Recorded By Document 07/29/18 10:54 [id number] 07/29/18 10:56 [id number] 07/29/18 10:54 PMRU Outcome: Skin Skin Risk Level Medium Skin Orders Dressing Change Outcome/Goals Free from Decubitus Surgical Incisions Healing Progression Toward Outcome/Goals Progressing Medicine Note: Length of Stay: 4 days Anticipated Discharge Destination: Home Tentative Discharge Date: 08/02/17 Discharged to: Home
[2018-07-29] MEDS: Atorvastatin* 20 MG TAB PO SCH (17:37)
--- NOTE | 2018-07-29 19:49 | PN ---
Progress Note Date of Service: 07/29/18 Note: MICHELLE WILSON was visited. Therapy notes read and reviewed. He was discussed in interdisciplinary team rounds. Making gains. He had a U/A that was negative. Now on Lactobacillus but diarrhea and loose stools still a problem. This was also a problem prior to surgery Current Medications: Active Medications Generic Name Dose Route Start Last Admin Trade Name Freq PRN Reason Stop Dose Admin Acetaminophen 650 mg 07/18/18 12:04 Tylenol Tab* PO Q6H PRN FEVER/PAIN Apixaban 2.5 mg 07/18/18 21:00 07/29/18 08:18 Eliquis* PO 2.5 mg BID JADA Administration Atorvastatin Calcium 20 mg 07/18/18 17:00 07/29/18 17:37 Lipitor* PO 20 mg 1700 JADA Administration Calcium Polycarbophil 625 mg 07/19/18 09:00 07/29/18 08:17 Fibercon Tab* PO 625 mg DAILY JADA Administration Clobetasol Propionate 1 applic 07/19/18 09:00 07/29/18 08:20 Clobetasol 0.05% Oint* TOPICAL Not Given BID [facility] Dextrose 12.5 gm 07/18/18 12:11 D50w Syringe 50 Ml* IV PUSH .FOR FS < 60 - SS PRN FS < 60 Docusate Sodium 100 mg 07/18/18 21:00 07/29/18 07:49 Colace Cap* PO Not Given BID JADA Doxycycline Hyclate 20 mg 07/19/18 09:00 07/29/18 08:19 Doxycycline (Nf) PO 20 mg BID JADA Administration Gabapentin 600 mg 07/18/18 14:00 07/29/18 14:09 Neurontin Cap(*) PO 600 mg TID JADA Administration Glipizide 2.5 mg 07/19/18 09:00 07/29/18 08:17 Glucotrol Xl* PO 2.5 mg DAILY JADA Administration Insulin Human Lispro 0 - 10 units 07/18/18 16:30 07/29/18 16:32 Humalog* SUBCUT Not Given [facility] Protocol Lactobacillus Rhamnosus 1 tab 07/28/18 21:00 07/29/18 08:16 Lactobacillus Acidophilus* PO 1 tab BID JADA Administration Lidocaine 1 patch 07/27/18 09:00 07/29/18 09:00 Lidoderm 5% Patch* TRANSDERM 1 patch DAILY JADA Administration Magnesium Hydroxide 30 ml 07/18/18 12:04 Milk Of Magnesia Liq* PO Q6H PRN CONSTIPATION Methocarbamol 750 mg 07/18/18 19:34 Robaxin Tab* PO TID PRN SPASMS Mometasone Furoate/Formoterol Fumar 2 puff 07/18/18 21:00 07/29/18 08:21 Dulera 200/5 Mdi* INH 2 puff BID JADA Administration Pto: Calcipotriene 1 applic 07/19/18 09:00 07/29/18 08:21 Cream, 0.005% 1 TOPICAL Not Given Applic BID JADA Pto: Janumet 50- 1 dose 07/21/18 09:00 07/29/18 08:19 500mg Tablet PO 1 dose BID JADA Administration Nystatin 1 applic 07/21/18 21:00 07/29/18 09:02 Nystatin Top Powder* TOPICAL Not Given BID JADA Oxycodone/Acetaminophen 1 tab 07/18/18 12:10 07/29/18 08:17 Percocet 5/325 Tab* PO 1 tab Q4H PRN Administration PAIN - MODERATE TO SEVERE Oxycodone/Acetaminophen 2 tab 07/18/18 12:11 07/18/18 13:58 Percocet 5/325 Tab* PO 2 tab Q4H PRN Administration PAIN - SEVERE Pharmacy Profile Note 1 note 07/27/18 21:00 07/28/18 20:53 Lidocaine Patch Remove* PATCH OFF 1 note 2100 JADA Administration Potassium Citrate 20 meq 07/18/18 21:00 07/29/18 14:10 Urocit-K 10 (Nf) PO 20 meq TID JADA Administration Senna 2 tab 07/18/18 21:00 07/28/18 20:53 Senokot Tab* PO Not Given BEDTIME [facility] Vital Signs: Vital Signs Temp Pulse Resp BP Pulse Ox 98.1 F 78 16 107/64 100 07/29/18 17:38 07/29/18 17:38 07/29/18 17:38 07/29/18 17:38 07/29/18 17:38 Lab Results: Laboratory Results - last 24 hr 07/28/18 07/28/18 07/29/18 18:45 20:53 07:49 POC Glucose (mg/dL) 150 H 144 H Urine Color Yellow Urine Appearance Clear Urine pH 7.0 Ur Specific [place] 1.013 Urine Protein Negative Urine Ketones Negative Urine Blood Negative Urine Nitrate Negative Urine Bilirubin Negative Urine Urobilinogen Negative Ur Leukocyte Esterase Negative Urine Glucose Negative 07/29/18 07/29/18 11:44 16:31 POC Glucose (mg/dL) 124 H 104 H Urine Color Urine Appearance Urine pH Ur Specific [place] Urine Protein Urine Ketones Urine Blood Urine Nitrate Urine Bilirubin Urine Urobilinogen Ur Leukocyte Esterase Urine Glucose Exam: HEENT: EOMI LUNGS: Clear bilaterally HEART: reg rhythm ABDOMEN: Distended +BS EXTREMITIES: Wound over right hip clean. NEUROLOGIC: alert and oriented. Muscle strength appears to be 5/5 except RLE due to pain Assessment/Plan: 1. Right THIERRY: WBAT. PT/OT. 2. Recent lumbar decompression: PT/OT. Analgesics as needed 3. DM: SSI. Glipizide XL. Janumet 4. DPN: Gabapentin 5. DVT Prophylaxis: Eliquis 6. Advanced Directives: Full Code 7. Diarrhea: Probiotic 07/29/18 19:49
[2018-07-29] MEDS: Senna TAB PO SCH (21:00)
[2018-07-29] MEDS: Lidocaine Patch REMOVE* 1 NOTE MISC PATCH OFF SCH (21:03)
[2018-07-30] MEDS: Mometasone/Formoter 200/5 MDI INH SCH ×2 (08:06→19:58)
[2018-07-30] MEDS: CLOBETASOL 0.05% TOPICAL SCH ×2 (10:24→21:46)
[2018-07-30] MEDS: CALCIPOTRIENE 0.005% TOPICAL SCH ×2 (10:24→21:46)
[2018-07-30] MEDS: Nystatin TOP POWDER* 15 GM BTL TOPICAL SCH ×2 (10:27→21:48)
[2018-07-30] MEDS: Insulin LISPRO* 1 UNITS UNIT SUBCUT SCH ×3 (10:43→17:29)
[2018-07-30] MEDS: Docusate CAP* 100 MG PO SCH ×2 (10:44→21:43)
[2018-07-30] MEDS: DOXYCYCLINE 20 MG PO SCH ×2 (10:44→21:44)
[2018-07-30] MEDS: Apixaban* 2.5 MG TAB PO SCH ×2 (10:44→21:44)
[2018-07-30] MEDS: Calcium Polycarbophil TAB* 625 MG PO SCH (10:44)
[2018-07-30] MEDS: Gabapentin CAP(*) 300 MG PO SCH ×3 (10:45→21:46)
[2018-07-30] MEDS: glipiZIDE TAB.XL* 2.5 MG PO SCH (10:45)
[2018-07-30] MEDS: Lidocaine PATCH 5%* 1 PATCH TRANSDERM SCH (10:46)
[2018-07-30] MEDS: PTO:Potassium Citrate (NF) 10 MEQ TAB PO SCH ×3 (10:46→21:50)
[2018-07-30] MEDS: JANUMET PO SCH ×2 (10:46→21:50)
[2018-07-30] MEDS: Lactobacillus Acidophilus* 1 TAB PO SCH ×2 (10:51→21:44)
--- NOTE | 2018-07-30 11:15 | PN ---
Progress Note Date of Service: 07/30/18 Note: MICHELLE WILSON was visited. Nursing and therapy notes read and reviewed. Still with loose stools. Did not sleep great last night. A little forgetful this morning, but states overall he is much clearer than earlier in his stay. He and his have questions about d/c planning and family training including car transfers and stairs. No chest pain, shortness of breath or abdominal pain. Current Medications: Active Medications Generic Name Dose Route Start Last Admin Trade Name Freq PRN Reason Stop Dose Admin Acetaminophen 650 mg 07/18/18 12:04 Tylenol Tab* PO Q6H PRN FEVER/PAIN Apixaban 2.5 mg 07/18/18 21:00 07/30/18 10:44 Eliquis* PO 2.5 mg BID JADA Administration Atorvastatin Calcium 20 mg 07/18/18 17:00 07/29/18 17:37 Lipitor* PO 20 mg 1700 JADA Administration Calcium Polycarbophil 625 mg 07/19/18 09:00 07/30/18 10:44 Fibercon Tab* PO 625 mg DAILY JADA Administration Clobetasol Propionate 1 applic 07/19/18 09:00 07/30/18 10:24 Clobetasol 0.05% Oint* TOPICAL Not Given BID JADA Dextrose 12.5 gm 07/18/18 12:11 D50w Syringe 50 Ml* IV PUSH .FOR FS < 60 - SS PRN FS < 60 Docusate Sodium 100 mg 07/18/18 21:00 07/30/18 10:44 Colace Cap* PO Not Given BID JADA Doxycycline Hyclate 20 mg 07/19/18 09:00 07/30/18 10:44 Doxycycline (Nf) PO 20 mg BID JADA Administration Gabapentin 600 mg 07/18/18 14:00 07/30/18 10:45 Neurontin Cap(*) PO 600 mg TID JADA Administration Glipizide 2.5 mg 07/19/18 09:00 07/30/18 10:45 Glucotrol Xl* PO 2.5 mg DAILY JADA Administration Insulin Human Lispro 0 - 10 units 07/18/18 16:30 07/30/18 10:43 Humalog* SUBCUT 1 units AC JADA Administration Protocol Lactobacillus Rhamnosus 1 tab 07/28/18 21:00 07/30/18 10:51 Lactobacillus Acidophilus* PO 1 tab BID JADA Administration Lidocaine 1 patch 07/27/18 09:00 07/30/18 10:46 Lidoderm 5% Patch* TRANSDERM 1 patch DAILY JADA Administration Magnesium Hydroxide 30 ml 07/18/18 12:04 Milk Of Magnesia Liq* PO Q6H PRN CONSTIPATION Methocarbamol 750 mg 07/18/18 19:34 Robaxin Tab* PO TID PRN SPASMS Mometasone Furoate/Formoterol Fumar 2 puff 07/18/18 21:00 07/30/18 08:06 Dulera 200/5 Mdi* INH 2 puff BID JADA Administration Pto: Calcipotriene 1 applic 07/19/18 09:00 07/30/18 10:24 Cream, 0.005% 1 TOPICAL Not Given Applic BID JADA Pto: Janumet 50- 1 dose 07/21/18 09:00 07/30/18 10:46 500mg Tablet PO 1 dose BID JADA Administration Nystatin 1 applic 07/21/18 21:00 07/30/18 10:27 Nystatin Top Powder* TOPICAL Not Given BID JADA Oxycodone/Acetaminophen 1 tab 07/18/18 12:10 07/29/18 08:17 Percocet 5/325 Tab* PO 1 tab Q4H PRN Administration PAIN - MODERATE TO SEVERE Oxycodone/Acetaminophen 2 tab 07/18/18 12:11 07/18/18 13:58 Percocet 5/325 Tab* PO 2 tab Q4H PRN Administration PAIN - SEVERE Pharmacy Profile Note 1 note 07/27/18 21:00 07/29/18 21:03 Lidocaine Patch Remove* PATCH OFF 1 note 2100 JADA Administration Potassium Citrate 20 meq 07/18/18 21:00 07/30/18 10:46 Urocit-K 10 (Nf) PO 20 meq TID JADA Administration Senna 2 tab 07/18/18 21:00 07/29/18 21:00 Senokot Tab* PO Not Given BEDTIME JADA Vital Signs: Vital Signs Temp Pulse Resp BP Pulse Ox 98.1 F 80 16 110/58 95 07/30/18 06:03 07/30/18 06:03 07/30/18 10:45 07/30/18 06:03 07/30/18 06:03 Lab Results: Laboratory Results - last 24 hr 07/29/18 07/29/18 07/29/18 11:44 16:31 21:05 POC Glucose (mg/dL) 124 H 104 H 157 H 07/30/18 07:41 POC Glucose (mg/dL) 145 H Exam: GEN: No acute distress. Alert and appropriate. Sometimes loses his thought mid- sentence. LUNGS: Clear to auscultation bilaterally HEART: regular rate and rhythm ABDOMEN: + bowel sounds, soft, non-tender, non-distended EXTREMITIES: Chronic BLE edema. NEUROLOGIC: Motor 5/5 ble except pain limited right hip and knee. Assessment/Plan: 1. Right THIERRY: WBAT. PT/OT. I advised him to discuss with PT and SW tomorrow plans for family training, stairs and car transfers. f/u with Dr. Tavera next week 2. Recent lumbar decompression: PT/OT. Analgesics as needed 3. DM: SSI. Glipizide XL. Janumet 4. DPN: Gabapentin 5. DVT Prophylaxis: Eliquis 6. Advanced Directives: Full Code 7. Diarrhea: Probiotic 8. Estimated LOS: anticipate d/c on 08/02/18 07/30/18 11:14
[2018-07-30] MEDS: Atorvastatin* 20 MG TAB PO SCH (17:31)
[2018-07-30] MEDS: Lidocaine Patch REMOVE* 1 NOTE MISC PATCH OFF SCH (21:42)
[2018-07-30] MEDS: Senna TAB PO SCH (21:43)
[2018-07-31] MEDS: Mometasone/Formoter 200/5 MDI INH SCH ×2 (08:46→19:22)
[2018-07-31] MEDS: Insulin LISPRO* 1 UNITS UNIT SUBCUT SCH ×3 (10:51→16:55)
[2018-07-31] MEDS: Apixaban* 2.5 MG TAB PO SCH ×2 (10:51→21:58)
[2018-07-31] MEDS: CALCIPOTRIENE 0.005% TOPICAL SCH ×2 (10:52→21:57)
[2018-07-31] MEDS: DOXYCYCLINE 20 MG PO SCH ×2 (10:52→21:58)
[2018-07-31] MEDS: Calcium Polycarbophil TAB* 625 MG PO SCH (10:52)
[2018-07-31] MEDS: Gabapentin CAP(*) 300 MG PO SCH ×3 (10:53→21:59)
[2018-07-31] MEDS: Lactobacillus Acidophilus* 1 TAB PO SCH ×2 (10:54→22:06)
[2018-07-31] MEDS: glipiZIDE TAB.XL* 2.5 MG PO SCH (10:54)
[2018-07-31] MEDS: Docusate CAP* 100 MG PO SCH ×3 (10:54→21:57)
[2018-07-31] MEDS: CLOBETASOL 0.05% TOPICAL SCH ×2 (10:55→21:57)
[2018-07-31] MEDS: Lidocaine PATCH 5%* 1 PATCH TRANSDERM SCH (10:55)
[2018-07-31] MEDS: JANUMET PO SCH ×2 (10:56→22:00)
[2018-07-31] MEDS: Nystatin TOP POWDER* 15 GM BTL TOPICAL SCH ×2 (10:57→21:57)
[2018-07-31] MEDS: PTO:Potassium Citrate (NF) 10 MEQ TAB PO SCH ×3 (10:57→21:59)
[2018-07-31] MEDS: Atorvastatin* 20 MG TAB PO SCH (17:35)
--- NOTE | 2018-07-31 19:57 | PN ---
Progress Note Date of Service: 07/31/18 Note: MICHELLE WILSON was visited. Therapy notes read and reviewed. He is excited that he is getting closer to discharge. Bowels a little better on L. acidophilus Current Medications: Active Medications Generic Name Dose Route Start Last Admin Trade Name Freq PRN Reason Stop Dose Admin Acetaminophen 650 mg 07/18/18 12:04 Tylenol Tab* PO Q6H PRN FEVER/PAIN Apixaban 2.5 mg 07/18/18 21:00 07/31/18 10:51 Eliquis* PO 2.5 mg BID JADA Administration Atorvastatin Calcium 20 mg 07/18/18 17:00 07/31/18 17:35 Lipitor* PO 20 mg 1700 JADA Administration Calcium Polycarbophil 625 mg 07/19/18 09:00 07/31/18 10:52 Fibercon Tab* PO 625 mg DAILY JADA Administration Clobetasol Propionate 1 applic 07/19/18 09:00 07/31/18 10:55 Clobetasol 0.05% Oint* TOPICAL Not Given BID [facility] Dextrose 12.5 gm 07/18/18 12:11 D50w Syringe 50 Ml* IV PUSH .FOR FS < 60 - SS PRN FS < 60 Docusate Sodium 100 mg 07/18/18 21:00 07/31/18 10:58 Colace Cap* PO Not Given BID [facility] Doxycycline Hyclate 20 mg 07/19/18 09:00 07/31/18 10:52 Doxycycline (Nf) PO 20 mg BID JADA Administration Gabapentin 600 mg 07/18/18 14:00 07/31/18 14:19 Neurontin Cap(*) PO 600 mg TID JADA Administration Glipizide 2.5 mg 07/19/18 09:00 07/31/18 10:54 Glucotrol Xl* PO 2.5 mg DAILY JADA Administration Insulin Human Lispro 0 - 10 units 07/18/18 16:30 07/31/18 16:55 Humalog* SUBCUT Not Given [facility] Protocol Lactobacillus Rhamnosus 1 tab 07/28/18 21:00 07/31/18 10:54 Lactobacillus Acidophilus* PO 1 tab BID JADA Administration Lidocaine 1 patch 07/27/18 09:00 07/31/18 10:55 Lidoderm 5% Patch* TRANSDERM 1 patch DAILY [facility] Administration Magnesium Hydroxide 30 ml 07/18/18 12:04 Milk Of Magnesia Liq* PO Q6H PRN CONSTIPATION Methocarbamol 750 mg 07/18/18 19:34 Robaxin Tab* PO TID PRN SPASMS Mometasone Furoate/Formoterol Fumar 2 puff 07/18/18 21:00 07/31/18 19:22 Dulera 200/5 Mdi* INH 2 puff BID JADA Administration Pto: Calcipotriene 1 applic 07/19/18 09:00 07/31/18 10:52 Cream, 0.005% 1 TOPICAL 1 applic Applic BID JADA Administration Pto: Janumet 50- 1 dose 07/21/18 09:00 07/31/18 10:56 500mg Tablet PO 1 dose BID JADA Administration Nystatin 1 applic 07/21/18 21:00 07/31/18 10:57 Nystatin Top Powder* TOPICAL Not Given BID JADA Oxycodone/Acetaminophen 1 tab 07/18/18 12:10 07/29/18 08:17 Percocet 5/325 Tab* PO 1 tab Q4H PRN Administration PAIN - MODERATE TO SEVERE Oxycodone/Acetaminophen 2 tab 07/18/18 12:11 07/18/18 13:58 Percocet 5/325 Tab* PO 2 tab Q4H PRN Administration PAIN - SEVERE Pharmacy Profile Note 1 note 07/27/18 21:00 07/30/18 21:42 Lidocaine Patch Remove* PATCH OFF 1 note 2100 JADA Administration Potassium Citrate 20 meq 07/18/18 21:00 07/31/18 14:20 Urocit-K 10 (Nf) PO 20 meq TID JADA Administration Senna 2 tab 07/18/18 21:00 07/30/18 21:43 Senokot Tab* PO Not Given BEDTIME [facility] Vital Signs: Vital Signs Temp Pulse Resp BP Pulse Ox 98.0 F 84 16 109/61 96 07/31/18 15:57 07/31/18 19:23 07/31/18 19:23 07/31/18 15:57 07/31/18 19:23 Lab Results: Laboratory Results - last 24 hr 07/30/18 07/31/18 07/31/18 20:25 07:50 12:16 POC Glucose (mg/dL) 194 H 152 H 124 H 07/31/18 16:48 POC Glucose (mg/dL) 125 H Exam: GEN: No acute distress. Alert and appropriate. Sometimes loses his thought mid- sentence. LUNGS: Clear to auscultation bilaterally HEART: regular rate and rhythm ABDOMEN: + bowel sounds, soft, non-tender, non-distended EXTREMITIES: Chronic BLE edema. Wound is healed. NEUROLOGIC: Motor 5/5 ble except pain limited right hip and knee. Assessment/Plan: 1. Right THIERRY: WBAT. PT/OT. I advised him to discuss with PT and SW tomorrow plans for family training, stairs and car transfers. f/u with Dr. Tavera next week 2. Recent lumbar decompression: PT/OT. Analgesics as needed 3. DM: SSI. Glipizide XL. Janumet 4. DPN: Gabapentin 5. DVT Prophylaxis: Eliquis 6. Advanced Directives: Full Code 7. Diarrhea: Probiotic. Maybe hold Fibercon? 8. Estimated LOS: anticipate d/c on 08/02/18 07/31/18 19:58
[2018-07-31] MEDS: Senna TAB PO SCH (22:01)
[2018-07-31] MEDS: Lidocaine Patch REMOVE* 1 NOTE MISC PATCH OFF SCH (22:20)
[2018-08-01] MEDS: Mometasone/Formoter 200/5 MDI INH SCH ×2 (07:36→19:58)
[2018-08-01] MEDS: Gabapentin CAP(*) 300 MG PO SCH ×3 (09:44→21:18)
[2018-08-01] MEDS: Insulin LISPRO* 1 UNITS UNIT SUBCUT SCH ×3 (09:44→17:08)
[2018-08-01] MEDS: CALCIPOTRIENE 0.005% TOPICAL SCH ×2 (09:45→20:55)
[2018-08-01] MEDS: Apixaban* 2.5 MG TAB PO SCH ×2 (09:45→21:10)
[2018-08-01] MEDS: Calcium Polycarbophil TAB* 625 MG PO SCH (09:45)
[2018-08-01] MEDS: CLOBETASOL 0.05% TOPICAL SCH ×2 (09:46→20:55)
[2018-08-01] MEDS: DOXYCYCLINE 20 MG PO SCH ×2 (09:50→21:10)
[2018-08-01] MEDS: Lactobacillus Acidophilus* 1 TAB PO SCH ×2 (09:51→21:10)
[2018-08-01] MEDS: glipiZIDE TAB.XL* 2.5 MG PO SCH (09:51)
[2018-08-01] MEDS: Lidocaine PATCH 5%* 1 PATCH TRANSDERM SCH (09:52)
[2018-08-01] MEDS: JANUMET PO SCH ×2 (09:52→21:18)
[2018-08-01] MEDS: PTO:Potassium Citrate (NF) 10 MEQ TAB PO SCH ×3 (09:52→21:20)
[2018-08-01] MEDS: Docusate CAP* 100 MG PO SCH ×2 (10:00→20:55)
[2018-08-01] MEDS: Nystatin TOP POWDER* 15 GM BTL TOPICAL SCH ×2 (10:07→20:56)
[2018-08-01] MEDS: Atorvastatin* 20 MG TAB PO SCH (17:14)
--- NOTE | 2018-08-01 20:16 | PN ---
Progress Note Date of Service: 08/01/18 Note: MICHELLE WILSON was visited. Therapy notes read and reviewed. Ready for discharge in am. We went over medication list and pharmacy. He is moving better. Pain well controlled Current Medications: Active Medications Generic Name Dose Route Start Last Admin Trade Name Freq PRN Reason Stop Dose Admin Acetaminophen 650 mg 07/18/18 12:04 Tylenol Tab* PO Q6H PRN FEVER/PAIN Apixaban 2.5 mg 07/18/18 21:00 08/01/18 09:45 Eliquis* PO 2.5 mg BID JADA Administration Atorvastatin Calcium 20 mg 07/18/18 17:00 08/01/18 17:14 Lipitor* PO 20 mg 1700 JADA Administration Calcium Polycarbophil 625 mg 07/19/18 09:00 08/01/18 09:45 Fibercon Tab* PO 625 mg DAILY JADA Administration Clobetasol Propionate 1 applic 07/19/18 09:00 08/01/18 09:46 Clobetasol 0.05% Oint* TOPICAL Not Given BID [facility] Dextrose 12.5 gm 07/18/18 12:11 D50w Syringe 50 Ml* IV PUSH .FOR FS < 60 - SS PRN FS < 60 Docusate Sodium 100 mg 07/18/18 21:00 08/01/18 10:00 Colace Cap* PO Not Given BID [facility] Doxycycline Hyclate 20 mg 07/19/18 09:00 08/01/18 09:50 Doxycycline (Nf) PO 20 mg BID JADA Administration Gabapentin 600 mg 07/18/18 14:00 08/01/18 14:11 Neurontin Cap(*) PO 600 mg TID JADA Administration Glipizide 2.5 mg 07/19/18 09:00 08/01/18 09:51 Glucotrol Xl* PO 2.5 mg DAILY JADA Administration Insulin Human Lispro 0 - 10 units 07/18/18 16:30 08/01/18 17:08 Humalog* SUBCUT Not Given [facility] Protocol Lactobacillus Rhamnosus 1 tab 07/28/18 21:00 08/01/18 09:51 Lactobacillus Acidophilus* PO 1 tab BID JADA Administration Lidocaine 1 patch 07/27/18 09:00 08/01/18 09:52 Lidoderm 5% Patch* TRANSDERM 1 patch DAILY JDAA Administration Magnesium Hydroxide 30 ml 07/18/18 12:04 Milk Of Magnesia Liq* PO Q6H PRN CONSTIPATION Methocarbamol 750 mg 07/18/18 19:34 Robaxin Tab* PO TID PRN SPASMS Mometasone Furoate/Formoterol Fumar 2 puff 07/18/18 21:00 08/01/18 19:58 Dulera 200/5 Mdi* INH 2 puff BID JADA Administration Pto: Calcipotriene 1 applic 07/19/18 09:00 08/01/18 09:45 Cream, 0.005% 1 TOPICAL Not Given Applic BID JADA Pto: Janumet 50- 1 dose 07/21/18 09:00 08/01/18 09:52 500mg Tablet PO 1 dose BID JADA Administration Nystatin 1 applic 07/21/18 21:00 08/01/18 10:07 Nystatin Top Powder* TOPICAL Not Given BID JADA Oxycodone/Acetaminophen 1 tab 07/18/18 12:10 07/29/18 08:17 Percocet 5/325 Tab* PO 1 tab Q4H PRN Administration PAIN - MODERATE TO SEVERE Oxycodone/Acetaminophen 2 tab 07/18/18 12:11 07/18/18 13:58 Percocet 5/325 Tab* PO 2 tab Q4H PRN Administration PAIN - SEVERE Pharmacy Profile Note 1 note 07/27/18 21:00 07/31/18 22:20 Lidocaine Patch Remove* PATCH OFF 1 note 2100 JADA Administration Potassium Citrate 20 meq 07/18/18 21:00 08/01/18 14:11 Urocit-K 10 (Nf) PO 20 meq TID JADA Administration Senna 2 tab 07/18/18 21:00 07/31/18 22:01 Senokot Tab* PO Not Given BEDTIME [facility] Vital Signs: Vital Signs Temp Pulse Resp BP Pulse Ox 97.4 F 90 20 120/74 98 08/01/18 16:04 08/01/18 19:58 08/01/18 19:58 08/01/18 16:04 08/01/18 19:58 Lab Results: Laboratory Results - last 24 hr 07/31/18 08/01/18 08/01/18 20:42 07:51 12:06 POC Glucose (mg/dL) 158 H 138 H 103 H 08/01/18 16:19 POC Glucose (mg/dL) 119 H Exam: GEN: No acute distress. Alert and appropriate. Sometimes loses his thought mid- sentence. LUNGS: Clear to auscultation bilaterally HEART: regular rate and rhythm ABDOMEN: + bowel sounds, soft, non-tender, non-distended EXTREMITIES: Chronic BLE edema. Wound is healed. NEUROLOGIC: Motor 5/5 ble except pain limited right hip and knee. Assessment/Plan: 1. Right THIERRY: WBAT. PT/OT. I advised him to discuss with PT and SW tomorrow plans for family training, stairs and car transfers. f/u with Dr. Tavera next week 2. Recent lumbar decompression: PT/OT. Analgesics as needed 3. DM: SSI. Glipizide XL. Janumet 4. DPN: Gabapentin 5. DVT Prophylaxis: Eliquis 6. Advanced Directives: Full Code 7. Diarrhea: Probiotic. 8. Estimated LOS: anticipate d/c on 08/02/18 08/01/18 20:16
[2018-08-01] MEDS: Senna TAB PO SCH (20:56)
[2018-08-01] MEDS: Lidocaine Patch REMOVE* 1 NOTE MISC PATCH OFF SCH (21:24)
[2018-08-02 05:45] VITALS: BP 108/66
[2018-08-02 07:09] LABS: ABS Basophils 0 10^3/ul (0-0.2); ABS Eosinophils 0.3 10^3/ul (0-0.6); ABS Lymphocytes 1.4 10^3/ul (1.0-4.8); ABS Monocytes 0.7 10^3/ul (0-0.8); ABS Neutrophils 3.8 10^3/ul (1.5-7.7); ABS Nucleated RBC 0 10^3/ul; Eosinophil % 4.3 %; Hematocrit 32 % (42-52); Hemoglobin 10.6 g/dl (14.0-18.0); Lymphocyte % 22.6 %; Mean Corpuscular HGB Conc 33 g/dl (31-36); Mean Corpuscular Hemoglobin 29 pg (27-31); Mean Corpuscular Volume 88 fL (80-94); Mean Platelet Volume 7.2 fL (7.4-10.4); Nucleated Red Blood Cells % 0; Platelet Count 345 10^3/ul (150-450); Red Blood Count 3.63 10^6/ul (4.00-5.40); Red Cell Distribution Width 15 % (10.5-15); White Blood Count 6.3 10^3/ul (3.5-10.8)
[2018-08-02 07:13] LABS: Albumin 3.3 g/dL (3.2-5.2); EGFR Non-African American 86.3 (>60); Globulin 3.4 g/dL (2-4); Potassium 4.1 mmol/L (3.5-5.0); Total Bilirubin 0.5 mg/dL (0.2-1.0); Total Protein 6.7 g/dL (6.4-8.9)
[2018-08-02] MEDS: Mometasone/Formoter 200/5 MDI INH SCH (08:07)
[2018-08-02] MEDS: Insulin LISPRO* 1 UNITS UNIT SUBCUT SCH ×2 (10:03→12:33)
[2018-08-02] MEDS: Apixaban* 2.5 MG TAB PO SCH (10:04)
[2018-08-02] MEDS: CALCIPOTRIENE 0.005% TOPICAL SCH (10:04)
[2018-08-02] MEDS: Calcium Polycarbophil TAB* 625 MG PO SCH (10:04)
[2018-08-02] MEDS: DOXYCYCLINE 20 MG PO SCH (10:05)
[2018-08-02] MEDS: CLOBETASOL 0.05% TOPICAL SCH (10:05)
[2018-08-02] MEDS: Docusate CAP* 100 MG PO SCH (10:05)
[2018-08-02] MEDS: Gabapentin CAP(*) 300 MG PO SCH (10:05)
[2018-08-02] MEDS: glipiZIDE TAB.XL* 2.5 MG PO SCH (10:06)
[2018-08-02] MEDS: PTO:Potassium Citrate (NF) 10 MEQ TAB PO SCH (10:06)
[2018-08-02] MEDS: Lidocaine PATCH 5%* 1 PATCH TRANSDERM SCH (10:06)
[2018-08-02] MEDS: Lactobacillus Acidophilus* 1 TAB PO SCH (10:06)
[2018-08-02] MEDS: JANUMET PO SCH (10:06)
[2018-08-02] MEDS: Nystatin TOP POWDER* 15 GM BTL TOPICAL SCH (10:08)
--- NOTE | 2018-08-02 12:00 | PN ---
Progress Note Date of Service: 08/02/18 Note: IMCHELLE WILSON was visited. Nursing and therapy notes read and reviewed. No chest pain, shortness of breath or abdominal pain. Excited to go home. Current Medications: Active Medications Generic Name Dose Route Start Last Admin Trade Name Freq PRN Reason Stop Dose Admin Acetaminophen 650 mg 07/18/18 12:04 Tylenol Tab* PO Q6H PRN FEVER/PAIN Apixaban 2.5 mg 07/18/18 21:00 08/02/18 10:04 Eliquis* PO 2.5 mg BID JADA Administration Atorvastatin Calcium 20 mg 07/18/18 17:00 08/01/18 17:14 Lipitor* PO 20 mg 1700 JADA Administration Calcium Polycarbophil 625 mg 07/19/18 09:00 08/02/18 10:04 Fibercon Tab* PO 625 mg DAILY JADA Administration Clobetasol Propionate 1 applic 07/19/18 09:00 08/02/18 10:05 Clobetasol 0.05% Oint* TOPICAL Not Given BID [facility] Dextrose 12.5 gm 07/18/18 12:11 D50w Syringe 50 Ml* IV PUSH .FOR FS < 60 - SS PRN FS < 60 Docusate Sodium 100 mg 07/18/18 21:00 08/02/18 10:05 Colace Cap* PO Not Given BID [facility] Doxycycline Hyclate 20 mg 07/19/18 09:00 08/02/18 10:05 Doxycycline (Nf) PO 20 mg BID JADA Administration Gabapentin 600 mg 07/18/18 14:00 08/02/18 10:05 Neurontin Cap(*) PO 600 mg TID JADA Administration Glipizide 2.5 mg 07/19/18 09:00 08/02/18 10:06 Glucotrol Xl* PO 2.5 mg DAILY JADA Administration Insulin Human Lispro 0 - 10 units 07/18/18 16:30 08/02/18 10:03 Humalog* SUBCUT 1 units AC JADA Administration Protocol Lactobacillus Rhamnosus 1 tab 07/28/18 21:00 08/02/18 10:06 Lactobacillus Acidophilus* PO 1 tab BID JADA Administration Lidocaine 1 patch 07/27/18 09:00 08/02/18 10:06 Lidoderm 5% Patch* TRANSDERM 1 patch DAILY JADA Administration Magnesium Hydroxide 30 ml 07/18/18 12:04 Milk Of Magnesia Liq* PO Q6H PRN CONSTIPATION Methocarbamol 750 mg 07/18/18 19:34 Robaxin Tab* PO TID PRN SPASMS Mometasone Furoate/Formoterol Fumar 2 puff 07/18/18 21:00 08/02/18 08:07 Dulera 200/5 Mdi* INH 2 puff BID JADA Administration Pto: Calcipotriene 1 applic 07/19/18 09:00 08/02/18 10:04 Cream, 0.005% 1 TOPICAL Not Given Applic BID JADA Pto: Janumet 50- 1 dose 07/21/18 09:00 08/02/18 10:06 500mg Tablet PO 1 dose BID JADA Administration Nystatin 1 applic 07/21/18 21:00 08/02/18 10:08 Nystatin Top Powder* TOPICAL Not Given BID JADA Oxycodone/Acetaminophen 1 tab 07/18/18 12:10 07/29/18 08:17 Percocet 5/325 Tab* PO 1 tab Q4H PRN Administration PAIN - MODERATE TO SEVERE Oxycodone/Acetaminophen 2 tab 07/18/18 12:11 07/18/18 13:58 Percocet 5/325 Tab* PO 2 tab Q4H PRN Administration PAIN - SEVERE Pharmacy Profile Note 1 note 07/27/18 21:00 08/01/18 21:24 Lidocaine Patch Remove* PATCH OFF 1 note 2100 JADA Administration Potassium Citrate 20 meq 07/18/18 21:00 08/02/18 10:06 Urocit-K 10 (Nf) PO 20 meq TID JADA Administration Senna 2 tab 07/18/18 21:00 08/01/18 20:56 Senokot Tab* PO Not Given BEDTIME [facility] Vital Signs: Vital Signs Temp Pulse Resp BP Pulse Ox 98.3 F 84 16 108/66 95 08/02/18 04:46 08/02/18 04:46 08/02/18 10:05 08/02/18 04:46 08/02/18 04:46 Lab Results: Laboratory Results - last 24 hr 08/01/18 08/01/18 08/02/18 12:06 16:19 05:44 WBC 6.3 RBC 3.63 L Hgb 10.6 L Hct 32 L MCV 88 MCH 29 MCHC 33 RDW 15 Plt Count 345 MPV 7.2 L Neut % (Auto) 60.7 Lymph % (Auto) 22.6 [place] % (Auto) 11.9 Eos % (Auto) 4.3 Baso % (Auto) 0.5 Absolute Neuts (auto) 3.8 Absolute Lymphs (auto) 1.4 Absolute Monos (auto) 0.7 Absolute Eos (auto) 0.3 Absolute Basos (auto) 0 Absolute Nucleated RBC 0 Nucleated RBC % 0 Sodium Potassium Chloride Carbon Dioxide Anion Gap BUN Creatinine Est GFR ( Amer) Est GFR (Non-Af Amer) BUN/Creatinine Ratio Glucose POC Glucose (mg/dL) 103 H 119 H Calcium Total Bilirubin AST ALT Alkaline Phosphatase Total Protein Albumin Globulin Albumin/Globulin Ratio 08/02/18 05:44 WBC RBC Hgb Hct MCV MCH MCHC RDW Plt Count MPV Neut % (Auto) Lymph % (Auto) [place] % (Auto) Eos % (Auto) Baso % (Auto) Absolute Neuts (auto) Absolute Lymphs (auto) Absolute Monos (auto) Absolute Eos (auto) Absolute Basos (auto) Absolute Nucleated RBC Nucleated RBC % Sodium 139 Potassium 4.1 Chloride 105 Carbon Dioxide 26 Anion Gap 8 BUN 20 Creatinine 0.87 Est GFR ( Amer) 104.4 Est GFR (Non-Af Amer) 86.3 BUN/Creatinine Ratio 23.0 H Glucose 132 H POC Glucose (mg/dL) Calcium 9.0 Total Bilirubin 0.50 AST 10 L ALT 13 Alkaline Phosphatase 76 Total Protein 6.7 Albumin 3.3 Globulin 3.4 Albumin/Globulin Ratio 1.0 Exam: GEN: No acute distress. Alert and appropriate. LUNGS: Clear to auscultation bilaterally HEART: regular rate and rhythm ABDOMEN: + bowel sounds, soft, non-tender, non-distended EXTREMITIES: Chronic BLE edema. Wound is healed. NEUROLOGIC: Motor 5/5 ble except pain limited right hip and knee. Assessment/Plan: 1. Right THIERRY: WBAT. f/u with Dr. Tavera next week and me in a few months 2. Recent lumbar decompression:tylenol as needed. Discussed no aspirin or nsaids while on eliquis. 3. DM: SSI. Glipizide XL. Janumet 4. DPN: Gabapentin 5. DVT Prophylaxis: Eliquis 6. Advanced Directives: Full Code 7. Diarrhea: Probiotic. 8. Estimated LOS: d/c today. 08/02/18 11:58
--- NOTE | 2018-08-02 20:46 | DS ---
CC: Dr. Anderson; Dr. Tavera; Dr. Valdez, [address], [facility] REHABILITATION DISCHARGE SUMMARY: DATE OF ADMISSION: 07/18/18 DATE OF DISCHARGE: 08/02/18 PRIMARY CARE PROVIDER: Dr. Anderson. ORTHOPEDIC SURGEON: Dr. Tavera. PROOFSHEET CORRECTOR: Dr. Valdez. REASON FOR ADMISSION: Right total hip replacement. HISTORY OF PRESENT ILLNESS: For full details of his acute hospitalization leading up to his admission, please see the note dictated by Dr. Mott on . REHABILITATION COURSE: During his time on the [facility], he continued to use Eliquis for DVT prophylaxis. This has been prescribed at discharge. He was able to resume his home regimen medications for diabetes control of glipizide XL and Janumet. He continued using gabapentin for neuropathic pain related to lumbar stenosis and diabetic peripheral neuropathy. His pain lessened during his rehabilitation stay, such that at the time of discharge he only needs Percocet on an as-needed basis, but really has not used any in a few days. He has also been advised he can use Tylenol on an as-needed basis. He should continue using gabapentin for the time being and follow up with Dr. Valdez in a few months to determine whether trials can be done to wean off this medication or whether he needs it long-term. Initially, he was somewhat forgetful and confused but this seemed to resolve as he used less and less pain medications. At the time of discharge, with physical therapy, he has been shown to be independent with bed mobility, transfers using a 2- wheeled walker, ambulation of 250 feet using a 2-wheeled walker, and climbing 12 steps with 2 rails. He has total hip precautions and a home exercise program. With occupational therapy, he has been shown at this stage to be independent with eating. For bathing and tub transfers, he should have supervision the first 2 weeks of shower. He has a long-handled sponge to use to wash the feet. He is independent with dressing using a grinding operator and sock aid but needs assistance for his shoes. He is independent with toileting with the walker and commode. His will assist him with the tasks he needs assistance for as well as with home management and cooking. He did have some diarrhea during his stay, which was chronic even pre-surgery. He started using a probiotic, which helped some. Also, he completed a course of Bactrim that was started during the acute stay for some erythema in his upper leg. DISCHARGE CONDITION: Good. DISCHARGE DISPOSITION: Home with family support. FOLLOWUP: 1. Dr. Tavera next week. 2. Dr. Anderson in 1 to [address] Valdez in 2 to 3 months. DISCHARGE DIAGNOSES: 1. Status post right total hip replacement. 2. Lumbar stenosis with neurogenic claudication, status post decompression. 3. Diabetes mellitus, non-insulin dependent. 4. Peripheral neuropathy with diabetes mellitus. 5. Diarrhea. DISCHARGE MEDICATIONS: 1. Eliquis 2.5 mg b.i.d. 2. Atorvastatin 20 mg q.p.m. 3. Calcipotriene cream 0.005% apply topically b.i.d. 4. FiberCon 625 mg q. day. 5. Clobetasol 0.05% ointment, apply topically b.i.d. 6. Doxycycline 20 mg b.i.d. 7. Gabapentin 600 mg t.i.d. 8. Glipizide XL 2.5 mg q. day. 9. Lactobacillus b.i.d. 10. Percocet 5/325 one tablet q.4 hours p.r.n. pain, maximum daily dose 3. 11. Potassium 20 mEq t.i.d. 12. Advair Diskus 250/50 one puff b.i.d. 13. Janumet 50/500 one tablet b.i.d. 14. Clotrimazole 1% topical q. day. 15. Vitamin D 2000 units q.p.m. [id number]/[facility] #: [id number]
== END 2018-08-02 13:00 | disposition home health service (06) | DRG 560 ==
LOC: PMRU 11:23
PROVIDERS: ADMIT Physical Medicine & Rehabilitation; ATTEND Physical Medicine & Rehabilitation
PROC: F07Z5ZZ Bed Mobility Treatment (ICD-10-PCS; principal; 2018-07-18)
PROC: F07Z9ZZ Gait Training/Functional Ambulation Treatment (ICD-10-PCS; 2018-07-18)
PROC: F07Z8ZZ Transfer Training Treatment (ICD-10-PCS; 2018-07-18)
PROC: F08Z0ZZ Bathing/Showering Techniques Treatment (ICD-10-PCS; 2018-07-18)
PROC: F08Z1ZZ Dressing Techniques Treatment (ICD-10-PCS; 2018-07-18)
PROC: F08Z3ZZ Feeding/Eating Treatment (ICD-10-PCS; 2018-07-18)
DX: Z47.1 Aftercare following joint replacement surgery (principal); L03.115 Cellulitis of right lower limb; Z96.641 Presence of right artificial hip joint; E11.42 Type 2 diabetes mellitus with diabetic polyneuropathy; M48.062 Spinal stenosis, lumbar region with neurogenic claudication; R19.7 Diarrhea, unspecified; M51.36 Other intervertebral disc degeneration, lumbar region; L40.9 Psoriasis, unspecified; E78.00 Pure hypercholesterolemia, unspecified; J45.909 Unspecified asthma, uncomplicated; Z79.84 Long term (current) use of oral hypoglycemic drugs; Z79.899 Other long term (current) drug therapy
CPT/HCPCS: 36415; 80053; 81003; 85025; 94640; A9270-GY

== ENCOUNTER 2019-08-29 10:07 | Inpatient (IN) | payer MEDICARE, BC ==
--- OUTSIDE RECORDS SUMMARY | 2019-08-29 10:50 | XMS REPORT | Continuity of Care Document ---
:1945 External Reference #:[id number] Author Name Brianne Anderson M.D. Address [address] [place] [address] Care Team Providers Name Role Phone Brianne Anderson - Family Medicine Care Team Information Construction Framer Brien Gomez MD - Surgery Care Team Information Construction Framer [phone] Driss Shahid - Endocrinology, Diabetes & Care Team Information Construction Framer [phone] Metabolism Michael Benedict MD - Surgery Care Team Information Construction Framer Sandra Tavera MD - Orthopaedic Care Team Information Construction Framer [phone] Surgery Dante Quinones MD - Cardiovascular Care Team Information Construction Framer [phone] Disease Wisam Narayan - Cardiovascular Disease Care Team Information Construction Framer [phone] Mary Valdez - Physical Medicine Care Team Information Construction Framer & Rehabilitation Bj Dillard - Urology Care Team Information Construction Framer [phone] Problems Active Problems Provider Date Type 2 diabetes mellitus Dg Carrasco M.D. Onset: 07/13/2008 Asthma without status asthmaticus Dg Carrasco M.D. Onset: 07/13/2008 Benign prostatic hypertrophy without Dg Carrasco M.D. Onset: 07/13/2008 outflow obstruction Psoriasis Brianne Anderson M.D. Onset: 05/16/2011 Constipation Kristi Card M.D. Onset: 05/26/2011 Obesity Brianne Anderson M.D. Onset: 06/25/2018 Paroxysmal supraventricular tachycardia Brianne Anderson M.D. Onset: 2017 Right bundle branch block Brianne Anderson M.D. Onset: 06/25/2018 Peripheral vascular disease Brianne Anderson M.D. Onset: 03/06/2018 Lumbosacral stenosis Brianne Anderson M.D. Onset: 12/28/2017 Indigestion Brianne Anderson M.D. Onset: 07/09/2015 Symptom of skin and integumentary tissue Brianne Anderson M.D. Onset: 08/18 Spinal stenosis of lumbar region Brianne Anderson M.D. Onset: 08/18/2014 Social History Type Date Description Comments Sex Unknown Tobacco Use Start: Unknown Never Smoked Cigarettes ETOH Use Rare Tobacco Use Start: Unknown Patient has never smoked Smoking Status Reviewed: 07/30/19 Patient has never smoked Allergies, Adverse Reactions, Alerts Active Allergies Reaction Severity Comments Date NKDA 03/02/2011 Seasonal 12/03/2009 Medications Active Medications SIG Qnty Indications Ordering Date Provider Colace 1 by mouth 2x 30caps Brianne Mojica 08/15/2019 100mg Capsules daily Akshat Adnerson Clindamycin HCL 1 by mouth three 21caps Brianne Mojica 08/14/2019 150mg times daily Akshat Anderson Capsules along with the 300mg pills for a total of 450mg three times daily Doxycycline Hyclate take one capsule 60caps G51.0 Brianne Mojica 06/10/2019 by mouth twice a Akshat Anderson 100mg Capsules day on an empty stomach or with a little of non dairy food Methocarbamol take 1-2 tablets 120tabs M79.605 Brianne Mojica 04/24/2019 500mg by mouth up to 4 Akshat Anderson Tablets times daily [facility] Breeze Test test blood sugar 3units Brianne Mojica 01/01/2017 Disc once daily. dx: Akshat Anderson Breeze Disk e11.9 last office visit 02/16/16 [facility] Autodisc Ascencia 2 test 100units I73.9 Brianne Mojica 10/19/2015 Test blood sugar Akshat Anderson Disk twice daily. Glipizide XL take 1 tablet by 90tabs I73.9 Brianne Mojica 10/13/2013 2.5mg mouth every Akshat Anderson Tablets ER 24HR morning Lisinopril take one tablet 90tabs I73.9 Brianne Mojica 05/01/2013 2.5mg by mouth at at Akshat Anderson Tablets bedtime [facility] Breeze lancets for 1Box Brianne Mojica 01/15/2012 Disk testing twice a Akshat Anderson day dx: 250.00 Dovonex apply thin layer 120gm L40.0 Brianne Mojica 05/16/2011 0.005% Cream every day to Akshat Anderson affected area Janumet 1 by mouth twice 180tabs I73.9 Brianne Mojica 05/24/2009 50-500mg a day Akshat Anderson Tablets Dex Lancets Use as Directed 1Box Judy Tovar, 07/08/2003 GENETIC PHYSICIAN Fibercon 2 po with meals 60tabs Unknown 625mg Tablets Potassium Citrate ER 6 po qd Unknown Tablets ER Atorvastatin Calcium 1 by mouth every Unknown day 20mg Tablets Gabapentin 2 by mouth three Unknown 300mg times a day Tablets Clobetasol Propionate prn Unknown E 0.05% Cream Clotrimazole apply to Unknown 1% Cream affected area on trunk and legs twice daily prn Glucosamine/Chondroit 1 tab bid Unknown in 1500-1200MG Tramadol HCL 1 by mouth every Unknown 50mg 6 hours as Tablets needed History Medications Advair Diskus 1 puff twice a 60units Brianne Mojica 07/31/2019 - day and rinse Akshat Anderson 08/15/2019 250-50mcg/Dose Aerosol after Diazepam take 1-2 tablets 6tabs Brianne Mojica 06/24/2019 - 5mg Tablets by mouth one Akshat Anderson 08/15/2019 hour prior to procedure. Glucosamine/Chondroitin Brianne Mojica 04/24/2019 - Triple Sarabjit Anderson M.D. 04/24/2019 1500-1200mg/30ML Liquid Immunizations CPT Code Status Date Vaccine Lot # [id number] Given 04/17/2019 High-Dose, Influenza Virus Vacccine-fluzone 65 and older [id number] Given 04/02/2018 High-Dose, Influenza Virus Vacccine-fluzone 65 and older 25482 Given 04/30/2017 High-Dose, Influenza Virus Vacccine-fluzone 65 and older 40051 Given 05/10/2016 High-Dose, Influenza Virus Vacccine-fluzone 65 and older 49320 Given 02/16/2016 Tetanus And Diptheria Adult Preservative Free [id number] >7Yrs 49246 Given 07/09/2015 Pneumococcal Conjugate Vacc-13 [id number] 68170 Given 04/16/2015 High-Dose, Influenza Virus Vacccine-fluzone 65 and older 60928 Given 04/22/2014 High-Dose, Influenza Virus Vacccine-fluzone 65 and older 97342 Given 05/01/2013 Pneumococcal Immunization [id number] 74223 Given 04/25/2013 High-Dose, Influenza Virus Vacccine-fluzone 65 and older 93451 Given 04/29/2012 DO Not Use Split Influenza Virus Vaccine 27625 Given 03/31/2011 DO Not Use Split Influenza Virus Vaccine 20181 Given 12/19/2007 Zostivax [id number] 57861 Given 06/08/2004 DO Not Use Split Influenza Virus Vaccine 72449 Given 08/25/2003 Td Immunization, For Use In Individuals 7 Years Or Older 20512 Given 08/25/2003 Td Immunization, For Use In Individuals 7 Years Or Older Vital Signs Date Vital Result Comment 08/15/2019 3:43pm BP Systolic 110 mmHg BP Diastolic 70 mmHg Heart Rate 76 /min Body Temperature 97.3 F Respiratory Rate 16 /min Height 71 inches 5'11" Weight 251.38 lb shoes on BMI (Body Mass Index) 35.1 kg/m2 07/31/2019 8:36am BP Systolic 110 mmHg BP Diastolic 62 mmHg Heart Rate 84 /min Body Temperature 97.5 F Respiratory Rate 16 /min Height 71 inches 5'11" Weight 250.00 lb BMI (Body Mass Index) 34.9 kg/m2 Results Test Acquired Date Facility Test Result H/L Range Note Urinalysis Profile 08/04/2019 [facility] [place] Color Yellow Urine Appearance Clear Urine Specific [place] 1.020 Normal 1.010-1.030 Urine pH 6.0 Normal 5-9 Urine Urobilinogen Negative Negative Urine Ketones Negative Negative Urine Protein Negative Negative Urine Leukocytes Negative Negative Urine Blood Negative Negative Urine Nitrite Negative Negative Urine Bilirubin Negative Negative Urine Glucose Negative Negative CBC Auto Diff 08/04/2019 [facility] White Blood Count 7.4 10^3/uL Normal 3.5- 10.8 Red Blood Count 4.67 10^6/uL Normal 4.18-5.48 Hemoglobin 13.9 g/dL Low 14.0-18.0 Hematocrit 41 % Low 42-52 Mean Corpuscular Volume 89 fL Normal 80-94 Mean Corpuscular Hemoglobin 30 pg Normal 27-31 Mean Corpuscular HGB Conc 33 g/dL Normal 31-36 Red Cell Distribution Width 15 % Normal 10-15 Platelet Count 216 10^3/uL Normal 150-450 Mean Platelet Volume 8.2 fL Normal 7.4-10.4 Abs Neutrophils 4.7 10^3/uL Normal 1.5-7.7 Abs Lymphocytes 1.6 10^3/uL Normal 1.0-4.8 Abs Monocytes 0.8 10^3/uL Normal 0-0.8 Abs Eosinophils 0.3 10^3/uL Normal 0-0.6 Abs Basophils 0.1 10^3/uL Normal 0-0.2 Abs Nucleated RBC 0.0 10^3/uL Granulocyte % 63.7 % Lymphocyte % 21.1 % Monocyte % 10.9 % Eosinophil % 3.6 % Basophil % 0.7 % Nucleated Red Blood Cells % 0.0 Inr/Protime 08/04/2019 [facility] Inr 1.06 Normal 0.82-1.09 1 Laboratory test 08/04/2019 [facility] Partial Thrombo 34.5 seconds Normal 26.0- 38.0 finding Time PTT Comp Metabolic Panel 08/04/2019 [facility] Sodium 139 mmol/L Normal 135-145 Potassium 4.7 mmol/L Normal 3.5-5.0 Chloride 104 mmol/L Normal 101-111 Co2 Carbon Dioxide 27 mmol/L Normal 22-32 Anion Gap 8 mmol/L Normal 2-11 Glucose 126 mg/dL High 70-100 Blood Urea Nitrogen 25 mg/dL High 6-24 Creatinine 1.07 mg/dL Normal 0.67-1.17 BUN/Creatinine Ratio 23.4 High 8-20 Calcium 9.8 mg/dL Normal 8.6-10.3 Total Protein 7.2 g/dL Normal 6.4-8.9 Albumin 4.2 g/dL Normal 3.2-5.2 Globulin 3.0 g/dL Normal 2-4 Albumin/Globulin Ratio 1.4 Normal 1-3 Total Bilirubin 0.40 mg/dL Normal 0.2-1.0 Alkaline Phosphatase 90 U/L Normal 34-104 Alt 13 U/L Normal 7-52 Ast 13 U/L Normal 13-39 Egfr Non- 67.7 >60 Egfr 82.0 >60 2 Type & Screen 08/04/2019 [facility] Patient Blood Type O Positive Antibody Screen NEGATIVE Urine Culture And 08/04/2019 [facility] Urine Culture SEE RESULT 3 Sensitivities BELOW BUN/Creat/GFR 07/02/2019 [facility] Poc Blood Urea 22 mg/dL Normal 8-26 Nitrogen Poc Creatinine 1.0 mg/dL Normal 0.6-1.3 4 Poc BUN/Creatinine Ratio 22.0 High 8-20 Egfr Non- 73.2 >60 Egfr 88.6 >60 5 Babesia Microti 06/11/2019 [facility] Babesia microti <1:10 Neg:<1:10 6 AB Panel [address] [facility] [place] [address] (606)- - Babesia microti IgG <1:10 Neg:<1:10 7 Lyme, Line Blot, Serum 06/11/2019 [facility] IgG P93 Ab. Absent [facility] [place] [address] (605)- - IgG P66 Ab. Absent IgG P58 Ab. Absent IgG P45 Ab. Absent IgG P41 Ab. Present Abnormal IgG P39 Ab. Absent IgG P30 Ab. Absent IgG P28 Ab. Absent IgG P23 Ab. Absent IgG P18 Ab. Absent Lyme IgG Line Blot Interp. Negative 8 IgM P41 Ab. Absent IgM P39 Ab. Absent IgM P23 Ab. Absent Lyme IgM Line Blot Interp. Negative 9 Ehrlichiosis Panel 06/11/2019 [facility] E. chaffeensis Negative Neg:<1:64 [address] [facility] (E) [place] [address] (604)- - E. chaffeensis ([facility]) IgM Titer Negative Neg:<1:20 10 Hge IgG Titer Negative Neg:<1:64 11 Hge IgM Titer Negative Neg:<1:20 12 Prothrombin Time (PT) 06/11/2019 [facility] Inr 1.1 13 [address] [place] [address] (607)- - Prothrombin Time 11.4 seconds High 10.1-11.3 Urine Culture, 06/11/2019 [facility] Urine Culture, Final report Routine [address] [facility] [place] [address] (607)- - Result 1 No growth Laboratory test 06/11/2019 [facility] Hemoglobin A1c 6.6% % High 4.1 -5.7 finding (607)- - (a) Ua - Micro (a) 06/11/2019 [facility] Appearance clear (607)- - Color yellow Glucose, Urine (Fma/CMC/CTX) neg Bilirubin neg Ketones neg SP Grav 1.025 Blood trace-intact PH 5.5 Protein neg Urobil 0.2 Nitrite neg Leukocytes (Fma/CMC/Centrex) neg Hyaline - /Lpf Granular - /Lpf WBC (Fma,Centrex) - RBC 0-2 Mucus (Fma/CBC/Centrex) - /Lpf Epith - /Lpf Bacteria - /Hpf Amorphous (Fma/CMC/Centrex) - /Lpf Crystals, Fluid (Fma/CMC/CTX) - Z#Comments - Comprehensive Metabolic 06/11/2019 Mejia Elaina([facility]) Sodium 139 mEq/L 134-149 Prof Potassium 4.6 mEq/L 3.6-5.5 Chloride 104 mEq/L 94-112 Carbon Dioxide 28 mEq/L 21-32 Glucose 232 mg/dL High 70-105 14 BUN 26 mg/dL 6-26 Creatinine 1.2 mg/dL 0.6-1.4 BUN/Creat Ratio 21.7 CALC 8.0-36.0 Calcium 9.8 mg/dL 8.6-10.2 Total Protein 7.7 g/dL 6.4-8.3 Albumin 4.5 g/dL 3.8-5.5 Globulin 3.2 g/dL 2.0-4.8 A/G Ratio 1.4 CALC 0.6-2.3 Alk. Phosphatase 87 U/L 22-95 Alt (SGPT) 17 U/L 7-35 Ast (Sgot) 11 U/L 5-34 Total Bilirubin 0.4 mg/dL 0.2-1.3 GFR Non- >60 ml/min/1.73m^ >=60 GFR >60 ml/min/1.73m^ >=60 CBC Electronic Fma 06/11/2019 [facility] Elaina(a) WBC 6.7 x10^3/UL 4.0- 10.0 RBC 4.82 x10^6/UL 3.93-6.00 HGB 14.2 g/dL 12.0-17.0 HCT 44 % 35-50 MCV 91.9 fL 80.0-95.0 MCH 29.5 pg 25.6-32.2 MCHC 32.1 g/dL Low 32.2-36.0 15 RDW-CV 13.8 % 11.6-14.4 PLT 207 x10^3/UL 163-400 MPV 9.8 fL 9.4-12.4 Zaid# 4.29 x10^3/UL 1.56-6.13 Lymph# 1.39 x10^3/UL 1.18-3.74 [place]# 0.63 x10^3/UL 0.24-0.82 Eos # 0.3 x10^3/UL 0.0-0.5 Baso # 0.04 x10^3/UL 0.01-0.08 Zaid% 64.4 % 34.0-70.0 Lymph % 20.9 % 20.0-52.0 [place]% 9.5 % 5.0-12.0 Eos% 4.4 % 0.7-7.0 Baso% 0.6 % 0.1-1.2 Laboratory test 06/11/2019 [facility] Elaina(a) Uric Acid 5.9 mg/dL 2.5- 9.2 finding PSA 0.2 ng/mL 0.0-4.0 Ua - Micro (Fma) 06/11/2019 [facility] Appearance clear (607)- - Color yellow Glucose, Urine (Fma/CMC/CTX) - Bilirubin - Ketones - SP Grav 1.025 Blood trace (intact) PH 8.5 Protein - Urobil 0.2 Nitrite - Leukocytes (Fma/CMC/Centrex) - Hyaline - /Lpf Granular - /Lpf WBC (Fma,Centrex) - RBC 0-2 Mucus (Fma/CBC/Centrex) - /Lpf Epith - /Lpf Bacteria - /Hpf Amorphous (Fma/CMC/Centrex) - /Lpf CBC Electronic Fma 04/22/2019 Mejia Elaina([facility]) WBC 6.6 x10^3/UL 4.0- 10.0 RBC 4.54 x10^6/UL 3.93-6.00 HGB 13.3 g/dL 12.0-17.0 HCT 42 % 35-50 MCV 91.4 fL 80.0-95.0 MCH 29.3 pg 25.6-32.2 MCHC 32.2 g/dL 32.2-36.0 RDW-CV 13.3 % 11.6-14.4 PLT 195 x10^3/UL 163-400 MPV 9.5 fL 9.4-12.4 Zaid# 4.12 x10^3/UL 1.56-6.13 Lymph# 1.36 x10^3/UL 1.18-3.74 [place]# 0.77 x10^3/UL 0.24-0.82 Eos # 0.3 x10^3/UL 0.0-0.5 Baso # 0.04 x10^3/UL 0.01-0.08 Zaid% 62.2 % 34.0-70.0 Lymph % 20.5 % 20.0-52.0 [place]% 11.6 % 5.0-12.0 Eos% 4.8 % 0.7-7.0 Baso% 0.6 % 0.1-1.2 Comprehensive Metabolic 04/22/2019 Mejia Elaina([facility]) Sodium 142 mEq/L 134-149 Prof Potassium 4.4 mEq/L 3.6-5.5 Chloride 107 mEq/L 94-112 Carbon Dioxide 29 mEq/L 21-32 Glucose 137 mg/dL High 70-105 16 BUN 30 mg/dL High 6-26 17 Creatinine 0.9 mg/dL 0.6-1.4 BUN/Creat Ratio 33.3 CALC 8.0-36.0 Calcium 9.9 mg/dL 8.6-10.2 Total Protein 7.5 g/dL 6.4-8.3 Albumin 4.3 g/dL 3.8-5.5 Globulin 3.2 g/dL 2.0-4.8 A/G Ratio 1.3 CALC 0.6-2.3 Alk. Phosphatase 76 U/L 22-95 Alt (SGPT) 14 U/L 7-35 Ast (Sgot) 13 U/L 5-34 Total Bilirubin 0.5 mg/dL 0.2-1.3 GFR Non- >60 ml/min/1.73m^ >=60 GFR >60 ml/min/1.73m^ >=60 1 Standard intensity warfarin therapeutic range: 2.0-3.0 High intensity warfarin therapeutic range: 2.5-3.5 2 Because ethnic data is not always [...] 5 Kidney failure <15 (or dialysis) 3 SEE RESULT BELOW Name: MICHELLE ARVIZU : [address]: Sandra Tavera MD Acct: [id number] Unit: [id number] AGE: 73 Location: [facility] Re08/04/19 SEX: M Status: REG REF SPEC: [id number] NITA: 08/04/19 [facility] DR: Sandra Tavera MD REQ: [id number] RECD: 08/04/19 STATUS: EDA JONES DR: Brianne Anderson MD _ SOURCE: URINE SPDESC: ORDERED: Urine Culture QUERIES: Urine Source: Clean Catch Procedure Result Reported Site Urine Culture Final 08/05/19- 1411 ML No Growth (<1,000 CFU/mL) * ML - Main Lab . END OF REPORT DEPARTMENT OF PATHOLOGY, [address] [place] [id number] Nate Ochoa M.D. Director [facility] # [id number] 4 Shoe Stitcher: [id number] 5 Because ethnic data is not always [...] 5 Kidney failure <15 (or dialysis) 6 lyme test to [place] [facility] 7 This test was developed and its performance characteristics determined by [employer]. It has not been cleared or approved by the U.S. Food and Drug Administration. The FDA has determined that such clearance or approval is not necessary. This test is used for clinical purposes. It should not be regarded as investigational or research. 8 Positive: 5 of the following Borrelia-specific bands: 18,23,28,30,39,41,45,58, 66, and 93. Negative: No bands or banding patterns which do not meet positive criteria. 9 Note: An equivocal or positive EIA result followed by a negative Line Blot result is considered NEGATIVE. An equivocal or positive EIA result followed by a positive Line Blot is considered POSITIVE by the CDC. Positive: 2 of the following bands: 23,39 or 41 Negative: No bands or banding patterns which do not meet positive criteria. Criteria for positivity are those recommended by CDC/ASTPHLD. p23=Osp C, i40=gjnnjbpmv Note: Sera from individuals with the following may cross react in the Lyme Line Blot assays: other spirochetal diseases (periodontal disease, leptospirosis, relapsing fever, yaws, and pinta); connective autoimmune (Rheumatoid Arthritis and Systemic Lupus Erythematosus and also individuals with Antinuclear Antibody); other infections ([place] Spotted Fever; Candice-Torres Virus, and Cytomegalovirus). 10 IgG titers if 1:64 or greater indicate exposure or acute and convalescent samples showing a four-fold increase, and/or the presence of IgM indicate recent or current infection. 11 HGE IgG levels are detectable 7 to 10 days post infection and persist approximately one year. 12 Due to a reagent backorder, this test was performed using a different assay. The reference interval for this alternate assay is: Negative <1:64 Positive 1:64 or greater IgM levels usually rise 3 to 5 days post infection and fall to normal levels in approximately 30 to 60 days. 13 INTERNATIONAL NORMALIZED RATIO(INR) INDICATIONS INR RANGE PATIENTS NOT ON ANTICOAGULANT THERAPY * DEEP VENOUS THROMBOSIS 2.0-3.0 PULMONARY EMBOLISM 2.0-3.0 ATRIAL FIBRILLATION 2.0-3.0 PROPHYLAXIS: 2.0-3.0 HIGH-RISK SURGERY TISSUE HEART VALVES ATRIAL FIBRILLATION ACUTE MYOCARDIAL INFARCTION VALVULAR HEART DISEASE MECHANICAL PROSTHETIC VALVE 2.5-3.5 * USE OF INR VALUES SHOULD BE LIMITED TO PATIENTS WHO ARE ON STABLE ORAL ANTICOAGULANT THERAPY. AN INR ABOVE 5.0-5.5 APPEARS TO BE ASSOCIATED WITH AN UNACCEPTABLY HIGH RISK OF BLEEDING. 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 08/15/2019 L03.116 Cellulitis of left lower limb Brianne Anderson M.D. 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 07/31/2019 Z01.818 Encounter for other preprocedural Brianne Anderson M.D. examination 07/31/2019 I47.1 Supraventricular tachycardia Brianne Anderson M.D. 07/31/2019 G89.4 Chronic pain syndrome Brianne Anderson M.D. 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 07/31/2019 R10.31 Right lower quadrant pain Brianne Anderson M.D. 07/31/2019 M25.552 Pain in left hip Brianne Anderson M.D. 07/31/2019 M16.12 Unilateral primary osteoarthritis, left Brianne Anderson M.D. 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 07/10/2019 M25.552 Pain in left hip Brianne Anderson M.D. 07/10/2019 L89.301 Pressure ulcer of unspecified buttock, Brianne Anderson M.D. 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 06/11/2019 Z01.818 Encounter for other preprocedural Brianne Anderson M.D. examination 06/11/2019 N40.1 Benign prostatic hyperplasia with lower Brianne Anderson M.D. urinary tract symp 06/11/2019 E11.9 Type 2 diabetes mellitus without Brianne Anderson M.D. complications 06/10/2019 Z01.818 Encounter for other preprocedural Brianne Anderson M.D. 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 06/10/2019 M25.552 Pain in left hip Brianne Anderson M.D. 06/10/2019 M16.12 Unilateral primary osteoarthritis, left Brianne Anderson M.D. hip 06/10/2019 E11.9 Type 2 diabetes mellitus without Brianne Anderson M.D. complications 06/10/2019 I73.9 Peripheral vascular disease, unspecified Brianne Anderson M.D. 06/10/2019 L40.0 Psoriasis vulgaris Brianne Anderson M.D. 06/10/2019 N20.0 Calculus of kidney Brianne Anderson M.D. 04/24/2019 I89.0 Lymphedema, not elsewhere classified Brianne Anderson M.D. 04/24/2019 M79.605 Pain in left leg Brianne Anderson M.D. 04/22/2019 R60.0 Localized edema DANIEL Bravo Plan of Treatment 08/15/2019 - Brianne Anderson M.D.I73.9 Peripheral vascular disease, unspecifiedComments:both legs.chronic changes, possible lymphedema. continue the clindamycin. I will call Dr. Mauro03.116 Cellulitis of left lower limbComments:sore is healed over with an escar. finish the clindamycin. Eat plenty of yogurt.G51.0 Zavala's palsyComments:mostly healed up. stop the doxycycline for now.AllNew Medication:Colace 100 mg - 1 by mouth 2x dailyComments:Medication Management Patient Understands medications she 's taking? Yes No Are there Barriers to Adherence? Yes No Has the patient been asked about herbal supplements and therapies, and OTC meds? Yes No Care Plan1. Patient has been queried about patient's goals/ preferences and functional/lifestyle goals at relevant visits. If relevant, describe: na2. Treatment goals as explained to the patient: above3. Are there barriers to meeting treatment goals? Yes No If Yes, please describe:4. Self-Management goals as described to the patient: Yes No Functional Status Description No Information Available Mental Status Description No Information Available Referrals Description No Information Available
[2019-08-29] MEDS ORDERED: Acetaminophen TAB* 325 MG PO PRN (12:07)
[2019-08-29] MEDS ORDERED: Magnesium Hydroxide LIQ* 30 ML UDC PO PRN (12:11)
[2019-08-29] MEDS ORDERED: Dextrose 50% Syringe 50 ML* 25 GM/50 ML SYRINGE IV PUSH PRN (12:14)
[2019-08-29] MEDS ORDERED: oxyCODONE/Acetamin 5/325 MG* TAB PO PRN (12:14)
--- NOTE | 2019-08-29 12:53 | PMRUTEAM ---
PMRU: Team Meeting Current Status: Physical Therapy: Current Status Current Rolling Status Partial/Moderate Current Supine <-> Sit Status Partial/Moderate Current Sit <-> Stand Status Substantial/Maximal Current Bed <-> Chair Status Substantial/Maximal Transfer/Bed Mobility Rolling Walker Recommended Devices Current Picking Up Object Not attempted Status Current Car Transfer Status Not attempted Current Ambulation Assistance Partial/Moderate Status Ambulation Assistive Device Rolling Walker Ambulation Conditions Two or More Turns Current Ambulation Distance 120 Current Stair Climbing Status Not attempted Current Curb Assistance Status Not attempted Occupational Therapy: Current Status Current Upper Body Dressing Setup or Clean-up Assist Status Current Lower Body Dressing Dependent Status Current Footwear Status Dependent Current Bathing Status Dependent Current Grooming Status Setup or Clean-up Assist Current Toileting Status Dependent Current Toilet Transfer Status Dependent Current Eating Status Independent Nursing: Current Status Skin Deviations [Bilateral Skin Tear Buttocks] Skin Deviations [Left Medial Skin Tear Thigh] Skin Deviation Description [ trace of blood noted, cream was applied by [facility] Bilateral Buttocks] Skin Deviation Description [ healing, scabs starting to form Left Medial Thigh] Skin Deviation Description [ purple in color with lyphadema Bilateral Lower Leg] Rec Therapy: Current Status Summary of Assessment and Patient was open to meeting with this bid writer to Clinical Impression discuss his leisure lifestyle prior to admission. Patient had an irritable edge at times and stated he would like the staff to "be patient" with him. Patient was being visited by his and their friend at the time of the assessment. Patient requested to have his guitar brought in in a couple of days when he is more up to playing. Goals: Physical Therapy: Goals Goals to Be Accomplished in ( 10 Days) Goal: Rolling Assistance Independent Goal Supine <-> Sit Status Independent Goal Sit <-> Stand Status Independent Goal Bed <-> Chair Status Independent Transfer/Bed Mobility Rolling Walker Recommended Devices Goal: Picking Up Object Independent Goal: Car Transfer Status Setup or Clean-up Assist Goal: Ambulation Assistance Independent Ambulation Assistive Devices Rolling Walker Goal: Wheelchair Propulsion Not Applicable Ability Goal: Stairs Assistance Independent Stairs Recommended Devices Two Rails Number of Stairs flight Goal: Curb Assistance Independent Occupational Therapy: Goals Goals to be Completed in (Days 7-10 days ) Goal Upper Body Dressing Independent Routine Goal Lower Body Dressing Supervision/Touching Routine Goal Footwear Status Setup or Clean-up Assist Goal Bathing Routine (OT) Partial/Moderate Goal Grooming Routine Independent Goal Toilet Hygiene and Independent Clothing Management Routine Goal Toilet Transfer Routine Independent Goal Functional Transfers for Independent ADL Goal Feeding Routine Independent Goal Light Housekeeping Tasks Substantial/Maximal Care Plan: Care Plan ADL's - Improve/Maintain Start: 08/29/19 12:21 Freq: DAILY@0700,1900 Status: Active Target: 08/30/19 Protocol: Activity Type Activity Date Activity User E-Sign Co-Sign Detail Recorded Client Recorded Date Recorded By Document 08/29/19 12:21 [id number] 08/29/19 12:21 [id number] 08/29/19 12:21 PMRU Outcome: ADL's/ADL Transfers Orders/Interventions Occupational Therapy Evaluation & Treatment Device Yes Address Deficits Secondary To: R THIERRY Patient to receive OT 5x/wk for 60-120 Therex min/day Self Care Management Group Therapy UE/LE ADL's with Assist Yes: Hu ADL Transfers with Assist Yes: Indepenent Toileting: Transfers,Clothing Management Yes: ,Hygeine w/Assist Independent Light Kitchen/Laundry w/Assist Yes: maxA Other Outcome/Goals Pt is a 73 y/o male s/p R THIERRY presenting with limited endurance, increased pain, RLE THP, WBAT RLE, balance deficits and decreased strength affecting bathing toileting, dressing and functional mobility/ transfers. Pt completes his morning ADL routine as reported above. Pt completes STS with modA x2. Once standing, he demonstrates increased balance and requires CGA x1 and 2nd assist in the room for safety. Pt able to recall 2/3 THP. Pt will benefit from acute skilled OT services in an acute rehabiliation setting to maximize independence with ADL routine. Progression Toward Outcome/Goals Goal Initiation - Interdisciplinary Staff Present News Videotape Editor/Social Work Staff Present: Steffany Bowden LMSW Nursing Staff Present: Vlad Amaral, RN OT Staff Present: Ciarra Menendez PT Staff Present: Damien Siegel FIELD CONTACT TECHNICIAN Staff Present: Shaun Moore Medicine Note: Length of Stay: 11 days Anticipated Discharge Destination: Tentative Discharge Date: Sep 09, 2019 Discharged to: Home
[2019-08-29] MEDS: Gabapentin CAP(*) 300 MG PO SCH ×2 (14:00→21:48)
[2019-08-29] MEDS: traMADol TAB* 50 MG PO PRN (16:48)
[2019-08-29] MEDS: CMCS:Sitagliptin (NF) 50 MG TAB PO SCH (16:50)
[2019-08-29] MEDS: metFORMIN* 500 MG TAB PO SCH (16:50)
[2019-08-29] MEDS: Insulin LISPRO* 1 UNITS UNIT SUBCUT SCH ×3 (17:14→22:47)
--- NOTE | 2019-08-29 21:32 | HP ---
HISTORY AND PHYSICAL: DATE OF ADMISSION: 08/29/19 REASON FOR ADMISSION: Left total hip replacement. HISTORY OF PRESENT ILLNESS: Lawrence Arvizu is a 73-year-old male. He has medical history significant for diabetes mellitus as well as diabetic peripheral neuropathy. The patient also had developed Zavala's palsy. The patient had significant difficulty with left hip pain. He had a previous right total hip replacement done in June of 2018. He had also had a vein stripping done by Dr. Benedict in April of 2018 and he had a spine surgery done by Dr. Alton Devries at [facility] in 2017. The patient was scheduled to have a left total hip replacement done in 2019, but he had developed a pressure ulcer over his buttocks and this postponed the surgery. He did go to the wound clinic. The patient was admitted to the hospital on 08/26/19 and underwent a left total hip replacement. Postoperatively, the patient was started on Eliquis for DVT prophylaxis. He was put on fingersticks. His oral agents were held. Eventually, his oral diabetic agents were restarted. The patient was felt to have physical therapy and occupational therapy needs. He is now being admitted for inpatient rehab independent living. PAST MEDICAL HISTORY: Significant for the aforementioned diabetes and diabetic peripheral neuropathy. He had a previous right total hip replacement and previous spine surgery done by Dr. Devries. He had an L3 through L5 decompression. 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 The patient has had difficulty with swelling on his legs and had to use lymphedema compressive garments. 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 MEDICATIONS: Current medications include: 1. Eliquis. 2. Lipitor. 3. Doxycycline. 4. Neurontin. 5. Glucotrol. 6. Glucophage. 7. Percocet. 8. Potassium citrate. 9. Januvia. 10. Ultram. ALLERGIES: He has no known drug allergies. SOCIAL HISTORY: He is a nonsmoker, rare drinker, lives with his in a 1- [address] house, but there are 16 steps to enter. 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 REVIEW OF SYSTEMS: The patient reports no current shortness of breath or chest pain. PHYSICAL EXAMINATION VITAL SIGNS: The patient's temperature is 98.2, blood pressure is 104/70, pulse is 100, respirations 15. HEENT: His extraocular movements are intact. Tongue is midline. NECK: Supple. LUNGS: Lung sounds are clear to auscultation bilaterally. HEART: Heart sounds are regular. S1 and S2 are audible. ABDOMEN: Soft and nontender. EXTREMITIES: Show some swelling in his lower extremities. His left hip has a wound, which is clean dry. Leg girth appeared to be close to equal. NEUROLOGIC: He has decreased sensation of his feet. Muscle strength appears to be close to 5/5 in his upper extremities. Lower extremities appeared to be about 4+/5. Left lower extremity around the hip is about 3/5 secondary to pain. His functional exam, he transfers with mod assist. ASSESSMENT: 1. Left total hip replacement. 2. Diabetic peripheral neuropathy. 3. History of pressure ulcers over buttocks. PLAN: Integrate him into a comprehensive and therapeutic rehab program with the following goals: 1. Physical Therapy will work with the patient. They are going to work on functional transfer training and ambulation training with a walker. 2. Occupational Therapy will see the patient. They are going to work on his activities of daily living including toileting and toilet transfers. 3. Eliquis for DVT prophylaxis. 4. Adequate analgesia. 5. Continue gabapentin for diabetic peripheral neuropathy. 6. We will continue zinc oxide cream to protect his skin. 7. For his diabetes, we will do fingerstick 4 times a day with sliding scale insulin coverage. We will continue Glucophage, Januvia, and Glucotrol. 8. His bowels are regulated. 9. enterprise services manager will be closely involved to make sure that any services and equipment that patient requires are in place prior to discharge. 10. Family training as appropriate. 11. Home with appropriate services. ESTIMATED LENGTH OF STAY: 10 to 12 days. [id number]/[facility] #: [id number] [facility]
[2019-08-29] MEDS: DOXYCYCLINE 20 MG PO SCH (21:44)
[2019-08-29] MEDS: Atorvastatin* 20 MG TAB PO SCH (21:46)
[2019-08-29] MEDS: Apixaban* 2.5 MG TAB PO SCH (21:46)
[2019-08-29] MEDS: Docusate CAP* 100 MG PO SCH (21:47)
[2019-08-29] MEDS: Senna TAB 8.6 mg* TAB PO SCH (21:47)
[2019-08-29] MEDS: PTO:Potassium Citrate (NF) 10 MEQ TAB PO SCH (21:47)
[2019-08-29] MEDS ORDERED: Insulin LISPRO* 1 UNITS UNIT SUBCUT ONE (22:45)
[2019-08-30] MEDS: traMADol TAB* 50 MG PO PRN ×3 (02:34→23:35)
[2019-08-30] MEDS: PTO:Potassium Citrate (NF) 10 MEQ TAB PO SCH ×3 (09:20→21:28)
[2019-08-30] MEDS: glipiZIDE TAB* 5 MG PO SCH (09:21)
[2019-08-30] MEDS: metFORMIN* 500 MG TAB PO SCH ×2 (09:22→16:50)
[2019-08-30] MEDS: CMCS:Sitagliptin (NF) 50 MG TAB PO SCH ×2 (09:22→16:50)
[2019-08-30] MEDS: Apixaban* 2.5 MG TAB PO SCH ×2 (09:22→21:29)
[2019-08-30] MEDS: Gabapentin CAP(*) 300 MG PO SCH ×3 (09:23→21:30)
[2019-08-30] MEDS: Docusate CAP* 100 MG PO SCH ×2 (09:24→21:30)
[2019-08-30] MEDS: Insulin LISPRO* 1 UNITS UNIT SUBCUT SCH ×4 (09:29→21:48)
[2019-08-30] MEDS: DOXYCYCLINE 20 MG PO SCH ×2 (11:02→21:36)
--- NOTE | 2019-08-30 15:47 | PN ---
Progress Note Date of Service: 08/30/19 Note: MICHELLE IWLSON was visited. Nursing and therapy notes read and reviewed. He has had difficulty voiding but otherwise doing ok. Current Medications: Active Medications Generic Name Dose Route Start Last Admin Trade Name Freq PRN Reason Stop Dose Admin Acetaminophen 650 mg 08/29/19 12:07 Tylenol Tab* PO Q6H PRN MILD PAIN or TEMP > 100.4 Apixaban 2.5 mg 08/29/19 21:00 08/30/19 09:22 Eliquis* PO 2.5 mg BID JADA Administration Atorvastatin Calcium 20 mg 08/29/19 21:00 08/29/19 21:46 Lipitor* PO 20 mg BEDTIME JADA Administration Dextrose 12.5 gm 08/29/19 12:14 D50w Syringe 50 Ml* IV PUSH .FOR FS < 60 - SS PRN FS < 60 Docusate Sodium 100 mg 08/29/19 21:00 08/30/19 09:24 Colace Cap* PO 100 mg BID JADA Administration Doxycycline Hyclate 20 mg 08/29/19 19:30 08/30/19 11:02 Doxycycline (Nf) PO 20 mg BID@1100,1930 JADA Administration Gabapentin 600 mg 08/29/19 14:00 08/30/19 14:13 Neurontin Cap(*) PO 600 mg TID JADA Administration Glipizide 2.5 mg 08/30/19 09:00 08/30/19 09:21 Glucotrol Tab* PO 2.5 mg DAILY JADA Administration Insulin Human Lispro 0 - 12 units 08/29/19 16:30 08/30/19 12:22 Humalog* SUBCUT 2 unit ACHS JADA Administration Protocol Magnesium Hydroxide 30 ml 08/29/19 12:11 Milk Of Magnesia Liq* PO Q6H PRN CONSTIPATION Metformin HCl 500 mg 08/29/19 17:00 08/30/19 09:22 Glucophage* PO 500 mg BID@0800,1700 JADA Administration Nystatin 1 applic 08/30/19 21:00 Nystatin Cream* TOPICAL BID JADA Oxycodone/Acetaminophen 1 tab 08/29/19 12:14 Percocet 5/325 Tab* PO Q4H PRN PAIN - MODERATE Potassium Citrate 20 meq 08/29/19 21:00 08/30/19 14:14 Urocit-K 10 (Nf) PO 20 meq TID JADA Administration Senna 2 tab 08/29/19 21:00 08/29/19 21:47 Senokot 8.6 Mg Tab* PO 2 tab BEDTIME JADA Administration Sitagliptin Phosphate 50 mg 08/29/19 17:00 08/30/19 09:22 Januvia (Nf) PO 50 mg BID@0800,1700 JADA Administration Tramadol HCl 50 mg 08/29/19 12:15 08/30/19 09:25 Ultram* PO 50 mg Q6H PRN Administration PAIN - MILD Vital Signs: Vital Signs Temp Pulse Resp BP Pulse Ox 98.6 F 94 18 112/69 94 08/30/19 05:53 08/30/19 05:53 08/30/19 14:13 08/30/19 05:53 08/30/19 08:00 Lab Results: Laboratory Results - last 24 hr 08/29/19 08/29/19 08/29/19 12:04 16:20 20:19 POC Glucose (mg/dL) 193 H 200 H 69 L 08/29/19 08/29/19 08/30/19 20:40 21:57 07:40 POC Glucose (mg/dL) 311 H 275 H 200 H 08/30/19 11:40 POC Glucose (mg/dL) 198 H Exam: GENERAL: No distress LUNGS: Clear bilaterally HEART: Regular rhythm ABDOMEN: Soft EXTREMITIES: Wound left hip C/D/I NEUROLOGIC: Alert. Muscle strength 5/5 except left leg due to pain Assessment/Plan: 1. Left total hip replacement: WBAT. PT/OT 2. Diabetes: Glipizide/Glcophage/Januvia/SSI 3. Urinary Retention: may need to SC 4. DPN: gabapentin 5. DVT Prophylaxis: Eliquis 6. Advance Directives: Full Code 7. Pressure Ulcer: Zinc oxide 08/30/19 16:15 08/30/19 16:16 08/30/19 16:19
[2019-08-30] MEDS: Atorvastatin* 20 MG TAB PO SCH (21:29)
[2019-08-30] MEDS: Senna TAB 8.6 mg* TAB PO SCH (21:32)
[2019-08-30] MEDS: Nystatin CREAM* 15 GM TUBE TOPICAL SCH (23:32)
[2019-08-31] MEDS: Docusate CAP* 100 MG PO SCH ×2 (07:22→20:02)
[2019-08-31] MEDS: PTO:Potassium Citrate (NF) 10 MEQ TAB PO SCH ×3 (08:27→20:07)
[2019-08-31] MEDS: Apixaban* 2.5 MG TAB PO SCH ×2 (08:27→20:09)
[2019-08-31] MEDS: CMCS:Sitagliptin (NF) 50 MG TAB PO SCH ×2 (08:27→17:03)
[2019-08-31] MEDS: Gabapentin CAP(*) 300 MG PO SCH ×3 (08:27→20:10)
[2019-08-31] MEDS: metFORMIN* 500 MG TAB PO SCH ×2 (08:27→17:03)
[2019-08-31] MEDS: glipiZIDE TAB* 5 MG PO SCH (08:29)
[2019-08-31] MEDS: Insulin LISPRO* 1 UNITS UNIT SUBCUT SCH ×4 (08:30→20:17)
[2019-08-31] MEDS: DOXYCYCLINE 20 MG PO SCH ×2 (10:33→20:08)
[2019-08-31] MEDS: traMADol TAB* 50 MG PO PRN ×2 (10:33→18:15)
[2019-08-31] MEDS: Nystatin CREAM* 15 GM TUBE TOPICAL SCH ×2 (10:34→23:10)
[2019-08-31] MEDS ORDERED: Methocarbamol TAB* 500 MG PO ONE (15:28)
--- NOTE | 2019-08-31 15:34 | PN ---
Progress Note Date of Service: 08/31/19 Note: MICHELLE WILSON was visited. Therapy notes read and reviewed. He was able to void yesterday. He would like to restart his Lisinopril. Current Medications: Active Medications Generic Name Dose Route Start Last Admin Trade Name Freq PRN Reason Stop Dose Admin Acetaminophen 650 mg 08/29/19 12:07 Tylenol Tab* PO Q6H PRN MILD PAIN or TEMP > 100.4 Apixaban 2.5 mg 08/29/19 21:00 08/31/19 08:27 Eliquis* PO 2.5 mg BID JADA Administration Atorvastatin Calcium 20 mg 08/29/19 21:00 08/30/19 21:29 Lipitor* PO 20 mg BEDTIME JADA Administration Dextrose 12.5 gm 08/29/19 12:14 D50w Syringe 50 Ml* IV PUSH .FOR FS < 60 - SS PRN FS < 60 Docusate Sodium 100 mg 08/29/19 21:00 08/31/19 07:22 Colace Cap* PO Not Given BID JADA Doxycycline Hyclate 20 mg 08/29/19 19:30 08/31/19 10:33 Doxycycline (Nf) PO 20 mg BID@1100,1930 JADA Administration Gabapentin 600 mg 08/29/19 14:00 08/31/19 14:49 Neurontin Cap(*) PO 600 mg TID JADA Administration Glipizide 2.5 mg 08/30/19 09:00 08/31/19 08:29 Glucotrol Tab* PO 2.5 mg DAILY JADA Administration Insulin Human Lispro 0 - 12 units 08/29/19 16:30 08/31/19 12:33 Humalog* SUBCUT 1 unit ACHS JADA Administration Protocol Lisinopril 2.5 mg 09/01/19 09:00 Prinivil Tab* PO DAILY JADA Magnesium Hydroxide 30 ml 08/29/19 12:11 Milk Of Magnesia Liq* PO Q6H PRN CONSTIPATION Metformin HCl 500 mg 08/29/19 17:00 08/31/19 08:27 Glucophage* PO 500 mg BID@0800,1700 JADA Administration Methocarbamol 500 mg 08/31/19 15:31 Robaxin Tab* PO TID PRN SPASMS Nystatin 1 applic 08/30/19 21:00 08/31/19 10:34 Nystatin Cream* TOPICAL 1 applic BID JADA Administration Oxycodone/Acetaminophen 1 tab 08/29/19 12:14 Percocet 5/325 Tab* PO Q4H PRN PAIN - MODERATE Potassium Citrate 20 meq 08/29/19 21:00 08/31/19 14:49 Urocit-K 10 (Nf) PO 20 meq TID JADA Administration Senna 2 tab 08/29/19 21:00 08/30/19 21:32 Senokot 8.6 Mg Tab* PO 2 tab BEDTIME JADA Administration Sitagliptin Phosphate 50 mg 08/29/19 17:00 08/31/19 08:27 Januvia (Nf) PO 50 mg BID@0800,1700 JADA Administration Tramadol HCl 50 mg 08/29/19 12:15 08/31/19 10:33 Ultram* PO 50 mg Q6H PRN Administration PAIN - MILD Vital Signs: Vital Signs Temp Pulse Resp BP Pulse Ox 98.3 F 92 18 126/67 95 08/31/19 15:12 08/31/19 15:12 08/31/19 15:12 08/31/19 15:12 08/31/19 15:12 Lab Results: Laboratory Results - last 24 hr 08/30/19 08/30/19 08/31/19 16:52 21:05 07:11 POC Glucose (mg/dL) 185 H 181 H 189 H 08/31/19 11:47 POC Glucose (mg/dL) 147 H Exam: GENERAL: No distress LUNGS: Clear bilaterally HEART: Regular rhythm ABDOMEN: Soft EXTREMITIES: Wound left hip C/D/I NEUROLOGIC: Alert. Muscle strength 5/5 except left leg due to pain Assessment/Plan: 1. Left total hip replacement: WBAT. PT/OT 2. Diabetes: Glipizide/Glcophage/Januvia/SSI 3. Urinary Retention: was able to void 4. DPN: gabapentin 5. DVT Prophylaxis: Eliquis 6. Advance Directives: Full Code 7. Pressure Ulcer: Zinc oxide 8. Hypertension: Restart Lisinopril 08/31/19 15:34
[2019-08-31] MEDS: Senna TAB 8.6 mg* TAB PO SCH (20:02)
[2019-08-31] MEDS: Atorvastatin* 20 MG TAB PO SCH (20:10)
[2019-08-31] MEDS ORDERED: Methocarbamol TAB* 500 MG PO PRN (21:00)
[2019-09-01 04:59] LABS: ABS Eosinophils 0.3 10^3/ul (0-0.6); ABS Lymphocytes 1.4 10^3/ul (1.0-4.8); ABS Neutrophils 3.9 10^3/ul (1.5-7.7); Eosinophil % 4.5 %; Hematocrit 32 % (42-52); Hemoglobin 10.5 g/dL (14.0-18.0); Lymphocyte % 20.8 %; Mean Corpuscular HGB Conc 33 g/dL (31-36); Mean Corpuscular Hemoglobin 29 pg (27-31); Mean Corpuscular Volume 89 fL (80-94); Mean Platelet Volume 7.5 fL (7.4-10.4); Nucleated Red Blood Cells % 0.1; Platelet Count 197 10^3/uL (150-450); Red Blood Count 3.61 10^6 /uL (4.18-5.48); Red Cell Distribution Width 14 % (10-15); White Blood Count 6.6 10^3/uL (3.5-10.8)
[2019-09-01 05:15] LABS: Albumin 3.1 g/dL (3.2-5.2); BUN/Creatinine Ratio 20.5 (8-20); Calcium 8.8 mg/dL (8.6-10.3); EGFR African American 109.9 (>60); EGFR Non-African American 90.8 (>60); Potassium 4.5 mmol/L (3.5-5.0); Total Bilirubin 0.6 mg/dL (0.2-1.0); Total Protein 6.1 g/dL (6.4-8.9)
[2019-09-01] MEDS: Docusate CAP* 100 MG PO SCH ×3 (08:29→21:25)
[2019-09-01] MEDS: metFORMIN* 500 MG TAB PO SCH ×2 (08:30→17:28)
[2019-09-01] MEDS: CMCS:Sitagliptin (NF) 50 MG TAB PO SCH ×2 (08:30→17:25)
[2019-09-01] MEDS: Apixaban* 2.5 MG TAB PO SCH ×2 (08:30→21:28)
[2019-09-01] MEDS: glipiZIDE TAB* 5 MG PO SCH (08:30)
[2019-09-01] MEDS: Lisinopril TAB* 5 MG PO SCH (08:30)
[2019-09-01] MEDS: Gabapentin CAP(*) 300 MG PO SCH ×3 (08:31→21:28)
[2019-09-01] MEDS: Insulin LISPRO* 1 UNITS UNIT SUBCUT SCH ×4 (08:32→21:29)
[2019-09-01] MEDS: PTO:Potassium Citrate (NF) 10 MEQ TAB PO SCH ×3 (08:40→21:29)
[2019-09-01] MEDS: traMADol TAB* 50 MG PO PRN (08:40)
[2019-09-01] MEDS: Nystatin CREAM* 15 GM TUBE TOPICAL SCH ×2 (10:05→21:30)
[2019-09-01] MEDS: DOXYCYCLINE 20 MG PO SCH ×2 (11:27→19:50)
--- NOTE | 2019-09-01 20:01 | PN ---
Progress Note Date of Service: 09/01/19 Note: MICHELLE WILSON was visited. Therapy notes read and reviewed. He is moving better and feels ok today. Not sure if muscle relaxer helped yesterday Current Medications: Active Medications Generic Name Dose Route Start Last Admin Trade Name Freq PRN Reason Stop Dose Admin Acetaminophen 650 mg 08/29/19 12:07 09/01/19 12:40 Tylenol Tab* PO 650 mg Q6H PRN Administration MILD PAIN or TEMP > 100.4 Apixaban 2.5 mg 08/29/19 21:00 09/01/19 08:30 Eliquis* PO 2.5 mg BID JADA Administration Atorvastatin Calcium 20 mg 08/29/19 21:00 08/31/19 20:10 Lipitor* PO 20 mg BEDTIME JADA Administration Dextrose 12.5 gm 08/29/19 12:14 D50w Syringe 50 Ml* IV PUSH .FOR FS < 60 - SS PRN FS < 60 Docusate Sodium 100 mg 08/29/19 21:00 09/01/19 08:48 Colace Cap* PO Not Given BID JADA Doxycycline Hyclate 20 mg 08/29/19 19:30 09/01/19 19:50 Doxycycline (Nf) PO 20 mg BID@1100,1930 JADA Administration Gabapentin 600 mg 08/29/19 14:00 09/01/19 14:32 Neurontin Cap(*) PO 600 mg TID JADA Administration Glipizide 2.5 mg 08/30/19 09:00 09/01/19 08:30 Glucotrol Tab* PO 2.5 mg DAILY JADA Administration Insulin Human Lispro 0 - 12 units 08/29/19 16:30 09/01/19 17:28 Humalog* SUBCUT 2 unit ACHS JADA Administration Protocol Lisinopril 2.5 mg 09/01/19 09:00 09/01/19 08:30 Prinivil Tab* PO 2.5 mg DAILY JADA Administration Magnesium Hydroxide 30 ml 08/29/19 12:11 Milk Of Magnesia Liq* PO Q6H PRN CONSTIPATION Metformin HCl 500 mg 08/29/19 17:00 09/01/19 17:28 Glucophage* PO 500 mg BID@0800,1700 JADA Administration Methocarbamol 500 mg 08/31/19 21:00 Robaxin Tab* PO TID PRN SPASMS Nystatin 1 applic 08/30/19 21:00 09/01/19 10:05 Nystatin Cream* TOPICAL 1 applic BID JADA Administration Oxycodone/Acetaminophen 1 tab 08/29/19 12:14 Percocet 5/325 Tab* PO Q4H PRN PAIN - MODERATE Potassium Citrate 20 meq 08/29/19 21:00 09/01/19 14:34 Urocit-K 10 (Nf) PO 20 meq TID JADA Administration Senna 2 tab 08/29/19 21:00 08/31/19 20:02 Senokot 8.6 Mg Tab* PO Not Given BEDTIME JADA Sitagliptin Phosphate 50 mg 08/29/19 17:00 09/01/19 17:25 Januvia (Nf) PO 50 mg BID@0800,1700 JADA Administration Tramadol HCl 50 mg 08/29/19 12:15 09/01/19 08:40 Ultram* PO 50 mg Q6H PRN Administration PAIN - MILD Vital Signs: Vital Signs Temp Pulse Resp BP Pulse Ox 98.2 F 83 18 108/58 96 09/01/19 16:00 09/01/19 16:00 09/01/19 17:07 09/01/19 16:00 09/01/19 17:07 Lab Results: Laboratory Results - last 24 hr 08/31/19 09/01/19 09/01/19 20:16 04:54 04:54 WBC 6.6 RBC 3.61 L Hgb 10.5 L Hct 32 L MCV 89 MCH 29 MCHC 33 RDW 14 Plt Count 197 MPV 7.5 Neut % (Auto) 59.1 Lymph % (Auto) 20.8 Stanly % (Auto) 15.0 Eos % (Auto) 4.5 Baso % (Auto) 0.6 Absolute Neuts (auto) 3.9 Absolute Lymphs (auto) 1.4 Absolute Monos (auto) 1.0 H Absolute Eos (auto) 0.3 Absolute Basos (auto) 0.0 Absolute Nucleated RBC 0.0 Nucleated RBC % 0.1 Sodium 138 Potassium 4.5 Chloride 103 Carbon Dioxide 31 Anion Gap 4 BUN 17 Creatinine 0.83 Est GFR ( Amer) 109.9 Est GFR (Non-Af Amer) 90.8 BUN/Creatinine Ratio 20.5 H Glucose 167 H POC Glucose (mg/dL) 93 Calcium 8.8 Total Bilirubin 0.60 AST 12 L ALT 17 Alkaline Phosphatase 51 Total Protein 6.1 L Albumin 3.1 L Globulin 3.0 Albumin/Globulin Ratio 1.0 09/01/19 09/01/19 11:32 16:27 WBC RBC Hgb Hct MCV MCH MCHC RDW Plt Count MPV Neut % (Auto) Lymph % (Auto) Stan[place] % (Auto) Eos % (Auto) Baso % (Auto) Absolute Neuts (auto) Absolute Lymphs (auto) Absolute Monos (auto) Absolute Eos (auto) Absolute Basos (auto) Absolute Nucleated RBC Nucleated RBC % Sodium Potassium Chloride Carbon Dioxide Anion Gap BUN Creatinine Est GFR ( Amer) Est GFR (Non-Af Amer) BUN/Creatinine Ratio Glucose POC Glucose (mg/dL) 138 H 153 H Calcium Total Bilirubin AST ALT Alkaline Phosphatase Total Protein Albumin Globulin Albumin/Globulin Ratio Exam: GENERAL: No distress LUNGS: Clear bilaterally HEART: Regular rhythm ABDOMEN: Soft EXTREMITIES: Wound left hip C/D/I NEUROLOGIC: Alert. Muscle strength 5/5 except left leg due to pain Assessment/Plan: 1. Left total hip replacement: WBAT. PT/OT 2. Diabetes: Glipizide/Glcophage/Januvia/SSI 3. Urinary Retention: was able to void 4. DPN: gabapentin 5. DVT Prophylaxis: Eliquis 6. Advance Directives: Full Code 7. Pressure Ulcer: Zinc oxide 8. Hypertension: Restarted Lisinopril 09/01/19 20:02
[2019-09-01] MEDS: Senna TAB 8.6 mg* TAB PO SCH (21:25)
[2019-09-01] MEDS: Atorvastatin* 20 MG TAB PO SCH (21:27)
[2019-09-02] MEDS: traMADol TAB* 50 MG PO PRN ×2 (04:01→21:23)
[2019-09-02] MEDS: Insulin LISPRO* 1 UNITS UNIT SUBCUT SCH ×4 (08:18→21:24)
[2019-09-02] MEDS: metFORMIN* 500 MG TAB PO SCH ×2 (08:18→17:24)
[2019-09-02] MEDS: Lisinopril TAB* 5 MG PO SCH (09:33)
[2019-09-02] MEDS: Gabapentin CAP(*) 300 MG PO SCH ×3 (09:34→21:18)
[2019-09-02] MEDS: glipiZIDE TAB* 5 MG PO SCH (09:34)
[2019-09-02] MEDS: Apixaban* 2.5 MG TAB PO SCH ×2 (09:34→21:18)
[2019-09-02] MEDS: Docusate CAP* 100 MG PO SCH (09:40)
[2019-09-02] MEDS: PTO:Potassium Citrate (NF) 10 MEQ TAB PO SCH ×3 (09:41→21:17)
[2019-09-02] MEDS: DOXYCYCLINE 20 MG PO SCH ×3 (09:42→20:12)
[2019-09-02] MEDS: CMCS:Sitagliptin (NF) 50 MG TAB PO SCH ×2 (10:27→17:24)
--- NOTE | 2019-09-02 12:46 | PMRUTEAM ---
PMRU: Team Meeting Current Status: Physical Therapy: Current Status Current Rolling Status Substantial/Maximal Current Supine <-> Sit Status Dependent Current Sit <-> Stand Status Partial/Moderate Current Bed <-> Chair Status Partial/Moderate Transfer/Bed Mobility Rolling Walker Recommended Devices Current Picking Up Object Not attempted Status Current Car Transfer Status Not attempted Current Ambulation Assistance Partial/Moderate Status Ambulation Assistive Device Rolling Walker Ambulation Conditions Two or More Turns Current Ambulation Distance 2x10' Current Stair Climbing Status Not attempted Current Curb Assistance Status Not attempted Objective Comments Pt able to recall 3/3 total hip precautions this date Occupational Therapy: Current Status Current Upper Body Dressing Setup or Clean-up Assist Status Current Lower Body Dressing Partial/Moderate Status Current Footwear Status Partial/Moderate Current Bathing Status Partial/Moderate Current Grooming Status Setup or Clean-up Assist Current Toileting Status Partial/Moderate Current Toilet Transfer Status Supervision/Touching Current Eating Status Independent Nursing: Current Status Skin Deviations [Left Hip] Incision Skin Deviations [Bilateral Skin Tear Buttocks] Skin Deviations [Left Medial Abrasion Thigh] Skin Deviations [Bilateral Other Lower Leg] Skin Deviation Description [ orange cream applied; blue cream to surrounding Bilateral Buttocks] areas Skin Deviation Description [ scabbed, healing Left Medial Thigh] Skin Deviation Description [ poor perfusion Bilateral Lower Leg] Bladder Current Status stress incontinence Bowel Current Status being having bouts of loose stool Nutrition Current Status good appetite Medication Current Status take medications as prescribed Rec Therapy: Current Status Summary of Assessment and Recreation therapy assessement complete and pt is Clinical Impression aware of services. Pt is open to continued leisure visists and pet therapy. Treatment Goals Pt will engage in leisure activities while on the unit as tolerated Treatment Plan Provide recreation therapy services and encourage involvement Social Work: Current Status Discharge Plan return home with home care svs and family support Potential for Family Training pt's is attentive and involved Anticipated Discharge Home Destination Discharge With home care svs and family support Nutrition: Current Status Monitoring pt adm 08/29 following left THR 08/26. Full nutrition assessment planned 09/03 per NDS protocol. Pt w/open area to buttocks, wihch is being addressed by nursing. He is eating nearly 100% consistently and is meeting his est needs. Consistent carb diet in place d/t hx DM; BG controlled 138-185. Other labs/electrolytes WNL. Having daily BMs. Initial goals as outlined below. Goals: Physical Therapy: Goals Goals to Be Accomplished in ( 10 Days) Goal: Rolling Assistance Independent Goal Supine <-> Sit Status Independent Goal Sit <-> Stand Status Independent Goal Bed <-> Chair Status Independent Transfer/Bed Mobility Rolling Walker Recommended Devices Goal: Picking Up Object Independent Goal: Car Transfer Status Setup or Clean-up Assist Goal: Ambulation Assistance Independent Ambulation Assistive Devices Rolling Walker Goal: Wheelchair Propulsion Not Applicable Ability Goal: Stairs Assistance Independent Stairs Recommended Devices Two Rails Number of Stairs flight Goal: Curb Assistance Independent Occupational Therapy: Goals Goals to be Completed in (Days 7-10 days ) Goal Upper Body Dressing Independent Routine Goal Lower Body Dressing Supervision/Touching Routine Goal Footwear Status Setup or Clean-up Assist Goal Bathing Routine (OT) Partial/Moderate Goal Grooming Routine Independent Goal Toilet Hygiene and Independent Clothing Management Routine Goal Toilet Transfer Routine Independent Goal Functional Transfers for Independent ADL Goal Feeding Routine Independent Goal Light Housekeeping Tasks Substantial/Maximal Nutrition: Goals Intervention Goals 1. adequate intake to support hydration and lean body mass without add'l wt gain 2. glycemic control within inpatient parameters; no s/sx hypo-hyperglycemia 3. achieve and maintain serum electrolytes WNL 4. regulation of bowel pattern; no c/o constipation (or diarrhea) Social Work: Goals Discharge Plan return home with home care svs and family support Potential for Family Training pt's is attentive and involved Anticipated Discharge Home Destination Discharge With home care svs and family support Nursing: Goals Bladder Goal get to bathroom in time to maintain continent Bowel Goal formed, regular stool Nutrition Goal maintain good appetite Medication Goal continue to take medication as prescribed Care Plan: Care Plan ADL's - Improve/Maintain Start: 08/29/19 12:21 Freq: DAILY@0700,1900 Status: Active Target: 08/30/19 Protocol: Activity Type Activity Date Activity User E-Sign Co-Sign Detail Recorded Client Recorded Date Recorded By Document 09/01/19 14:45 [id number] 09/01/19 14:45 [id number] 09/01/19 14:45 PMRU Outcome: ADL's/ADL Transfers Orders/Interventions Occupational Therapy Evaluation & Treatment Device Yes Address Deficits Secondary To: R THIERRY Patient to receive OT 5x/wk for 60-120 Therex min/day Self Care Management Group Therapy UE/LE ADL's with Assist Yes: Hu ADL Transfers with Assist Yes: Indepenent Toileting: Transfers,Clothing Management Yes: ,Hygeine w/Assist Independent Light Kitchen/Laundry w/Assist Yes: maxA Other Outcome/Goals Pt tolerates OT tx session well. He continues to use his AE to maintain his hip precautions . He does state that his will be assisting with his lower body ADLs at d/c. Progression Toward Outcome/Goals Progressing Coping/Psych-Improve/Maintain Start: 08/31/19 01:37 Freq: DAILY@0700,1900 Status: Active Target: 09/09/19 Protocol: Activity Type Activity Date Activity User E-Sign Co-Sign Detail Recorded Client Recorded Date Recorded By Document 09/02/19 01:45 [id number] 09/02/19 01:46 [id number] 09/02/19 01:45 PMRU Outcome: Coping/Psychosocial Current Coping Outcome/Goals Verbalization of Acceptance of Rehab Admit Utilization of Appropriate Problem Solving Techniques Willingness to Participate in Treatment Plan and Basic Needs Utilization of Available Support Systems Progression Toward Outcome/Goals Progressing Current Psychosocial Outcome/Goals Maintain/ Improve Emotional Health Demonstrates Knowledge of Healthy Coping Mechanisms Available Cooperate/ Participate in Plan Progression Toward Outcome/Goals Progressing Discharge Planning Start: 08/30/19 01:10 Freq: DAILY@0700,1900 Status: Complete Target: 09/04/19 Protocol: Activity Type Activity Date Activity User E-Sign Co-Sign Detail Recorded Client Recorded Date Recorded By Document 08/31/19 01:31 [id number] 08/31/19 01:32 [id number] 08/31/19 01:31 Outcome: Discharge Planning Current Discharge Planning Outcome/Goals Demonstrates Understanding of Discharge Plan Progression Toward Outcome/Goals Progressing Outcome/Goals Met Demonstrates Understanding of Discharge Plan Discharge Planning - Improve/Maintain Start: 08/31/19 01:37 Freq: DAILY@0700,1900 Status: Active Target: 09/09/19 Protocol: Activity Type Activity Date Activity User E-Sign Co-Sign Detail Recorded Client Recorded Date Recorded By Document 09/02/19 01:45 [id number] 09/02/19 01:46 [id number] 09/02/19 01:45 PMRU Outcome: Discharge Planning Update Patient Family No Current Discharge Planning Outcome/Goals Demonstrates Understanding of Discharge Plan Progression Toward Outcome/Goals Progressing Education-Improve/Maintain Start: 08/30/19 01:10 Freq: DAILY@07,190 Status: Complete Target: 09/03/19 Protocol: Activity Type Activity Date Activity User E-Sign Co-Sign Detail Recorded Client Recorded Date Recorded By Document 08/31/19 01:31 [id number] 08/31/19 01:32 [id number] 08/31/19 01:31 Outcome: Education Current Education Outcome/Goals Demonstrates Understanding of Plan of Care to their Capacity Understands Their Diagnosis and How to Prevent Complications Understands Medications and /or Treatments to the Best of Their Ablilty Progression Toward Outcome/Goals Progressing Outcome/Goals Met Demonstrates Understanding of Plan of Care to their Capacity Outcome/Goals Met Comment dicussed medications Education-Improve/Maintain Start: 08/31/19 01:37 Freq: DAILY@ Status: Active Target: 09/09/19 Protocol: Activity Type Activity Date Activity User E-Sign Co-Sign Detail Recorded Client Recorded Date Recorded By Document 09/02/19 01:45 [id number] [id number] 09/02/19 01:46 [id number] 09/02/19 01:45 PMRU Outcome: Education Current Education Outcome/Goals Demonstrate/ Verbalize Understanding of Written Discharge Instructions Demonstrates Skills Encourage Questions Progression Toward Outcome/Goals Progressing Gastrointestinal-Improve/Maintain Start: 08/30/19 01:10 Freq: DAILY@699,1899 Status: Active Target: 09/09/19 Protocol: Activity Type Activity Date Activity User E-Sign Co-Sign Detail Recorded Client Recorded Date Recorded By Document 09/02/19 01:45 [id number] [id number] 09/02/19 01:46 [id number] 09/02/19 01:45 Outcome: Gastrointestinal Current GI Outcome/Goals Maintain/ Achieve Bowel Regularity in Accordance with Pt's Baseline Remain Free of Emesis Progression Toward Outcome/Goals Progressing Outcome/Goals Met Comment pt incontinent of stool on evening shift Medication Administration Start: 08/31/19 01:37 Freq: DAILY@699,1899 Status: Active Target: 09/09/19 Protocol: Activity Type Activity Date Activity User E-Sign Co-Sign Detail Recorded Client Recorded Date Recorded By Document 09/02/19 01:45 [id number] [email or web address] 09/02/19 01:46 [id number] 09/02/19 01:45 PMRU Outcome: Medication Administration Assess Patient Knowledge/Teach Med Yes Education for all Meds Current Molasses Coloring Operator Outcome/Goals Family/ Caregiver Administer Medications at Home Demonstrates Understanding Progression Towards Outcome/Goals Progressing Is Patient Going Home on Lovenox? No Metabolic Status- Improve/Maintain Start: 08/31/19 01:37 Freq: DAILY@0700,1900 Status: Active Target: 09/09/19 Protocol: Activity Type Activity Date Activity User E-Sign Co-Sign Detail Recorded Client Recorded Date Recorded By Document 09/02/19 01:45 [id number] [id number] 09/02/19 01:46 [id number] 09/02/19 01:45 PMRU Outcome: Metabolic Status Have Fingersticks Been Ordered Yes Fingerstick Order Frequency AC & HS Current Metabolic Status Outcome/Goals Maintain/ Improve Metabolic Status Demonstrate Knowledge of Prevention/ Treatment of Metabolic Imbalances Progression Toward Outcome/Goals Progressing Mobility- Improve/Maintain Start: 08/30/19 12:06 Freq: DAILY@0700,1900 Status: Active Target: 08/31/19 Protocol: Activity Type Activity Date Activity User E-Sign Co-Sign Detail Recorded Client Recorded Date Recorded By Document 09/01/19 14:58 [id number] 09/01/19 14:58 [id number] 09/01/19 14:58 PMRU Outcome: Mobility Physical Therapy Evaluation and Yes Treatment Activity OOB with Assistance Yes WBAT Yes NWB No TTWB No Device Yes Assistance Yes Patient to be seen 5x/wk for 60-120 min/ Therex day for: Mobility Training Gait Training Balance Other Therapy Comment Discharge training, discharge planning Current Mobility Outcome/Goals Maintain/ Achieve Baseline Mobility Status Improve Mobility Status Demonstrates Proper Use of Assistive Devices Free from Complications of Immobility Progression Toward Outcome/Goals Progressing Bed Mobility Yes: Independent with RW Transfers Yes: Independent with RW Gait x ft Yes: 150' Independent with RW W/C Mobility x ft No Up/Down Stairs Yes: 12 with 2 rails, supervision With HEP Yes: Supervision Pain/Comfort- Improve/Maintain Start: 08/31/19 01:37 Freq: DAILY@0700,1900 Status: Active Target: 09/09/19 Protocol: Activity Type Activity Date Activity User E-Sign Co-Sign Detail Recorded Client Recorded Date Recorded By Document 09/02/19 01:45 [id number] [id number] 09/02/19 01:46 [id number] 09/02/19 01:45 PMRU Outcome: Pain/Comfort Current Pain/Comfort Outcome/Goals Demonstrates Knowledge and Use of Available Comfort Measures Achieves Acceptable Comfort/Pain Level as Determined by Patient/Condit Maintain Comfort Level Allowing Patient to Fully Participate in Rehab Progression Toward Outcome/Goals Progressing Outcome/Goals Met Comment pt repositioned Rec Therapy- Improve/Maintain Start: 09/01/19 08:07 Freq: DAILY@0700,1900 Status: Active Target: 09/02/19 Protocol: Activity Type Activity Date Activity User E-Sign Co-Sign Detail Recorded Client Recorded Date Recorded By Document 09/01/19 16:36 [id number] 09/01/19 16:38 [id number] 09/01/19 16:36 PMRU Outcome: Recreation Therapy Current Rec Ther Outcome/Goals Complete Rec Therapy Assessment Meet with Patient Regularly for Support Encourage Leisure Involvement Progression Toward Outcome/Goals Progressing Lack of Progression Comment Met with pt to provide a leisure visit, pt declined recreation and leisure 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 Outcome/Goals Met Complete Rec Therapy Assessment Outcome/Goals Met Comment Recreation therapy assessment complete Safety- Improve/Maintain Start: 08/29/19 10:52 Freq: DAILY@0700,1900 Status: Active Target: 09/09/19 Protocol: Activity Type Activity Date Activity User E-Sign Co-Sign Detail Recorded Client Recorded Date Recorded By Document 09/02/19 01:45 [id number] [id number] 09/02/19 01:46 [id number] 09/02/19 01:45 PMRU Outcome: Safety Current Safety Outcome/Goals Remain Free of Injury or Harm Cooperates with Safety Measures for Least Restrictive Environment Prevent Falls/ Injury Progression Toward Outcome/Goals Progressing Skin- Improve/Maintain Start: 08/31/19 01:37 Freq: DAILY@0700,1900 Status: Active Target: 09/09/19 Protocol: Activity Type Activity Date Activity User E-Sign Co-Sign Detail Recorded Client Recorded Date Recorded By Document 09/02/19 01:45 [id number] [id number] 09/02/19 01:46 [id number] 09/02/19 01:45 PMRU Outcome: Skin Skin Risk Level Moderate Risk Skin Orders Turn/Position q2hr While in Bed Current Skin Outcome/Goals Maintain/ Improve Skin Integrity Surgical Incisions Healing Progression Toward Outcome/Goals Progressing Outcome/Goals Met Comment pt repositioned Skin-Improve/Maintain Start: 08/30/19 01:10 Freq: DAILY@0700,1900 Status: Complete Target: 09/05/19 Protocol: Activity Type Activity Date Activity User E-Sign Co-Sign Detail Recorded Client Recorded Date Recorded By Document 08/31/19 01:31 [id number] 08/31/19 01:32 [id number] 08/31/19 01:31 Outcome: Skin Current Skin Outcome/Goals Maintain/ Improve Skin Integrity Free from Pressure Injury Maintain/ Improve Wound Status Surgical Incisions Healing Progression Toward Outcome/Goals Progressing - Interdisciplinary Staff Present Assistant Buyer/Social Work Staff Present: Steffany Bowden LMSW Nursing Staff Present: Vlad Amaral RN OT Staff Present: Ciarra Menendez PT Staff Present: Damien Siegel Rec Therapy Staff Present: Tish Coronado COLLECTIONS MANAGER Staff Present: Shaun Moore Medicine Note: Length of Stay: 7 days Anticipated Discharge Destination: Home Tentative Discharge Date: 09/09/19 Discharged to: Home
[2019-09-02] MEDS: Nystatin CREAM* 15 GM TUBE TOPICAL SCH ×3 (13:58→23:08)
--- NOTE | 2019-09-02 16:34 | CONSULT ---
Subjective Date of Service: 09/02/19 Interval History: Mr. Arvizu is a 73 yo male with PMH significant for DM2, peripheral neuropathy , lymphedema, BPH, psoriasis, and infrafrontorial brain tumor; who presented to the hospital for an elective left total hip arthoplasty. He was admitted to [facility] for rehabilitation on August 29. During his acute hospital stay he was noted to have an area of blanchable erythema to the coccyx and a superficial open area to the right buttock documented as a skin tear. Later documented as bilateral buttock shearing injury. The wounds worsened while on [facility]. The Pt has been incontinent of stool. Patient seen and examined at bedside. Verbal consent for wound consultation and photograph. Family History: Unchanged from Admission Social History: Unchanged from Admission Past Medical History: Unchanged from Admission Review of Systems - Measurements Intake and Output: Intake and Output Last 24 Hours 08/31/19 09/01/19 09/02/19 09/03/19 06:59 06:59 06:59 06:59 Intake Total 960 1300 1070 420 Output Total 1375 1425 811 200 Balance -415 -125 259 220 Weight 259 lb 12.8 oz Intake: Oral 960 1300 1070 420 Output: Urine 1375 1425 810 200 # Incontinent Voids 1 Other: Estimated Void Large Medium # Bowel Movements 1 1 1 1 Estimated Stool Amount Large Medium Large Medium # Voids 1 1 2 1 - Review of Systems Constitutional Symptoms: Negative: Fever, Other - Chills Dermatology: Positive: Other - Open areas to buttocks Endocrinology: Positive: Obesity, Diabetes Mellitus Objective Active Medications: Acetaminophen (Tylenol Tab*) 650 mg PO Q6H PRN Reason: MILD PAIN or TEMP > 100.4 Apixaban (Eliquis*) 2.5 mg PO BID [facility] Atorvastatin Calcium (Lipitor*) 20 mg PO BEDTIME [facility] Dextrose (D50w Syringe 50 Ml*) 12.5 gm IV PUSH .FOR FS < 60 - SS PRN Reason: FS < 60 Docusate Sodium (Colace Cap*) 100 mg PO BID [facility] Doxycycline Hyclate (Doxycycline (Nf)) 20 mg PO BID@1100,1930 [facility] Gabapentin (Neurontin Cap(*)) 600 mg PO TID [facility] Glipizide (Glucotrol Tab*) 2.5 mg PO DAILY [facility] Insulin Human Lispro (Humalog*) 0 - 12 units SUBCUT ACHS [facility]ADA; Protocol Lisinopril (Prinivil Tab*) 2.5 mg PO DAILY [facility] Magnesium Hydroxide (Milk Of Magnesia Liq*) 30 ml PO Q6H PRN Reason: CONSTIPATION Metformin HCl (Glucophage*) 500 mg PO BID@0800,1700 [facility] Methocarbamol (Robaxin Tab*) 500 mg PO TID PRN Reason: SPASMS Nystatin (Nystatin Cream*) 1 applic TOPICAL BID [facility] Oxycodone/Acetaminophen (Percocet 5/325 Tab*) 1 tab PO Q4H PRN Reason: PAIN Potassium Citrate (Urocit-K 10 (Nf)) 20 meq PO TID [facility] Senna (Senokot 8.6 Mg Tab*) 2 tab PO BEDTIME [facility] Sitagliptin Phosphate (Januvia (Nf)) 50 mg PO BID@0800,1700 [facility] Tramadol HCl (Ultram*) 50 mg PO Q6H PRN Reason: PAIN - MILD Vital Signs 09/02/19 16:00 Temperature 97.9 F Pulse Rate 86 Respiratory 16 Rate Blood Pressure 115/64 (mmHg) O2 Sat by Pulse 99 Oximetry Oxygen Devices in Use Now: None Appearance: NAD, sitting up in a chair Ears/Nose/Mouth/Throat: Mucous Membranes Moist Respiratory: Symmetrical Chest Expansion and Respiratory Effort Skin: - - See skin note below Neurological: Alert and Oriented x 3 Nutrition: Taking PO's Result Diagrams: 09/01/19 04:54 09/01/19 04:54 Additional Lab and Data: Laboratory Tests 09/01/19 04:54 Total Protein 6.1 L Albumin 3.1 L Skin Deviation Note - Skin Deviation Findings Bilateral buttocks - There is a cluster of open areas to the left inner buttock , measures 4 cm x 1 cm x 0.2 cm. The wound base are 100% red granulation tissue. The surrounding skin is intact with scar tissue and purplish discoloration that is blanchable. There is scant serous drainage. The right inner buttock with a superficial open area, measures 3 cm x 1 cm x 0.1 cm. The wound base is 100% pink epithelial tissue. There is scant serous drainage. The surrounding skin is intact. There is no odor. There is a superficial open area to the midline cleft, measures 1 cm x 0.6 cm x 0.1 cm. The wound base is 100% pink epithelial tissue. There is scant serous drainage. Wound Problem/Plan Assessment: Mr. Arvizu is a 73 yo male with PMH significant for DM2, peripheral neuropathy , lymphedema, BPH, psoriasis, and infrafrontorial brain tumor; who presented to the hospital for an elective left total hip arthoplasty. He was admitted to [facility] for rehabilitation on August 29. During his acute hospital stay he was noted to have an area of blanchable erythema to the coccyx and then shearing injuries to bilateral buttocks. His wounds have continued to worsen during his stay. 1. Bilateral buttock open areas. Suspect these are multifactorial; pressure, friction, moisture associated skin breakdown, and shearing. Recommend providing incontinence care as needed. Frequent turning and repositioning. Do not sit up in a chair for longer than 2 hours at a time and use a Roho cushion while in a chair. Use barrier cream (orange top) to the open areas and barrier cream (blue top). When he is no longer incontinent of stool, can switch to a strip of hydrocolloid and cover with a semi-occlusive dressing and change every 5-7 days or as needed. Do NOT use a dressing until he is continent. Use a friction reduction device to move in bed and chair. Will add a prealbumin to the last labs. 2. DM2. HgA1C was 7.4 in October 2018. Maintain glycemic control to assist with wound healing. 3. Suspected malnutrition. Protein 6.1 and Albumin 3.1. Will check a prealbumin. 4. Obesity. BMI 37.3 5. Status post left total hip arthroplasty. On Eliquis for DVT prophylaxis, this may affect wound healing. 6. Nutrition. Consistent Carbohydrate diet. 7. Code Status. Full Code Status. 8. Disposition. Inpatient, disposition per team. TIME SPENT: Time for this wound consultation was 20 minutes and 10 minutes was spent with the patient discussing past medical condition; assessing, measuring, and photographing the wounds. Is Patient a Wound Clinic Patient: No - Not current, has seen the wound clinic in the past Attending: Yuko Noonan
[2019-09-02] MEDS ORDERED: Docusate CAP* 100 MG PO PRN (16:55)
[2019-09-02] MEDS ORDERED: Senna TAB 8.6 mg* TAB PO PRN (16:55)
--- NOTE | 2019-09-02 20:07 | PN ---
Progress Note Date of Service: 09/02/19 Note: MICHELLE WILSON was visited. Therapy notes read and reviewed. He was discussed in interdisciplinary team rounds. He has been doing much better. Had wound care consult; continue zinc oxide Current Medications: Active Medications Generic Name Dose Route Start Last Admin Trade Name Freq PRN Reason Stop Dose Admin Acetaminophen 650 mg 08/29/19 12:07 09/01/19 12:40 Tylenol Tab* PO 650 mg Q6H PRN Administration MILD PAIN or TEMP > 100.4 Apixaban 2.5 mg 08/29/19 21:00 09/02/19 09:34 Eliquis* PO 2.5 mg BID JADA Administration Atorvastatin Calcium 20 mg 08/29/19 21:00 09/01/19 21:27 Lipitor* PO 20 mg BEDTIME JADA Administration Dextrose 12.5 gm 08/29/19 12:14 D50w Syringe 50 Ml* IV PUSH .FOR FS < 60 - SS PRN FS < 60 Docusate Sodium 100 mg 09/02/19 16:55 Colace Cap* PO BID PRN CONSTIPATION Doxycycline Hyclate 20 mg 08/29/19 19:30 09/02/19 11:50 Doxycycline (Nf) PO 20 mg BID@1100,1930 JADA Administration Gabapentin 600 mg 08/29/19 14:00 09/02/19 13:59 Neurontin Cap(*) PO 600 mg TID JADA Administration Glipizide 2.5 mg 08/30/19 09:00 09/02/19 09:34 Glucotrol Tab* PO 2.5 mg DAILY JADA Administration Insulin Human Lispro 0 - 12 units 08/29/19 16:30 09/02/19 17:16 Humalog* SUBCUT Not Given ACHS [facility] Protocol Lisinopril 2.5 mg 09/01/19 09:00 09/02/19 09:33 Prinivil Tab* PO 2.5 mg DAILY JADA Administration Magnesium Hydroxide 30 ml 08/29/19 12:11 Milk Of Magnesia Liq* PO Q6H PRN CONSTIPATION Metformin HCl 500 mg 08/29/19 17:00 09/02/19 17:24 Glucophage* PO 500 mg BID@0800,1700 JADA Administration Methocarbamol 500 mg 08/31/19 21:00 Robaxin Tab* PO TID PRN SPASMS Nystatin 1 applic 08/30/19 21:00 09/02/19 13:58 Nystatin Cream* TOPICAL Not Given BID [facility] Oxycodone/Acetaminophen 1 tab 08/29/19 12:14 09/02/19 09:36 Percocet 5/325 Tab* PO 1 tab Q4H PRN Administration PAIN - MODERATE Potassium Citrate 20 meq 08/29/19 21:00 09/02/19 13:59 Urocit-K 10 (Nf) PO 20 meq TID JADA Administration Senna 2 tab 09/02/19 16:55 Senokot 8.6 Mg Tab* PO BEDTIME PRN CONSTIPATION Sitagliptin Phosphate 50 mg 08/29/19 17:00 09/02/19 17:24 Januvia (Nf) PO 50 mg BID@0800,1700 [facility] Administration Tramadol HCl 50 mg 08/29/19 12:15 09/02/19 04:01 Ultram* PO 50 mg Q6H PRN Administration PAIN - MILD Vital Signs: Vital Signs Temp Pulse Resp BP Pulse Ox 97.9 F 86 16 115/64 99 09/02/19 16:00 09/02/19 16:00 09/02/19 16:00 09/02/19 16:00 09/02/19 16:00 Lab Results: Laboratory Results - last 24 hr 09/01/19 09/01/19 09/02/19 04:54 20:23 07:55 Sodium 138 Potassium 4.5 Chloride 103 Carbon Dioxide 31 Anion Gap 4 BUN 17 Creatinine 0.83 Est GFR ( Amer) 109.9 Est GFR (Non-Af Amer) 90.8 BUN/Creatinine Ratio 20.5 H Glucose 167 H POC Glucose (mg/dL) 185 H 154 H Calcium 8.8 Total Bilirubin 0.60 AST 12 L ALT 17 Alkaline Phosphatase 51 Total Protein 6.1 L Albumin 3.1 L Globulin 3.0 Albumin/Globulin Ratio 1.0 Prealbumin 12 L 09/02/19 09/02/19 11:56 16:44 Sodium Potassium Chloride Carbon Dioxide Anion Gap BUN Creatinine Est GFR ( Amer) Est GFR (Non-Af Amer) BUN/Creatinine Ratio Glucose POC Glucose (mg/dL) 121 H 124 H Calcium Total Bilirubin AST ALT Alkaline Phosphatase Total Protein Albumin Globulin Albumin/Globulin Ratio Prealbumin Exam: GENERAL: No distress LUNGS: Clear bilaterally HEART: Regular rhythm ABDOMEN: Soft EXTREMITIES: Wound left hip C/D/I NEUROLOGIC: Alert. Muscle strength 5/5 except left leg due to pain SKIN: Small open areas over buttocks Assessment/Plan: 1. Left total hip replacement: WBAT. PT/OT 2. Diabetes: Glipizide/Glcophage/Januvia/SSI 3. Urinary Retention: was able to void 4. DPN: gabapentin 5. DVT Prophylaxis: Eliquis 6. Advance Directives: Full Code 7. Pressure Ulcer: Zinc oxide 8. Hypertension: Restarted Lisinopril 09/02/19 20:08
[2019-09-02] MEDS: Atorvastatin* 20 MG TAB PO SCH (21:18)
[2019-09-03] MEDS: Insulin LISPRO* 1 UNITS UNIT SUBCUT SCH ×4 (09:10→21:42)
[2019-09-03] MEDS: CMCS:Sitagliptin (NF) 50 MG TAB PO SCH (09:11)
[2019-09-03] MEDS: Apixaban* 2.5 MG TAB PO SCH ×2 (09:11→20:14)
[2019-09-03] MEDS: Gabapentin CAP(*) 300 MG PO SCH ×3 (09:12→20:14)
[2019-09-03] MEDS: glipiZIDE TAB* 5 MG PO SCH (09:14)
[2019-09-03] MEDS: Lisinopril TAB* 5 MG PO SCH (09:14)
[2019-09-03] MEDS: Nystatin CREAM* 15 GM TUBE TOPICAL SCH ×2 (09:15→21:54)
[2019-09-03] MEDS: metFORMIN* 500 MG TAB PO SCH ×2 (09:17→16:31)
[2019-09-03] MEDS: PTO:Potassium Citrate (NF) 10 MEQ TAB PO SCH ×3 (09:19→20:16)
[2019-09-03] MEDS: DOXYCYCLINE 20 MG PO SCH ×2 (11:56→20:13)
[2019-09-03] MEDS: SITAGLIPTIN 25 MG PO SCH (16:31)
[2019-09-03] MEDS: traMADol TAB* 50 MG PO PRN (16:35)
--- NOTE | 2019-09-03 20:13 | PN ---
Progress Note Date of Service: 09/03/19 Note: MICHELLE WILSON was visited. Therapy notes read and reviewed. He was able to go up the stairs with a little assistance. Will see if he is ready for discharge Sunday Current Medications: Active Medications Generic Name Dose Route Start Last Admin Trade Name Freq PRN Reason Stop Dose Admin Acetaminophen 650 mg 08/29/19 12:07 09/01/19 12:40 Tylenol Tab* PO 650 mg Q6H PRN Administration MILD PAIN or TEMP > 100.4 Apixaban 2.5 mg 08/29/19 21:00 09/03/19 09:11 Eliquis* PO 2.5 mg BID JADA Administration Atorvastatin Calcium 20 mg 08/29/19 21:00 09/02/19 21:18 Lipitor* PO 20 mg BEDTIME JADA Administration Dextrose 12.5 gm 08/29/19 12:14 D50w Syringe 50 Ml* IV PUSH .FOR FS < 60 - SS PRN FS < 60 Docusate Sodium 100 mg 09/02/19 16:55 Colace Cap* PO BID PRN CONSTIPATION Doxycycline Hyclate 20 mg 08/29/19 19:30 09/03/19 11:56 Doxycycline (Nf) PO 20 mg BID@1100,1930 JADA Administration Gabapentin 600 mg 08/29/19 14:00 09/03/19 15:11 Neurontin Cap(*) PO 600 mg TID JADA Administration Glipizide 2.5 mg 08/30/19 09:00 09/03/19 09:14 Glucotrol Tab* PO 2.5 mg DAILY JADA Administration Insulin Human Lispro 0 - 12 units 08/29/19 16:30 09/03/19 17:01 Humalog* SUBCUT 1 unit ACHS JADA Administration Protocol Lisinopril 2.5 mg 09/01/19 09:00 09/03/19 09:14 Prinivil Tab* PO 2.5 mg DAILY JADA Administration Magnesium Hydroxide 30 ml 08/29/19 12:11 Milk Of Magnesia Liq* PO Q6H PRN CONSTIPATION Metformin HCl 500 mg 08/29/19 17:00 09/03/19 16:31 Glucophage* PO 500 mg BID@0800,1700 JADA Administration Methocarbamol 500 mg 08/31/19 21:00 Robaxin Tab* PO TID PRN SPASMS Nystatin 1 applic 08/30/19 21:00 09/03/19 09:15 Nystatin Cream* TOPICAL 1 applic BID JADA Administration Oxycodone/Acetaminophen 1 tab 08/29/19 12:14 09/02/19 09:36 Percocet 5/325 Tab* PO 1 tab Q4H PRN Administration PAIN - MODERATE Potassium Citrate 20 meq 08/29/19 21:00 09/03/19 15:15 Urocit-K 10 (Nf) PO 20 meq TID JADA Administration Senna 2 tab 09/02/19 16:55 Senokot 8.6 Mg Tab* PO BEDTIME PRN CONSTIPATION Sitagliptin Phosphate 50 mg 09/03/19 17:00 09/03/19 16:31 Januvia (Nf) PO 50 mg BID@0800,1700 [facility] Administration Tramadol HCl 50 mg 08/29/19 12:15 09/03/19 16:35 Ultram* PO 50 mg Q6H PRN Administration PAIN - MILD Vital Signs: Vital Signs Temp Pulse Resp BP Pulse Ox 98.6 F 89 18 112/62 99 09/03/19 16:49 09/03/19 16:49 09/03/19 19:30 09/03/19 16:49 09/03/19 17:33 Lab Results: Laboratory Results - last 24 hr 09/02/19 09/03/19 09/03/19 20:18 07:53 12:00 POC Glucose (mg/dL) 249 H 167 H 97 09/03/19 16:34 POC Glucose (mg/dL) 145 H Exam: GENERAL: No distress LUNGS: Clear bilaterally HEART: Regular rhythm ABDOMEN: Soft EXTREMITIES: Wound left hip C/D/I NEUROLOGIC: Alert. Muscle strength 5/5 except left leg due to pain SKIN: Small open areas over buttocks Assessment/Plan: 1. Left total hip replacement: WBAT. PT/OT 2. Diabetes: Glipizide/Glcophage/Januvia/SSI 3. DPN: gabapentin 4. DVT Prophylaxis: Eliquis 5. Advance Directives: Full Code 6. Pressure Ulcer: Zinc oxide 7. Hypertension: Lisinopril 09/03/19 20:14
[2019-09-03] MEDS: Atorvastatin* 20 MG TAB PO SCH (20:14)
[2019-09-04] MEDS: traMADol TAB* 50 MG PO PRN ×2 (05:41→17:13)
[2019-09-04] MEDS: Insulin LISPRO* 1 UNITS UNIT SUBCUT SCH ×4 (10:11→21:41)
[2019-09-04] MEDS: metFORMIN* 500 MG TAB PO SCH ×2 (10:12→17:08)
[2019-09-04] MEDS: SITAGLIPTIN 25 MG PO SCH ×2 (10:15→17:08)
[2019-09-04] MEDS: Apixaban* 2.5 MG TAB PO SCH ×2 (10:15→20:12)
[2019-09-04] MEDS: Gabapentin CAP(*) 300 MG PO SCH ×3 (10:16→20:13)
[2019-09-04] MEDS: glipiZIDE TAB* 5 MG PO SCH (10:17)
[2019-09-04] MEDS: Lisinopril TAB* 5 MG PO SCH (10:18)
[2019-09-04] MEDS: PTO:Potassium Citrate (NF) 10 MEQ TAB PO SCH ×3 (10:19→20:12)
[2019-09-04] MEDS: Nystatin CREAM* 15 GM TUBE TOPICAL SCH ×2 (10:19→21:43)
[2019-09-04] MEDS: DOXYCYCLINE 20 MG PO SCH ×2 (12:48→20:14)
[2019-09-04] MEDS: Atorvastatin* 20 MG TAB PO SCH (20:13)
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
[2019-09-05] MEDS: glipiZIDE TAB* 5 MG PO SCH (08:15)
[2019-09-05] MEDS: metFORMIN* 500 MG TAB PO SCH ×2 (08:16→17:11)
[2019-09-05] MEDS: Apixaban* 2.5 MG TAB PO SCH ×2 (08:16→20:15)
[2019-09-05] MEDS: Lisinopril TAB* 5 MG PO SCH (08:16)
[2019-09-05] MEDS: traMADol TAB* 50 MG PO PRN ×2 (08:17→20:17)
[2019-09-05] MEDS: SITAGLIPTIN 25 MG PO SCH ×2 (08:17→17:11)
[2019-09-05] MEDS: Gabapentin CAP(*) 300 MG PO SCH ×3 (08:18→20:17)
[2019-09-05] MEDS: Insulin LISPRO* 1 UNITS UNIT SUBCUT SCH ×4 (08:19→21:15)
[2019-09-05] MEDS: PTO:Potassium Citrate (NF) 10 MEQ TAB PO SCH ×3 (08:21→20:18)
[2019-09-05] MEDS: Nystatin CREAM* 15 GM TUBE TOPICAL SCH ×2 (10:30→20:20)
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
[2019-09-05] MEDS: DOXYCYCLINE 20 MG PO SCH ×2 (11:20→20:16)
[2019-09-05] MEDS: Atorvastatin* 20 MG TAB PO SCH (20:15)
[2019-09-06 06:02] VITALS: BP 109/59
[2019-09-06] MEDS: metFORMIN* 500 MG TAB PO SCH (08:06)
[2019-09-06] MEDS: SITAGLIPTIN 25 MG PO SCH (08:06)
[2019-09-06] MEDS: Insulin LISPRO* 1 UNITS UNIT SUBCUT SCH ×2 (08:07→12:08)
--- NOTE | 2019-09-06 09:32 | PN ---
Progress Note Date of Service: 09/06/19 Note: MICHELLE WILSON was visited. Nursing and therapy notes read and reviewed. He and his had questions about follow-up and medications. All questions answered. No chest pain, shortness of breath or abdominal pain. He is eager to go home. Current Medications: Active Medications Generic Name Dose Route Start Last Admin Trade Name Freq PRN Reason Stop Dose Admin Acetaminophen 650 mg 08/29/19 12:07 09/01/19 12:40 Tylenol Tab* PO 650 mg Q6H PRN Administration MILD PAIN or TEMP > 100.4 Apixaban 2.5 mg 08/29/19 21:00 09/05/19 20:15 Eliquis* PO 2.5 mg BID JADA Administration Atorvastatin Calcium 20 mg 08/29/19 21:00 09/05/19 20:15 Lipitor* PO 20 mg BEDTIME JADA Administration Dextrose 12.5 gm 08/29/19 12:14 D50w Syringe 50 Ml* IV PUSH .FOR FS < 60 - SS PRN FS < 60 Docusate Sodium 100 mg 09/02/19 16:55 Colace Cap* PO BID PRN CONSTIPATION Doxycycline Hyclate 20 mg 08/29/19 19:30 09/05/19 20:16 Doxycycline (Nf) PO 20 mg BID@1100,1930 JADA Administration Gabapentin 600 mg 08/29/19 14:00 09/05/19 20:17 Neurontin Cap(*) PO 600 mg TID JADA Administration Glipizide 2.5 mg 08/30/19 09:00 09/05/19 08:15 Glucotrol Tab* PO 2.5 mg DAILY JADA Administration Insulin Human Lispro 0 - 12 units 08/29/19 16:30 09/06/19 08:07 Humalog* SUBCUT 2 unit ACHS JADA Administration Protocol Lisinopril 2.5 mg 09/01/19 09:00 09/05/19 08:16 Prinivil Tab* PO 2.5 mg DAILY JADA Administration Magnesium Hydroxide 30 ml 08/29/19 12:11 Milk Of Magnesia Liq* PO Q6H PRN CONSTIPATION Metformin HCl 500 mg 08/29/19 17:00 09/06/19 08:06 Glucophage* PO 500 mg BID@0800,1700 JADA Administration Methocarbamol 500 mg 08/31/19 21:00 Robaxin Tab* PO TID PRN SPASMS Nystatin 1 applic 08/30/19 21:00 09/05/19 20:20 Nystatin Cream* TOPICAL 1 applic BID JADA Administration Potassium Citrate 20 meq 08/29/19 21:00 09/05/19 20:18 Urocit-K 10 (Nf) PO 20 meq TID JADA Administration Senna 2 tab 09/02/19 16:55 Senokot 8.6 Mg Tab* PO BEDTIME PRN CONSTIPATION Sitagliptin Phosphate 50 mg 09/03/19 17:00 09/06/19 08:06 Januvia (Nf) PO 50 mg BID@0800,1700 JADA Administration Tramadol HCl 50 mg 08/29/19 12:15 09/05/19 20:17 Ultram* PO 50 mg Q6H PRN Administration PAIN - MILD Vital Signs: Vital Signs Temp Pulse Resp BP Pulse Ox 98.8 F 88 18 109/59 93 09/06/19 05:32 09/06/19 05:32 09/06/19 05:32 09/06/19 05:32 09/06/19 05:32 Lab Results: Laboratory Results - last 24 hr 09/05/19 09/05/19 09/05/19 11:24 16:20 20:22 POC Glucose (mg/dL) 121 H 133 H 205 H 09/06/19 07:50 POC Glucose (mg/dL) 153 H Exam: GENERAL: No acute distress LUNGS: Clear to auscultation bilaterally HEART: Regular rate and rhythm ABDOMEN: + bowel sounds, soft, non-tender, non-distended EXTREMITIES: Wound left hip C/D/I glued NEUROLOGIC: Motor testing 5/5 BLE except limited testing of left hip and knee secondary to some pain. Light touch sensation intact in BLE. Assessment/Plan: 1. Left total hip replacement: WBAT. PT/OT 2. Diabetes: Glipizide/Glcophage/Januvia/SSI 3. Diabetic peripheral neuropathy and lumbar stenosis s/p decompression: gabapentin 4. DVT Prophylaxis: Eliquis 5. Advance Directives: Full Code 6. Pressure Ulcer due to incontinence: Zinc oxide, timed voids to keep dry 7. Hypertension: Lisinopril 8. Disposition: d/c home today 09/06/19 09:32
[2019-09-06] MEDS: Lisinopril TAB* 5 MG PO SCH (09:56)
[2019-09-06] MEDS: glipiZIDE TAB* 5 MG PO SCH (09:57)
[2019-09-06] MEDS: Gabapentin CAP(*) 300 MG PO SCH (09:58)
[2019-09-06] MEDS: Apixaban* 2.5 MG TAB PO SCH (09:58)
[2019-09-06] MEDS: PTO:Potassium Citrate (NF) 10 MEQ TAB PO SCH (09:59)
[2019-09-06] MEDS: Nystatin CREAM* 15 GM TUBE TOPICAL SCH (09:59)
--- NOTE | 2019-09-06 11:43 | DS ---
CC: Dr. Anderson; Dr. Tavera REHABILITATION DISCHARGE: DATE OF ADMISSION: 08/29/19 DATE OF DISCHARGE: 09/06/19 PRIMARY CARE PROVIDER: Dr. Anderson ORTHOPEDIC SURGEON: Dr. Tavera REASON FOR ADMISSION: Left total hip replacement. HISTORY OF PRESENT ILLNESS: For full details of his acute hospitalization leading up to his admission, please see the note dictated by Dr. Mott on . Briefly, this is a 73-year-old man with diabetic peripheral neuropathy and chronic pain related to lumbar stenosis, who previously had his right total hip replaced by Dr. Tavera in 2018 and elected to have his left total hip replaced due to osteoarthritis with Dr. Tavera on 08/26/19. He was started on Eliquis for DVT prophylaxis postoperatively. REHABILITATION COURSE: During his time on PMRU, he remained on Eliquis for DVT prophylaxis without any complications. He received glipizide for his diabetes and we did not have his home medicine of Janumet. He will resume this at discharge. He was covered with sliding scale insulin. He has had urinary incontinence and noted to have buttock sores related to incontinence or maceration. He was seen by the nurse practitioner in the wound clinic and advised to use zinc oxide and barrier creams until his skin is closed. He is to do timed voids to keep the area as dry as possible. His assists him as needed. He participated well with physical therapy. At the time of discharge he requires a moderate amount of assistance for bed mobility. He is independent transferring and ambulating with a rolling walker. For stairs, he required supervision with 1 rail up and down a flight of stairs. His was trained in assisting him. He is to always use the walker and keep his hands on the walker. With occupational therapy, he has been independent eating. He requires assistance to wash his feet and should complete a shower seated in a chair. He is independent dressing his upper body. He uses adaptive equipment for lower body dressing and requires occasional assistance of his . He is independent toileting with a walker. He requires assistance with home management tasks. He has total hip precautions on the left side, which he has been able to independently recall. DISCHARGE MEDICATIONS: 1. Eliquis 2.5 mg b.i.d. 2. Atorvastatin 20 mg q.h.s. 3. Doxycycline 20 mg b.i.d. 4. Gabapentin 600 mg t.i.d. 5. Glipizide-XL 2.5 mg q.a.m. 6. Lisinopril 2.5 mg daily. 7. Methocarbamol 500 mg t.i.d. p.r.n. 8. Potassium citrate 20 mEq t.i.d. 9. Tramadol 50 mg q.6 hours p.r.n. pain. 10. Janumet 50/500 1 tablet b.i.d. DISCHARGE FOLLOWUP: 1. A referral has been sent to visiting nurse services for nursing, physical therapy, occupational therapy, home health aide, and social work as needed. 2. He is to follow up with Dr. Tavera next week. 3. Follow up with Dr. Anderson in 1 to 2 weeks. DISCHARGE CONDITION: Fair. DISCHARGE DISPOSITION: Home with 's support. DISCHARGE DIAGNOSES: 1. Status post left total hip replacement secondary to osteoarthritis. 2. Diabetes mellitus with peripheral neuropathy. 3. Status post lumbar decompression for lumbar stenosis. 4. Psoriasis. 5. History of pressure ulcers. 6. Skin breakdown secondary to urinary incontinence. 7. Lymphedema. 8. Zavala's palsy. 9. Hypertension. 10. Hyperlipidemia. [id number]/[facility] #: [id number] MTDD
[2019-09-06] MEDS: DOXYCYCLINE 20 MG PO SCH (12:07)
== END 2019-09-06 11:00 | disposition home health service (06) | DRG 561 ==
LOC: PMRU 10:47
PROVIDERS: ADMIT Physical Medicine & Rehabilitation; ATTEND Physical Medicine & Rehabilitation
PROC: F07Z5ZZ Bed Mobility Treatment (ICD-10-PCS; principal; 2019-08-29)
PROC: F07Z8ZZ Transfer Training Treatment (ICD-10-PCS; 2019-08-29)
PROC: F07Z9ZZ Gait Training/Functional Ambulation Treatment (ICD-10-PCS; 2019-08-29)
PROC: F08Z0ZZ Bathing/Showering Techniques Treatment (ICD-10-PCS; 2019-08-29)
PROC: F08Z1FZ Dressing Techniques Treatment using Assistive, Adaptive, Supportive or Protective Equipment (ICD-10-PCS; 2019-08-29)
PROC: F08Z3ZZ Feeding/Eating Treatment (ICD-10-PCS; 2019-08-29)
PROC: F08Z2ZZ Grooming/Personal Hygiene Treatment (ICD-10-PCS; 2019-08-29)
DX: Z47.1 Aftercare following joint replacement surgery (principal); L89.329 Pressure ulcer of left buttock, unspecified stage; L89.319 Pressure ulcer of right buttock, unspecified stage; E11.42 Type 2 diabetes mellitus with diabetic polyneuropathy; G89.29 Other chronic pain; L40.9 Psoriasis, unspecified; I89.0 Lymphedema, not elsewhere classified; G51.0 Bell's palsy; I10 Essential (primary) hypertension; E78.5 Hyperlipidemia, unspecified; N40.1 Benign prostatic hyperplasia with lower urinary tract symptoms; N39.498 Other specified urinary incontinence; Z96.643 Presence of artificial hip joint, bilateral; R33.8 Other retention of urine; Z79.84 Long term (current) use of oral hypoglycemic drugs; Z79.899 Other long term (current) drug therapy
CPT/HCPCS: 36415; 80053; 84134; 85025; A9270-GY

== ENCOUNTER 2020-11-02 16:57 | Observation (INO) ==
[2020-11-02] MEDS ORDERED: NS 0.9% 1000 ml BAG 1,000 ML IV ONE (17:11)
[2020-11-02 17:48] LABS: ABS Lymphocytes 1.2 10^3/ul (1.0-4.8); ABS Monocytes 1.3 10^3/ul (0-0.8); ABS Neutrophils 7.1 10^3/ul (1.5-7.7); Eosinophil % 0.5 %; Hematocrit 43 % (42-52); Hemoglobin 14.7 g/dL (14.0-18.0); Lymphocyte % 12.3 %; Mean Corpuscular HGB Conc 34 g/dL (31-36); Mean Corpuscular Hemoglobin 31 pg (27-31); Mean Corpuscular Volume 91 fL (80-94); Mean Platelet Volume 7.6 fL (7.4-10.4); Platelet Count 170 10^3/uL (150-450); Red Blood Count 4.75 10^6 /uL (4.18-5.48); Red Cell Distribution Width 14 % (10-15); White Blood Count 9.7 10^3/uL (3.5-10.8)
[2020-11-02 17:57] LABS: Activated Partial Thrombo Time 27.7 seconds (26.0-38.0); INR 1.23 (0.82-1.09)
[2020-11-02 18:03] LABS: Urine Appearance Clear; Urine Bilirubin Negative (Negative); Urine Blood 2+ (Negative); Urine Color Yellow; Urine Glucose Negative (Negative); Urine Ketones 1+ (Negative); Urine Nitrite Negative (Negative); Urine Protein 1+(30 mg/dL) (Negative); Urine Specific Gravity 1.017 (1.002-1.030); Urine Urobilinogen Negative (Negative)
[2020-11-02 18:06] LABS: ALT 15 U/L (7-52); AST 11 U/L (13-39); Albumin 4.3 g/dL (3.2-5.2); Albumin/Globulin Ratio 1.2 (1-3); Alkaline Phosphatase 72 U/L (34-104); Anion Gap 8 mmol/L (2-11); Blood Urea Nitrogen 23 mg/dL (6-24); CO2 Carbon Dioxide 26 mmol/L (22-32); Calcium 9.6 mg/dL (8.6-10.3); Chloride 100 mmol/L (101-111); Cholesterol 127 mg/dL; EGFR African American 49.8 (>60); EGFR Non-African American 41.2 (>60); Globulin 3.6 g/dL (2-4); Glucose 174 mg/dL (70-100); HDL Cholesterol 53.2 mg/dL; LDL Cholesterol 57 mg/dL; Potassium 4.3 mmol/L (3.5-5.0); Sodium 134 mmol/L (135-145); Total Protein 7.9 g/dL (6.4-8.9); Triglycerides 84 mg/dL
[2020-11-02 18:09] LABS: Troponin I 0.05 ng/mL (<0.03)
[2020-11-02 18:15] LABS: Urine Bacteria Absent (Absent); Urine Red Blood Cell 1+(3-5/hpf) (Absent); Urine White Blood Cell Trace(0-5/hpf) (Absent)
[2020-11-02] MEDS ORDERED: Iodixanol (CONTRAST) 320 MG/ML 100 ML SDV IV ONE (18:32)
[2020-11-02] MEDS ORDERED: Dextrose 50% Syringe 50 ml 25 GM/50 ML SYRINGE IV PUSH PRN (22:24)
[2020-11-03] MEDS: Heparin 5000 UNITS/ML 1 mL VIAL SUBCUT SCH ×2 (07:21→15:05)
[2020-11-03 07:52] LABS: BUN/Creatinine Ratio 15.4 (8-20); Calcium 9.1 mg/dL (8.6-10.3); EGFR African American 52.8 (>60); EGFR Non-African American 43.6 (>60)
[2020-11-03] MEDS ORDERED: Aspirin EC 81 mg TAB.EC (enteric coated) PO SCH (09:00)
[2020-11-03] MEDS ORDERED: Calcium Polycarbophil 625mg TB PO SCH (09:00)
[2020-11-03] MEDS ORDERED: Gadoteridol (CONTRAST) 279.3 MG/ML 10 ML IV SCH (10:50)
[2020-11-03 19:33] VITALS: BP 107/70
== END 2020-11-03 18:45 | disposition home or self-care (01) ==
LOC: ED 16:57 → MEDTELE 16:57
PROVIDERS: ADMIT Internal Medicine; ATTEND Student in an Organized Health Care Education/Training Program

== ENCOUNTER 2021-08-30 22:08 | Observation (INO) ==
[2021-08-30 22:41] LABS: ABS Lymphocytes 0.2 10^3/ul (1.0-4.8); ABS Monocytes 0.4 10^3/ul (0-0.8); ABS Neutrophils 5.4 10^3/ul (1.5-7.7); Eosinophil % 0.4 %; Hematocrit 44 % (42-52); Hemoglobin 14.4 g/dL (14.0-18.0); Lymphocyte % 3.5 %; Mean Corpuscular HGB Conc 33 g/dL (31-36); Mean Corpuscular Hemoglobin 30 pg (27-31); Mean Corpuscular Volume 92 fL (80-94); Mean Platelet Volume 7.6 fL (7.4-10.4); Platelet Count 163 10^3/uL (150-450); Red Blood Count 4.76 10^6 /uL (4.18-5.48); Red Cell Distribution Width 14 % (10-15)
[2021-08-30 22:57] LABS: INR 1.18 (0.86-1.15)
[2021-08-30 22:59] LABS: ALT 17 U/L (7-52); AST 13 U/L (13-39); Albumin 4.1 g/dL (3.2-5.2); Albumin/Globulin Ratio 1.2 (1-3); Alkaline Phosphatase 68 U/L (35-149); Anion Gap 4 mmol/L (2-11); Blood Urea Nitrogen 35 mg/dL (6-24); CO2 Carbon Dioxide 27 mmol/L (22-32); Calcium 8.9 mg/dL (8.6-10.3); Chloride 104 mmol/L (101-111); Creatine Kinase 104 U/L (10-223); Globulin 3.3 g/dL (2-4); Glucose 152 mg/dL (70-100); Magnesium 1.8 mg/dL (1.9-2.7); Sodium 135 mmol/L (135-145); Total Protein 7.4 g/dL (6.4-8.9); eGFR CKD-EPI 41.8 (>60)
[2021-08-30 23:04] LABS: Alcohol, S < 13 mg/dL (<13); Salicylate < 2.50 mg/dL (<30)
[2021-08-30 23:10] LABS: Acetaminophen < 15 mcg/mL
[2021-08-30 23:19] LABS: TSH Ultra Thyroid Stim Horm 1.59 mcIU/mL (0.34-5.60)
[2021-08-30 23:51] LABS: Urine Appearance Clear; Urine Bilirubin Negative (Negative); Urine Blood Negative (Negative); Urine Color Yellow; Urine Glucose Negative (Negative); Urine Ketones Negative (Negative); Urine Nitrite Negative (Negative); Urine Protein Negative (Negative); Urine Specific Gravity 1.016 (1.002-1.030); Urine Urobilinogen Negative (Negative)
[2021-08-31 00:04] LABS: Urine Benzodiazepine Screen None Detected (None Detect); Urine Cannabinoids Screen None Detected (None Detect); Urine Opiates Screen None Detected (None Detect)
[2021-08-31] MEDS ORDERED: NS 0.9% 500 ml BAG 500 ML IV ONE (00:24)
[2021-08-31] MEDS ORDERED: Lactated Ringers 500 ml BAG 500 ML IV SCH (06:00)
[2021-08-31 06:09] LABS: Hematocrit 42 % (42-52); Hemoglobin 13.7 g/dL (14.0-18.0); Mean Corpuscular HGB Conc 33 g/dL (31-36); Mean Corpuscular Hemoglobin 30 pg (27-31); Mean Corpuscular Volume 92 fL (80-94); Mean Platelet Volume 7.7 fL (7.4-10.4); Platelet Count 155 10^3/uL (150-450); Red Blood Count 4.56 10^6 /uL (4.18-5.48); Red Cell Distribution Width 14 % (10-15); White Blood Count 4.7 10^3/uL (3.5-10.8)
[2021-08-31 06:12] LABS: Calcium 8.7 mg/dL (8.6-10.3); Magnesium 1.8 mg/dL (1.9-2.7)
[2021-08-31 06:18] LABS: eGFR CKD-EPI 45.3 (>60)
[2021-08-31 06:28] LABS: Rapid COVID-19 Molecular Undetected (Undetected)
[2021-08-31] MEDS: Enoxaparin 40 MG/0.4 ML SYR SUBCUT SCH (08:10)
[2021-08-31] MEDS: Aspirin EC 81 mg TAB.EC (enteric coated) PO SCH (08:11)
[2021-08-31] MEDS: Potassium Chlor 20 meq TAB.ER PO SCH ×3 (09:48→20:52)
[2021-09-01] MEDS: Enoxaparin 40 MG/0.4 ML SYR SUBCUT SCH (09:48)
[2021-09-01] MEDS: Potassium Chlor 20 meq TAB.ER PO SCH ×3 (09:48→20:25)
[2021-09-01] MEDS: Aspirin EC 81 mg TAB.EC (enteric coated) PO SCH (09:48)
[2021-09-01] MEDS ORDERED: Cyanocobalamin INJ 1,000 MCG/ML VIAL 1 ML VIAL IM ONE (15:23)
[2021-09-02] MEDS: Aspirin EC 81 mg TAB.EC (enteric coated) PO SCH (07:48)
[2021-09-02] MEDS: Potassium Chlor 20 meq TAB.ER PO SCH ×2 (07:48→14:34)
[2021-09-02] MEDS: Enoxaparin 40 MG/0.4 ML SYR SUBCUT SCH (07:49)
[2021-09-02 11:04] VITALS: BP 118/67
== END 2021-09-02 14:50 | disposition home or self-care (01) ==
LOC: ED 22:08 → EDHOLD 22:08 → SUATTDRO 08-31 08:57 → EDHOLD 08-31 09:00 → MED 08-31 10:51
PROVIDERS: ADMIT Hospitalist; ATTEND Internal Medicine